=== PATIENT | male | born 1930 | race African-American/Black ===

== ENCOUNTER 2017-07-13 12:26 | Inpatient (IN) | payer MEDICARE, OTHER ==
[~2017-07-13] VITALS: Ht 180.3 cm; Wt 68.7 kg
[~2017-07-13 12:26] MED LIST: DIABETIC MEDS; HTN meds; UNOBMED
[2017-07-13 12:27] VITALS: BP 156/84
--- NOTE | 2017-07-13 12:40 | Emergency Room Report ---
History of Present Illness General Chief Complaint: Altered Mental Status Source: Patient, Family Member, EMS Present Illness HPI Patient is brought in for increased combativeness and altered mentation. The patient states that he is not angry at anyone and denies any pain anyplace. He has trouble with his memory. No alleged fever, vomiting, constipation. He denies dysuria, though unsure if understands questions. H/O DM, HTN, dementia, CAD with prior IN and caths Allergies: Coded Allergies: No Known Allergies (Verified , 02/21/09) Patient History Limited by: medical condition Past Medical History: see triage record, old chart reviewed Social History: Denies: smoking - former Social History Narrative SNF - born [place] Reviewed Nursing Documentation: PMH: Agreed; PSxH: Agreed Nursing Documentation-PMH Past Medical History: No History, Except For Hx Cardiac Problems: Yes Hx Hypertension: Yes Hx Diabetes: Yes Hx Neurological Problems: Yes - Dementia Review of Systems All Other Systems: limited Physical Exam Vital Signs Date Time Temp Pulse Resp B/P (MAP) Pulse Ox O2 Delivery O2 Flow Rate FiO2 07/13/17 12:27 97.1 69 16 156/72 94 Room Air 97.2 Sp02 EP Interpretation: reviewed, abnormal - interpreted as slightly low by me General Appearance: no apparent distress, alert Head: normocephalic Eyes: bilateral eye PERRL, bilateral eye other - severe conjunctivitis and laxity bilateral eyes ENT: moist mucus membranes Neck: supple Respiratory: lungs clear, normal breath sounds Cardiovascular #1: regular rate, rhythm Cardiovascular #2: 2+ radial (R) Gastrointestinal: normal inspection, normal bowel sounds, non tender, no mass, non-distended Musculoskeletal: back normal, no calf tenderness Neurologic: alert, bale coverer III-XII nml as tested, motor weakness - LE - moves UE without difficulty, oriented - X1 Psychiatric: depressed affect, other - poor memory Skin: warm/dry, other - stage 2 decubitus sacrum Medical Decision Making Diagnostic Impression: Primary Impression: Altered mental status Qualified Codes: R41.82 - Altered mental status, unspecified Additional Impressions: Dehydration UTI (urinary tract infection) Qualified Codes: N30.00 - Acute cystitis without hematuria Renal insufficiency ER Course Patient presents with altered mental status. Differential includes acute stroke , acute myocardial infarction, occult infection, electrolyte abnormality, hepatic encephalopathy amongst others. The fact he has asterixis makes the ladder more likely. The patient will be evaluated with EKG, CT of the head, chest x-ray, labs. The patient will be treated with IV hydration and observation. EKG without injury. CXR no infiltrates. CT chronic changes. Labs with renal insufficiency and normal WBC. Pyuria. Antibiotics begun. Some improvement with hydration. Discussed findings with family. Admit medical floor, Dr. Diaz. Laboratory Tests Test 07/13/17 12:55 07/13/17 13:50 White Blood Count 4.4 K/UL (4.8-10.8) L Red Blood Count 4.79 M/UL (4.70-6.10) Hemoglobin 13.3 G/DL (14.2-18.0) L Hematocrit 42.6 % (42.0-52.0) Mean Corpuscular Volume 89 FL (80-99) Mean Corpuscular Hemoglobin 27.7 PG (27.0-31.0) Mean Corpuscular Hemoglobin Concent 31.2 G/DL (32.0-36.0) L Red Cell Distribution Width 14.8 % (11.6-14.8) Platelet Count 149 K/UL (150-450) L Mean Platelet Volume 8.1 FL (6.5-10.1) Neutrophils (%) (Auto) 65.7 % (45.0-75.0) Lymphocytes (%) (Auto) 23.5 % (20.0-45.0) Monocytes (%) (Auto) 8.6 % (1.0-10.0) Eosinophils (%) (Auto) 1.2 % (0.0-3.0) Basophils (%) (Auto) 1.0 % (0.0-2.0) Sodium Level 147 MMOL/L (136-145) H Potassium Level 3.5 MMOL/L (3.5-5.1) Chloride Level 108 MMOL/L (98-107) H Carbon Dioxide Level 30 MMOL/L (21-32) Anion Gap 9 mmol/L (5-15) Blood Urea Nitrogen 36 mg/dL (7-18) H Creatinine 1.7 MG/DL (0.55-1.30) H Estimate Glomerular Filtration Rate mL/min (>60) Glucose Level 328 MG/DL (74-106) H Calcium Level 10.0 MG/DL (8.5-10.1) Total Bilirubin 0.3 MG/DL (0.2-1.0) Aspartate Amino Transferase (AST) 29 U/L (15-37) Alanine Aminotransferase (ALT) 22 U/L (12-78) Alkaline Phosphatase 101 U/L (46-116) Ammonia 18 umol/L (11-32) Total Creatine Kinase 126 U/L (26-308) Troponin I 0.027 ng/mL (0.000-0.056) Total Protein 6.9 G/DL (6.4-8.2) Albumin 3.0 G/DL (3.4-5.0) L Globulin 3.9 g/dL Albumin/Globulin Ratio 0.8 (1.0-2.7) L Thyroid Stimulating Hormone (TSH) 4.326 uiU/mL (0.358-3.740) Salicylates Level 1.7 ug/mL (2.8-20) L Acetaminophen Level < 2 MCG/ML (10-30) L Serum Alcohol < 3 mg/dL Urine Color Pale yellow Urine Appearance Clear Urine pH 6 (4.5-8.0) Urine Specific [place] 1.015 (1.005-1.035) Urine Protein 3+ (NEGATIVE) H Urine Glucose (UA) 3+ (NEGATIVE) H Urine Ketones Negative (NEGATIVE) Urine Occult Blood 1+ (NEGATIVE) H Urine Nitrite Negative (NEGATIVE) Urine Bilirubin Negative (NEGATIVE) Urine Urobilinogen Normal MG/DL (0.0-1.0) Urine Leukocyte Esterase Negative (NEGATIVE) Urine RBC 2-4 /HPF (0 - 0) H Urine WBC 5-10 /HPF (0 - 0) H Urine Squamous Epithelial Cells Occasional /LPF Urine Bacteria Occasional /HPF (NONE) Urine Hyaline Casts 0-2 /LPF (NONE) H Urine Fine Granular Casts 0-2 /LPF (NONE) H Urine Opiates Screen Negative (NEGATIVE) Urine Barbiturates Screen Negative (NEGATIVE) Phencyclidine (PCP) Screen Negative (NEGATIVE) Urine Amphetamines Screen Negative (NEGATIVE) Urine Benzodiazepines Screen Negative (NEGATIVE) Urine Cocaine Screen Negative (NEGATIVE) Urine Marijuana (THC) Screen Negative (NEGATIVE) EKG Diagnostic Results Rate: bradycardiac Rhythm: NSR ST Segments: no acute changes Rhythm Strip Diag. Results EP Interpretation: yes Rhythm: other - Bradycardia 59. PVCs, but bundle-branch block left anterior superior hemiblock. Chest X-Ray Diagnostic Results Chest X-Ray Diagnostic Results : Chest X-Ray Ordered: Yes # of Views/Limited/Complete: 1 View Indication: Other EP Interpretation: Yes Interpretation: no effusion, no pneumothorax, other - inc cor with inc thornton Impression: Other Electronically Signed by: Electronically signed by Osmani Herrmann MD CT/MRI/US Diagnostic Results CT/MRI/US Diagnostic Results : Imaging Test Ordered: head Impression atrophy Last Vital Signs Date Time Temp Pulse Resp B/P (MAP) Pulse Ox O2 Delivery O2 Flow Rate FiO2 07/13/17 20:00 96.4 52 20 147/69 96 96.4 07/13/17 14:21 Room Air Status: improved Disposition: ADMITTED INPATIENT Condition: Serious Osmani Herrmann M.D. July 13, 2017 12:40
[2017-07-13 13:35] LABS: EOSINOPHILS % (AUTO) 1.2 % (0.0-3.0); HEMATOCRIT 42.6 % (42.0-52.0); HEMOGLOBIN 13.3 G/DL (14.2-18.0); LYMPHOCYTES % (AUTO) 23.5 % (20.0-45.0); MEAN CORPUSCULAR VOLUME 89 FL (80-99); MONOCYTES % (AUTO) 8.6 % (1.0-10.0); NEUTROPHILS % (AUTO) 65.7 % (45.0-75.0); PLATELET COUNT 149 K/UL (150-450); RED BLOOD COUNT 4.79 M/UL (4.70-6.10); RED CELL DISTRIBUTION WIDTH 14.8 % (11.6-14.8); WHITE BLOOD COUNT 4.4 K/UL (4.8-10.8)
[2017-07-13] MEDS ORDERED: ASCORBIC ACID500 MG ORAL (13:46)
[2017-07-13] MEDS ORDERED: ATORVASTATIN CA20 MG ORAL (13:46)
[2017-07-13] MEDS ORDERED: ASPIR 8181 MG ORAL (13:46)
[2017-07-13] MEDS ORDERED: ARTIFICIAL TEAR15 ML BOTH EYES (13:46)
[2017-07-13] MEDS ORDERED: ALLOPURINOL100 M1 ORAL (13:46)
[2017-07-13] MEDS ORDERED: DIVALPROEX SOD250 M1 PO (13:47)
[2017-07-13] MEDS ORDERED: COLACE100 MG ORAL (13:47)
[2017-07-13] MEDS ORDERED: COUMADIN4 MG ORAL (13:47)
[2017-07-13] MEDS ORDERED: CALMOSEPTINE1 APPLIC TOPIC (13:47)
[2017-07-13] MEDS ORDERED: MULTIVITAMINS1 EAC8 ORAL (13:51)
[2017-07-13] MEDS ORDERED: FUROSEMIDE40 MG ORAL (13:51)
[2017-07-13] MEDS ORDERED: DULCOLAX10 MG RC (13:51)
[2017-07-13] MEDS ORDERED: MELATONIN3 M2 PO (13:51)
[2017-07-13] MEDS ORDERED: MIRALAX17 G2 ORAL (13:51)
[2017-07-13] MEDS ORDERED: GLIPIZIDE5 MG ORAL (13:51)
--- NOTE | 2017-07-13 13:51 | Diagnostic Imaging Report ---
Indication: Altered level of consciousness Technique: Contiguous 5 mm thick transaxial imaging of the head obtained in a Siemens Sensation [address] scanner. Soft tissue and bone windows generated. Automatic Exposure Control was utilized. Total Dose length Product (DLP): 1446.[address] Dose Index Volume (CTDIvol): 70.38 mGy Comparison: 02/21/2009 Findings: There is mild prominence of the ventricles, basal cisterns, and cerebral sulci consistent with atrophy. Mild, nonspecific, white matter hypoattenuation is noted throughout the brain consistent with chronic small vessel disease. There is no midline shift, edema, acute hemorrhage, mass effect, or abnormal extra-axial fluid collections. Bones and extra osseous soft tissues are unremarkable. Impression: No acute intracranial bleed, mass effect or edema. Mild atrophy of the brain. Nonspecific white matter hypoattenuation probably due to chronic small vessel disease. The CT scanner at [facility] is accredited by the [employer] and the scans are performed using dose optimization techniques as appropriate to a performed exam including Automatic Exposure control.
[2017-07-13] MEDS ORDERED: NAPHCON-A EYE D15 ML OP (13:53)
[2017-07-13] MEDS ORDERED: MILK OF MA400 MG/51 ORAL (13:53)
[2017-07-13] MEDS ORDERED: NOVOLOG100 UNIT/3 SUBQ (13:53)
[2017-07-13] MEDS ORDERED: SEROQUEL25 MG ORAL ×2 (13:53→13:55)
[2017-07-13] MEDS ORDERED: FLOMAX0.4 MG ORAL (13:55)
[2017-07-13] MEDS ORDERED: VITAMIN D-32000 UNI1 PO (13:55)
[2017-07-13] MEDS ORDERED: A & D OINT1 APPLI1 TP (13:55)
[2017-07-13 14:04] LABS: ANION GAP 9 mmol/L (5-15); BLOOD UREA NITROGEN 36 mg/dL (7-18); CARBON DIOXIDE 30 MMOL/L (21-32); CHLORIDE 108 MMOL/L (98-107); CREATININE 1.7 MG/DL (0.55-1.30); POTASSIUM 3.5 MMOL/L (3.5-5.1); SODIUM 147 MMOL/L (136-145)
[2017-07-13 14:06] LABS: APPEARANCE,URINE CLEAR; BILIRUBIN, URINE NEGATIVE (NEGATIVE); COLOR,URINE PALE YELLOW; GLUCOSE, URINE (UA) 3+ (NEGATIVE); KETONES,URINE NEGATIVE (NEGATIVE); LEUKOCYTE ESTERASE ,URINE NEGATIVE (NEGATIVE); NITRITE,URINE NEGATIVE (NEGATIVE); PH,URINE 6 (4.5-8.0); PROTEIN,URINE 3+ (NEGATIVE); UROBILINOGEN,URINE NORMAL MG/DL (0.0-1.0)
[2017-07-13 14:13] LABS: AMMONIA 18 umol/L (11-32)
--- NOTE | 2017-07-13 14:15 | Diagnostic Imaging Report ---
Indication: Dyspnea Comparison: 02/19/2013 A single view chest radiograph was obtained. Findings: Mild basilar atelectasis demonstrated. Heart is mildly enlarged. Pulmonary vascularity is normal. The bones are unremarkable. IMPRESSION: Mild basal atelectasis
[2017-07-13 14:17] LABS: ALANINE AMINOTRANSFERASE 22 U/L (12-78); ALBUMIN/GLOBULIN RATIO 0.8 (1.0-2.7); ALKALINE PHOSPHATASE 101 U/L (46-116); ASPARTATE AMINO TRANSFERASE 29 U/L (15-37); BILIRUBIN,TOTAL 0.3 MG/DL (0.2-1.0); CREATINE KINASE 126 U/L (26-308)
[2017-07-13 14:21] VITALS: BP 153/65
[2017-07-13] MEDS ORDERED: cefTRIAXone 1 GM in NS 55 ML IVPB ONE (14:45)
[2017-07-13 16:00] VITALS: BP 138/79
[2017-07-13] MEDS: Docusate 100mg cap ORAL SCH (18:27)
[2017-07-13 20:00] VITALS: BP 147/69
[2017-07-13] MEDS: Piperacillin/Tazobactam 3.375 GM in NS 110 ML IVPB SCH (21:12)
[2017-07-13] MEDS: Tamsulosin 0.4mg cap ORAL SCH (21:14)
[2017-07-13] MEDS: Heparin 5000 units/ml inj SUBQ SCH (21:17)
[2017-07-13] MEDS: NovoLOG Insulin Flexpen SUBQ SCH (21:18)
[2017-07-14] VITALS: BP 143/92
[2017-07-14 04:00] VITALS: BP 135/62
--- NOTE | 2017-07-14 04:15 | Consultation ---
DATE OF CONSULTATION: 07/13/2017 CARDIOLOGY CONSULTATION CONSULTING PHYSICIAN: Osmani Cevallos M.D. REQUESTING PHYSICIAN: Aleksey Diaz M.D. REASON FOR CONSULTATION: Dehydration in the setting of ischemic cardiomyopathy with left ventricular dysfunction. HISTORY OF PRESENT ILLNESS: This is an 86-year-old male with ischemic heart disease and history of systolic and diastolic dysfunction, who has been convalescing at a [facility] facility over the past few days. He has been increasingly withdrawn, confused, combative, and lethargic at times. His memory has been increasingly poor and he has refused some medications. In the emergency room, several abnormal laboratory studies were noted and I have been asked to assist with further cardiovascular care. PAST MEDICAL HISTORY: 1. Peripheral artery disease status post revascularization of lower extremities. 2. Chronic kidney disease. 3. Insulin-requiring diabetes mellitus. 4. Hypertension with hypertensive heart disease. 5. Coronary artery disease. 6. History of myocardial infarction. 7. Chronic systolic and diastolic congestive heart failure. 8. History of left ventricular thrombus. 9. Cerebrovascular disease with dementia. 10. Chronic obstructive pulmonary disease. 11. Cerebrovascular disease with dementia MEDICATIONS: Prior to admission, reviewed and reconciled. ALLERGIES: None known. FAMILY HISTORY: Noncontributory. SOCIAL HISTORY: Former smoker, 50+ pack years. Moderate alcohol. No substance abuse. REVIEW OF SYSTEMS: No fevers or chills. Occasional cough. No wheezing. He has not been on steroids of late. His most recent echocardiogram revealed ejection fraction in the range of 45% with wall motion abnormalities and apical thrombus. He has not had any exertional chest pain. There is a history of nonsustained atrial and ventricular arrhythmias. He has not complained of claudication of his legs. He also has carotid insufficiency. There is no history of seizures. He does have multi-infarct disease. No change in bowel habits noted. Diabetes controlled with sliding-scale insulin. He does have a history of prostatic hypertrophy, but is voiding adequately. PHYSICAL EXAM: GENERAL: Awake, alert, and in no distress. Cooperative, but withdrawn at times. VITAL SIGNS: Afebrile, blood pressure 156/72, pulse 69, and respirations 16. HEENT: Conjunctival injection. Sclerae anicteric. Oropharynx clear. NECK: Supple. Jugular venous pressure normal. LUNGS: With coarse breath sounds. No wheezing or rales. CARDIAC: Regular rhythm and rate. Normal S1 and S2 with a fourth heart sound. ABDOMEN: Soft and nontender. No bruits. EXTREMITIES: Palpable distal pulses. No edema. NEUROLOGIC: Moderate cognitive impairment. No focal deficits. LABORATORY DATA: White count 4.4 and hemoglobin 13.3. BUN 36, creatinine 1.7, sodium 147, potassium 3.5, and bicarbonate 30. Chest x-ray, no acute process. EKG, sinus with IVCD and possible septal infarction of indeterminate age. Urinalysis with 5 to 10 white cells. IMPRESSION: 1. Toxic and metabolic encephalopathy. 2. Cerebrovascular disease with dementia. 3. Dehydration and hypernatremia. 4. Acute on chronic kidney injury due to hypoperfusion and borderline hypokalemia. 5. Ischemic cardiomyopathy. 6. History of left ventricular thrombus. 7. Type 2 diabetes mellitus. 8. Conjunctivitis. PLAN: 1. Cautious hydration with hypotonic fluids. 2. Hold diuretics. 3. Titrate remainder of cardiovascular regimen. 4. Check echocardiogram. 5. Reassess for anticoagulation. 6. Empiric antibiotics for urinary infection to be considered. 7. We will follow. Osmani Cevallos M.D. DR: YAIMA JOB#: [id number] CC:
[2017-07-14] MEDS: Gentamicin 0.3% Opth Soln 5ml BOTH EYES SCH ×3 (05:56→17:05)
[2017-07-14] MEDS: NovoLOG Insulin Flexpen SUBQ SCH ×4 (05:56→21:06)
[2017-07-14] MEDS: GlipiZIDE 5mg tab ORAL SCH (05:57)
[2017-07-14] MEDS: Piperacillin/Tazobactam 3.375 GM in NS 110 ML IVPB SCH ×3 (08:00→21:09)
[2017-07-14 08:16] LABS: CREATINE KINASE 85 U/L (26-308)
[2017-07-14 08:20] VITALS: BP 131/70
[2017-07-14 08:22] LABS: BASOPHILS % (AUTO) 0.9 % (0.0-2.0); EOSINOPHILS % (AUTO) 0.5 % (0.0-3.0); HEMATOCRIT 40.5 % (42.0-52.0); HEMOGLOBIN 13.1 G/DL (14.2-18.0); LYMPHOCYTES % (AUTO) 25.7 % (20.0-45.0); MEAN CORPUSCULAR VOLUME 89 FL (80-99); MONOCYTES % (AUTO) 6.7 % (1.0-10.0); NEUTROPHILS % (AUTO) 66.1 % (45.0-75.0); PLATELET COUNT 142 K/UL (150-450); RED BLOOD COUNT 4.55 M/UL (4.70-6.10); RED CELL DISTRIBUTION WIDTH 14.9 % (11.6-14.8); WHITE BLOOD COUNT 3.6 K/UL (4.8-10.8)
[2017-07-14 08:30] LABS: ALANINE AMINOTRANSFERASE 22 U/L (12-78); ALBUMIN 2.9 G/DL (3.4-5.0); ALBUMIN/GLOBULIN RATIO 0.9 (1.0-2.7); ALKALINE PHOSPHATASE 90 U/L (46-116); ANION GAP 7 mmol/L (5-15); ASPARTATE AMINO TRANSFERASE 21 U/L (15-37); BILIRUBIN,TOTAL 0.4 MG/DL (0.2-1.0); BLOOD UREA NITROGEN 27 mg/dL (7-18); CALCIUM 9.6 MG/DL (8.5-10.1); CARBON DIOXIDE 30 MMOL/L (21-32); CHLORIDE 109 MMOL/L (98-107); CHOLESTEROL 165 MG/DL (< 200); CREATININE 1.5 MG/DL (0.55-1.30); HDL CHOLESTEROL 109 MG/DL (40-60); POTASSIUM 3.7 MMOL/L (3.5-5.1); SODIUM 146 MMOL/L (136-145); TRIGLYCERIDES 30 MG/DL (30-150)
[2017-07-14] MEDS: Heparin 5000 units/ml inj SUBQ SCH ×2 (09:00→20:55)
[2017-07-14] MEDS: Aspirin Baby 81mg ORAL SCH (09:00)
[2017-07-14] MEDS: Docusate 100mg cap ORAL SCH ×3 (09:00→17:06)
[2017-07-14] MEDS ORDERED: Furosemide 40mg tab ORAL SCH (09:00)
[2017-07-14] MEDS: Ascorbic Acid 500mg tab ORAL SCH (09:23)
[2017-07-14] MEDS: Allopurinol 100mg Tab ORAL SCH (09:23)
[2017-07-14] MEDS ORDERED: Haloperidol 5mg/ml Inj IM ONE (10:00)
[2017-07-14] MEDS ORDERED: Haloperidol Lactate 5 MG in D5W 55 ML IVPB PRN (11:00)
[2017-07-14] MEDS: Haloperidol 5mg/ml Inj IM PRN ×2 (11:50→20:59)
[2017-07-14 12:00] VITALS: BP 123/72
[2017-07-14 15:52] VITALS: BP 138/71
--- NOTE | 2017-07-14 16:47 | History and Physical Report ---
DATE OF ADMISSION: 07/13/2017 CHIEF COMPLAINT: Altered mental status, dehydration and UTI. HISTORY OF PRESENT ILLNESS: The patient is a pleasant 86-year-old male. He has a history of dementia, hypertension, chronic kidney disease, diabetes, he has a history of CHF, he has a prior history of LV thrombus. He was transferred from a half-way facility with complaints of altered mental status, agitation. On evaluation in the emergency room, the patient had elevated sodium. He had also elevated creatinine and evidence of urinary tract infection. He has been started on IV hydration and antibiotics. He is now admitted for further evaluation and care. He is confused. He is unable to provide any history. PAST MEDICAL HISTORY: As above. PAST SURGICAL HISTORY: None. CURRENT MEDICATIONS: Reconciled and reviewed. ALLERGIES: None. FAMILY HISTORY: None. SOCIAL HISTORY: There is no known history of tobacco, ethanol, or drugs. REVIEW OF SYSTEMS: GENERAL: No fevers or chills. HEENT: No headaches or visual changes. CARDIOPULMONARY: No chest pain or shortness of breath. GASTROINTESTINAL: No nausea or vomiting. GENITOURINARY: No urgency or frequency. MUSCULOSKELETAL: No joint pain or swelling. NEUROLOGIC: No evidence of seizures. PHYSICAL EXAMINATION: GENERAL: The patient is well developed, no apparent distress. VITAL SIGNS: Temperature 96 degrees, pulse 50, respirations 20, and blood pressure 135/62. HEART: Regular rate and rhythm. LUNGS: Clear. ABDOMEN: Soft, nontender and nondistended. EXTREMITIES: No clubbing, cyanosis, or edema. LABORATORY AND DIAGNOSTIC DATA: Sodium 147, BUN 36, creatinine 1.7 and glucose 326. Troponin is 0.027. TSH was 4.3. UA showed 5 to 10 wbc's. White count was 4 and hemoglobin 13. ASSESSMENT: This is a pleasant elderly male, admitted with complaints of altered mental status likely multifactorial secondary to urinary tract infection and dehydration. He has a history of hypertensive heart disease, chronic kidney disease, LV thrombus and peripheral artery disease. PLAN: IV hydration with hypotonic fluids. IV antibiotics. Follow up cultures. Cardiology and Psychiatric consultations. PT/OT evaluation also to be obtained. Aleksey Diaz M.D. DR: OLIVA JOB#: [id number] CC:
--- NOTE | 2017-07-14 17:28 | Consultation ---
History of Present Illness General Date patient seen: July 14, 2017 Chief Complaint: Altered Mental Status Present Illness HPI 86-year-old aa male with history of dementia, hypertension, chronic kidney disease, diabetes, and CHF, he came in due to ams. the pt is confused and agitated. uncooperative with staff. has a sitter and fights staff. the pt has waxing and waning of consciousness. he was unable to provide hx. the pt lacks capacity. Allergies: Coded Allergies: No Known Allergies (Verified , 02/21/09) Medication History Scheduled Allopurinol* (Allopurinol*), 100 MG ORAL DAILY, (Reported) Ascorbic Acid* (Ascorbic Acid*), 500 MG ORAL DAILY, (Reported) Aspirin* (Aspir 81*), 81 MG ORAL DAILY, (Reported) Atorvastatin Calcium* (Atorvastatin Calcium*), 10 MG ORAL BEDTIME, (Reported) Bisacodyl (Dulcolax), 10 MG RC NEEDED, (Reported) Cholecalciferol (Vitamin D3) (Vitamin D-3), 2,000 UNIT PO DAILY, (Reported) Dextran 70/Hypromellose (Artificial Tears Eye Drops*), 1 DROP BOTH EYES BEDTIME, (Reported) Divalproex Sodium (Divalproex Sodium Er), 125 MG PO BID, (Reported) Docusate Sodium* (Colace*), 100 MG ORAL TWICE A DAY, (Reported) Furosemide* (Lasix*), 40 MG ORAL DAILY, (Reported) Glipizide* (Glipizide*), 5 MG ORAL DAILY, (Reported) Menthol (Calmoseptine Ointment), 1 APPLIC TOPIC DAILY, (Reported) Multivitamin With Minerals (Multivitamins With Minerals*), 1 TAB ORAL DAILY, ( Reported) Quetiapine Fumarate* (Seroquel*), 25 MG ORAL DAILY, (Reported) Quetiapine Fumarate* (Seroquel*), 50 MG ORAL BEDTIME, (Reported) Tamsulosin HCl (Flomax), 0.4 MG ORAL BEDTIME, (Reported) Vitamin A & D (Vitamin A & D Ointment), 1 APPLIC TP NEEDED, (Reported) Warfarin Sod* (Coumadin*), 4 MG ORAL DAILY, (Reported) Scheduled PRN Magnesium Hydroxide* (Milk Of Magnesia*), 30 ML ORAL DAILY PRN for Constipation, (Reported) Melatonin (Melatonin), 6 MG PO BEDTIME PRN for INSONMIA, (Reported) Naphazoline Hcl/Phenir Mal (Naphcon-A Eye Drops), 15 ML OP NEEDED PRN for REDNESS, (Reported) Polyethylene Glycol 3350* (Miralax*), 17 GM ORAL DAILY PRN for Constipation, ( Reported) Miscellaneous Medications Insulin Aspart* (Novolog*), 0 SUBQ, (Reported) Unable to Obtain Medications (Unable To Obtain Meds), (Reported) [Diabetic meds], (Reported) [HTN meds], (Reported) Patient History Limited by: medical condition History Provided By: Patient, Medical Record, PMD Healthcare decision maker Resuscitation status Full Code Advanced Directive on File Past Medical/Surgical History Past Medical/Surgical History: (1) Chest pain (2) Dehydration (3) Renal insufficiency (4) UTI (urinary tract infection) (5) Altered mental status Review of Systems Psychiatric: Reports: anxiety, depressed feelings, emotional problems, hallucinations Physical Exam General Appearance: no apparent distress, alert, confused, agitated Last 24 Hour Vital Signs Date Time Temp Pulse Resp B/P (MAP) Pulse Ox O2 Delivery O2 Flow Rate FiO2 07/14/17 15:52 97.3 56 20 138/71 94 97.3 07/14/17 12:00 95.4 65 20 123/72 94 95.4 07/14/17 08:20 98.6 79 18 131/70 Room Air 98.6 07/14/17 04:00 96.6 50 20 135/62 100 96.6 07/14/17 00:00 96.4 51 20 143/92 98 96.4 07/13/17 20:00 96.4 52 20 147/69 96 96.4 Intake and Output 07/13/17 07/14/17 19:00 07:00 Intake Total 360 ml 675 ml Balance 360 ml 675 ml Intake Oral 360 ml IV Total 675 ml # Voids 1 2 Laboratory Tests Test 07/14/17 07:15 White Blood Count 3.6 K/UL (4.8-10.8) L Red Blood Count 4.55 M/UL (4.70-6.10) L Hemoglobin 13.1 G/DL (14.2-18.0) L Hematocrit 40.5 % (42.0-52.0) L Mean Corpuscular Volume 89 FL (80-99) Mean Corpuscular Hemoglobin 28.8 PG (27.0-31.0) Mean Corpuscular Hemoglobin Concent 32.3 G/DL (32.0-36.0) Red Cell Distribution Width 14.9 % (11.6-14.8) H Platelet Count 142 K/UL (150-450) L Mean Platelet Volume 8.5 FL (6.5-10.1) Neutrophils (%) (Auto) 66.1 % (45.0-75.0) Lymphocytes (%) (Auto) 25.7 % (20.0-45.0) Monocytes (%) (Auto) 6.7 % (1.0-10.0) Eosinophils (%) (Auto) 0.5 % (0.0-3.0) Basophils (%) (Auto) 0.9 % (0.0-2.0) Sodium Level 146 MMOL/L (136-145) H Potassium Level 3.7 MMOL/L (3.5-5.1) Chloride Level 109 MMOL/L (98-107) H Carbon Dioxide Level 30 MMOL/L (21-32) Anion Gap 7 mmol/L (5-15) Blood Urea Nitrogen 27 mg/dL (7-18) H Creatinine 1.5 MG/DL (0.55-1.30) H Estimat Glomerular Filtration Rate mL/min (>60) Glucose Level 121 MG/DL (74-106) #H Uric Acid 5.1 MG/DL (2.6-7.2) Calcium Level 9.6 MG/DL (8.5-10.1) Magnesium Level 1.7 MG/DL (1.8-2.4) L Total Bilirubin 0.4 MG/DL (0.2-1.0) Aspartate Amino Transf (AST/SGOT) 21 U/L (15-37) Alanine Aminotransferase (ALT/SGPT) 22 U/L (12-78) Alkaline Phosphatase 90 U/L (46-116) Total Creatine Kinase 85 U/L (26-308) Pro-B-Type Natriuretic Peptide 1345 pg/mL (0-125) H Total Protein 6.1 G/DL (6.4-8.2) L Albumin 2.9 G/DL (3.4-5.0) L Globulin 3.2 g/dL Albumin/Globulin Ratio 0.9 (1.0-2.7) L Triglycerides Level 30 MG/DL (30-150) Cholesterol Level 165 MG/DL (< 200) LDL Cholesterol 51 mg/dL (<100) HDL Cholesterol 109 MG/DL (40-60) H Cholesterol/HDL Ratio 1.5 (3.3-4.4) L Height (Feet): 5 Height (Inches): 11.00 Weight (Pounds): 178 Medications Current Medications Medications (Trade) Dose Ordered Sig/Bird Route PRN Reason Start Time Stop Time Status Last Admin Dose Admin Allopurinol (Zyloprim) 100 mg DAILY ORAL 07/14/17 09:00 08/13/17 08:59 07/14/17 09:23 Ascorbic Acid (Vitamin C) 500 mg DAILY ORAL 07/14/17 09:00 08/13/17 08:59 07/14/17 09:23 Aspirin (ASA) 81 mg DAILY ORAL 07/14/17 09:00 08/13/17 08:59 Atorvastatin Calcium (Lipitor) 10 mg BEDTIME ORAL 07/13/17 21:00 08/12/17 20:59 07/13/17 21:14 Dextrose (Dextrose 50%) 25 ml STAT PRN IV Hypoglycemia 07/13/17 18:15 08/12/17 18:14 Dextrose (Dextrose 50%) 50 ml STAT PRN IV Hypoglycemia 07/13/17 18:15 08/12/17 18:14 Divalproex Sodium (Depakote) 125 mg EVERY 12 HOURS ORAL 07/13/17 21:00 08/12/17 20:59 07/13/17 21:14 Docusate Sodium (Colace) 100 mg TWICE A DAY ORAL 07/13/17 18:00 08/12/17 17:59 07/13/17 18:27 Gentamicin Sulfate (Garamycin 0.3% Opt Soln) 1 drop EVERY 6 HOURS BOTH EYES 07/14/17 06:00 07/21/17 05:59 Glipizide (Glucotrol) 5 mg ACBREAKFAST ORAL 07/14/17 06:30 08/13/17 06:29 07/14/17 05:57 Haloperidol Lactate (Haldol) 5 mg Q6H PRN IM Agitation 07/14/17 11:30 08/13/17 11:29 07/14/17 11:50 Heparin Sodium (Porcine) (Heparin 5000 units/ml) 5,000 units EVERY 12 HOURS SUBQ 07/13/17 21:00 08/12/17 20:59 07/13/17 21:17 Insulin Aspart (NovoLOG) BEFORE MEALS AND HS SUBQ 07/13/17 21:00 08/12/17 20:59 07/13/17 21:18 Multivitamins (Multivitamins) 1 tab DAILY ORAL 07/14/17 09:00 08/13/17 08:59 07/14/17 09:23 Olanzapine (ZyPREXA) 5 mg BEDTIME ORAL 07/14/17 21:00 08/13/17 20:59 Piperacillin Sod/ Tazobactam Sod 3.375 gm/Sodium Chloride 110 ml @ 27.5 mls/hr Q12H IVPB 07/13/17 20:00 07/20/17 19:59 07/13/17 21:12 Sodium Chloride 1,000 ml @ 75 mls/hr [id number] IV 07/13/17 18:00 08/12/17 17:59 07/13/17 18:28 Tamsulosin HCl (Flomax) 0.4 mg BEDTIME ORAL 07/13/17 21:00 08/12/17 20:59 07/13/17 21:14 Assessment/Plan Assessment/Plan dementia with behavioral dist encephalopathy -zyprexa 5mg qhs -haldol prn -dc seroquel -the pt lacks capacity to make decisions So Navas M.D. July 14, 2017 17:28
[2017-07-14 20:00] VITALS: BP 156/81
[2017-07-14] MEDS: Tamsulosin 0.4mg cap ORAL SCH (20:55)
--- NOTE | 2017-07-14 22:46 | Consultation ---
DATE OF CONSULTATION: 07/13/2017 INFECTIOUS DISEASE CONSULTATION This consult is for coverage of Dr. Florence. CONSULTING PHYSICIAN: Jt Gallo M.D. PRIMARY ATTENDING PHYSICIAN: Aleksey Diaz M.D. REASON FOR CONSULT: Pyuria and UTI. HISTORY OF PRESENT ILLNESS: The patient is an 86-year-old, male, admitted yesterday from a senior care facility because of altered mental status. The patient was combative with no fever or chills. The patient has pyuria. PAST MEDICAL HISTORY: Significant for diabetes mellitus, hypertension, dementia, coronary artery disease, chronic kidney disease, history of acute myocardial infarction, and has dysphagia, oropharyngeal phase. MEDICATIONS: Zyprexa, Haldol, multivitamin, allopurinol, vitamin C, glipizide, aspirin, gentamicin ophthalmic, Flomax, atorvastatin, Depakote, insulin, heparin, Zosyn, and Colace. ALLERGIES: No known drug allergy. SOCIAL HISTORY: , [facility] resident. Has history of 15+ year smoking in the past. REVIEW OF SYSTEMS: Unobtainable. The patient currently is asleep. PHYSICAL EXAMINATION: VITAL SIGNS: Temperature 95.4 degrees, pulse 65, blood pressure 123/72. GENERAL APPEARANCE: No acute distress. HEART: S1 and S2 regular. LUNGS: Clear. ABDOMEN: Soft and nontender. EXTREMITIES: He has no edema. He has some muscle atrophy. LABORATORY AND DIAGNOSTIC DATA: WBC 3.6, hemoglobin 13.1, hematocrit 30.5, and platelets 142. Sodium 146, potassium 3.7, chloride 109, bicarbonate 30, BUN 27, creatinine 1.5, and glucose is 121. Glucose at the time of admission was 328. BNP 1345. Albumin is 2.9. UA showed wbc of 5 to 10, rbc of 2 to 4, glucose 3+ positive, and protein 3+ positive. Chest x-ray showed mild bibasilar atelectasis. Head CT - no acute finding, mild atrophy. IMPRESSION: Altered mental status, likely secondary to urinary tract infection. The patient also has conjunctivitis, has diabetes mellitus, hypertension, dementia, COPD, and history of cardiac problems with past medical history of myocardial infarction. RECOMMENDATION: We will continue with IV Zosyn and topical gentamicin eye drops. We will follow up the cultures. At the end of my exam, I thank Dr. Diaz for involving me in the care of this patient. Jt Gallo M.D. DR: MELITA JOB#: [id number] CC: ALLY
[2017-07-15] VITALS: BP 148/79
--- NOTE | 2017-07-15 00:01 | Progress Note ---
DATE: 07/14/2017 SUBJECTIVE: The patient remains increasingly agitated and still confused from his baseline. He has been started on neuroleptics. OBJECTIVE: VITAL SIGNS: Blood pressure 131/70, pulse 79, respirations 18, and afebrile. NECK: Supple. LUNGS: Clear. CARDIAC: Regular rhythm and rate. Normal S1, S2 with a fourth heart sound. ABDOMEN: Soft. EXTREMITIES: No edema. LABORATORY DATA: White count 3.6 and hemoglobin 13.1. Sodium 146, potassium 3.7, chloride 109, BUN 27, and creatinine 1.5. Albumin 2.9. LDL cholesterol 51. TSH 4.3. IMPRESSION: 1. Toxic and metabolic encephalopathies. 2. Dehydration. 3. Hypernatremia. 4. Acute on chronic kidney injury due to hypovolemia, improving. 5. Hypomagnesemia. 6. Moderate protein-calorie malnutrition. 7. Borderline hypothyroid state. 8. Ischemic cardiomyopathy with history of left ventricular thrombus. 9. Chronic systolic and diastolic congestive heart failure. 10. Peripheral artery disease with distant history of revascularization. PLAN: 1. Hold diuretics. 2. Maintain adequate hydration with hypotonic fluids. 3. Replace magnesium. 4. Psychiatric followup regarding neuroleptic therapy. 5. Recheck thyroid function in the next several weeks and reassess need for replacement therapy. 6. Protein supplementation. Osmani Cevallos M.D. DR: YAIMA JOB#: [id number] CC:
[2017-07-15] MEDS: Gentamicin 0.3% Opth Soln 5ml BOTH EYES SCH ×4 (00:07→17:11)
[2017-07-15 04:00] VITALS: BP 151/74
[2017-07-15] MEDS: Piperacillin/Tazobactam 3.375 GM in NS 110 ML IVPB SCH ×3 (04:01→22:23)
[2017-07-15] MEDS: NovoLOG Insulin Flexpen SUBQ SCH ×4 (05:30→22:13)
[2017-07-15] MEDS: GlipiZIDE 5mg tab ORAL SCH (05:30)
[2017-07-15 08:00] VITALS: BP 130/56
--- NOTE | 2017-07-15 08:11 | General Progress Note ---
Assessment/Plan Problem List: (1) Dehydration ICD Codes: E86.0 - Dehydration SNOMED: 94448477, 166625829 (2) Renal insufficiency ICD Codes: N28.9 - Disorder of kidney and ureter, unspecified SNOMED: 440957501, 858706754 (3) UTI (urinary tract infection) ICD Codes: N39.0 - Urinary tract infection, site not specified SNOMED: 25942625, 789853604 Qualifiers: Qualified Codes: N30.00 - Acute cystitis without hematuria (4) Altered mental status ICD Codes: R41.82 - Altered mental status, unspecified SNOMED: 188465694 Qualifiers: Qualified Codes: R41.82 - Altered mental status, unspecified (5) Chest pain Status: stable Assessment/Plan cont ivf follow up labs abx follow up cultures psych rx not ready for dc- Subjective ROS Limited/Unobtainable: Yes Constitutional: Reports: malaise, weakness HEENT: Reports: no symptoms Cardiovascular: Reports: no symptoms Respiratory: Reports: no symptoms Gastrointestinal/Abdominal: Reports: no symptoms Genitourinary: Reports: no symptoms Neurologic/Psychiatric: Reports: anxiety, emotional problems Endocrine: Reports: no symptoms Hematologic/Lymphatic: Reports: no symptoms Allergies: Coded Allergies: No Known Allergies (Verified , 02/21/09) All Systems: reviewed and negative except above Subjective remains agitated and confused. combative. constantly trying to get out of bed. Objective Last 24 Hour Vital Signs Date Time Temp Pulse Resp B/P (MAP) Pulse Ox O2 Delivery O2 Flow Rate FiO2 07/15/17 04:00 97.7 66 18 151/74 98 97.7 07/15/17 04:00 98 Room Air 07/15/17 00:00 97.7 63 18 148/79 97 97.7 07/15/17 00:00 97 Room Air 07/14/17 22:17 94 Room Air 07/14/17 20:00 97.9 57 19 156/81 97 97.9 07/14/17 15:52 97.3 56 20 138/71 94 97.3 07/14/17 12:00 95.4 65 20 123/72 94 95.4 07/14/17 08:20 98.6 79 18 131/70 Room Air 98.6 Intake and Output 07/14/17 07/15/17 19:00 07:00 Intake Total 180 ml 617.5 ml Balance 180 ml 617.5 ml Intake Oral 180 ml IV Total 617.5 ml # Voids 1 3 Height (Feet): 5 Height (Inches): 11.00 Weight (Pounds): 178 General Appearance: WD/WN, lethargic, confused, combative Neck: supple Cardiovascular: regular rhythm Respiratory/Chest: chest wall non-tender, lungs clear, normal breath sounds, no respiratory distress Abdomen: normal bowel sounds, non tender, soft, no organomegaly Edema: no edema noted Arm (L), no edema noted Arm (R), no edema noted Leg (L), no edema noted Leg (R), no edema noted Pedal (L), no edema noted Pedal (R), no edema noted Generalized Aleksey Diaz MD Jul 15, 2017 08:11
[2017-07-15 08:19] LABS: BASOPHILS % (AUTO) 1.1 % (0.0-2.0); EOSINOPHILS % (AUTO) 2.4 % (0.0-3.0); HEMATOCRIT 41.1 % (42.0-52.0); HEMOGLOBIN 13.6 G/DL (14.2-18.0); LYMPHOCYTES % (AUTO) 38.2 % (20.0-45.0); MEAN CORPUSCULAR VOLUME 88 FL (80-99); MONOCYTES % (AUTO) 8.9 % (1.0-10.0); NEUTROPHILS % (AUTO) 49.4 % (45.0-75.0); PLATELET COUNT 154 K/UL (150-450); RED BLOOD COUNT 4.69 M/UL (4.70-6.10); WHITE BLOOD COUNT 4.1 K/UL (4.8-10.8)
[2017-07-15 08:34] LABS: ALANINE AMINOTRANSFERASE 24 U/L (12-78); ALBUMIN 2.8 G/DL (3.4-5.0); ALBUMIN/GLOBULIN RATIO 0.7 (1.0-2.7); ALKALINE PHOSPHATASE 89 U/L (46-116); ANION GAP 8 mmol/L (5-15); ASPARTATE AMINO TRANSFERASE 26 U/L (15-37); BILIRUBIN,TOTAL 0.6 MG/DL (0.2-1.0); BLOOD UREA NITROGEN 17 mg/dL (7-18); CALCIUM 9.9 MG/DL (8.5-10.1); CARBON DIOXIDE 27 MMOL/L (21-32); CHLORIDE 107 MMOL/L (98-107); CREATININE 1.3 MG/DL (0.55-1.30); POTASSIUM 3.4 MMOL/L (3.5-5.1); SODIUM 142 MMOL/L (136-145)
[2017-07-15] MEDS: Docusate 100mg cap ORAL SCH ×2 (09:26→17:10)
[2017-07-15] MEDS: Allopurinol 100mg Tab ORAL SCH (09:26)
[2017-07-15] MEDS: Aspirin Baby 81mg ORAL SCH (09:26)
[2017-07-15] MEDS: Ascorbic Acid 500mg tab ORAL SCH (09:26)
[2017-07-15] MEDS: Heparin 5000 units/ml inj SUBQ SCH ×2 (09:27→21:04)
--- NOTE | 2017-07-15 09:27 | Diagnostic Imaging Report ---
Indication: Altered level of consciousness Technique: Contiguous 5 mm thick transaxial imaging of the head obtained in a Siemens Sensation [address] scanner. Soft tissue and bone windows generated. Automatic Exposure Control was utilized. Total Dose length Product (DLP): 1435.[address] Dose Index Volume (CTDIvol): 70.38 mGy Comparison: 07/13/2017 Findings: There is moderate prominence of the ventricles, basal cisterns, and cerebral sulci consistent with atrophy. Moderate, nonspecific, white matter hypoattenuation is noted throughout the brain consistent with chronic small vessel disease. There is no midline shift, edema, acute hemorrhage, mass effect, or abnormal extra-axial fluid collections. Bones and extra osseous soft tissues are unremarkable. Impression: No acute intracranial bleed, mass effect or edema. Moderate atrophy of the brain. Evidence of chronic small vessel disease involving white matter tracts. The CT scanner at [facility] is accredited by the [employer] [employer] and the scans are performed using dose optimization techniques as appropriate to a performed exam including Automatic Exposure control.
--- NOTE | 2017-07-15 11:25 | Infectious Diseases Prog Note ---
Assessment/Plan Assessment/Plan antibiotics ; zosyn, gentamicin drops A 1. UTI 2. conjunctivitis 3. diabetes mellitus 4. hypertension 5. COPD 6. dementia P 1. continue zosyn 2. continue gentamicin eye drops 3. will follow up cultures Subjective ROS Limited/Unobtainable: Yes Allergies: Coded Allergies: No Known Allergies (Verified , 02/21/09) Objective Vital Signs Last 24 Hour Vital Signs Date Time Temp Pulse Resp B/P (MAP) Pulse Ox O2 Delivery O2 Flow Rate FiO2 07/15/17 08:00 97.0 64 18 130/56 98 97.0 07/15/17 04:00 97.7 66 18 151/74 98 97.7 07/15/17 04:00 98 Room Air 07/15/17 00:00 97.7 63 18 148/79 97 97.7 07/15/17 00:00 97 Room Air 07/14/17 22:17 94 Room Air 07/14/17 20:00 97.9 57 19 156/81 97 97.9 07/14/17 15:52 97.3 56 20 138/71 94 97.3 07/14/17 12:00 95.4 65 20 123/72 94 95.4 Height (Feet): 5 Height (Inches): 11.00 Weight (Pounds): 178 Respiratory/Chest: lungs clear Cardiovascular: normal rate, regular rhythm, no gallop/murmur Abdomen: soft, non tender Extremities: no edema Laboratory Tests Test 07/15/17 07:17 White Blood Count 4.1 K/UL (4.8-10.8) L Red Blood Count 4.69 M/UL (4.70-6.10) L Hemoglobin 13.6 G/DL (14.2-18.0) L Hematocrit 41.1 % (42.0-52.0) L Mean Corpuscular Volume 88 FL (80-99) Mean Corpuscular Hemoglobin 29.0 PG (27.0-31.0) Mean Corpuscular Hemoglobin Concent 33.1 G/DL (32.0-36.0) Red Cell Distribution Width 15.0 % (11.6-14.8) H Platelet Count 154 K/UL (150-450) Mean Platelet Volume 8.3 FL (6.5-10.1) Neutrophils (%) (Auto) 49.4 % (45.0-75.0) Lymphocytes (%) (Auto) 38.2 % (20.0-45.0) Monocytes (%) (Auto) 8.9 % (1.0-10.0) Eosinophils (%) (Auto) 2.4 % (0.0-3.0) Basophils (%) (Auto) 1.1 % (0.0-2.0) Sodium Level 142 MMOL/L (136-145) Potassium Level 3.4 MMOL/L (3.5-5.1) L Chloride Level 107 MMOL/L (98-107) Carbon Dioxide Level 27 MMOL/L (21-32) Anion Gap 8 mmol/L (5-15) Blood Urea Nitrogen 17 mg/dL (7-18) Creatinine 1.3 MG/DL (0.55-1.30) Estimat Glomerular Filtration Rate mL/min (>60) Glucose Level 135 MG/DL (74-106) H Calcium Level 9.9 MG/DL (8.5-10.1) Total Bilirubin 0.6 MG/DL (0.2-1.0) Aspartate Amino Transf (AST/SGOT) 26 U/L (15-37) Alanine Aminotransferase (ALT/SGPT) 24 U/L (12-78) Alkaline Phosphatase 89 U/L (46-116) Total Protein 6.6 G/DL (6.4-8.2) Albumin 2.8 G/DL (3.4-5.0) L Globulin 3.8 g/dL Albumin/Globulin Ratio 0.7 (1.0-2.7) L Current Medications Medications (Trade) Dose Ordered Sig/Bird Route PRN Reason Start Time Stop Time Status Last Admin Dose Admin Allopurinol (Zyloprim) 100 mg DAILY ORAL 07/14/17 09:00 08/13/17 08:59 07/15/17 09:26 Ascorbic Acid (Vitamin C) 500 mg DAILY ORAL 07/14/17 09:00 08/13/17 08:59 07/15/17 09:26 Aspirin (ASA) 81 mg DAILY ORAL 07/14/17 09:00 08/13/17 08:59 07/15/17 09:26 Atorvastatin Calcium (Lipitor) 10 mg BEDTIME ORAL 07/13/17 21:00 08/12/17 20:59 07/14/17 20:55 Dextrose (Dextrose 50%) 25 ml STAT PRN IV Hypoglycemia 07/13/17 18:15 08/12/17 18:14 Dextrose (Dextrose 50%) 50 ml STAT PRN IV Hypoglycemia 07/13/17 18:15 08/12/17 18:14 Divalproex Sodium (Depakote) 125 mg EVERY 12 HOURS ORAL 07/13/17 21:00 08/12/17 20:59 07/15/17 09:25 Docusate Sodium (Colace) 100 mg TWICE A DAY ORAL 07/13/17 18:00 08/12/17 17:59 07/15/17 09:26 Gentamicin Sulfate (Garamycin 0.3% Opt Sol) 1 drop EVERY 6 HOURS BOTH EYES 07/14/17 06:00 07/21/17 05:59 07/15/17 05:30 Glipizide (Glucotrol) 5 mg ACBREAKFAST ORAL 07/14/17 06:30 08/13/17 06:29 07/15/17 05:30 Haloperidol Lactate (Haldol) 5 mg Q6H PRN IM Agitation 07/14/17 11:30 08/13/17 11:29 07/14/17 20:59 Heparin Sodium (Porcine) (Heparin 5000 units/ml) 5,000 units EVERY 12 HOURS SUBQ 07/13/17 21:00 08/12/17 20:59 07/15/17 09:27 Insulin Aspart (NovoLOG) BEFORE MEALS AND HS SUBQ 07/13/17 21:00 08/12/17 20:59 07/15/17 05:30 Multivitamins (Multivitamins) 1 tab DAILY ORAL 07/14/17 09:00 08/13/17 08:59 07/15/17 09:26 Olanzapine (ZyPREXA) 5 mg BEDTIME ORAL 07/14/17 21:00 08/13/17 20:59 07/14/17 20:55 Piperacillin Sod/ Tazobactam Sod 3.375 gm/Sodium Chloride 110 ml @ 27.5 mls/hr Q8HR IVPB 07/14/17 22:00 07/21/17 21:59 07/15/17 04:01 Sodium Chloride 1,000 ml @ 75 mls/hr [id number] IV 07/13/17 18:00 08/12/17 17:59 07/15/17 10:36 Tamsulosin HCl (Flomax) 0.4 mg BEDTIME ORAL 07/13/17 21:00 08/12/17 20:59 07/14/17 20:55 CHIKIS PARADA Jul 15, 2017 11:25
[2017-07-15 12:00] VITALS: BP 138/77
--- NOTE | 2017-07-15 12:06 | General Progress Note ---
Assessment/Plan Status: stable, progressing Assessment/Plan dementia with behavioral dist encephalopathy -zyprexa 5mg qhs -haldol prn -dc seroquel -the pt lacks capacity to make decisions Subjective Date patient seen: Jul 15, 2017 Neurologic/Psychiatric: Reports: anxiety, depressed, emotional problems Allergies: Coded Allergies: No Known Allergies (Verified , 02/21/09) Subjective the pt is calmer no behaviors answers the questions Objective Last 24 Hour Vital Signs Date Time Temp Pulse Resp B/P (MAP) Pulse Ox O2 Delivery O2 Flow Rate FiO2 07/15/17 08:00 97.0 64 18 130/56 98 97.0 07/15/17 04:00 97.7 66 18 151/74 98 97.7 07/15/17 04:00 98 Room Air 07/15/17 00:00 97.7 63 18 148/79 97 97.7 07/15/17 00:00 97 Room Air 07/14/17 22:17 94 Room Air 07/14/17 20:00 97.9 57 19 156/81 97 97.9 07/14/17 15:52 97.3 56 20 138/71 94 97.3 Intake and Output 07/14/17 07/15/17 19:00 07:00 Intake Total 180 ml 617.5 ml Balance 180 ml 617.5 ml Intake Oral 180 ml IV Total 617.5 ml # Voids 1 3 Laboratory Tests 07/15/17 07:17: White Blood Count 4.1L, Red Blood Count 4.69L, Hemoglobin 13.6L, Hematocrit 41.1L, Mean Corpuscular Volume 88, Mean Corpuscular Hemoglobin 29.0, Mean Corpuscular Hemoglobin Concent 33.1, Red Cell Distribution Width 15.0H, Platelet Count 154, Mean Platelet Volume 8.3, Neutrophils (%) (Auto) 49.4, Lymphocytes (%) (Auto) 38.2, Monocytes (%) (Auto) 8.9, Eosinophils (%) (Auto) 2.4, Basophils (%) (Auto) 1.1, Sodium Level 142, Potassium Level 3.4L, Chloride Level 107, Carbon Dioxide Level 27, Anion Gap 8, Blood Urea Nitrogen 17, Creatinine 1.3, Estimat Glomerular Filtration Rate , Glucose Level 135H, Calcium Level 9.9, Total Bilirubin 0.6, Aspartate Amino Transf (AST/SGOT) 26, Alanine Aminotransferase (ALT/SGPT) 24, Alkaline Phosphatase 89, Total Protein 6.6, Albumin 2.8L, Globulin 3.8, Albumin/Globulin Ratio 0.7L Height (Feet): 5 Height (Inches): 11.00 Weight (Pounds): 178 General Appearance: WD/WN, no apparent distress, alert So Navas M.D. Jul 15, 2017 12:06
[2017-07-15] MEDS: Haloperidol 5mg/ml Inj IM PRN ×2 (14:28→22:14)
[2017-07-15 16:00] VITALS: BP 162/95
--- NOTE | 2017-07-15 17:17 | Progress Note ---
DATE: 07/15/2017 CARDIOLOGY PROGRESS NOTE SUBJECTIVE: The patient remains agitated, combative, and confused. OBJECTIVE: VITAL SIGNS: Blood pressure 151/74, pulse 66, and respirations 18. LUNGS: Coarse breath sounds. No wheezing. HEART: Regular rhythm and rate. Normal S1, S2. ABDOMEN: Soft. EXTREMITIES: No edema. LABORATORY DATA: Potassium 3.4. BUN and creatinine improved to [address] scan of the brain reveals chronic small-vessel disease and atrophy, no acute process. IMPRESSION: 1. Toxic and metabolic encephalopathies. 2. Acute on chronic kidney injury, improving. 3. Hypovolemia and dehydration, recovering. 4. Moderate protein-calorie malnutrition. 5. Ischemic cardiomyopathy. 6. History of left ventricular thrombus. 7. No signs of acute cerebrovascular insult. 8. Multi-infarct dementia with agitation. PLAN: 1. Continued hydration. 2. Empiric antibiotics. 3. Await cultures. 4. Titrate antihypertensives and anti-anginals. 5. The patient is refusing echocardiogram at this time. 6. Anticoagulation is high risk presently due to his fall risk and combative behavior. Osmani Cevallos M.D. DR: YAIMA JOB#: [id number] CC:
[2017-07-15 20:09] VITALS: BP 143/78
[2017-07-15] MEDS: Tamsulosin 0.4mg cap ORAL SCH (21:03)
[2017-07-16] VITALS: BP 153/83
[2017-07-16] MEDS: Gentamicin 0.3% Opth Soln 5ml BOTH EYES SCH ×4 (00:33→18:23)
[2017-07-16 04:00] VITALS: BP 152/85
[2017-07-16] MEDS: Piperacillin/Tazobactam 3.375 GM in NS 110 ML IVPB SCH ×4 (05:13→22:16)
[2017-07-16] MEDS: GlipiZIDE 5mg tab ORAL SCH (05:32)
[2017-07-16] MEDS: NovoLOG Insulin Flexpen SUBQ SCH ×5 (06:19→21:00)
--- NOTE | 2017-07-16 07:58 | General Progress Note ---
Assessment/Plan Problem List: (1) Dehydration ICD Codes: E86.0 - Dehydration SNOMED: 48360600, 672422964 (2) Renal insufficiency ICD Codes: N28.9 - Disorder of kidney and ureter, unspecified SNOMED: 292511361, 051468709 (3) UTI (urinary tract infection) ICD Codes: N39.0 - Urinary tract infection, site not specified SNOMED: 67919937, 061752041 Qualifiers: Qualified Codes: N30.00 - Acute cystitis without hematuria (4) Altered mental status ICD Codes: R41.82 - Altered mental status, unspecified SNOMED: 880196252 Qualifiers: Qualified Codes: R41.82 - Altered mental status, unspecified (5) Chest pain Status: stable, progressing Assessment/Plan cont ivf follow up labs abx follow up cultures psych rx increase night time dose of zyprexa to 10qhs check ekg- qt int Subjective ROS Limited/Unobtainable: No Constitutional: Reports: malaise, weakness HEENT: Reports: no symptoms Cardiovascular: Reports: no symptoms Gastrointestinal/Abdominal: Reports: no symptoms Genitourinary: Reports: no symptoms Neurologic/Psychiatric: Reports: anxiety, emotional problems Endocrine: Reports: no symptoms Hematologic/Lymphatic: Reports: no symptoms Allergies: Coded Allergies: No Known Allergies (Verified , 02/21/09) All Systems: reviewed and negative except above Subjective remains agitated and confused. combative. constantly trying to get out of bed. given haldol at 1 am last night. Objective Last 24 Hour Vital Signs Date Time Temp Pulse Resp B/P (MAP) Pulse Ox O2 Delivery O2 Flow Rate FiO2 07/16/17 04:00 98.0 78 19 152/85 96 98.0 07/16/17 00:00 98.3 85 19 153/83 98 98.3 07/15/17 20:09 96.6 70 16 143/78 99 Room Air 96.6 07/15/17 16:00 96.2 68 18 162/95 100 96.2 07/15/17 12:00 96.1 47 18 138/77 100 96.1 07/15/17 08:00 97.0 64 18 130/56 98 97.0 Intake and Output 07/15/17 07/16/17 19:00 07:00 Intake Total 807.5 ml 872.5 ml Output Total 600 ml Balance 807.5 ml 272.5 ml Intake Oral 480 ml 360 ml IV Total 327.5 ml 512.5 ml Output Urine Total 600 ml # Voids 3 3 Height (Feet): 5 Height (Inches): 11.00 Weight (Pounds): 178 Aleksey Diaz MD Jul 16, 2017 07:58
[2017-07-16 08:00] VITALS: BP 153/83
[2017-07-16 08:49] LABS: ALANINE AMINOTRANSFERASE 27 U/L (12-78); ALBUMIN 2.6 G/DL (3.4-5.0); ALBUMIN/GLOBULIN RATIO 0.7 (1.0-2.7); ALKALINE PHOSPHATASE 89 U/L (46-116); ANION GAP 9 mmol/L (5-15); ASPARTATE AMINO TRANSFERASE 38 U/L (15-37); BILIRUBIN,TOTAL 0.6 MG/DL (0.2-1.0); BLOOD UREA NITROGEN 20 mg/dL (7-18); CALCIUM 9.9 MG/DL (8.5-10.1); CARBON DIOXIDE 28 MMOL/L (21-32); CHLORIDE 107 MMOL/L (98-107); CREATININE 1.4 MG/DL (0.55-1.30); POTASSIUM 3.3 MMOL/L (3.5-5.1); SODIUM 143 MMOL/L (136-145)
[2017-07-16] MEDS: Aspirin Baby 81mg ORAL SCH (09:20)
[2017-07-16] MEDS: Docusate 100mg cap ORAL SCH ×2 (09:20→18:27)
[2017-07-16] MEDS: Ascorbic Acid 500mg tab ORAL SCH (09:20)
[2017-07-16] MEDS: Allopurinol 100mg Tab ORAL SCH (09:21)
[2017-07-16] MEDS: Heparin 5000 units/ml inj SUBQ SCH ×2 (09:25→22:09)
[2017-07-16] MEDS: Haloperidol 5mg/ml Inj IM PRN ×2 (11:40→18:35)
[2017-07-16 12:00] VITALS: BP 134/70
[2017-07-16 19:34] VITALS: BP 144/79
[2017-07-16] MEDS: Tamsulosin 0.4mg cap ORAL SCH (22:02)
--- NOTE | 2017-07-16 22:44 | General Progress Note ---
Assessment/Plan Status: unchanged Assessment/Plan dementia with behavioral dist encephalopathy -zyprexa 5mg qhs -haldol prn -dc seroquel -the pt lacks capacity to make decisions Subjective Date patient seen: Jul 16, 2017 Neurologic/Psychiatric: Reports: anxiety, depressed Allergies: Coded Allergies: No Known Allergies (Verified , 02/21/09) Subjective the pt was agitated today received haldol IM Objective Last 24 Hour Vital Signs Date Time Temp Pulse Resp B/P (MAP) Pulse Ox O2 Delivery O2 Flow Rate FiO2 07/16/17 19:34 96.1 57 17 144/79 95 Room Air 96.1 07/16/17 12:00 98.0 61 20 134/70 98 98.0 07/16/17 08:00 97.4 59 14 153/83 95 97.4 07/16/17 08:00 Room Air 07/16/17 04:00 98.0 78 19 152/85 96 98.0 07/16/17 00:00 98.3 85 19 153/83 98 98.3 Intake and Output 07/15/17 07/16/17 19:00 07:00 Intake Total 807.5 ml 872.5 ml Output Total 600 ml Balance 807.5 ml 272.5 ml Intake Oral 480 ml 360 ml IV Total 327.5 ml 512.5 ml Output Urine Total 600 ml # Voids 3 3 Laboratory Tests 07/16/17 07:35: Sodium Level 143, Potassium Level 3.3L, Chloride Level 107, Carbon Dioxide Level 28, Anion Gap 9, Blood Urea Nitrogen 20H, Creatinine 1.4H, Estimat Glomerular Filtration Rate , Glucose Level 132H, Calcium Level 9.9, Total Bilirubin 0.6, Aspartate Amino Transf (AST/SGOT) 38H, Alanine Aminotransferase ( ALT/SGPT) 27, Alkaline Phosphatase 89, Total Protein 6.5, Albumin 2.6L, Globulin 3.9, Albumin/Globulin Ratio 0.7L Height (Feet): 5 Height (Inches): 11.00 Weight (Pounds): 178 General Appearance: no apparent distress, alert, confused, agitated So Navas M.D. Jul 16, 2017 22:43
--- NOTE | 2017-07-16 22:46 | Progress Note ---
DATE: 07/16/2017 CARDIOLOGY PROGRESS NOTE SUBJECTIVE: The patient has been requiring neuroleptics due to increasing agitation and confusion. No shortness of breath or chest pain. OBJECTIVE: VITAL SIGNS: Blood pressure 152/85, pulse 78, and respiratory rate 19. LUNGS: Bilateral breath sounds. CARDIAC: Regular rhythm and rate. Normal S1 and S2. ABDOMEN: Soft. EXTREMITIES: Trace edema. LABORATORY DATA: Sodium 143, potassium 3.3, bicarbonate 28, BUN 20, creatinine 1.4, and albumin 2.6. IMPRESSION: 1. Ischemic cardiomyopathy. 2. Toxic and metabolic encephalopathy. 3. Moderate protein-calorie malnutrition. 4. Hypokalemia. 5. Hypomagnesemia. 6. Acute on chronic kidney injury. 7. Hypertensive heart disease. 8. History of left ventricular thrombus. 9. Peripheral artery disease. 10. Dementia with agitation. PLAN: 1. Additional potassium replacement. 2. Adjust neuroleptics ____. 3. Empiric antibiotics. 4. Maintain adequate hydration. 5. Monitor EKG, QT intervals in view of neuroleptics therapy and underlying heart disease. 6. May need to resume intravenous fluids if inadequate oral intake. Osmani Cevallos M.D. DR: JAZMINE JOB#: [id number] CC:
[2017-07-17] VITALS: BP 153/58
[2017-07-17] MEDS: Gentamicin 0.3% Opth Soln 5ml BOTH EYES SCH ×4 (00:08→17:55)
[2017-07-17] MEDS: Haloperidol 5mg/ml Inj IM PRN ×4 (01:41→23:11)
[2017-07-17 04:00] VITALS: BP 147/66
[2017-07-17] MEDS: GlipiZIDE 5mg tab ORAL SCH (05:42)
[2017-07-17] MEDS: Piperacillin/Tazobactam 3.375 GM in NS 110 ML IVPB SCH ×3 (06:14→21:07)
[2017-07-17] MEDS: NovoLOG Insulin Flexpen SUBQ SCH ×4 (06:17→20:59)
[2017-07-17 08:13] VITALS: BP 142/83
--- NOTE | 2017-07-17 08:23 | General Progress Note ---
Assessment/Plan Problem List: (1) Dehydration ICD Codes: E86.0 - Dehydration SNOMED: 38823885, 495799304 (2) Renal insufficiency ICD Codes: N28.9 - Disorder of kidney and ureter, unspecified SNOMED: 101529492, 552975103 (3) UTI (urinary tract infection) ICD Codes: N39.0 - Urinary tract infection, site not specified SNOMED: 09902476, 346874681 Qualifiers: Qualified Codes: N30.00 - Acute cystitis without hematuria (4) Altered mental status ICD Codes: R41.82 - Altered mental status, unspecified SNOMED: 362953379 Qualifiers: Qualified Codes: R41.82 - Altered mental status, unspecified (5) Chest pain Status: stable, progressing Assessment/Plan stable follow up labs abx follow up cultures psych rx Subjective ROS Limited/Unobtainable: Yes Constitutional: Reports: malaise, weakness HEENT: Reports: no symptoms Cardiovascular: Reports: no symptoms Respiratory: Reports: no symptoms Gastrointestinal/Abdominal: Reports: no symptoms Genitourinary: Reports: no symptoms Neurologic/Psychiatric: Reports: anxiety, pre-existing deficit Endocrine: Reports: no symptoms Hematologic/Lymphatic: Reports: no symptoms Allergies: Coded Allergies: No Known Allergies (Verified , 02/21/09) All Systems: reviewed and negative except above Subjective was agitated and combative during the day yesterday. better last night. zyprexa dose increased for last night. Objective Last 24 Hour Vital Signs Date Time Temp Pulse Resp B/P (MAP) Pulse Ox O2 Delivery O2 Flow Rate FiO2 07/17/17 08:13 97.0 66 18 142/83 100 Room Air 97.0 07/17/17 04:00 97.6 64 18 147/66 97 Room Air 97.6 07/17/17 00:00 97.3 60 18 153/58 96 Room Air 97.3 07/16/17 19:34 96.1 57 17 144/79 95 Room Air 96.1 07/16/17 12:00 98.0 61 20 134/70 98 98.0 Intake and Output 07/16/17 07/17/17 19:00 07:00 Intake Total 137.5 ml 360 ml Balance 137.5 ml 360 ml Intake Oral 360 ml IV Total 137.5 ml # Voids 2 3 # Bowel Movements 1 Laboratory Tests 07/17/17 05:28: White Blood Count [Pending], Red Blood Count [Pending], Hemoglobin [Pending], Hematocrit [Pending], Mean Corpuscular Volume [Pending], Mean Corpuscular Hemoglobin [Pending], Mean Corpuscular Hemoglobin Concent [Pending], Red Cell Distribution Width [Pending], Platelet Count [Pending], Mean Platelet Volume [ Pending], Neutrophils (%) (Auto) [Pending], Lymphocytes (%) (Auto) [Pending], Monocytes (%) (Auto) [Pending], Eosinophils (%) (Auto) [Pending], Basophils (%) (Auto) [Pending], Sodium Level [Pending], Potassium Level [Pending], Chloride Level [Pending], Carbon Dioxide Level [Pending], Blood Urea Nitrogen [Pending], Creatinine [Pending], Estimat Glomerular Filtration Rate [Pending], Glucose Level [Pending], Calcium Level [Pending], Magnesium Level [Pending], Total Bilirubin [Pending], Aspartate Amino Transf (AST/SGOT) [Pending], Alanine Aminotransferase (ALT/SGPT) [Pending], Alkaline Phosphatase [Pending], Pro-B- Type Natriuretic Peptide [Pending], Total Protein [Pending], Albumin [Pending], Globulin [Pending] Height (Feet): 5 Height (Inches): 11.00 Weight (Pounds): 178 General Appearance: WD/WN, alert, confused Neck: supple Cardiovascular: normal rate, regular rhythm Respiratory/Chest: chest wall non-tender, lungs clear, normal breath sounds, no respiratory distress Abdomen: normal bowel sounds, non tender, soft, no organomegaly Edema: no edema noted Arm (L), no edema noted Arm (R), no edema noted Leg (L), no edema noted Leg (R), no edema noted Pedal (L), no edema noted Pedal (R), no edema noted Generalized Neurologic: alert, disoriented Aleksey Diaz MD Jul 17, 2017 08:23
[2017-07-17 08:31] LABS: BASOPHILS % (AUTO) 1.3 % (0.0-2.0); EOSINOPHILS % (AUTO) 1.9 % (0.0-3.0); HEMATOCRIT 40.9 % (42.0-52.0); HEMOGLOBIN 13.6 G/DL (14.2-18.0); LYMPHOCYTES % (AUTO) 31.3 % (20.0-45.0); MEAN CORPUSCULAR VOLUME 87 FL (80-99); MONOCYTES % (AUTO) 7.4 % (1.0-10.0); NEUTROPHILS % (AUTO) 58.1 % (45.0-75.0); PLATELET COUNT 137 K/UL (150-450); RED BLOOD COUNT 4.68 M/UL (4.70-6.10); RED CELL DISTRIBUTION WIDTH 14.6 % (11.6-14.8)
[2017-07-17 08:56] LABS: ALANINE AMINOTRANSFERASE 24 U/L (12-78); ALBUMIN 2.5 G/DL (3.4-5.0); ALBUMIN/GLOBULIN RATIO 0.6 (1.0-2.7); ALKALINE PHOSPHATASE 82 U/L (46-116); ANION GAP 11 mmol/L (5-15); ASPARTATE AMINO TRANSFERASE 41 U/L (15-37); BILIRUBIN,TOTAL 0.5 MG/DL (0.2-1.0); BLOOD UREA NITROGEN 21 mg/dL (7-18); CARBON DIOXIDE 26 MMOL/L (21-32); CHLORIDE 107 MMOL/L (98-107); CREATININE 1.4 MG/DL (0.55-1.30); POTASSIUM 3.5 MMOL/L (3.5-5.1); SODIUM 144 MMOL/L (136-145)
[2017-07-17] MEDS: Aspirin Baby 81mg ORAL SCH (08:58)
[2017-07-17] MEDS: Ascorbic Acid 500mg tab ORAL SCH (08:58)
[2017-07-17] MEDS: Allopurinol 100mg Tab ORAL SCH (08:59)
[2017-07-17] MEDS: Docusate 100mg cap ORAL SCH ×2 (08:59→17:55)
[2017-07-17] MEDS: Heparin 5000 units/ml inj SUBQ SCH ×2 (09:00→20:46)
[2017-07-17] MEDS ORDERED: Tubing IV Secondary IV ONE ×2 (10:26→11:15)
[2017-07-17] MEDS ORDERED: NS 275ml ONE ×2 (10:26→11:15)
--- NOTE | 2017-07-17 12:05 | Infectious Diseases Prog Note ---
Assessment/Plan Assessment/Plan A 1. UTI 2. conjunctivitis 3. diabetes mellitus 4. hypertension 5. COPD 6. dementia P 1. continue zosyn 2. continue gentamicin eye drops 3. will follow up cultures Subjective ROS Limited/Unobtainable: Yes Constitutional: Reports: no symptoms Respiratory: Reports: no symptoms Gastrointestinal/Abdominal: Reports: no symptoms Genitourinary: Reports: no symptoms Allergies: Coded Allergies: No Known Allergies (Verified , 02/21/09) Objective Vital Signs Last 24 Hour Vital Signs Date Time Temp Pulse Resp B/P (MAP) Pulse Ox O2 Delivery O2 Flow Rate FiO2 07/17/17 08:13 97.0 66 18 142/83 100 Room Air 97.0 07/17/17 04:00 97.6 64 18 147/66 97 Room Air 97.6 07/17/17 00:00 97.3 60 18 153/58 96 Room Air 97.3 07/16/17 19:34 96.1 57 17 144/79 95 Room Air 96.1 Height (Feet): 5 Height (Inches): 11.00 Weight (Pounds): 178 General Appearance: no acute distress HEENT: mucous membranes moist Respiratory/Chest: lungs clear Cardiovascular: normal rate Abdomen: soft, non tender Extremities: no edema Neurologic/Psychiatric: alert, responsive Microbiology Date/Time Source Procedure Growth Status 07/15/17 22:00 Urine,Clean Catch Urine Culture - Preliminary NO GROWTH Resulted Laboratory Tests Test 07/17/17 05:28 White Blood Count 4.0 K/UL (4.8-10.8) L Red Blood Count 4.68 M/UL (4.70-6.10) L Hemoglobin 13.6 G/DL (14.2-18.0) L Hematocrit 40.9 % (42.0-52.0) L Mean Corpuscular Volume 87 FL (80-99) Mean Corpuscular Hemoglobin 29.2 PG (27.0-31.0) Mean Corpuscular Hemoglobin Concent 33.4 G/DL (32.0-36.0) Red Cell Distribution Width 14.6 % (11.6-14.8) Platelet Count 137 K/UL (150-450) L Mean Platelet Volume 8.3 FL (6.5-10.1) Neutrophils (%) (Auto) 58.1 % (45.0-75.0) Lymphocytes (%) (Auto) 31.3 % (20.0-45.0) Monocytes (%) (Auto) 7.4 % (1.0-10.0) Eosinophils (%) (Auto) 1.9 % (0.0-3.0) Basophils (%) (Auto) 1.3 % (0.0-2.0) Sodium Level 144 MMOL/L (136-145) Potassium Level 3.5 MMOL/L (3.5-5.1) Chloride Level 107 MMOL/L (98-107) Carbon Dioxide Level 26 MMOL/L (21-32) Anion Gap 11 mmol/L (5-15) Blood Urea Nitrogen 21 mg/dL (7-18) H Creatinine 1.4 MG/DL (0.55-1.30) H Estimat Glomerular Filtration Rate mL/min (>60) Glucose Level 107 MG/DL (74-106) H Calcium Level 10.0 MG/DL (8.5-10.1) Magnesium Level 1.7 MG/DL (1.8-2.4) L Total Bilirubin 0.5 MG/DL (0.2-1.0) Aspartate Amino Transf (AST/SGOT) 41 U/L (15-37) H Alanine Aminotransferase (ALT/SGPT) 24 U/L (12-78) Alkaline Phosphatase 82 U/L (46-116) Pro-B-Type Natriuretic Peptide 2075 pg/mL (0-125) H Total Protein 6.6 G/DL (6.4-8.2) Albumin 2.5 G/DL (3.4-5.0) L Globulin 4.1 g/dL Albumin/Globulin Ratio 0.6 (1.0-2.7) L Current Medications Medications (Trade) Dose Ordered Sig/Bird Route PRN Reason Start Time Stop Time Status Last Admin Dose Admin Allopurinol (Zyloprim) 100 mg DAILY ORAL 07/14/17 09:00 08/13/17 08:59 07/17/17 08:59 Ascorbic Acid (Vitamin C) 500 mg DAILY ORAL 07/14/17 09:00 08/13/17 08:59 07/17/17 08:58 Aspirin (ASA) 81 mg DAILY ORAL 07/14/17 09:00 08/13/17 08:59 07/17/17 08:58 Atorvastatin Calcium (Lipitor) 10 mg BEDTIME ORAL 07/13/17 21:00 08/12/17 20:59 07/16/17 22:02 Dextrose (Dextrose 50%) 25 ml STAT PRN IV Hypoglycemia 07/13/17 18:15 08/12/17 18:14 Dextrose (Dextrose 50%) 50 ml STAT PRN IV Hypoglycemia 07/13/17 18:15 08/12/17 18:14 Divalproex Sodium (Depakote) 125 mg EVERY 12 HOURS ORAL 07/13/17 21:00 08/12/17 20:59 07/17/17 08:59 Docusate Sodium (Colace) 100 mg TWICE A DAY ORAL 07/13/17 18:00 08/12/17 17:59 07/17/17 08:59 [facility] 1 drop EVERY 6 HOURS BOTH EYES 07/14/17 06:00 07/21/17 05:59 07/17/17 11:26 Glipizide (Glucotrol) 5 mg ACBREAKFAST ORAL 07/14/17 06:30 08/13/17 06:29 07/17/17 05:42 Haloperidol Lactate (Haldol) 5 mg Q6H PRN IM Agitation 07/14/17 11:30 08/13/17 11:29 07/17/17 07:45 Heparin Sodium (Porcine) (Heparin 5000 units/ml) 5,000 units EVERY 12 HOURS SUBQ 07/13/17 21:00 08/12/17 20:59 07/17/17 09:00 Insulin Aspart (NovoLOG) BEFORE MEALS AND HS SUBQ 07/13/17 21:00 08/12/17 20:59 07/17/17 11:27 Multivitamins (Multivitamins) 1 tab DAILY ORAL 07/14/17 09:00 08/13/17 08:59 07/17/17 08:58 Olanzapine (ZyPREXA) 10 mg BEDTIME ORAL 07/16/17 21:00 08/15/17 20:59 07/16/17 22:02 Piperacillin Sod/ Tazobactam Sod 3.375 gm/Sodium Chloride 110 ml @ 27.5 mls/hr Q8HR IVPB 07/14/17 22:00 07/21/17 21:59 07/17/17 06:14 Tamsulosin HCl (Flomax) 0.4 mg BEDTIME ORAL 07/13/17 21:00 08/12/17 20:59 07/16/17 22:02 Jt Gallo MD Jul 17, 2017 12:05
[2017-07-17 12:12] VITALS: BP 135/85
[2017-07-17 16:00] VITALS: BP 154/77
[2017-07-17 20:00] VITALS: BP 149/89
[2017-07-17] MEDS: Tamsulosin 0.4mg cap ORAL SCH (20:41)
[2017-07-18] VITALS: BP 147/91
[2017-07-18] MEDS: Gentamicin 0.3% Opth Soln 5ml BOTH EYES SCH ×5 (00:13→23:56)
--- NOTE | 2017-07-18 03:45 | Progress Note ---
DATE: 07/17/2017 CARDIOLOGY PROGRESS NOTE SUBJECTIVE: The patient is less combative, but still requires additional doses of Zyprexa. No apparent respiratory distress. OBJECTIVE: VITAL SIGNS: Blood pressure 142/83, pulse 66, respiratory rate 18, and afebrile. LUNGS: Bilateral breath sounds. No wheezing. HEART: Regular rhythm and rate. Normal S1 and S2 with a fourth heart sound. ABDOMEN: Soft. EXTREMITIES: No edema. IMPRESSION: 1. Impaired due to cerebrovascular disease. 2. Dementia and agitation. 3. Underlying cardiomyopathy, presently stable. PLAN: We will attempt echocardiogram when the patient is more cooperative. For now, anticoagulation even in the setting of a thrombus would pose high risk due to his behavioral issues. We will follow and reassess regarding long-term cardiovascular management. Osmani Cevallos M.D. DR: EVELIN JOB#: [id number] CC:
[2017-07-18 04:00] VITALS: BP 159/77
[2017-07-18] MEDS: Piperacillin/Tazobactam 3.375 GM in NS 110 ML IVPB SCH (05:09)
[2017-07-18] MEDS: Haloperidol 5mg/ml Inj IM PRN (05:13)
[2017-07-18] MEDS: GlipiZIDE 5mg tab ORAL SCH (05:48)
[2017-07-18] MEDS: NovoLOG Insulin Flexpen SUBQ SCH ×4 (05:54→20:45)
[2017-07-18 08:00] VITALS: BP 104/55
--- NOTE | 2017-07-18 08:30 | General Progress Note ---
Assessment/Plan Problem List: (1) Dehydration ICD Codes: E86.0 - Dehydration SNOMED: 11416894, 186556455 (2) Renal insufficiency ICD Codes: N28.9 - Disorder of kidney and ureter, unspecified SNOMED: 927288350, 544978399 (3) UTI (urinary tract infection) ICD Codes: N39.0 - Urinary tract infection, site not specified SNOMED: 75877160, 879409279 Qualifiers: Qualified Codes: N30.00 - Acute cystitis without hematuria (4) Altered mental status ICD Codes: R41.82 - Altered mental status, unspecified SNOMED: 296448075 Qualifiers: Qualified Codes: R41.82 - Altered mental status, unspecified (5) Chest pain Status: stable, not improved Assessment/Plan stable added am zyprexa in addition to night dose monitor ekg/qt interval follow up labs abx follow up cultures psych rx Subjective ROS Limited/Unobtainable: No Constitutional: Reports: malaise, weakness HEENT: Reports: no symptoms Cardiovascular: Reports: no symptoms Respiratory: Reports: no symptoms Gastrointestinal/Abdominal: Reports: no symptoms Genitourinary: Reports: no symptoms Neurologic/Psychiatric: Reports: anxiety, pre-existing deficit Endocrine: Reports: no symptoms Hematologic/Lymphatic: Reports: no symptoms Allergies: Coded Allergies: No Known Allergies (Verified , 02/21/09) All Systems: reviewed and negative except above Subjective remains agitated and combative at times. throwing things at nurses per night RN. Objective Last 24 Hour Vital Signs Date Time Temp Pulse Resp B/P (MAP) Pulse Ox O2 Delivery O2 Flow Rate FiO2 07/18/17 04:00 96.4 62 20 159/77 94 Room Air 96.4 07/18/17 00:00 96.8 69 18 147/91 96 Room Air 96.8 07/17/17 20:00 96.9 69 20 149/89 100 Room Air 96.9 07/17/17 16:00 95.9 95 20 154/77 98 Room Air 95.9 07/17/17 12:12 96.1 64 19 135/85 100 Room Air 96.1 Intake and Output 07/17/17 07/18/17 19:00 07:00 Intake Total 1032.5 ml 677.5 ml Output Total 700 ml Balance 1032.5 ml -22.5 ml Intake Oral 840 ml 540 ml IV Total 192.5 ml 137.5 ml Output Urine Total 700 ml # Voids 2 5 # Bowel Movements 1 4 Height (Feet): 5 Height (Inches): 11.00 Weight (Pounds): 178 Objective General Appearance: WD/WN, alert, confused Neck: supple Cardiovascular: normal rate, regular rhythm Respiratory/Chest: chest wall non-tender, lungs clear, normal breath sounds, no respiratory distress Abdomen: normal bowel sounds, non tender, soft, no organomegaly Edema: no edema noted Arm (L), no edema noted Arm (R), no edema noted Leg (L), no edema noted Leg (R), no edema noted Pedal (L), no edema noted Pedal (R), no edema noted Generalized Neurologic: alert, disoriented Aleksey Diaz MD Jul 18, 2017 08:30
[2017-07-18] MEDS: Docusate 100mg cap ORAL SCH ×2 (08:44→17:10)
[2017-07-18] MEDS: Aspirin Baby 81mg ORAL SCH (08:44)
[2017-07-18] MEDS: Allopurinol 100mg Tab ORAL SCH (08:45)
[2017-07-18] MEDS: Ascorbic Acid 500mg tab ORAL SCH (08:45)
[2017-07-18] MEDS: Heparin 5000 units/ml inj SUBQ SCH ×2 (08:47→20:45)
[2017-07-18] MEDS: ZyPREXA Zydis 5mg tab ORAL SCH (08:47)
[2017-07-18] MEDS ORDERED: Magnesium Oxide 400mg tab ORAL SCH (09:00)
[2017-07-18] MEDS ORDERED: LORazepam Inj 2mg/ml 1ml IM SCH (09:00)
[2017-07-18] MEDS ORDERED: DiphenhydrAMINE 50mg/ml Inj IM SCH (09:00)
[2017-07-18 12:00] VITALS: BP 97/66
--- NOTE | 2017-07-18 12:44 | Infectious Diseases Prog Note ---
Assessment/Plan Assessment/Plan A 1. UTI treated 2. conjunctivitis 3. diabetes mellitus 4. hypertension 5. COPD 6. dementia P 1. discontinue Zosyn 2. continue gentamicin eye drops 3. will follow up cultures Subjective ROS Limited/Unobtainable: Yes Neurologic: Reports: confusion, other - combative, on restraint Allergies: Coded Allergies: No Known Allergies (Verified , 02/21/09) Objective Vital Signs Last 24 Hour Vital Signs Date Time Temp Pulse Resp B/P (MAP) Pulse Ox O2 Delivery O2 Flow Rate FiO2 07/18/17 08:00 97.7 63 18 104/55 98 97.7 07/18/17 04:00 96.4 62 20 159/77 94 Room Air 96.4 07/18/17 00:00 96.8 69 18 147/91 96 Room Air 96.8 07/17/17 20:00 96.9 69 20 149/89 100 Room Air 96.9 07/17/17 16:00 95.9 95 20 154/77 98 Room Air 95.9 Height (Feet): 5 Height (Inches): 11.00 Weight (Pounds): 178 General Appearance: no acute distress HEENT: mucous membranes moist Respiratory/Chest: lungs clear Cardiovascular: normal rate Abdomen: soft, non tender Extremities: no edema Neurologic/Psychiatric: other - sleeping Microbiology Date/Time Source Procedure Growth Status 07/15/17 22:00 Urine,Clean Catch Urine Culture - Preliminary NO GROWTH AFTER 24 HOURS Resulted Current Medications Medications (Trade) Dose Ordered Sig/Bird Route PRN Reason Start Time Stop Time Status Last Admin Dose Admin Allopurinol (Zyloprim) 100 mg DAILY ORAL 07/14/17 09:00 08/13/17 08:59 07/18/17 08:45 Ascorbic Acid (Vitamin C) 500 mg DAILY ORAL 07/14/17 09:00 08/13/17 08:59 07/18/17 08:45 Aspirin (ASA) 81 mg DAILY ORAL 07/14/17 09:00 08/13/17 08:59 07/18/17 08:44 Atorvastatin Calcium (Lipitor) 10 mg BEDTIME ORAL 07/13/17 21:00 08/12/17 20:59 07/17/17 20:41 Dextrose (Dextrose 50%) 25 ml STAT PRN IV Hypoglycemia 07/13/17 18:15 08/12/17 18:14 Dextrose (Dextrose 50%) 50 ml STAT PRN IV Hypoglycemia 07/13/17 18:15 08/12/17 18:14 Divalproex Sodium (Depakote) 125 mg EVERY 12 HOURS ORAL 07/13/17 21:00 08/12/17 20:59 07/18/17 08:44 Docusate Sodium (Colace) 100 mg TWICE A DAY ORAL 07/13/17 18:00 08/12/17 17:59 07/18/17 08:44 [facility] 1 drop EVERY 6 HOURS BOTH EYES 07/14/17 06:00 07/21/17 05:59 07/18/17 05:46 Glipizide (Glucotrol) 5 mg ACBREAKFAST ORAL 07/14/17 06:30 08/13/17 06:29 07/18/17 05:48 Haloperidol Lactate (Haldol) 5 mg Q6H PRN IM Agitation 07/14/17 11:30 08/13/17 11:29 07/18/17 05:13 Heparin Sodium (Porcine) (Heparin 5000 units/ml) 5,000 units EVERY 12 HOURS SUBQ 07/13/17 21:00 08/12/17 20:59 07/18/17 08:47 Insulin Aspart (NovoLOG) BEFORE MEALS AND HS SUBQ 07/13/17 21:00 08/12/17 20:59 07/17/17 20:59 Multivitamins (Multivitamins) 1 tab DAILY ORAL 07/14/17 09:00 08/13/17 08:59 07/18/17 08:44 Olanzapine (ZyPREXA Zydis) 5 mg DAILY ORAL 07/18/17 09:00 08/17/17 08:59 07/18/17 08:47 Olanzapine (ZyPREXA) 10 mg BEDTIME ORAL 07/16/17 21:00 08/15/17 20:59 07/17/17 20:42 Piperacillin Sod/ Tazobactam Sod 3.375 gm/Sodium Chloride 110 ml @ 27.5 mls/hr Q8HR IVPB 07/14/17 22:00 07/21/17 21:59 07/18/17 05:09 Tamsulosin HCl (Flomax) 0.4 mg BEDTIME ORAL 07/13/17 21:00 08/12/17 20:59 07/17/17 20:41 Jt Gallo MD Jul 18, 2017 12:44
[2017-07-18 16:00] VITALS: BP 103/65
[2017-07-18 20:14] VITALS: BP 113/60
[2017-07-18] MEDS: Tamsulosin 0.4mg cap ORAL SCH (20:45)
--- NOTE | 2017-07-18 22:44 | General Progress Note ---
Assessment/Plan Status: stable Assessment/Plan dementia with behavioral dist encephalopathy -zyprexa 5mg qhs, 10mg qhs -haldol prn -dc seroquel -remeron 7.5 qhs -the pt lacks capacity to make decisions Subjective Date patient seen: Jul 18, 2017 Neurologic/Psychiatric: Reports: anxiety, emotional problems Allergies: Coded Allergies: No Known Allergies (Verified , 02/21/09) Subjective the pt was agitated today received Benadryl IM Objective Last 24 Hour Vital Signs Date Time Temp Pulse Resp B/P (MAP) Pulse Ox O2 Delivery O2 Flow Rate FiO2 07/18/17 20:14 97.3 49 16 113/60 99 97.3 07/18/17 16:00 97.5 60 17 103/65 96 97.5 07/18/17 12:00 97.5 64 19 97/66 99 97.5 07/18/17 08:00 97.7 63 18 104/55 98 97.7 07/18/17 04:00 96.4 62 20 159/77 94 Room Air 96.4 07/18/17 00:00 96.8 69 18 147/91 96 Room Air 96.8 Intake and Output 07/17/17 07/18/17 19:00 07:00 Intake Total 1032.5 ml 677.5 ml Output Total 700 ml Balance 1032.5 ml -22.5 ml Intake Oral 840 ml 540 ml IV Total 192.5 ml 137.5 ml Output Urine Total 700 ml # Voids 2 5 # Bowel Movements 1 4 Height (Feet): 5 Height (Inches): 11.00 Weight (Pounds): 178 General Appearance: alert, agitated Neurologic: alert, disoriented, depressed affect So Navas M.D. Jul 18, 2017 22:44
--- NOTE | 2017-07-19 00:30 | Progress Note ---
DATE: 07/18/2017 CARDIOLOGY PROGRESS NOTE SUBJECTIVE: The patient is requiring additional doses of Zyprexa. Benadryl given today. Agitation is persisting. The case was reviewed with the psychiatrist. Medications were reviewed in detail. OBJECTIVE: VITAL SIGNS: Blood pressure 159/77, pulse 62, and respirations 20. LUNGS: No wheezing. Clear breath sounds. HEART: Regular rhythm and rate. Normal S1, S2. ABDOMEN: Soft. EXTREMITIES: No edema. IMPRESSION: 1. Worsening encephalopathy. 2. Urinary tract infection status post treatment. 3. Conjunctivitis. On topical therapy. 4. Hypertensive heart disease with controlled blood pressure. 5. Ischemic heart disease with stable angina. 6. History of left ventricular thrombus. Now, off anticoagulation. 7. Cerebrovascular disease with dementia and agitation, ongoing. PLAN: 1. Continue psychiatric therapy. 2. Defer echocardiogram. 3. Avoid tight blood pressure control. 4. Maintain current cardiovascular regimen. 5. Consider MRI. sOmani Cevallos M.D. DR: YAIMA JOB#: [id number] CC:
[2017-07-19 00:34] VITALS: BP 110/61
[2017-07-19 04:21] VITALS: BP 147/89
[2017-07-19] MEDS: Gentamicin 0.3% Opth Soln 5ml BOTH EYES SCH ×4 (05:37→23:54)
[2017-07-19] MEDS: NovoLOG Insulin Flexpen SUBQ SCH ×4 (05:37→20:28)
[2017-07-19] MEDS: GlipiZIDE 5mg tab ORAL SCH (05:37)
--- NOTE | 2017-07-19 08:01 | General Progress Note ---
Assessment/Plan Problem List: (1) Dehydration ICD Codes: E86.0 - Dehydration SNOMED: 13814772, 059511548 (2) Renal insufficiency ICD Codes: N28.9 - Disorder of kidney and ureter, unspecified SNOMED: 404073465, 979814041 (3) UTI (urinary tract infection) ICD Codes: N39.0 - Urinary tract infection, site not specified SNOMED: 56262469, 445568847 Qualifiers: Qualified Codes: N30.00 - Acute cystitis without hematuria (4) Altered mental status ICD Codes: R41.82 - Altered mental status, unspecified SNOMED: 632810766 Qualifiers: Qualified Codes: R41.82 - Altered mental status, unspecified (5) Chest pain Status: stable, progressing Assessment/Plan psych rx cardiac rx will reassess for resumption of coumadin. currently high risks for falls due to agitation observe behavior today dc planning tomorrow if stable Subjective ROS Limited/Unobtainable: Yes Constitutional: Reports: malaise, weakness HEENT: Reports: no symptoms Cardiovascular: Reports: no symptoms Respiratory: Reports: no symptoms Gastrointestinal/Abdominal: Reports: no symptoms Genitourinary: Reports: no symptoms Neurologic/Psychiatric: Reports: anxiety, pre-existing deficit Endocrine: Reports: no symptoms Hematologic/Lymphatic: Reports: no symptoms Allergies: Coded Allergies: No Known Allergies (Verified , 02/21/09) All Systems: reviewed and negative except above Subjective did better yesterday. was able to eat and cooperate with staff. had one episode of agitation requiring iv ativan. currently resting Objective Last 24 Hour Vital Signs Date Time Temp Pulse Resp B/P (MAP) Pulse Ox O2 Delivery O2 Flow Rate FiO2 07/19/17 04:21 97.9 52 19 147/89 99 97.9 07/19/17 04:21 99 Room Air 07/19/17 00:34 99 Room Air 07/19/17 00:34 97.5 66 17 110/61 99 97.5 07/18/17 20:14 99 Room Air 07/18/17 20:14 97.3 49 16 113/60 99 97.3 07/18/17 16:00 97.5 60 17 103/65 96 97.5 07/18/17 12:00 97.5 64 19 97/66 99 97.5 07/18/17 08:00 97.7 63 18 104/55 98 97.7 Intake and Output 07/18/17 07/19/17 19:00 07:00 Intake Total 240 ml Balance 240 ml Intake Oral 240 ml # Voids 3 3 # Bowel Movements 2 2 Height (Feet): 5 Height (Inches): 11.00 Weight (Pounds): 178 Objective General Appearance: WD/WN, alert, confused Neck: supple Cardiovascular: normal rate, regular rhythm Respiratory/Chest: chest wall non-tender, lungs clear, normal breath sounds, no respiratory distress Abdomen: normal bowel sounds, non tender, soft, no organomegaly Edema: no edema noted Arm (L), no edema noted Arm (R), no edema noted Leg (L), no edema noted Leg (R), no edema noted Pedal (L), no edema noted Pedal (R), no edema noted Generalized Neurologic: alert, disoriented Aleksey Diaz MD Jul 19, 2017 08:01
[2017-07-19 08:10] VITALS: BP 176/95
[2017-07-19] MEDS: Ascorbic Acid 500mg tab ORAL SCH (08:30)
[2017-07-19] MEDS: Aspirin Baby 81mg ORAL SCH (08:30)
[2017-07-19] MEDS: ZyPREXA Zydis 5mg tab ORAL SCH (08:31)
[2017-07-19] MEDS: Docusate 100mg cap ORAL SCH ×2 (08:31→17:16)
[2017-07-19] MEDS: Allopurinol 100mg Tab ORAL SCH (08:31)
[2017-07-19] MEDS: Heparin 5000 units/ml inj SUBQ SCH ×2 (08:32→20:28)
--- NOTE | 2017-07-19 10:39 | Infectious Diseases Prog Note ---
Assessment/Plan Assessment/Plan antibiotics ; gentamicin eye drops A 1. UTI s/p rx 2. conjunctivitis 3. diabetes mellitus 4. hypertension 5. COPD 6. dementia P 1. continue gentamicin eye drops 1 more day 2. will follow up cultures Subjective ROS Limited/Unobtainable: Yes Allergies: Coded Allergies: No Known Allergies (Verified , 02/21/09) Objective Vital Signs Last 24 Hour Vital Signs Date Time Temp Pulse Resp B/P (MAP) Pulse Ox O2 Delivery O2 Flow Rate FiO2 07/19/17 08:10 95.4 64 18 176/95 97 Room Air 95.4 07/19/17 04:21 97.9 52 19 147/89 99 97.9 07/19/17 04:21 99 Room Air 07/19/17 00:34 99 Room Air 07/19/17 00:34 97.5 66 17 110/61 99 97.5 07/18/17 20:14 99 Room Air 07/18/17 20:14 97.3 49 16 113/60 99 97.3 07/18/17 16:00 97.5 60 17 103/65 96 97.5 07/18/17 12:00 97.5 64 19 97/66 99 97.5 Height (Feet): 5 Height (Inches): 11.00 Weight (Pounds): 178 HEENT: other - conjunctival erythema bilaterally Respiratory/Chest: lungs clear Cardiovascular: normal rate, regular rhythm, no gallop/murmur Abdomen: soft, non tender Extremities: no edema Current Medications Medications (Trade) Dose Ordered Sig/Bird Route PRN Reason Start Time Stop Time Status Last Admin Dose Admin Allopurinol (Zyloprim) 100 mg DAILY ORAL 07/14/17 09:00 08/13/17 08:59 07/19/17 08:31 Ascorbic Acid (Vitamin C) 500 mg DAILY ORAL 07/14/17 09:00 08/13/17 08:59 07/19/17 08:30 Aspirin (ASA) 81 mg DAILY ORAL 07/14/17 09:00 08/13/17 08:59 07/19/17 08:30 Atorvastatin Calcium (Lipitor) 10 mg BEDTIME ORAL 07/13/17 21:00 08/12/17 20:59 07/17/17 20:41 Clonidine HCl (Catapres Tab) 0.1 mg Q4H PRN ORAL For High Blood Pressure 07/19/17 10:30 08/18/17 10:29 Dextrose (Dextrose 50%) 25 ml STAT PRN IV Hypoglycemia 07/13/17 18:15 08/12/17 18:14 Dextrose (Dextrose 50%) 50 ml STAT PRN IV Hypoglycemia 07/13/17 18:15 08/12/17 18:14 Divalproex Sodium (Depakote) 125 mg EVERY 12 HOURS ORAL 07/13/17 21:00 08/12/17 20:59 07/19/17 08:30 Docusate Sodium (Colace) 100 mg TWICE A DAY ORAL 07/13/17 18:00 08/12/17 17:59 07/18/17 08:44 [facility] 1 drop EVERY 6 HOURS BOTH EYES 07/14/17 06:00 07/21/17 05:59 07/19/17 05:37 Glipizide (Glucotrol) 5 mg ACBREAKFAST ORAL 07/14/17 06:30 08/13/17 06:29 07/18/17 05:48 Haloperidol Lactate (Haldol) 5 mg Q6H PRN IM Agitation 07/14/17 11:30 08/13/17 11:29 07/18/17 05:13 Heparin Sodium (Porcine) (Heparin 5000 units/ml) 5,000 units EVERY 12 HOURS SUBQ 07/13/17 21:00 08/12/17 20:59 07/19/17 08:32 Insulin Aspart (NovoLOG) BEFORE MEALS AND HS SUBQ 07/13/17 21:00 08/12/17 20:59 07/17/17 20:59 Mirtazapine (Remeron) 7.5 mg BEDTIME ORAL 07/18/17 21:00 08/17/17 20:59 Multivitamins (Multivitamins) 1 tab DAILY ORAL 07/14/17 09:00 08/13/17 08:59 07/19/17 08:30 Olanzapine (ZyPREXA Zydis) 5 mg DAILY ORAL 07/18/17 09:00 08/17/17 08:59 07/18/17 08:47 Olanzapine (ZyPREXA) 10 mg BEDTIME ORAL 07/16/17 21:00 08/15/17 20:59 07/17/17 20:42 Tamsulosin HCl (Flomax) 0.4 mg BEDTIME ORAL 07/13/17 21:00 08/12/17 20:59 07/17/17 20:41 CHIKIS PARADA Jul 19, 2017 10:39
[2017-07-19 11:43] VITALS: BP 139/71
--- NOTE | 2017-07-19 14:46 | General Progress Note ---
Assessment/Plan Assessment/Plan dementia with behavioral dist encephalopathy -zyprexa 5mg qhs, 10mg qhs -haldol prn -dc seroquel -remeron 7.5 qhs -the pt lacks capacity to make decisions Subjective Date patient seen: Jul 19, 2017 Neurologic/Psychiatric: Reports: anxiety, depressed, emotional problems Allergies: Coded Allergies: No Known Allergies (Verified , 02/21/09) Subjective the pt is still agitated and confused. Objective Last 24 Hour Vital Signs Date Time Temp Pulse Resp B/P (MAP) Pulse Ox O2 Delivery O2 Flow Rate FiO2 07/19/17 11:43 96.1 62 18 139/71 97 Room Air 96.1 07/19/17 08:10 95.4 64 18 176/95 97 Room Air 95.4 07/19/17 04:21 97.9 52 19 147/89 99 97.9 07/19/17 04:21 99 Room Air 07/19/17 00:34 99 Room Air 07/19/17 00:34 97.5 66 17 110/61 99 97.5 07/18/17 20:14 99 Room Air 07/18/17 20:14 97.3 49 16 113/60 99 97.3 07/18/17 16:00 97.5 60 17 103/65 96 97.5 Intake and Output 07/18/17 07/19/17 19:00 07:00 Intake Total 240 ml Balance 240 ml Intake Oral 240 ml # Voids 3 3 # Bowel Movements 2 2 Height (Feet): 5 Height (Inches): 11.00 Weight (Pounds): 178 General Appearance: no apparent distress, alert, confused Neurologic: alert, depressed affect So Navas M.D. Jul 19, 2017 14:46
[2017-07-19 15:50] VITALS: BP 152/71
[2017-07-19 20:00] VITALS: BP 128/80
[2017-07-19] MEDS: Tamsulosin 0.4mg cap ORAL SCH (20:28)
[2017-07-19] MEDS ORDERED: HydrALAZINE 25mg tab ORAL PRN (22:15)
[2017-07-20] VITALS (7 sets, daily range): BP systolic 100–154; BP diastolic 57–94
--- NOTE | 2017-07-20 01:00 | Progress Note ---
DATE: 07/19/2017 CARDIOLOGY PROGRESS NOTE SUBJECTIVE: The patient is more alert, interactive and cooperative, less agitation although still requires Ativan. OBJECTIVE: VITAL SIGNS: Afebrile. Blood pressure 147/89, pulse 63, respiratory rate 19. NECK: Supple. LUNGS: Clear. CARDIAC: Regular. Normal S1, S2. ABDOMEN: Soft. No edema. IMPRESSION: 1. Encephalopathy. 2. Cerebrovascular disease with dementia. 3. Resolved urinary tract infection. 4. Ischemic and hypertensive cardiomyopathy. 5. History of left ventricular thrombus. 6. Chronic diastolic and systolic congestive heart failure. 7. Sinus bradycardia. 8. Type 2 diabetes mellitus. PLAN: 1. Anti-platelet and anti-lipid therapy. 2. Adjust psych regimen. 3. Maintain adequate hydration. 4. Avoid beta-blockers and clonidine. 5. We will add hydralazine for blood pressure spikes. Osmani Cevallos M.D. DR: Brandi JOB#: [id number] CC:
[2017-07-20] MEDS: Haloperidol 5mg/ml Inj IM PRN (01:15)
[2017-07-20] MEDS: Gentamicin 0.3% Opth Soln 5ml BOTH EYES SCH (05:29)
[2017-07-20] MEDS: GlipiZIDE 5mg tab ORAL SCH (05:29)
[2017-07-20] MEDS: NovoLOG Insulin Flexpen SUBQ SCH ×4 (05:30→21:32)
--- NOTE | 2017-07-20 07:47 | General Progress Note ---
Assessment/Plan Problem List: (1) Dehydration ICD Codes: E86.0 - Dehydration SNOMED: 84143346, 806059356 (2) Renal insufficiency ICD Codes: N28.9 - Disorder of kidney and ureter, unspecified SNOMED: 455309180, 211496484 (3) UTI (urinary tract infection) ICD Codes: N39.0 - Urinary tract infection, site not specified SNOMED: 41470011, 592808602 Qualifiers: Qualified Codes: N30.00 - Acute cystitis without hematuria (4) Altered mental status ICD Codes: R41.82 - Altered mental status, unspecified SNOMED: 208615438 Qualifiers: Qualified Codes: R41.82 - Altered mental status, unspecified (5) Chest pain Status: stable, progressing Assessment/Plan psych rx cardiac rx will reassess for resumption of coumadin. currently high risks for falls due to agitation observe behavior today dc planning if behavior ok Subjective ROS Limited/Unobtainable: Yes Constitutional: Reports: malaise, weakness HEENT: Reports: no symptoms Cardiovascular: Reports: no symptoms Respiratory: Reports: no symptoms Gastrointestinal/Abdominal: Reports: no symptoms Genitourinary: Reports: no symptoms Neurologic/Psychiatric: Reports: anxiety, emotional problems Endocrine: Reports: no symptoms Hematologic/Lymphatic: Reports: no symptoms Allergies: Coded Allergies: No Known Allergies (Verified , 02/21/09) All Systems: reviewed and negative except above Subjective did better yesterday. was agitated last night. received haldol x 1 at 1 am. sleeping now Objective Last 24 Hour Vital Signs Date Time Temp Pulse Resp B/P (MAP) Pulse Ox O2 Delivery O2 Flow Rate FiO2 07/20/17 04:00 96.3 75 18 151/69 97 Room Air 96.3 07/20/17 00:00 97.1 65 18 127/68 99 Room Air 97.1 07/19/17 20:00 96.6 70 18 128/80 94 Room Air 96.6 07/19/17 15:50 96.6 72 18 152/71 100 Room Air 96.6 07/19/17 11:43 96.1 62 18 139/71 97 Room Air 96.1 07/19/17 08:10 95.4 64 18 176/95 97 Room Air 95.4 Intake and Output 07/19/17 07/20/17 19:00 07:00 Intake Total 720 ml 280 ml Balance 720 ml 280 ml Intake Oral 720 ml 280 ml # Voids 1 5 # Bowel Movements 1 1 Height (Feet): 5 Height (Inches): 11.00 Weight (Pounds): 151 Objective General Appearance: WD/WN, alert, confused Neck: supple Cardiovascular: normal rate, regular rhythm Respiratory/Chest: chest wall non-tender, lungs clear, normal breath sounds, no respiratory distress Abdomen: normal bowel sounds, non tender, soft, no organomegaly Edema: no edema noted Arm (L), no edema noted Arm (R), no edema noted Leg (L), no edema noted Leg (R), no edema noted Pedal (L), no edema noted Pedal (R), no edema noted Generalized Neurologic: alert, disoriented Aleksey Diaz MD Jul 20, 2017 07:47
[2017-07-20] MEDS: Heparin 5000 units/ml inj SUBQ SCH ×2 (09:00→21:00)
[2017-07-20] MEDS: Ascorbic Acid 500mg tab ORAL SCH (10:16)
[2017-07-20] MEDS: Aspirin Baby 81mg ORAL SCH (10:16)
[2017-07-20] MEDS: Docusate 100mg cap ORAL SCH ×2 (10:16→18:00)
[2017-07-20] MEDS: ZyPREXA Zydis 5mg tab ORAL SCH (10:17)
[2017-07-20] MEDS: Allopurinol 100mg Tab ORAL SCH (10:17)
--- NOTE | 2017-07-20 11:08 | Infectious Diseases Prog Note ---
Assessment/Plan Assessment/Plan antibiotics ; gentamicin eye drops A 1. UTI s/p rx 2. conjunctivitis s/p rx 3. diabetes mellitus 4. hypertension 5. COPD 6. dementia P 1. d/c gentamicin eye drops 2. observe off antibiotics Subjective Constitutional: Denies: fever, chills Respiratory: Denies: shortness of breath, dry cough Gastrointestinal/Abdominal: Denies: nausea, vomiting, diarrhea Musculoskeletal: Reports: pain Allergies: Coded Allergies: No Known Allergies (Verified , 02/21/09) Objective Vital Signs Last 24 Hour Vital Signs Date Time Temp Pulse Resp B/P (MAP) Pulse Ox O2 Delivery O2 Flow Rate FiO2 07/20/17 08:00 97.7 73 19 140/71 96 97.7 07/20/17 04:00 96.3 75 18 151/69 97 Room Air 96.3 07/20/17 00:00 97.1 65 18 127/68 99 Room Air 97.1 07/19/17 20:00 96.6 70 18 128/80 94 Room Air 96.6 07/19/17 15:50 96.6 72 18 152/71 100 Room Air 96.6 07/19/17 11:43 96.1 62 18 139/71 97 Room Air 96.1 Height (Feet): 5 Height (Inches): 11.00 Weight (Pounds): 151 HEENT: other - conjunctival erythema Respiratory/Chest: lungs clear Cardiovascular: normal rate, regular rhythm, no gallop/murmur Abdomen: soft, non tender Extremities: no edema Current Medications Medications (Trade) Dose Ordered Sig/Bird Route PRN Reason Start Time Stop Time Status Last Admin Dose Admin Allopurinol (Zyloprim) 100 mg DAILY ORAL 07/14/17 09:00 08/13/17 08:59 07/20/17 10:17 Ascorbic Acid (Vitamin C) 500 mg DAILY ORAL 07/14/17 09:00 08/13/17 08:59 07/20/17 10:16 Aspirin (ASA) 81 mg DAILY ORAL 07/14/17 09:00 08/13/17 08:59 07/20/17 10:16 Atorvastatin Calcium (Lipitor) 10 mg BEDTIME ORAL 07/13/17 21:00 08/12/17 20:59 07/19/17 20:28 Dextrose (Dextrose 50%) 25 ml STAT PRN IV Hypoglycemia 07/13/17 18:15 08/12/17 18:14 Dextrose (Dextrose 50%) 50 ml STAT PRN IV Hypoglycemia 07/13/17 18:15 08/12/17 18:14 Divalproex Sodium (Depakote) 125 mg EVERY 12 HOURS ORAL 07/13/17 21:00 08/12/17 20:59 07/20/17 10:16 Docusate Sodium (Colace) 100 mg TWICE A DAY ORAL 07/13/17 18:00 08/12/17 17:59 07/20/17 10:16 Gentamicin Sulfate (Garamycin 0.3% [facility]) 1 drop EVERY 6 HOURS BOTH EYES 07/14/17 06:00 07/21/17 05:59 07/20/17 05:29 Glipizide (Glucotrol) 5 mg ACBREAKFAST ORAL 07/14/17 06:30 08/13/17 06:29 07/18/17 05:48 Haloperidol Lactate (Haldol) 5 mg Q6H PRN IM Agitation 07/14/17 11:30 08/13/17 11:29 07/20/17 01:15 Heparin Sodium (Porcine) (Heparin 5000 units/ml) 5,000 units EVERY 12 HOURS SUBQ 07/13/17 21:00 08/12/17 20:59 07/19/17 08:32 Hydralazine HCl (Apresoline) 25 mg Q6HR PRN ORAL SBP above 160 07/19/17 22:15 08/18/17 22:14 Insulin Aspart (NovoLOG) BEFORE MEALS AND HS SUBQ 07/13/17 21:00 08/12/17 20:59 07/17/17 20:59 Mirtazapine (Remeron) 7.5 mg BEDTIME ORAL 07/18/17 21:00 08/17/17 20:59 07/19/17 20:28 Multivitamins (Multivitamins) 1 tab DAILY ORAL 07/14/17 09:00 08/13/17 08:59 07/20/17 10:16 Olanzapine (ZyPREXA Zydis) 5 mg DAILY ORAL 07/18/17 09:00 08/17/17 08:59 07/20/17 10:17 Olanzapine (ZyPREXA) 10 mg BEDTIME ORAL 07/16/17 21:00 08/15/17 20:59 07/19/17 20:27 Tamsulosin HCl (Flomax) 0.4 mg BEDTIME ORAL 07/13/17 21:00 08/12/17 20:59 07/19/17 20:28 CHIKIS PARADA Jul 20, 2017 11:08
--- NOTE | 2017-07-20 12:32 | General Progress Note ---
Assessment/Plan Status: stable Assessment/Plan dementia with behavioral dist encephalopathy -zyprexa 5mg qhs, 10mg qhs -haldol prn -dc seroquel -remeron 15 qhs -the pt lacks capacity to make decisions Subjective Date patient seen: Jul 20, 2017 Neurologic/Psychiatric: Reports: anxiety, depressed, emotional problems Allergies: Coded Allergies: No Known Allergies (Verified , 02/21/09) Subjective the pt was agitated pulled out his iv access. Objective Last 24 Hour Vital Signs Date Time Temp Pulse Resp B/P (MAP) Pulse Ox O2 Delivery O2 Flow Rate FiO2 07/20/17 12:00 98.0 87 20 121/70 97 98.0 07/20/17 08:00 97.7 73 19 140/71 96 97.7 07/20/17 04:00 96.3 75 18 151/69 97 Room Air 96.3 07/20/17 00:00 97.1 65 18 127/68 99 Room Air 97.1 07/19/17 20:00 96.6 70 18 128/80 94 Room Air 96.6 07/19/17 15:50 96.6 72 18 152/71 100 Room Air 96.6 Intake and Output 07/19/17 07/20/17 19:00 07:00 Intake Total 720 ml 280 ml Balance 720 ml 280 ml Intake Oral 720 ml 280 ml # Voids 1 5 # Bowel Movements 1 1 Height (Feet): 5 Height (Inches): 11.00 Weight (Pounds): 151 General Appearance: no apparent distress, alert, confused, agitated So Navas M.D. Jul 20, 2017 12:32
[2017-07-20] MEDS: Tamsulosin 0.4mg cap ORAL SCH (21:28)
--- NOTE | 2017-07-21 00:45 | Progress Note ---
DATE: 07/20/2017 CARDIOLOGY PROGRESS NOTE SUBJECTIVE: Sedated at times during the day, required Haldol last night. Slow improvement. OBJECTIVE: VITAL SIGNS: Blood pressure 151/69, pulse 75, respiratory rate 18 and afebrile. LUNGS: Diminished breath sounds. No wheezing. CARDIAC: Regular rhythm rate. Normal S1 and S2. ABDOMEN: Soft. EXTREMITIES: No edema. IMPRESSION: Slow progress with regards to encephalopathy and behavioral issues. PLAN: Continue to hold anticoagulation. Re-attempt echocardiogram to evaluate for left ventricular thrombus. Interim cardiovascular regimen reviewed and updated. Osmani Cevallos M.D. DR: EVELIN JOB#: [id number] CC:
[2017-07-21 04:22] VITALS: BP 145/70
[2017-07-21] MEDS: GlipiZIDE 5mg tab ORAL SCH (05:48)
[2017-07-21] MEDS: NovoLOG Insulin Flexpen SUBQ SCH ×2 (05:49→11:30)
[2017-07-21 08:00] VITALS: BP 157/87
[2017-07-21] MEDS ORDERED: ZYPREXA ZYDIS5 MG ORAL (08:10)
[2017-07-21] MEDS ORDERED: OLANZAPINE5 MG ORAL (08:10)
[2017-07-21 08:30] LABS: BASOPHILS % (AUTO) 0.8 % (0.0-2.0); EOSINOPHILS % (AUTO) 1.2 % (0.0-3.0); HEMATOCRIT 42.4 % (42.0-52.0); HEMOGLOBIN 14.3 G/DL (14.2-18.0); LYMPHOCYTES % (AUTO) 17.7 % (20.0-45.0); MEAN CORPUSCULAR VOLUME 88 FL (80-99); MONOCYTES % (AUTO) 6.3 % (1.0-10.0); NEUTROPHILS % (AUTO) 73.9 % (45.0-75.0); PLATELET COUNT 146 K/UL (150-450); RED BLOOD COUNT 4.82 M/UL (4.70-6.10); RED CELL DISTRIBUTION WIDTH 14.7 % (11.6-14.8); WHITE BLOOD COUNT 4.1 K/UL (4.8-10.8)
[2017-07-21 08:53] LABS: ALANINE AMINOTRANSFERASE 29 U/L (12-78); ALBUMIN 2.6 G/DL (3.4-5.0); ALBUMIN/GLOBULIN RATIO 0.6 (1.0-2.7); ALKALINE PHOSPHATASE 89 U/L (46-116); ANION GAP 8 mmol/L (5-15); ASPARTATE AMINO TRANSFERASE 41 U/L (15-37); BILIRUBIN,TOTAL 0.3 MG/DL (0.2-1.0); BLOOD UREA NITROGEN 24 mg/dL (7-18); CALCIUM 10.3 MG/DL (8.5-10.1); CARBON DIOXIDE 28 MMOL/L (21-32); CHLORIDE 107 MMOL/L (98-107); CREATININE 1.5 MG/DL (0.55-1.30); POTASSIUM 3.6 MMOL/L (3.5-5.1); SODIUM 143 MMOL/L (136-145)
[2017-07-21] MEDS: Heparin 5000 units/ml inj SUBQ SCH (09:00)
[2017-07-21] MEDS: Aspirin Baby 81mg ORAL SCH (10:04)
[2017-07-21] MEDS: Docusate 100mg cap ORAL SCH (10:04)
[2017-07-21] MEDS: Allopurinol 100mg Tab ORAL SCH (10:05)
[2017-07-21] MEDS: Ascorbic Acid 500mg tab ORAL SCH (10:05)
[2017-07-21] MEDS: ZyPREXA Zydis 5mg tab ORAL SCH (10:10)
--- NOTE | 2017-07-21 10:43 | Infectious Diseases Prog Note ---
Assessment/Plan Assessment/Plan A 1. UTI treated 2. conjunctivitis treated 3. diabetes mellitus 4. hypertension 5. COPD 6. dementia P 1. observe off antibiotic Subjective ROS Limited/Unobtainable: Yes Neurologic: Reports: confusion, other - on restraint Allergies: Coded Allergies: No Known Allergies (Verified , 02/21/09) Objective Vital Signs Last 24 Hour Vital Signs Date Time Temp Pulse Resp B/P (MAP) Pulse Ox O2 Delivery O2 Flow Rate FiO2 07/21/17 08:00 97.3 70 19 157/87 96 97.3 07/21/17 04:22 96.6 59 18 145/70 94 Room Air 96.6 07/21/17 04:00 100 Room Air 07/20/17 23:24 97.6 63 18 154/94 100 97.6 07/20/17 20:00 96.4 63 18 123/65 96 96.4 07/20/17 20:00 96 Room Air 07/20/17 16:00 97.5 60 18 100/57 99 97.5 07/20/17 16:00 Room Air 07/20/17 12:00 98.0 87 20 121/70 97 98.0 07/20/17 12:00 Room Air Height (Feet): 5 Height (Inches): 11.00 Weight (Pounds): 151 General Appearance: no acute distress HEENT: mucous membranes moist, other - ectropion Respiratory/Chest: lungs clear Cardiovascular: normal rate Abdomen: soft, non tender Extremities: no edema Neurologic/Psychiatric: alert, responsive Laboratory Tests Test 07/21/17 06:30 White Blood Count 4.1 K/UL (4.8-10.8) L Red Blood Count 4.82 M/UL (4.70-6.10) Hemoglobin 14.3 G/DL (14.2-18.0) Hematocrit 42.4 % (42.0-52.0) Mean Corpuscular Volume 88 FL (80-99) Mean Corpuscular Hemoglobin 29.7 PG (27.0-31.0) Mean Corpuscular Hemoglobin Concent 33.7 G/DL (32.0-36.0) Red Cell Distribution Width 14.7 % (11.6-14.8) Platelet Count 146 K/UL (150-450) L Mean Platelet Volume 8.1 FL (6.5-10.1) Neutrophils (%) (Auto) 73.9 % (45.0-75.0) Lymphocytes (%) (Auto) 17.7 % (20.0-45.0) L Monocytes (%) (Auto) 6.3 % (1.0-10.0) Eosinophils (%) (Auto) 1.2 % (0.0-3.0) Basophils (%) (Auto) 0.8 % (0.0-2.0) Sodium Level 143 MMOL/L (136-145) Potassium Level 3.6 MMOL/L (3.5-5.1) Chloride Level 107 MMOL/L (98-107) Carbon Dioxide Level 28 MMOL/L (21-32) Anion Gap 8 mmol/L (5-15) Blood Urea Nitrogen 24 mg/dL (7-18) H Creatinine 1.5 MG/DL (0.55-1.30) H Estimat Glomerular Filtration Rate mL/min (>60) Glucose Level 141 MG/DL (74-106) H Calcium Level 10.3 MG/DL (8.5-10.1) H Magnesium Level 1.7 MG/DL (1.8-2.4) L Total Bilirubin 0.3 MG/DL (0.2-1.0) Aspartate Amino Transf (AST/SGOT) 41 U/L (15-37) H Alanine Aminotransferase (ALT/SGPT) 29 U/L (12-78) Alkaline Phosphatase 89 U/L (46-116) Total Protein 6.7 G/DL (6.4-8.2) Albumin 2.6 G/DL (3.4-5.0) L Globulin 4.1 g/dL Albumin/Globulin Ratio 0.6 (1.0-2.7) L Current Medications Medications (Trade) Dose Ordered Sig/Bird Route PRN Reason Start Time Stop Time Status Last Admin Dose Admin Allopurinol (Zyloprim) 100 mg DAILY ORAL 07/14/17 09:00 08/13/17 08:59 07/21/17 10:05 Ascorbic Acid (Vitamin C) 500 mg DAILY ORAL 07/14/17 09:00 08/13/17 08:59 07/21/17 10:05 Aspirin (ASA) 81 mg DAILY ORAL 07/14/17 09:00 08/13/17 08:59 07/21/17 10:04 Atorvastatin Calcium (Lipitor) 10 mg BEDTIME ORAL 07/13/17 21:00 08/12/17 20:59 07/20/17 21:28 Dextrose (Dextrose 50%) 25 ml STAT PRN IV Hypoglycemia 07/13/17 18:15 08/12/17 18:14 Dextrose (Dextrose 50%) 50 ml STAT PRN IV Hypoglycemia 07/13/17 18:15 08/12/17 18:14 Divalproex Sodium (Depakote) 125 mg EVERY 12 HOURS ORAL 07/13/17 21:00 08/12/17 20:59 07/21/17 10:05 Docusate Sodium (Colace) 100 mg TWICE A DAY ORAL 07/13/17 18:00 08/12/17 17:59 07/21/17 10:04 Glipizide (Glucotrol) 5 mg ACBREAKFAST ORAL 07/14/17 06:30 08/13/17 06:29 07/21/17 05:48 Haloperidol Lactate (Haldol) 5 mg Q6H PRN IM Agitation 07/14/17 11:30 08/13/17 11:29 07/20/17 01:15 Heparin Sodium (Porcine) (Heparin 5000 units/ml) 5,000 units EVERY 12 HOURS SUBQ 07/13/17 21:00 08/12/17 20:59 07/19/17 08:32 Hydralazine HCl (Apresoline) 25 mg Q6HR PRN ORAL SBP above 160 07/19/17 22:15 08/18/17 22:14 Insulin Aspart (NovoLOG) BEFORE MEALS AND HS SUBQ 07/13/17 21:00 08/12/17 20:59 07/21/17 05:49 Mirtazapine (Remeron) 15 mg BEDTIME ORAL 07/20/17 21:00 08/19/17 20:59 07/20/17 21:31 Multivitamins (Multivitamins) 1 tab DAILY ORAL 07/14/17 09:00 08/13/17 08:59 07/21/17 10:08 Olanzapine (ZyPREXA Zydis) 5 mg DAILY ORAL 07/18/17 09:00 08/17/17 08:59 07/21/17 10:10 Olanzapine (ZyPREXA) 10 mg BEDTIME ORAL 07/16/17 21:00 08/15/17 20:59 07/20/17 21:31 Tamsulosin HCl (Flomax) 0.4 mg BEDTIME ORAL 07/13/17 21:00 08/12/17 20:59 07/20/17 21:28 Jt Gallo MD Jul 21, 2017 10:43
--- NOTE | 2017-07-21 11:26 | General Progress Note ---
Assessment/Plan Assessment/Plan dementia with behavioral dist encephalopathy -zyprexa 5mg qhs, 10mg qhs -haldol prn -dc seroquel -remeron 15 qhs -the pt lacks capacity to make decisions Subjective Date patient seen: Jul 21, 2017 Neurologic/Psychiatric: Reports: anxiety, depressed, emotional problems Allergies: Coded Allergies: No Known Allergies (Verified , 02/21/09) Subjective the pt was agitated however more manageable Objective Last 24 Hour Vital Signs Date Time Temp Pulse Resp B/P (MAP) Pulse Ox O2 Delivery O2 Flow Rate FiO2 07/21/17 08:00 97.3 70 19 157/87 96 97.3 07/21/17 08:00 Room Air 07/21/17 04:22 96.6 59 18 145/70 94 Room Air 96.6 07/21/17 04:00 100 Room Air 07/20/17 23:24 97.6 63 18 154/94 100 97.6 07/20/17 20:00 96.4 63 18 123/65 96 96.4 07/20/17 20:00 96 Room Air 07/20/17 16:00 97.5 60 18 100/57 99 97.5 07/20/17 16:00 Room Air 07/20/17 12:00 98.0 87 20 121/70 97 98.0 07/20/17 12:00 Room Air Intake and Output 07/20/17 07/21/17 19:00 07:00 # Voids 2 2 # Bowel Movements 2 2 Laboratory Tests 07/21/17 06:30: White Blood Count 4.1L, Red Blood Count 4.82, Hemoglobin 14.3, Hematocrit 42.4, Mean Corpuscular Volume 88, Mean Corpuscular Hemoglobin 29.7, Mean Corpuscular Hemoglobin Concent 33.7, Red Cell Distribution Width 14.7, Platelet Count 146L, Mean Platelet Volume 8.1, Neutrophils (%) (Auto) 73.9, Lymphocytes (%) (Auto) 17.7L, Monocytes (%) (Auto) 6.3, Eosinophils (%) (Auto) 1.2, Basophils (%) (Auto ) 0.8, Sodium Level 143, Potassium Level 3.6, Chloride Level 107, Carbon Dioxide Level 28, Anion Gap 8, Blood Urea Nitrogen 24H, Creatinine 1.5H, Estimat Glomerular Filtration Rate , Glucose Level 141H, Calcium Level 10.3H, Magnesium Level 1.7L, Total Bilirubin 0.3, Aspartate Amino Transf (AST/SGOT) 41H , Alanine Aminotransferase (ALT/SGPT) 29, Alkaline Phosphatase 89, Total Protein 6.7, Albumin 2.6L, Globulin 4.1, Albumin/Globulin Ratio 0.6L Height (Feet): 5 Height (Inches): 11.00 Weight (Pounds): 151 General Appearance: WD/WN, no apparent distress, alert, confused So Navas M.D. Jul 21, 2017 11:26
[2017-07-21 12:00] VITALS: BP 136/72
--- NOTE | 2017-07-21 22:15 | Discharge Summary ---
DATE OF ADMISSION: 07/13/2017 DATE OF DISCHARGE: 07/21/2017 ADMISSION DIAGNOSES: 1. Altered mental status. 2. Hypernatremia. 3. Acute renal failure. 4. Dehydration. 5. Dementia. 6. Toxic metabolic encephalopathy. 7. History of left ventricular thrombus. 8. Chronic kidney disease. 9. Diabetes. DISCHARGE DIAGNOSES: 1. Altered mental status. 2. Hypernatremia. 3. Acute renal failure. 4. Dehydration. 5. Dementia. 6. Toxic metabolic encephalopathy. 7. History of left ventricular thrombus. 8. Chronic kidney disease. 9. Diabetes. HOSPITAL COURSE: The patient was admitted with complaints of altered mental status and agitation. He was noted to be dehydrated, hypernatremic. He had a UTI. He received antibiotics and hydration. Hospital course was complicated by continued bouts of agitation and combative behavior. Psychiatric consultation was obtained. The patient's behavior was eventually improved and on discharge, he was stable. [facility]. Because of issues with falls, he is currently off his anticoagulation for his LV thrombus because of high risk for bleeding. He had had several falls at the [facility]. If the patient's behavior seems stable and his fall risk improves, he might be resumed. This was discussed with family. DISCHARGE MEDICATIONS: Please see discharge medication list for discharge medications. DIET: Cardiac diet. ACTIVITY: Ad-ivan. FOLLOWUP: The patient to follow up in one to two days at the [facility]. Aleksey Diaz M.D. DR: OLIVA JOB#: [id number] CC:
--- NOTE | 2017-07-21 23:00 | Progress Note ---
DATE: 07/21/2017 CARDIOLOGY PROGRESS NOTE SUBJECTIVE: The patient remains at high risk of bleeding. He is off anticoagulation. He has several fall episodes in the recent past. His behaviors improved, but is not optimal. He has no signs of chest pain, no shortness of breath or acute infection at this time. OBJECTIVE: VITAL SIGNS: Blood pressure 157/87, earlier 136/72, heart rate 61, and respiratory rate 20. LUNGS: Clear. CARDIAC: Regular. Normal S1 and S2 with a fourth heart sound. ABDOMEN: Soft. No edema. LABORATORY AND DIAGNOSTIC DATA: White count 4 and hemoglobin 14. Potassium 3.6, BUN 24 and creatinine 1.5. Magnesium 1.7. Albumin 2.6. IMPRESSION: 1. Recovering encephalopathy. 2. Cerebrovascular disease with dementia and agitation. 3. Ischemic heart disease. 4. History of left ventricular thrombus. 5. Peripheral artery disease. 6. Type 2 diabetes mellitus. 7. COPD. 8. Hypomagnesemia. PLAN: 1. Complete recovery at [facility] facility. 2. Oral magnesium supplement to follow. 3. Discharge medication regimen reviewed and reconciled. 4. Due for decision for resumption of anticoagulation until fall and bleeding risk decreases. Osmani Cevallos M.D. DR: EVELIN JOB#: [id number] CC:
--- NOTE | 2017-07-22 12:46 | Cardiology Report ---
APPROVED REPORT EKG Measurement Heart [id number] VT [id number] Sinus bradycardia with occasional premature ventricular complexes Right bundle branch block Left anterior fascicular block Bifascicular block Minimal voltage criteria for LVH, may be normal variant Anteroseptal infarct, age undetermined Abnormal ECG
== END 2017-07-21 15:00 | DRG 689 ==
LOC: EDBD 12:26 → EMR 13:36 → 4W 13:40 → EDBEDREQ 13:56 → 4W 07-16 11:53
DX: N30.00 Acute cystitis without hematuria (principal); G92 Toxic encephalopathy; E44.0 Moderate protein-calorie malnutrition; N17.9 Acute kidney failure, unspecified; E87.0 Hyperosmolality and hypernatremia; I13.0 Hypertensive heart and chronic kidney disease with heart failure and stage 1 through stage 4 chronic kidney disease, or unspecified chronic kidney disease; I50.42 Chronic combined systolic (congestive) and diastolic (congestive) heart failure; F01.51 Vascular dementia, unspecified severity, with behavioral disturbance; E86.0 Dehydration; I25.5 Ischemic cardiomyopathy; Z68.21 Body mass index [BMI] 21.0-21.9, adult; Z78.1 Physical restraint status; E11.22 Type 2 diabetes mellitus with diabetic chronic kidney disease; N18.9 Chronic kidney disease, unspecified; I25.2 Old myocardial infarction; I69.319 Unspecified symptoms and signs involving cognitive functions following cerebral infarction; R13.12 Dysphagia, oropharyngeal phase; H10.9 Unspecified conjunctivitis; J44.9 Chronic obstructive pulmonary disease, unspecified; I25.118 Atherosclerotic heart disease of native coronary artery with other forms of angina pectoris; E83.42 Hypomagnesemia; E87.6 Hypokalemia; I73.9 Peripheral vascular disease, unspecified; Z79.4 Long term (current) use of insulin; Z87.891 Personal history of nicotine dependence
CPT/HCPCS: 36415; 70450; 71045; 80053; 80061; 80307; 80329; 81003; 82140; 82550; 82962; 83735; 83880; 84443; 84484; 84550; 85025; 87086; 93005; 99284; J1815; J8499

== ENCOUNTER 2020-01-23 11:20 | Inpatient (IN) | payer MEDICARE, OTHER ==
[~2020-01-23] VITALS: Ht 177.8 cm; Wt 82.6 kg
[~2020-01-23 11:20] MED LIST changes: +A & D OINT1 APPLI1 TP; +ALLOPURINOL100 M1 ORAL; +ARTIFICIAL TEAR15 ML BOTH EYES; +ASCORBIC ACID500 MG ORAL; +ASPIR 8181 MG ORAL; +ATORVASTATIN CA20 MG ORAL; +CALMOSEPTINE1 APPLIC TOPIC; +COLACE100 MG ORAL; +COUMADIN4 MG ORAL; +DIVALPROEX SOD250 M1 PO; +DULCOLAX10 MG RC; +FLOMAX0.4 MG ORAL; +FUROSEMIDE40 MG ORAL; +GLIPIZIDE5 MG ORAL; +MELATONIN3 M2 PO; +MILK OF MA400 MG/51 ORAL; +MIRALAX17 G2 ORAL; +MULTIVITAMINS1 EAC8 ORAL; +NAPHCON-A EYE D15 ML OP; +NOVOLOG100 UNIT/3 SUBQ; +OLANZAPINE5 MG ORAL; +SEROQUEL25 MG ORAL; +VITAMIN D-32000 UNI1 PO; +ZYPREXA ZYDIS5 MG ORAL
[2020-01-23 11:30] VITALS: BP 132/84
--- NOTE | 2020-01-23 12:00 | NUR ---
ED Nurse Note: Brought in by ambulance. EMS states taht at his facility he experienced SPO2 de sat to 88% on RA. Pt is afebrile in triage. He has periods of apnea with rapid respirations. Vital signs are stable. EKG, labs, xray are done. Pt is on tele monitor.
--- NOTE | 2020-01-23 12:25 | Emergency Room Report ---
History of Present Illness General Chief Complaint: Dyspnea/Respdistress Source: Medical Record, EMS Present Illness HPI This patient [facility] from a [facility] facility. He was transferred to the emergency department for concern of hypoxemia. The patient also had dyspnea. The patient is oriented to self at baseline. The patient has a history of CHF, diabetes, COPD, encephalopathy, functional quadriplegia to name a few. Patient is also G-tube dependent. Patient is unable to give any type of articulate history. History is obtained from the medical record. 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 COVID-19 Screening: PUI COVID-19 COVID-19 Testing Source: at [facility] Patient History Past Medical History: see triage record, old chart reviewed, DM, HTN, RI, CAD, CHF, COPD, GERD, dementia Past Surgical History: other - G-tube Social History: Denies: smoking, alcohol use, drug use Reviewed Nursing Documentation: PMH: Agreed; PSxH: Agreed Nursing Documentation-PMH Past Medical History: No History, Except For Hx Cardiac Problems: Yes - anemia, hypothyroid Hx Hypertension: Yes Hx Diabetes: Yes Hx Cancer: No Hx Gastrointestinal Problems: No Hx Neurological Problems: Yes - encephalopathy Hx Cerebrovascular Accident: Yes Hx Dementia: Yes Hx Alzheimer's Disease: Yes Review of Systems All Other Systems: negative except mentioned in HPI Physical Exam Vital Signs Date Time Temp Pulse Resp B/P (MAP) Pulse Ox O2 Delivery O2 Flow Rate FiO2 01/23/20 11:20 98.6 80 20 106/74 (85) 94 Nasal Cannula 2.0 Sp02 EP Interpretation: reviewed, abnormal - 85% on RA General Appearance: no apparent distress, alert, GCS 15, non-toxic Head: normocephalic, atraumatic ENT: hearing grossly normal, normal pharynx, no angioedema, normal voice Neck: normal inspection, full range of motion Respiratory: lungs clear, normal breath sounds, accessory muscle use, speaking full sentences, wheezing, expiration Cardiovascular #1: regular rate, rhythm, no edema Gastrointestinal: non tender, soft, non-distended, no guarding, no rebound, other - G-tube in place Rectal: deferred Musculoskeletal: normal range of motion, non-tender Neurologic: alert, responsive, no focal defects - Functional quadraplegia, unable to obtain full neuro exam. Psychiatric: mood/affect normal Medical Decision Making Diagnostic Impression: Primary Impression: COPD exacerbation Additional Impressions: Elevated troponin Hypernatremia Renal failure Transaminitis Lung mass CHF (congestive heart failure) ER Course This patient has multiple ongoing exacerbations of chronic conditions. He has been COPD and CHF exacerbation. He also has an elevated troponin and renal failure. He has significant hypernatremia. He is initially treated for COPD exacerbation with nebulizer treatments and given aspirin for his elevated troponin. He will be admitted for further ongoing monitoring, treatment and evaluation. The patient has multiple serious conditions and given the patient's age he has a very poor prognosis. This patient was evaluated in the context of the global COVID-19 pandemic, which necessitated consideration that the patient might be at risk for infection with the GWAO-WJEOC-3 virus that causes COVID-19. Institutional protocols and algorithms that pertain to the evaluation of patients at risk for COVID-19 and the state of rapid change based on information released by multiple regulatory bodies including the CDC and federal and state organizations. These policies and algorithms were followed during the patient's care in the ED. This patient is critically ill. This patient required complex medical decision- making, aggressive intervention, extensive laboratory workup and monitoring. Critical care time: 40 minutes. Laboratory Tests Test 01/23/20 12:17 01/23/20 13:27 White Blood Count 7.7 K/UL (4.8-10.8) Red Blood Count 6.06 M/UL (4.70-6.10) Hemoglobin 17.4 G/DL (14.2-18.0) Hematocrit 57.4 % (42.0-52.0) H Mean Corpuscular Volume 95 FL (80-99) Mean Corpuscular Hemoglobin 28.7 PG (27.0-31.0) Mean Corpuscular Hemoglobin Concent 30.3 G/DL (32.0-36.0) L Red Cell Distribution Width 16.6 % (11.6-14.8) H Platelet Count 90 K/UL (150-450) L Mean Platelet Volume 9.8 FL (6.5-10.1) Neutrophils (%) (Auto) % (45.0-75.0) Lymphocytes (%) (Auto) % (20.0-45.0) Monocytes (%) (Auto) % (1.0-10.0) Eosinophils (%) (Auto) % (0.0-3.0) Basophils (%) (Auto) % (0.0-2.0) Differential Total Cells Counted 100 Neutrophils % (Manual) 77 % (45-75) H Lymphocytes % (Manual) 16 % (20-45) L Monocytes % (Manual) 6 % (1-10) Eosinophils % (Manual) 1 % (0-3) Basophils % (Manual) 0 % (0-2) Band Neutrophils 0 % (0-8) Platelet Estimate Decreased L Platelet Morphology Normal Anisocytosis 1+ Prothrombin Time 11.6 SEC (9.30-11.50) H Prothrombin Time INR 1.1 (0.9-1.1) Activated Partial Thromboplast Time 25 SEC (23-33) D-Dimer 0.83 mg/L FEU (0.00-0.49) H Sodium Level 169 MMOL/L (136-145) *H Potassium Level 4.4 MMOL/L (3.5-5.1) Chloride Level 129 MMOL/L (98-107) H Carbon Dioxide Level 33 MMOL/L (21-32) H Anion Gap 5 mmol/L (5-15) Blood Urea Nitrogen 105 mg/dL (7-18) H Creatinine 2.3 MG/DL (0.55-1.30) H Estimated Glomerular Filtration Rate 32.6 mL/min (>60) Glucose Level 212 MG/DL (74-106) H Lactic Acid Level 1.90 mmol/L (0.4-2.0) Calcium Level 9.9 MG/DL (8.5-10.1) Ferritin 90 NG/ML (8-388) Total Bilirubin 0.4 MG/DL (0.2-1.0) Aspartate Amino Transferase (AST) 218 U/L (15-37) H Alanine Aminotransferase (ALT) 454 U/L (12-78) H Alkaline Phosphatase 195 U/L (46-116) H Lactate Dehydrogenase 431 U/L (81-234) H Total Creatine Kinase 77 U/L (26-308) Creatine Kinase MB 3.1 NG/ML (0.0-3.6) Creatine Kinase MB Relative Index 4.0 Troponin I 0.677 ng/mL (0.000-0.056) C-Reactive Protein, Quantitative 2.0 mg/dL (0.00-0.90) H Pro-B-Type Natriuretic Peptide 4240 pg/mL (0-125) H Total Protein 7.2 G/DL (6.4-8.2) Albumin 2.6 G/DL (3.4-5.0) L Globulin 4.6 g/dL Albumin/Globulin Ratio 0.6 (1.0-2.7) L Lipase 330 U/L (73-393) Urine Color Pending Urine Appearance Pending Urine pH Pending Urine Specific [place] Pending Urine Protein Pending Urine Glucose (UA) Pending Urine Ketones Pending Urine Blood Pending Urine Nitrite Pending Urine Bilirubin Pending Urine Urobilinogen Pending Urine Leukocyte Esterase Pending Microbiology Date/Time Source Procedure Growth Status 01/23/20 11:49 Nasopharynx SARS-CoV-2 RdRp Gene Assay - Final Complete EKG Diagnostic Results Rate: normal Rhythm: NSR ST Segments: other - NSST findings. Rhythm Strip Diag. Results EP Interpretation: yes Rate: 90's Rhythm: NSR, no PVC's, no ectopy Chest X-Ray Diagnostic Results Chest X-Ray Diagnostic Results : Chest X-Ray Ordered: Yes # of Views/Limited/Complete: 1 View Indication: Shortness of Breath EP Interpretation: Yes Interpretation: other - mild diffuse interstitial opacities. R. lung mass. Impression: Other - Mild CHF, lung mass Electronically Signed by: Aria Szymanski DO Last Vital Signs Date Time Temp Pulse Resp B/P (MAP) Pulse Ox O2 Delivery O2 Flow Rate FiO2 01/23/20 11:20 98.6 80 20 106/74 (85) 94 Nasal Cannula 2.0 Disposition: ADMITTED INPATIENT Condition: Serious Referrals: Aleksey Diaz MD (PCP) Aria Szymanski DO Jan 23, 2020 12:25
[2020-01-23 12:40] LABS: HEMATOCRIT 57.4 % (42.0-52.0); HEMOGLOBIN 17.4 G/DL (14.2-18.0); MEAN CORPUSCULAR VOLUME 95 FL (80-99); PLATELET COUNT 90 K/UL (150-450); RED BLOOD COUNT 6.06 M/UL (4.70-6.10); RED CELL DISTRIBUTION WIDTH 16.6 % (11.6-14.8); WHITE BLOOD COUNT 7.7 K/UL (4.8-10.8)
[2020-01-23 13:01] LABS: INR 1.1 (0.9-1.1)
--- NOTE | 2020-01-23 13:07 | Diagnostic Imaging Report ---
Indication: Reason For Exam: SOB Technique: Single AP view of the chest. Comparison: Chest radiograph dated 07/13/2017 Findings: The cardiomediastinal silhouette is unchanged in appearance when accounting for differences in projection and technique. There is mild pulmonary vascular congestion. Streaky bibasilar airspace opacities are noted. There is a nodular opacity in the right midlung measuring approximately 2.6 cm. No pneumothorax or pleural effusion. No acute osseous abnormality. IMPRESSION: 1. Pulmonary vascular congestion with streaky bibasilar airspace opacities which could represent combination of edema and atelectasis but pneumonia should be excluded clinically. 2. Opacity in the right midlung, not seen on prior examination, suspicious for pulmonary nodule. Comparison with more recent prior chest radiograph or follow-up with CT chest on nonemergent basis is recommended. Findings discussed with Dr. Szymanski at 1300 on 01/23/2020
[2020-01-23 13:14] LABS: ALBUMIN 2.6 G/DL (3.4-5.0); ALBUMIN/GLOBULIN RATIO 0.6 (1.0-2.7); BILIRUBIN,TOTAL 0.4 MG/DL (0.2-1.0); CALCIUM 9.9 MG/DL (8.5-10.1); CKMB 3.1 NG/ML (0.0-3.6); CREATININE 2.3 MG/DL (0.55-1.30); POTASSIUM 4.4 MMOL/L (3.5-5.1)
--- NOTE | 2020-01-23 13:32 | NUR ---
ED Nurse Note: PT resting comfortably. Vitals stable on 2LNC. Urine and flu swab sent to lab. ER aware troponin .677. No new orders.
[2020-01-23 14:15] LABS: APPEARANCE,URINE CLEAR; BILIRUBIN, URINE NEGATIVE (NEGATIVE); GLUCOSE, URINE (UA) NEGATIVE (NEGATIVE); KETONES,URINE NEGATIVE (NEGATIVE); LEUKOCYTE ESTERASE ,URINE 1+ (NEGATIVE); NITRITE,URINE NEGATIVE (NEGATIVE); PH,URINE 5 (4.5-8.0); PROTEIN,URINE 3+ (NEGATIVE); UROBILINOGEN,URINE NORMAL MG/DL (0.0-1.0)
[2020-01-23] MEDS ORDERED: Ipratropium 0.02% Inh Soln 2.5ml UD HHN ONE (14:30)
[2020-01-23] MEDS ORDERED: Albuterol ud Inhalation HHN ONE (14:30)
[2020-01-23 14:32] LABS: COLOR,URINE YELLOW
[2020-01-23 15:50] VITALS: BP 110/67
--- NOTE | 2020-01-23 16:00 | NUR ---
ED Nurse Note: pt appears to have a wound to coccyx region, skin is otherwise intact. photos taken and uploaded to pt chart
--- NOTE | 2020-01-23 16:59 | NUR ---
ED Nurse Note: report given to PRITI Eng
[2020-01-23 17:15] VITALS: BP 108/64
--- NOTE | 2020-01-23 17:56 | NUR ---
NURSE NOTES: Received report from PRITI Carranza. Pt is A/O x 0 and non verbal. Pt responses to painful stimuli. Pt has a Gtube in place and patent. No SOB or acute distress noted. No pain noted. Pt is on 4L with saturation @ 97%. With full body assessment done. Pt was found to have a sacral DTI along with bilateral heel DTI. Bed in lowest position with side rails x 3 and bed alarm on. Will get admission orders from Dr. Diaz.
--- NOTE | 2020-01-23 18:20 | NUR ---
NURSE NOTES: With Dr. Cevallos sitting next to nurse Eng the sodium of 169 was not endorsed to the nurse. Dr. Cevallos called nurse and asked what was done for pt. Was endorsed nothing was given. Dr Cevallos let nurse Albertina know that he was imputing orders for IV 0.45% NS @ 125cc/hr. IV will be set up and started.t
[2020-01-23] MEDS: cefTRIAXone 1 GM in D5W 55 ML IVPB SCH (18:30)
[2020-01-23] MEDS: Albuterol/Ipratropium 3ml neb HHN SCH (19:21)
--- NOTE | 2020-01-23 19:57 | NUR ---
NURSE HAND-OFF REPORT: Important Events on Shift: New Admit with Dyspnea and elevated Na Patient Status: Stable Diet: Glucerna 1.2 @ 50cc/hr x 24 hours 200cc Q6H for flushing Pending Orders: Pending Results/Labs: Pending MD notification: Latest Vital Signs: Temperature 97.7 , Pulse 74 , B/P 108 /64 , Respiratory Rate 18 , O2 SAT 100 , Nasal Cannula, O2 Flow Rate 5.0 . Vital Sign Comment: EKG Rhythm: Sinus Rhythm Rhythm change?: MD Notified?: - MD Response: Latest Gibson Fall Score: 40 Fall Risk: Medium Risk Safety Measures: Call light Within Reach, Bed Alarm Zone 2, Side Rails Side Rails x3, Bed position . Fall Precautions: Yellow Socks Yellow Gown Patient Fall Education Report given to
--- NOTE | 2020-01-23 19:58 | NUR ---
NURSE NOTES: Got report from Albertina MARCOS. Pt is A+Ox0 and non verbal. Pt responses to painful stimuli. Pt is bedbound. Pt has a Gtube in place and patent running Glucerna 1.2@50. Pt has L FA 20g w/ 1/2NS@125 patent and intact. No SOB or acute distress noted. No s/s of distress or discomfort noted. Pt resting in bed comfortably. Pt is on 4L NC sating 96%. Upon assessment pt has sacral DTI and bilateral heel DTI. Bed in low and locked position, call light within reach, bedside table within reach. Continue to monitor.
[2020-01-23 20:00] VITALS: BP 110/70
--- NOTE | 2020-01-23 20:00 | NUR ---
NURSE NOTES: Spoke to Dorene in Radiology said they will do Abd US in AM since the pt will be NPO at midnight
[2020-01-23] MEDS: Azithromycin 250 MG in D5W 275 ML IV SCH (21:23)
[2020-01-23] MEDS: Atorvastatin 80mg tab GT SCH (21:24)
[2020-01-23] MEDS: Heparin 5000 units/ml inj SUBQ SCH (21:26)
--- NOTE | 2020-01-23 22:32 | Consultation ---
DATE OF CONSULTATION: 01/23/2020 CARDIOLOGY CONSULT REFERRING PHYSICIAN: Aleksey Diaz M.D. REASON FOR CONSULTATION: Shortness of breath, hypoxia in the setting of ischemic cardiomyopathy. HISTORY OF PRESENT ILLNESS: This 89-year-old male resides at a care home facility. He has a known history of ischemic heart disease with systolic and diastolic dysfunction and a history of left ventricular thrombus. He has a history of COPD as well. He was noted to be congested and hypoxic at the care home facility with some shortness of breath. He was brought into the emergency room and evaluated. Concern was noted over his decreased oxygen saturation and clinical findings prompting this consultation. PAST MEDICAL HISTORY: 1. Coronary artery disease. 2. History of myocardial infarction. 3. Chronic systolic and diastolic congestive heart failure. 4. Paroxysmal atrial and ventricular arrhythmias. 5. History of left ventricular thrombus. 6. Cerebrovascular disease with history of cerebrovascular accident and dementia. 7. Peripheral artery disease with prior lower extremity revascularization. 8. Type 2 diabetes mellitus. 9. Hypothyroidism. 10. Anemia of chronic kidney disease. 11. Chronic kidney disease. 12. Peripheral neuropathy. 13. COPD. 14. Hypertensive heart disease. 15. Hyperlipidemia. ALLERGIES: None known. MEDICATIONS: Reviewed and reconciled. FAMILY HISTORY: Noncontributory. SOCIAL HISTORY: A 38-krsc-nbhd-year smoking. Moderate alcohol in the past. No substance abuse. REVIEW OF SYSTEMS: No documented fevers. No history of retinopathy. No recent steroid use. Possible COVID exposure at the [facility]. He does have dementia. There is a history of prostatic hypertrophy. He has had prior infarctions he had been on anticoagulation in the past but that was discontinued due to bleeding complications related to diverticular disease. PHYSICAL EXAMINATION: VITAL SIGNS: Blood pressure 106/74, pulse 80, respirations 20, temperature 98.6, oxygen saturation 94% on 2 L. HEENT: Temporal wasting. Arcus senilis. Oropharynx clear. NECK: Supple. Jugular venous pressure normal. No bruits. LUNGS: Coarse breath sounds with rhonchi. CARDIAC: Regular rhythm and rate. Normal S1, S2 with a fourth heart sound. ABDOMEN: Soft. Nontender. EXTREMITIES: Decreased distal pulses. No ischemic changes. No edema. LABORATORY DATA: White count 7.7, hemoglobin 17.4. Chest x-ray with bilateral infiltrates. Sodium 169, potassium 4.4, chloride 129, bicarb 33, BUN 105, creatinine 2.3. Albumin 2.6. EKG, sinus rhythm, nonspecific ST-T wave changes with incomplete right bundle-branch block. COVID-19 swab is negative. Pro-natriuretic peptide 4240, troponin 0.677. IMPRESSION: 1. Healthcare-acquired pneumonia, possible COVID-19 infection with negative rapid swab x1. 2. Ischemic cardiomyopathy. 3. Acute myocardial ischemia. 4. Acute on chronic systolic and diastolic congestive heart failure. 5. Peripheral artery disease. 6. COPD with paroxysmal bronchospasm and hypoxia. 7. Cerebrovascular disease with dementia. PLAN: 1. Oxygenation. 2. Bronchodilators. 3. Antimicrobials. 4. Titration and optimization of antifailure regimen. 5. Diuresis based on clinical parameters. 6. Serial troponin levels. 7. Anti-platelet and anti-lipid drugs. 8. Nitrates as tolerated by blood pressure parameters. 9. DVT prophylaxis. 10. Check echocardiogram. 11. Continue with cardiac monitoring. Osmani Cevallos M.D. DR: KEENAN JOB#: [id number] CC:
[2020-01-24] VITALS: BP 109/71
[2020-01-24] MEDS: Albuterol/Ipratropium 3ml neb HHN SCH ×4 (00:58→19:42)
[2020-01-24 04:00] VITALS: BP 117/69
--- NOTE | 2020-01-24 04:35 | NUR ---
NURSE NOTES: Got notified by child monitor that pt had 12 beats of vtach. Pt in stable condition. VSS. No s/s of distress or discomfort noted. Pt resting in bed comfortably. Notifed Dr. Cevallos/Joe. Awaiting callback.
[2020-01-24 07:34] LABS: HEMATOCRIT 46.6 % (42.0-52.0); HEMOGLOBIN 14.6 G/DL (14.2-18.0); MEAN CORPUSCULAR VOLUME 93 FL (80-99); PLATELET COUNT 80 K/UL (150-450); RED CELL DISTRIBUTION WIDTH 17.1 % (11.6-14.8); WHITE BLOOD COUNT 8.5 K/UL (4.8-10.8)
--- NOTE | 2020-01-24 07:34 | NUR ---
NURSE HAND-OFF REPORT: Important Events on Shift:[] Patient Status: [STABLE] Diet: [NPO] Pending Orders: [] Pending Results/Labs:[] Pending MD notification:[] Latest Vital Signs: Temperature 98.4 , Pulse 79 , B/P 117 /69 , Respiratory Rate 20 , O2 SAT 95 , Nasal Cannula, O2 Flow Rate 4.0 . Vital Sign Comment: [] EKG Rhythm: Sinus Rhythm Rhythm change?: N MD Notified?: - MD Response: Fall Score: 40 Fall Risk: Medium Risk Safety Measures: Call light Within Reach, Bed Alarm Zone 2, Side Rails Side Rails x3, Bed position . Fall Precautions: Yellow Socks Yellow Gown Patient Fall Education Report given to [ADIA MARCOS]. Addendum: 01/24/20 at 0754 by Orlando Gardner RN ABDOMINAL US PENDING TODAY
--- NOTE | 2020-01-24 07:35 | NUR ---
NURSE NOTES: Received report from Orlando/RN. Pt is in bed lying semi-fowlers. On 4L nasal cannula, no distress or sob noted. Night nurse reported that pt had 12 beats of V-tach around 0400, Dr Cevallos and Joe are aware. Pt is NPO waiting for abdominal US. IV on left FA 20G running 1/2NS @125ml/hr. Bed in lowest position and locked. Call light within reach. Side rails up X3. Will continue plan of care.
[2020-01-24 08:00] VITALS: BP 124/70
[2020-01-24 08:14] LABS: CALCIUM 9.5 MG/DL (8.5-10.1); CREATININE 2.4 MG/DL (0.55-1.30)
[2020-01-24 09:03] LABS: ALANINE AMINOTRANSFERASE 351 U/L (12-78); ALBUMIN 2.4 G/DL (3.4-5.0); ALKALINE PHOSPHATASE 155 U/L (46-116); ASPARTATE AMINO TRANSFERASE 139 U/L (15-37); BILIRUBIN,DIRECT 0.1 MG/DL (0.0-0.3); BILIRUBIN,TOTAL 0.4 MG/DL (0.2-1.0)
[2020-01-24] MEDS: Aspirin Baby 81mg GT SCH (09:33)
[2020-01-24] MEDS: Heparin 5000 units/ml inj SUBQ SCH ×2 (09:34→21:47)
[2020-01-24 12:00] VITALS: BP 115/72
--- NOTE | 2020-01-24 13:30 | Consultation ---
DATE OF CONSULTATION: 01/24/2020 NEPHROLOGY CONSULTATION CONSULTING PHYSICIAN: Roland Campo MD REFERRING PHYSICIAN: Aleksey Diaz MD REASON FOR CONSULTATION: Acute kidney injury. HISTORY OF PRESENT ILLNESS: The patient is an 89-year-old man [facility] with advanced dementia, gastrostomy feeding, history of ischemic heart disease with systolic and diastolic dysfunction, history of COPD. He was found to be congested and brought to the emergency room. He was found to have hypernatremia and acute kidney injury. His prior BUN and creatinine were normal. The patient has a history of hypothyroidism, functional quadriplegia, severe dementia, COPD. Medications were reviewed from the [facility] include DSS, famotidine, ferrous sulfate, glucagon p.r.n., Lasix, Levemir insulin, levothyroxine, Lipitor, multivitamins, NovoLog sliding scale, MiraLAX, vitamin C, aspirin, Calmoseptine ointment. REVIEW OF SYSTEMS: The patient is unable. PHYSICAL EXAMINATION: GENERAL: The patient is seen lying in bed, nonverbal. VITAL SIGNS: Temperature 97.4, pulse 77, respiratory rate 20, blood pressure 124/70, O2 saturation 100% on 4 liters. HEAD, EYES, EARS, NOSE, AND THROAT: He keeps his mouth closed. Sclerae are nonicteric. There is muscle wasting. NECK: No adenopathy. LUNGS: Clear. HEART: Regular rhythm. I hear no murmur. ABDOMEN: Soft. No organomegaly. There is a gastrostomy tube in place. EXTREMITIES: Moderate to severe muscle wasting. No edema, cyanosis, or clubbing. NEUROLOGIC: He open his eyes and looks above. There is a paucity of movement. There is no obvious facial asymmetry. PERTINENT LABORATORY DATA: On admission 01/23/2020, sodium 169, potassium 4.4, chloride 129, CO2 33, BUN 105, creatinine 2.3. Elevated liver enzymes with normal CK of 77. BNP of 4940. Albumin 2.6. Repeat sodium 162, potassium is 4, BUN 108, creatinine 2.4. Urinalysis has 3+ protein, 1+ leukocyte esterase, 2 to 4 white cells per high-powered field. IMPRESSION: 1. Acute kidney injury secondary to dehydration. 2. Hypernatremia secondary to dehydration. 3. Proteinuria and likely diabetic nephropathy. 4. COPD. 5. History of chronic systolic and diastolic congestive heart failure. 6. Abnormal chest x-ray, opacity in the right midlung. 7. Severe dementia. 8. Oubpcmbv-la-jvssgf protein-calorie malnutrition. 9. History of gastrostomy feedings. PLAN: Gradual rehydration with hypotonic fluids, caution not to worsen fluid overload. Monitor clinical course while he was started on empiric antibiotics. Nutritional support with gastrostomy feedings. Roland Campo M.D. DR: Aquiles JOB#: [id number] CC:
--- NOTE | 2020-01-24 14:07 | NUR ---
NURSE NOTES:WOUND CARE NOTES:Pt Skin assessment completed as follows:scattered patches of hyperpigmentation with darker skin tone noted to Sacrum . No fluctuance ,erythema or induration evident. ON L Heel a dark disc noted ,but withut erythema,induration or fluctuance.R heel is boggy with darker skin tone without erythema. NO other skin concerns noted. Tx.Plan:Apply Moisture Barrier Paste to Sacrum. Cover with Optifoam drsg. Change every 3 days and prn. Apply Cavilon Skin Barrier to Both heels. Cover each Heel with Optifoam drsg. Change every 7 days and prn. Reposition at least every 2hours or as tolerated. Off-load heels pillow.
--- NOTE | 2020-01-24 14:15 | Consultation ---
History of Present Illness General Date patient seen: Jan 24, 2020 Reason for Hospitalization: Dyspnea/Respdistress Present Illness HPI 89 year male with multiple medical comorbidities who [facility] from a [facility] [place] [facility] concern of hypoxemia and dyspnea. The patient is oriented to self at baseline. The patient has a history of CHF, diabetes, COPD, encephalopathy, functional quadriplegia to name a few. Patient is also G-tube dependent. Patient is unable to give any type of articulate history. History is obtained from the medical record. on admission noted to have abnormal labs and elevated lft's. abd discomfort on exam. surgery called to evaluate and assist with care. Allergies: Coded Allergies: No Known Allergies (Verified , 02/21/09) COVID-19 Screening Contact w/high risk pt: No Experienced COVID-19 symptoms?: No Coronavirus symptoms experienc: Shortness of Breath Medication History Discontinued Medications Allopurinol* (Allopurinol*), 100 MG ORAL DAILY, (Reported) Discontinued Reason: Medication dose changed Ascorbic Acid* (Ascorbic Acid*), 500 MG ORAL DAILY, (Reported) Discontinued Reason: Medication dose changed Aspirin* (Aspir 81*), 81 MG ORAL DAILY, (Reported) Discontinued Reason: Medication dose changed Atorvastatin Calcium* (Atorvastatin Calcium*), 10 MG ORAL BEDTIME, (Reported) Discontinued Reason: Medication dose changed Bisacodyl (Dulcolax), 10 MG RC NEEDED, (Reported) Discontinued Reason: Medication dose changed Cholecalciferol (Vitamin D3) (Vitamin D-3), 2,000 UNIT PO DAILY, (Reported) Discontinued Reason: Medication dose changed Dextran 70/Hypromellose (Artificial Tears Eye Drops*), 1 DROP BOTH EYES BEDTIME, (Reported) Discontinued Reason: Medication dose changed Divalproex Sodium (Divalproex Sodium Er), 125 MG PO BID, (Reported) Discontinued Reason: Medication dose changed Docusate Sodium* (Colace*), 100 MG ORAL TWICE A DAY, (Reported) Discontinued Reason: Medication dose changed Glipizide* (Glipizide*), 5 MG ORAL DAILY, (Reported) Discontinued Reason: Medication dose changed Insulin Aspart* (Novolog*), 0 SUBQ, (Reported) Discontinued Reason: Medication dose changed Magnesium Hydroxide* (Milk Of Magnesia*), 30 ML ORAL DAILY PRN for Constipation, (Reported) Discontinued Reason: Medication dose changed Melatonin (Melatonin), 6 MG PO BEDTIME PRN for INSONMIA, (Reported) Discontinued Reason: Medication dose changed Multivitamin With Minerals (Multivitamins With Minerals*), 1 TAB ORAL DAILY, (Reported) Discontinued Reason: Medication dose changed Naphazoline Hcl/Phenir Mal (Naphcon-A Eye Drops), 15 ML OP NEEDED PRN for REDNESS, (Reported) Discontinued Reason: Medication dose changed Olanzapine (Olanzapine), 10 MG ORAL BEDTIME Discontinued Reason: Medication dose changed Olanzapine Zydis* (Zyprexa Zydis*), 5 MG ORAL DAILY Discontinued Reason: Medication dose changed Polyethylene Glycol 3350* (Miralax*), 17 GM ORAL DAILY PRN for Constipation, (Reported) Discontinued Reason: Medication dose changed Tamsulosin HCl (Flomax), 0.4 MG ORAL BEDTIME, (Reported) Discontinued Reason: Medication dose changed Vitamin A & D (Vitamin A & D Ointment), 1 APPLIC TP NEEDED, (Reported) Discontinued Reason: Medication dose changed Patient History Limited by: age, medical condition History Provided By: Medical Record, PMD Healthcare decision maker N Resuscitation status Advanced Directive on File Past Medical/Surgical History Past Medical/Surgical History: (1) Chest pain (2) CHF (congestive heart failure) (3) Hypernatremia (4) Renal failure (5) Lung mass (6) Transaminitis (7) Elevated troponin (8) COPD exacerbation Review of Systems Review of Symptoms General ROS: no weight loss or fever Psychological ROS: no depression or mood changes, no memory loss Ophthalmic ROS: no visual changes or eye irritation ENT ROS: no nasal congestion, hearing loss, dizziness Allergy and Immunology ROS: no allergic symptoms or urticaria Hematological and Lymphatic ROS: no swollen glands, unusual bleeding or bruising Endocrine ROS: no polyuria, polydipsia, weight changes, temperature intolerance Respiratory ROS: no cough, shortness of breath, or wheezing Cardiovascular ROS: no chest pain or dyspnea on exertion Gastrointestinal ROS: denies abdominal pain, bright red blood in stool. Musculoskeletal ROS: no myalgias or arthralgias Neurological ROS: no TIA or stroke symptoms Dermatological ROS: no new or changing skin lesions, rashes or pruritis limited given baseline Physical Exam Physical Exam General appearance: alert, no distress, appears stated age Head: Normocephalic, without obvious abnormality, atraumatic Eyes: conjunctivae/corneas clear. PERRL, EOM's intact. Fundi benign Throat: Lips, mucosa, and tongue normal. Teeth and gums normal Neck: supple, symmetrical, trachea midline, no adenopathy, thyroid: not enlarged, symmetric, no tenderness/mass/nodules, no carotid bruit and no JVD Lungs: clear to auscultation bilaterally Heart: regular rate and rhythm, S1, S2 normal, no murmur, click, rub or gallop Abdomen: soft, non-tender. Bowel sounds normal. No masses, no organomegaly Extremities: extremities normal, atraumatic, no cyanosis or edema Pulses: 2+ and symmetric Skin: Skin color, texture, turgor normal. No rashes or lesions Neurologic: Grossly normal Last 24 Hour Vital Signs Date Time Temp Pulse Resp B/P (MAP) Pulse Ox O2 Delivery O2 Flow Rate FiO2 01/24/20 12:00 96.6 70 20 115/72 (86) 100 01/24/20 09:00 Nasal Cannula 4.0 01/24/20 08:00 75 01/24/20 08:00 97.4 77 20 124/70 (88) 100 01/24/20 04:00 98.4 79 20 117/69 (85) 95 01/24/20 04:00 78 01/24/20 00:58 82 18 100 Nasal Cannula 5.0 40 78 18 97 01/24/20 00:00 98.1 92 20 109/71 (84) 97 01/24/20 00:00 82 01/23/20 21:00 Nasal Cannula 4.0 01/23/20 20:00 98.6 97 20 110/70 (83) 98 01/23/20 20:00 94 01/23/20 19:22 74 18 100 Nasal Cannula 5.0 40 01/23/20 19:22 78 18 100 Nasal Cannula 5.0 40 74 18 100 01/23/20 18:31 Nasal Cannula 4.0 01/23/20 17:15 97.7 84 20 108/64 (79) 98 01/23/20 15:50 98.6 105 28 110/67 100 Nasal Cannula 4.0 32 01/23/20 15:10 98.6 28 132/84 100 Nasal Cannula 3.0 32 01/23/20 14:52 105 28 100 Nasal Cannula 3.0 32 106 37 93 Intake and Output 01/23/20 01/24/20 19:00 07:00 Intake Total 0 ml Balance 0 ml Intake Oral 0 ml # Voids 4 # Bowel Movements 1 1 Laboratory Tests Test 01/24/20 06:32 White Blood Count 8.5 K/UL (4.8-10.8) Red Blood Count 5.00 M/UL (4.70-6.10) Hemoglobin 14.6 G/DL (14.2-18.0) Hematocrit 46.6 % (42.0-52.0) Mean Corpuscular Volume 93 FL (80-99) Mean Corpuscular Hemoglobin 29.2 PG (27.0-31.0) Mean Corpuscular Hemoglobin Concent 31.4 G/DL (32.0-36.0) L Red Cell Distribution Width 17.1 % (11.6-14.8) H Platelet Count 80 K/UL (150-450) L Mean Platelet Volume 13.0 FL (6.5-10.1) H Neutrophils (%) (Auto) % (45.0-75.0) Lymphocytes (%) (Auto) % (20.0-45.0) Monocytes (%) (Auto) % (1.0-10.0) Eosinophils (%) (Auto) % (0.0-3.0) Basophils (%) (Auto) % (0.0-2.0) Differential Total Cells Counted 100 Neutrophils % (Manual) 75 % (45-75) Lymphocytes % (Manual) 17 % (20-45) L Monocytes % (Manual) 6 % (1-10) Eosinophils % (Manual) 2 % (0-3) Basophils % (Manual) 0 % (0-2) Band Neutrophils 0 % (0-8) Platelet Estimate Decreased L Platelet Morphology Normal Red Blood Cell Morphology Normal Sodium Level 162 MMOL/L (136-145) *H Potassium Level 4.0 MMOL/L (3.5-5.1) Chloride Level 125 MMOL/L (98-107) H Carbon Dioxide Level 32 MMOL/L (21-32) Anion Gap 7 mmol/L (5-15) Blood Urea Nitrogen 108 mg/dL (7-18) H Creatinine 2.4 MG/DL (0.55-1.30) H Estimat Glomerular Filtration Rate 31.0 mL/min (>60) Glucose Level 271 MG/DL (74-106) H Calcium Level 9.5 MG/DL (8.5-10.1) Magnesium Level 2.9 MG/DL (1.8-2.4) H Total Bilirubin 0.4 MG/DL (0.2-1.0) Direct Bilirubin 0.1 MG/DL (0.0-0.3) Aspartate Amino Transf (AST/SGOT) 139 U/L (15-37) H Alanine Aminotransferase (ALT/SGPT) 351 U/L (12-78) H Alkaline Phosphatase 155 U/L (46-116) H Troponin I 0.558 ng/mL (0.000-0.056) Total Protein 5.8 G/DL (6.4-8.2) L Albumin 2.4 G/DL (3.4-5.0) L Thyroid Stimulating Hormone (TSH) 1.369 uiU/mL (0.358-3.740) Microbiology Date/Time Source Procedure Growth Status 01/23/20 14:40 Nasal Nares - Final Complete 01/23/20 14:40 Nasal Nares - Final Complete 01/23/20 14:30 Rectum Received Height (Feet): 5 Height (Inches): 10.00 Weight (Pounds): 182 Medications Current Medications Medications (Trade) Dose Ordered Sig/Bird Route PRN Reason Start Time Stop Time Status Last Admin Dose Admin Acetaminophen (Tylenol) 650 mg Q4H PRN ORAL Mild Pain (Scale 1-3) 01/23/20 18:30 02/22/20 18:29 Acetaminophen (Tylenol) 650 mg Q4H PRN ORAL Temp >100.5 01/23/20 18:45 02/22/20 18:44 Albuterol/ Ipratropium (Albuterol/ Ipratropium) 3 ml Q6HRT HHN 01/23/20 19:00 01/28/20 18:59 01/24/20 12:20 Aspirin (ASA) 81 mg DAILY GT 01/24/20 09:00 03/09/20 08:59 01/24/20 09:33 Atorvastatin Calcium (Lipitor) 40 mg BEDTIME GT 01/23/20 21:00 04/22/20 20:59 01/23/20 21:24 Azithromycin 250 mg/Dextrose 275 ml @ 275 mls/hr Q24HRS IV 01/23/20 20:00 01/28/20 19:59 01/23/20 21:23 Ceftriaxone Sodium 1 gm/ Dextrose 55 ml @ 110 mls/hr Q24H IVPB 01/23/20 18:30 01/30/20 18:29 01/23/20 18:30 Famotidine (Pepcid) 20 mg DAILY GT 01/24/20 09:00 04/23/20 08:59 01/24/20 09:33 Heparin Sodium (Porcine) (Heparin 5000 units/ml) 5,000 units EVERY 12 HOURS SUBQ 01/23/20 21:00 03/08/20 20:59 01/24/20 09:34 Levothyroxine Sodium (Synthroid) 50 mcg DAILY@0630 GT 01/24/20 06:30 02/23/20 06:29 01/24/20 06:33 Promethazine HCl/ Dextromethorphan (Phenergan DM) 6.25 mg Q6H PRN ORAL For Cough 01/23/20 18:30 02/22/20 18:29 Sodium Chloride 1,000 ml @ 100 mls/hr Q10H IV 01/23/20 19:00 02/22/20 18:59 01/24/20 11:42 Assessment/Plan Problem List: (1) CHF (congestive heart failure) ICD Codes: I50.9 - Heart failure, unspecified SNOMED: 06749531, 688485516 (2) Hypernatremia ICD Codes: E87.0 - Hyperosmolality and hypernatremia SNOMED: 774252482, 252669188 (3) Renal failure ICD Codes: N19 - Unspecified kidney failure SNOMED: 77383920, 864504051 (4) Lung mass Assessment & Plan: noted new lung mass opacity on cxr compared to prior and seen once stable can plan for chest ct The cardiomediastinal silhouette is unchanged in appearance when accounting for differences in projection and technique. There is mild pulmonary vascular congestion. Streaky bibasilar airspace opacities are noted. There is a nodular opacity in the right midlung measuring approximately 2.6 cm. No pneumothorax or pleural effusion. No acute osseous abnormality. IMPRESSION: 1. Pulmonary vascular congestion with streaky bibasilar airspace opacities which could represent combination of edema and atelectasis but pneumonia should be excluded clinically. 2. Opacity in the right midlung, not seen on prior examination, suspicious for pulmonary nodule. Comparison with more recent prior chest radiograph or follow- up with CT chest on nonemergent basis is recommended. ICD Codes: R91.8 - Other nonspecific abnormal finding of lung field SNOMED: 507455813, 739923290 (5) Transaminitis Assessment & Plan: elevated lft's on admission etiology unknown US abd ordered trend labs fluids meds reviewed will follow with recs thank you ICD Codes: R74.01 - Elevation of levels of liver transaminase levels SNOMED: 942508292, 394489665 (6) Elevated troponin ICD Codes: R77.8 - Other specified abnormalities of plasma proteins SNOMED: 853045890, 457421012, 509194457 (7) Chest pain (8) COPD exacerbation ICD Codes: J44.1 - Chronic obstructive pulmonary disease with (acute) exacerbation SNOMED: 387370616, 241185920, 511188675 Osman Cheung Jan 24, 2020 14:15
--- NOTE | 2020-01-24 15:03 | NUR ---
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 98.6 HR 80 RR 20 B/P 106/74 NA 169 BUN 105 CR 2.3 IS: ALBUTEROL HHN ATROVENT HHN ADMITTED TO TELE @ 6426 TELE STATUS DCP RETURN TO [facility]
--- NOTE | 2020-01-24 15:38 | Diagnostic Imaging Report ---
ABDOMINAL ULTRASOUND - COMPLETE INDICATION: . Elevated LFTs TECHNIQUE: Multiplanar ultrasound examination of the abdomen with greyscale and doppler imaging. COMPARISON: None FINDINGS: Liver: The liver is normal in size and demonstrates coarsened echotexture. No focal abnormalities are noted. Gallbladder: No cholelithiasis. Gallbladder wall is not thickened. No pericholecystic fluid. Sonographic Reed sign cannot be assessed due to patient unresponsiveness. Common bile duct: Normal in size. Pancreas: Incompletely imaged due to overlying bowel gas. Kidneys: The kidneys demonstrate increased cortical echogenicity. No hydronephrosis or nephrolithiasis. There is a right renal cyst. Spleen: The spleen is normal in size and echogenicity. Incidental note is made of indwelling gastrostomy tube. IMPRESSION: 1. Coarsened hepatic echotexture, which is nonspecific but can be associated with liver dysfunction. 2. Increased echogenicity in the kidneys, which can be seen with medical renal disease.
[2020-01-24 16:00] VITALS: BP 132/77
[2020-01-24] MEDS: cefTRIAXone 1 GM in D5W 55 ML IVPB SCH (17:26)
--- NOTE | 2020-01-24 18:00 | History and Physical Report ---
DATE OF ADMISSION: 01/23/2020 CHIEF COMPLAINT: Altered mental status, shortness of breath. HISTORY OF PRESENT ILLNESS: Patient is an unfortunate 89-year-old male. He has a history of diabetes, hypertension, GI bleed, stroke, history of LV thrombus, chronic kidney disease. He was transferred from a senior care facility with complaints of shortness of breath. On evaluation in the emergency room, the patient's laboratories were significant for severe hyponatremia of 169 and BUN of 105. He was noted to have elevated liver function tests. His rapid COVID test was negative. Chest x-ray showed bibasilar infiltrates. The patient has been started on IV hydration, broad-spectrum IV antibiotics. He is now admitted for further evaluation and care. PAST MEDICAL HISTORY: As above. PAST SURGICAL HISTORY: Includes a G-tube. CURRENT MEDICATIONS: Reconciled and reviewed. ALLERGIES: None. FAMILY HISTORY: None. SOCIAL HISTORY: There is no known history of tobacco, ethanol, or drugs. REVIEW OF SYSTEMS: Unobtainable as patient is confused. PHYSICAL EXAMINATION: VITAL SIGNS: Temperature 98 degrees, blood pressure 140/76, pulse 80, respirations 20. GENERAL: Patient is well developed, in no apparent distress. Poorly responsive. HEENT: Head is normocephalic and atraumatic. Oropharynx clear. Mucous membranes are dry. NECK: Supple. HEART: Regular rate and rhythm. LUNGS: Clear. ABDOMEN: Soft, nontender, nondistended. EXTREMITIES: No clubbing, cyanosis, or edema. LABORATORY DATA: Sodium is 169, BUN was 105. Chest x-ray showed bibasilar infiltrates. Rapid COVID was negative. ASSESSMENT: This is an 89-year-old male with multiple medical problems including history of stroke, dementia, hypertension, diabetes, chronic kidney disease, COPD, congestive heart failure, paroxysmal AFib admitted with complaints of severe anemia, severe dehydration, hypernatremia, possible pneumonia, acute on chronic renal failure. PLAN: Aggressive fluid resuscitation. Broad-spectrum IV antibiotics. Cardiology, Pulmonary, Infectious Disease consultations will be obtained. We will repeat a COVID PCR swab. Monitor renal function and volume status closely. Continue tube feeds. Monitor blood sugars. Aleksey Diaz M.D. DR: PANCHITO JOB#: [id number] CC:
--- NOTE | 2020-01-24 19:11 | NUR ---
NURSE HAND-OFF REPORT: Important Events on Shift:Sodium and troponin levels still high Patient Status: Stable Diet: G-tube Glucerna 1.2@ 50ml/hr Pending Orders: Pending Results/Labs: Pending MD notification: Latest Vital Signs: Temperature 96.7 , Pulse 84 , B/P 132 /77 , Respiratory Rate 20 , O2 SAT 96 , Nasal Cannula, O2 Flow Rate 4.0 . Vital Sign Comment: stable EKG Rhythm: Sinus Rhythm Rhythm change?: N MD Notified?: - MD Response: Latest Gibson Fall Score: 40 Fall Risk: Medium Risk Safety Measures: Call light Within Reach, Bed Alarm Zone 2, Side Rails Side Rails x3, Bed position . Fall Precautions: Yellow Socks Yellow Gown Patient Fall Education Report given to Bridgett/RN.
--- NOTE | 2020-01-24 19:15 | NUR ---
NURSE NOTES: Patient received from Razia MAROCS. Patient alert and oriented x0. On fall and aspiration precaution. No s/s of pain and not in distress. Saturating well on 4L of oxygen via nasal canula. IV site patent and intact on the Left FA 20G running 1/2 NS @ 100mls/hr. Gtube patent and intact running Glucerna 1.2 @50mls/hr. MD previously aware of high troponin and sodium as endorsed by morning shift. Bed in lowest position and locked. Will continue plan of care.
[2020-01-24 20:00] VITALS: BP 109/65
[2020-01-24] MEDS: Azithromycin 250 MG in D5W 275 ML IV SCH (21:46)
[2020-01-24] MEDS: Atorvastatin 80mg tab GT SCH (21:46)
[2020-01-25] VITALS: BP 126/81
[2020-01-25] MEDS: Albuterol/Ipratropium 3ml neb HHN SCH ×6 (00:45→19:11)
--- NOTE | 2020-01-25 01:33 | Cardiology Progress Note ---
Subjective DATE OF SERVICE: Jan 24, 2020 Remains withdrawn and lethargic Covid 19 swab negative x1 Remains on hypotonic IVF Troponin levels remain elevated Objective Last 24 Hour Vital Signs Date Time Temp Pulse Resp B/P (MAP) Pulse Ox O2 Delivery O2 Flow Rate FiO2 01/25/20 00:00 98.4 76 20 126/81 (96) 94 01/24/20 21:00 Nasal Cannula 4.0 01/24/20 20:00 83 01/24/20 20:00 96.6 83 20 109/65 (80) 96 01/24/20 19:42 86 20 100 Nasal Cannula 4.0 36 82 20 98 01/24/20 16:00 96.7 77 20 132/77 (95) 96 01/24/20 16:00 84 01/24/20 12:30 75 20 100 Nasal Cannula 2.0 28 72 20 98 01/24/20 12:00 89 01/24/20 12:00 96.6 70 20 115/72 (86) 100 01/24/20 09:00 Nasal Cannula 4.0 01/24/20 08:00 75 01/24/20 08:00 97.4 77 20 124/70 (88) 100 01/24/20 04:00 98.4 79 20 117/69 (85) 95 01/24/20 04:00 78 ROS: unchanged from 01/23/20 RHYTHM: NSR, PVCs, PACs LUNGS: coarse breath sounds CARDIAC: normal rate, regular rhythm, normal S1 and S2, gallop/S4 ABDOMEN: non tender, soft, no organomegaly, G-Tube intact EXTREMITIES: No edema Laboratory Tests Test 01/24/20 06:32 White Blood Count 8.5 K/UL (4.8-10.8) Red Blood Count 5.00 M/UL (4.70-6.10) Hemoglobin 14.6 G/DL (14.2-18.0) Hematocrit 46.6 % (42.0-52.0) Mean Corpuscular Volume 93 FL (80-99) Mean Corpuscular Hemoglobin 29.2 PG (27.0-31.0) Mean Corpuscular Hemoglobin Concent 31.4 G/DL (32.0-36.0) L Red Cell Distribution Width 17.1 % (11.6-14.8) H Platelet Count 80 K/UL (150-450) L Mean Platelet Volume 13.0 FL (6.5-10.1) H Neutrophils (%) (Auto) % (45.0-75.0) Lymphocytes (%) (Auto) % (20.0-45.0) Monocytes (%) (Auto) % (1.0-10.0) Eosinophils (%) (Auto) % (0.0-3.0) Basophils (%) (Auto) % (0.0-2.0) Differential Total Cells Counted 100 Neutrophils % (Manual) 75 % (45-75) Lymphocytes % (Manual) 17 % (20-45) L Monocytes % (Manual) 6 % (1-10) Eosinophils % (Manual) 2 % (0-3) Basophils % (Manual) 0 % (0-2) Band Neutrophils 0 % (0-8) Platelet Estimate Decreased L Platelet Morphology Normal Red Blood Cell Morphology Normal Sodium Level 162 MMOL/L (136-145) *H Potassium Level 4.0 MMOL/L (3.5-5.1) Chloride Level 125 MMOL/L (98-107) H Carbon Dioxide Level 32 MMOL/L (21-32) Anion Gap 7 mmol/L (5-15) Blood Urea Nitrogen 108 mg/dL (7-18) H Creatinine 2.4 MG/DL (0.55-1.30) H Estimat Glomerular Filtration Rate 31.0 mL/min (>60) Glucose Level 271 MG/DL (74-106) H Calcium Level 9.5 MG/DL (8.5-10.1) Magnesium Level 2.9 MG/DL (1.8-2.4) H Total Bilirubin 0.4 MG/DL (0.2-1.0) Direct Bilirubin 0.1 MG/DL (0.0-0.3) Aspartate Amino Transf (AST/SGOT) 139 U/L (15-37) H Alanine Aminotransferase (ALT/SGPT) 351 U/L (12-78) H Alkaline Phosphatase 155 U/L (46-116) H Troponin I 0.558 ng/mL (0.000-0.056) Total Protein 5.8 G/DL (6.4-8.2) L Albumin 2.4 G/DL (3.4-5.0) L Thyroid Stimulating Hormone (TSH) 1.369 uiU/mL (0.358-3.740) Microbiology Date/Time Source Procedure Growth Status 01/23/20 14:40 Nasal Nares - Final Complete 01/23/20 14:40 Nasal Nares - Final Complete 01/23/20 14:30 Rectum Received 01/23/20 12:12 Blood Blood Culture - Preliminary NO GROWTH AFTER 24 HOURS Resulted 01/23/20 12:00 Blood Blood Culture - Preliminary NO GROWTH AFTER 24 HOURS Resulted 01/23/20 11:49 Nasopharynx SARS-CoV-2 RdRp Gene Assay - Final Complete Assessment/Plan Assessment/Plan Healthcare acquired PNA Lactic acidosis Acute myocardial ischemia/possible NSTE myocardial infarction COPD Ac/chr systolic/diast CHF Ischemic cardiomyopathy Severe dehydration Hypernatremia Hyperchloremia PAD with prior revascularization Dysphagia with GTube CVA with dementia CRITICAL AND GUARDED Abx Resp therapy Hypotonic IVF hydration Titrate antiHTN and anti-anginal regimen Cont'd anti-plt therapy Oxygen and bronchodilator rx DVT prophylaxis Osmani Cevallos MD Jan 25, 2020 01:33
[2020-01-25 04:00] VITALS: BP 122/76
--- NOTE | 2020-01-25 07:44 | NUR ---
NURSE HAND-OFF REPORT: Important Events on Shift:[Patient had triplets and multiple PVCs, MD made aware, no callbacks.] Patient Status: [Stable] Diet: [Glucerna 1.2 @ 50cc/hr] Pending Orders: [] Pending Results/Labs:[] Pending MD notification:[] Latest Vital Signs: Temperature 97.8 , Pulse 77 , B/P 122 /76 , Respiratory Rate 20 , O2 SAT 98 , Nasal Cannula, O2 Flow Rate 4.0 . Vital Sign Comment: [] EKG Rhythm: Sinus Rhythm Rhythm change?: N MD Notified?: - MD Response: Latest Gibson Fall Score: 40 Fall Risk: Medium Risk Safety Measures: Call light Within Reach, Bed Alarm Zone 2, Side Rails Side Rails x3, Bed position . Fall Precautions: Yellow Socks Yellow Gown Patient Fall Education Report given to [Lynsey MARCOS].
[2020-01-25 07:58] LABS: HEMATOCRIT 42.2 % (42.0-52.0); HEMOGLOBIN 13.5 G/DL (14.2-18.0); MEAN CORPUSCULAR VOLUME 92 FL (80-99); PLATELET COUNT 63 K/UL (150-450); WHITE BLOOD COUNT 6.9 K/UL (4.8-10.8)
[2020-01-25 08:00] VITALS: BP 124/61
[2020-01-25 08:17] LABS: ALBUMIN 2.2 G/DL (3.4-5.0); ALBUMIN/GLOBULIN RATIO 0.6 (1.0-2.7); BILIRUBIN,TOTAL 0.6 MG/DL (0.2-1.0); CALCIUM 9.3 MG/DL (8.5-10.1); CREATININE 2.2 MG/DL (0.55-1.30); POTASSIUM 3.6 MMOL/L (3.5-5.1)
[2020-01-25] MEDS: Aspirin Baby 81mg GT SCH (08:38)
[2020-01-25] MEDS: Heparin 5000 units/ml inj SUBQ SCH ×2 (08:40→20:30)
--- NOTE | 2020-01-25 08:41 | NUR ---
RD ASSESSMENT & RECOMMENDATIONS SEE CARE ACTIVITY FOR COMPLETE ASSESSMENT DAILY ESTIMATED NEEDS: Needs based on DM, Renal, bedbound, 77kg abw 23-28 kcals/kg 9106-5993 total kcals 1.25-1.5 g protein/kg 96-116 g total protein 25-30 mL/kg 0705-1659 total fluid mLs NUTRITION DIAGNOSIS: Swallowing difficulty r/t dysphagia as evidenced by pt is GT dependent. (CURRENT TF: Glucerna 1.2 @50) ENTERAL NUTRITION RECOMMENDATIONS: GLUCERNA 1.2 goal of 70ml/hr x22 hrs + Prosource 1 pack qdaily to provide 1540ml, 1848 kcal, 92g + 11g pro, 1240ml free H2O - Rec to increase TF rate to better meet est kcal and pro needs. - Increase as able by 15ml/hr q4-6 hrs to goal - HOLD TF 1 hr before and after synthroid meds. - Flush per HOB over 30 degrees. With elevated lytes and worsening renal labs rec NEPRO w/ goal of 45ml/hr x22 hrs to provide: 990ml, 1782 kcal, 80g pro, 720ml free H2o. -Add Prosource 1 pack BID for added 22g pro to better meet est pro needs. ADDITIONAL RECOMMENDATIONS: 1) Monitor lytes, renal labs-> need for renal formula 2) Recalibrate bed scale wts 3) Hypoglycemic agents for improved BG control Rec niss w/ accuchecks 4) Hold TF 1 hr before and after synthroid meds. 5) rec HgA1C
--- NOTE | 2020-01-25 11:10 | Nephrology Progress Note ---
Assessment/Plan Problem List: (1) Proteinuria (2) CHF (congestive heart failure) (3) Dehydration (4) Hypernatremia (5) OMI (acute kidney injury) (6) COPD exacerbation Plan continue hydration cautiously, check urine protein/creatinine Objective Objective Last 24 Hour Vital Signs Date Time Temp Pulse Resp B/P (MAP) Pulse Ox O2 Delivery O2 Flow Rate FiO2 01/25/20 07:48 84 20 99 Nasal Cannula 2.0 28 81 18 96 01/25/20 04:00 75 01/25/20 04:00 97.8 77 20 122/76 (91) 98 01/25/20 02:29 Nasal Cannula 2.0 28 01/25/20 00:00 86 01/25/20 00:00 98.4 76 20 126/81 (96) 94 01/24/20 21:00 Nasal Cannula 4.0 01/24/20 20:00 83 01/24/20 20:00 96.6 83 20 109/65 (80) 96 01/24/20 19:42 86 20 100 Nasal Cannula 4.0 36 82 20 98 01/24/20 16:00 96.7 77 20 132/77 (95) 96 01/24/20 16:00 84 01/24/20 12:30 75 20 100 Nasal Cannula 2.0 28 72 20 98 01/24/20 12:00 89 01/24/20 12:00 96.6 70 20 115/72 (86) 100 Intake and Output 01/24/20 01/25/20 19:00 07:00 Intake Total 250 ml Output Total 200 ml 300 ml Balance -200 ml -50 ml Free Water 200 ml Tube Feeding 50 ml Output Urine Total 200 ml 300 ml # Voids 1 # Bowel Movements 2 1 Laboratory Tests 01/25/20 07:01: White Blood Count 6.9, Red Blood Count 4.60L, Hemoglobin 13.5L, Hematocrit 42.2, Mean Corpuscular Volume 92, Mean Corpuscular Hemoglobin 29.4, Mean Corpuscular Hemoglobin Concent 32.1, Red Cell Distribution Width 17.0H, Platelet Count 63L, Mean Platelet Volume 13.8H, Neutrophils (%) (Auto) , Lymphocytes (%) (Auto) , Monocytes (%) (Auto) , Eosinophils (%) (Auto) , Basophils (%) (Auto) , Differential Total Cells Counted 100, Neutrophils % (Manual) 84H, Lymphocytes % (Manual) 14L, Monocytes % (Manual) 1, Eosinophils % (Manual) 1, Basophils % (Manual) 0, Band Neutrophils 0, Platelet Estimate DecreasedL, Platelet Morphology Normal, Anisocytosis 1+, Erythrocyte Sedimentation Rate 33H, Prothrombin Time 11.3, Prothromb Time International Ratio 1.0, Activated Partial Thromboplast Time 30, Sodium Level 156H, Potassium Level 3.6, Chloride Level 120H, Carbon Dioxide Level 31, Anion Gap 5, Blood Urea Nitrogen 103H, Creatinine 2.2H, Estimat Glomerular Filtration Rate 34.3, Glucose Level 321H, Lactic Acid Level 2.70H, Calcium Level 9.3, Total Bilirubin 0.6, Aspartate Amino Transf (AST/SGOT) 99H, Alanine Aminotransferase (ALT/SGPT) 231H, Alkaline Phosphatase 168H, C-Reactive Protein, Quantitative 8.0H, Total Protein 5.9L, Albumin 2.2L, Globulin 3.7, Albumin/Globulin Ratio 0.6L, Prealbumin [Pending], Amylase Level 73, Lipase 308 01/25/20 09:58: Lactic Acid Level 2.40H Height (Feet): 5 Height (Inches): 10.00 Weight (Pounds): 182 General Appearance: lethargic, confused EENT: normal ENT inspection Neck: normal alignment Cardiovascular: regular rhythm Respiratory/Chest: lungs clear Abdomen: non tender, soft Extremities: no edema Neurologic: motor weakness, disoriented Roland Campo MD Jan 25, 2020 11:10
--- NOTE | 2020-01-25 11:30 | NUR ---
CASE MANAGEMENT:REVIEW 01/25/20 SI: PNA. AMI. COPD 97.8 77 20 122/76 98% ON 2L/NC PLT-63 NA+156 BUN+103 CR+2.2 IS: IV AZITHROMYCIN Q24 IVF@100/HR ASA GT QD SYNTHROID GT QD : TELEMETRY STATUS DCP: FROM [facility]
[2020-01-25 12:00] VITALS: BP 101/59
--- NOTE | 2020-01-25 13:15 | Consultation ---
DATE OF CONSULTATION: 01/25/2020 INFECTIOUS DISEASES CONSULTATION CONSULTING PHYSICIAN: Alicia Florence MD. REFERRING PHYSICIAN: Aleksey Diaz MD. REASON FOR CONSULTATION: Pneumonia. HISTORY OF PRESENTING ILLNESS: This is an 89-year-old gentleman with history of diabetes, hypertension, GI bleeding, stroke, chronic kidney disease, who was [facility] with shortness of breath. He was found to have pneumonia. His COVID-19 test was negative and an Infectious Diseases consultation has been obtained for antibiotics. PAST MEDICAL HISTORY: 1. History of diabetes. 2. Hypertension. 3. GI bleeding. 4. Stroke. 5. LV thrombus. 6. Chronic kidney disease. 7. Status post G-tube placement. SOCIAL HISTORY: No history of smoking, alcohol, or drug use. FAMILY HISTORY: Unknown. REVIEW OF SYSTEMS: Unable to obtain currently. MEDICATIONS: As an inpatient, he is on famotidine, aspirin, levothyroxine, atorvastatin, subcutaneous heparin, azithromycin, albuterol ipratropium, Tylenol, Phenergan, ceftriaxone. ALLERGIES: No known drug allergies. PHYSICAL EXAMINATION: VITAL SIGNS: Temperature of 97.8, T-max of 98.6, pulse of 84, respiratory rate of 18, blood pressure 122/76, O2 saturation of 96% on 2 liters of oxygen. HEENT: Pupils equally reactive to light and accommodation. Mouth appears clean without thrush. NECK: Supple. No adenopathy. No JVD. CARDIOVASCULAR: Regular rate and rhythm. No murmurs. LUNGS: Clear to auscultation bilaterally. No crackles. No wheezes. ABDOMEN: Soft, nontender. G-tube site appears clean. EXTREMITIES: No cyanosis, no clubbing, no edema. LABORATORY AND DIAGNOSTIC DATA: White count 6.9, hemoglobin 13.5, hematocrit 42.2, MCV 92, platelet count of 63. Sodium 156, potassium 3.6, chloride 120, bicarb 103, creatinine 2.2, glucose 321, calcium 9.3. Total bilirubin 0.6. AST 99, ALT 231, alkaline phosphatase 168. C-reactive protein of 8. Total protein 5.9, albumin 2.2, lipase of 308. UA is showing 2 to 4 white cells. COVID-19 test is negative. Influenza A and B is negative. Blood cultures are negative. On 01/23/2020, COVID-19 rapid test is negative. Chest x-ray is showing pulmonary vascular congestion with streaky bibasilar opacities, which could represent edema and atelectasis, opacity in the right mid lung suspicious for pulmonary nodule. Abdominal ultrasound showing nonspecific coarsened hepatic echotexture associated with liver dysfunction, increased echogenicity in the kidneys can be seen with medical renal disease. ASSESSMENT: This is an 89-year-old gentleman with history of diabetes, hypertension, stroke, chronic kidney disease, comes in with shortness of breath and is found to have, 1. Community-acquired pneumonia. His COVID-19 test is negative x2. 2. Diabetes. 3. Hypertension. 4. Renal failure. PLAN: 1. Continue ceftriaxone and azithromycin. 2. We will order sputum for Gram stain and culture. 3. We will follow up cultures and adjust antibiotics accordingly. I would like to thank, Dr. Diaz, for this consultation. Alicia Florence M.D. DR: KAY JOB#: [id number] CC: Aleksey Diaz MD.
[2020-01-25] MEDS ORDERED: FEROSUL325 M1 GT (15:48)
[2020-01-25] MEDS ORDERED: DOCUSATE SODIU100 MG ORAL (15:59)
[2020-01-25] MEDS ORDERED: VITAMIN C500 M1 GT (15:59)
[2020-01-25] MEDS ORDERED: LIPITOR40 MG GT (15:59)
[2020-01-25] MEDS ORDERED: SYNTHROID50 MCG GT (15:59)
[2020-01-25] MEDS ORDERED: MULTI VITAMIN1 EACH ORAL (15:59)
[2020-01-25] MEDS ORDERED: ASPIRIN81 MG GT (15:59)
[2020-01-25] MEDS ORDERED: CALMOSEPTINE1 APPLIC TOPIC (15:59)
[2020-01-25] MEDS ORDERED: FUROSEMIDE20 M1 GT (15:59)
[2020-01-25] MEDS ORDERED: FAMOTIDINE20 MG GT (15:59)
[2020-01-25 16:00] VITALS: BP 100/61
[2020-01-25] MEDS ORDERED: MIRALAX17 GM GT (16:03)
[2020-01-25] MEDS ORDERED: NOVOLOG100 UNITS1 SUBQ (16:03)
[2020-01-25] MEDS ORDERED: LEVEMIR FL100 UNIT/2 SQ (16:03)
[2020-01-25] MEDS ORDERED: GLUCAGON EMERGEN1 MG SQ (16:03)
--- NOTE | 2020-01-25 16:25 | Surgery Progress Note ---
Surgery Progress Note Subjective Additional Comments lfts improving lactic trending down no n/v labs noted imaging reviewed Objective Last 24 Hour Vital Signs Date Time Temp Pulse Resp B/P (MAP) Pulse Ox O2 Delivery O2 Flow Rate FiO2 01/25/20 12:00 96.3 87 20 101/59 (73) 95 01/25/20 12:00 78 01/25/20 09:00 Nasal Cannula 4.0 01/25/20 08:00 97.2 66 20 124/61 (82) 96 01/25/20 08:00 74 01/25/20 07:48 84 20 99 Nasal Cannula 2.0 28 81 18 96 01/25/20 04:00 75 01/25/20 04:00 97.8 77 20 122/76 (91) 98 01/25/20 02:29 Nasal Cannula 2.0 28 01/25/20 00:00 86 01/25/20 00:00 98.4 76 20 126/81 (96) 94 01/24/20 21:00 Nasal Cannula 4.0 01/24/20 20:00 83 01/24/20 20:00 96.6 83 20 109/65 (80) 96 01/24/20 19:42 86 20 100 Nasal Cannula 4.0 36 82 20 98 I&O Intake and Output 01/24/20 01/25/20 19:00 07:00 Intake Total 250 ml Output Total 200 ml 300 ml Balance -200 ml -50 ml Free Water 200 ml Tube Feeding 50 ml Output Urine Total 200 ml 300 ml # Voids 1 # Bowel Movements 2 1 Dressing: other Wound: other Cardiovascular: RSR Respiratory: decreased breath sounds Abdomen: non-tender, present bowel sounds, non-distended, decreased bowel sounds Extremities: no edema, no tenderness, no cyanosis Laboratory Tests Test 01/25/20 07:01 01/25/20 09:58 01/25/20 13:37 White Blood Count 6.9 K/UL (4.8-10.8) Red Blood Count 4.60 M/UL (4.70-6.10) L Hemoglobin 13.5 G/DL (14.2-18.0) L Hematocrit 42.2 % (42.0-52.0) Mean Corpuscular Volume 92 FL (80-99) Mean Corpuscular Hemoglobin 29.4 PG (27.0-31.0) Mean Corpuscular Hemoglobin Concent 32.1 G/DL (32.0-36.0) Red Cell Distribution Width 17.0 % (11.6-14.8) H Platelet Count 63 K/UL (150-450) L Mean Platelet Volume 13.8 FL (6.5-10.1) H Neutrophils (%) (Auto) % (45.0-75.0) Lymphocytes (%) (Auto) % (20.0-45.0) Monocytes (%) (Auto) % (1.0-10.0) Eosinophils (%) (Auto) % (0.0-3.0) Basophils (%) (Auto) % (0.0-2.0) Differential Total Cells Counted 100 Neutrophils % (Manual) 84 % (45-75) H Lymphocytes % (Manual) 14 % (20-45) L Monocytes % (Manual) 1 % (1-10) Eosinophils % (Manual) 1 % (0-3) Basophils % (Manual) 0 % (0-2) Band Neutrophils 0 % (0-8) Platelet Estimate Decreased L Platelet Morphology Normal Anisocytosis 1+ Erythrocyte Sedimentation Rate 33 MM/HR (0-20) H Prothrombin Time 11.3 SEC (9.30-11.50) Prothromb Time International Ratio 1.0 (0.9-1.1) Activated Partial Thromboplast Time 30 SEC (23-33) Sodium Level 156 MMOL/L (136-145) H Potassium Level 3.6 MMOL/L (3.5-5.1) Chloride Level 120 MMOL/L (98-107) H Carbon Dioxide Level 31 MMOL/L (21-32) Anion Gap 5 mmol/L (5-15) Blood Urea Nitrogen 103 mg/dL (7-18) H Creatinine 2.2 MG/DL (0.55-1.30) H Estimat Glomerular Filtration Rate 34.3 mL/min (>60) Glucose Level 321 MG/DL (74-106) H Lactic Acid Level 2.70 mmol/L (0.4-2.0) H 2.40 mmol/L (0.66-2.22) H Calcium Level 9.3 MG/DL (8.5-10.1) Total Bilirubin 0.6 MG/DL (0.2-1.0) Aspartate Amino Transf (AST/SGOT) 99 U/L (15-37) H Alanine Aminotransferase (ALT/SGPT) 231 U/L (12-78) H Alkaline Phosphatase 168 U/L (46-116) H C-Reactive Protein, Quantitative 8.0 mg/dL (0.00-0.90) H Total Protein 5.9 G/DL (6.4-8.2) L Albumin 2.2 G/DL (3.4-5.0) L Globulin 3.7 g/dL Albumin/Globulin Ratio 0.6 (1.0-2.7) L Prealbumin Pending Amylase Level 73 U/L (25-115) Lipase 308 U/L (73-393) Urine Random Total Protein 97 MG/DL (< 11.9) H Urine Creatinine 66.5 MG/DL (30.0-125.0) Plan Problems: (1) CHF (congestive heart failure) (2) Hypernatremia (3) Renal failure (4) Lung mass Assessment & Plan: noted new lung mass opacity on cxr compared to prior and seen once stable can plan for chest ct The cardiomediastinal silhouette is unchanged in appearance when accounting for differences in projection and technique. There is mild pulmonary vascular congestion. Streaky bibasilar airspace opacities are noted. There is a nodular opacity in the right midlung measuring approximately 2.6 cm. No pneumothorax or pleural effusion. No acute osseous abnormality. IMPRESSION: 1. Pulmonary vascular congestion with streaky bibasilar airspace opacities which could represent combination of edema and atelectasis but pneumonia should be excluded clinically. 2. Opacity in the right midlung, not seen on prior examination, suspicious for pulmonary nodule. Comparison with more recent prior chest radiograph or follow- up with CT chest on nonemergent basis is recommended. (5) Transaminitis Assessment & Plan: elevated lft's on admission etiology unknown US abd ordered trend labs fluids meds reviewed will follow with recs thank you DAILY ESTIMATED NEEDS: Needs based on DM, Renal, bedbound, 77kg abw 23-28 kcals/kg 9107-4641 total kcals 1.25-1.5 g protein/kg 96-116 g total protein 25-30 mL/kg 4791-2335 total fluid mLs NUTRITION DIAGNOSIS: Swallowing difficulty r/t dysphagia as evidenced by pt is GT dependent. (CURRENT TF: Glucerna 1.2 @50) ENTERAL NUTRITION RECOMMENDATIONS: GLUCERNA 1.2 goal of 70ml/hr x22 hrs + Prosource 1 pack qdaily to provide 1540ml, 1848 kcal, 92g + 11g pro, 1240ml free H2O - Rec to increase TF rate to better meet est kcal and pro needs. - Increase as able by 15ml/hr q4-6 hrs to goal - HOLD TF 1 hr before and after synthroid meds. - Flush per MD. HOB over 30 degrees. With elevated lytes and worsening renal labs rec NEPRO w/ goal of 45ml/hr x22 hrs to provide: 990ml, 1782 kcal, 80g pro, 720ml free H2o. -Add Prosource 1 pack BID for added 22g pro to better meet est pro needs. ADDITIONAL RECOMMENDATIONS: 1) Monitor lytes, renal labs-> need for renal formula 2) Recalibrate bed scale wts 3) Hypoglycemic agents for improved BG control Rec niss w/ accuchecks 4) Hold TF 1 hr before and after synthroid meds. 5) rec HgA1C Liver: The liver is normal in size and demonstrates coarsened echotexture. No focal abnormalities are noted. Gallbladder: No cholelithiasis. Gallbladder wall is not thickened. No pericholecystic fluid. Sonographic Reed sign cannot be assessed due to patient unresponsiveness. Common bile duct: Normal in size. Pancreas: Incompletely imaged due to overlying bowel gas. Kidneys: The kidneys demonstrate increased cortical echogenicity. No hydronephrosis or nephrolithiasis. There is a right renal cyst. Spleen: The spleen is normal in size and echogenicity. Incidental note is made of indwelling gastrostomy tube. IMPRESSION: 1. Coarsened hepatic echotexture, which is nonspecific but can be associated with liver dysfunction. 2. Increased echogenicity in the kidneys, which can be seen with medical renal disease. (6) Elevated troponin (7) Chest pain (8) COPD exacerbation Osman Cheung Jan 25, 2020 16:25
--- NOTE | 2020-01-25 16:54 | General Progress Note ---
Subjective ROS Limited/Unobtainable: No Constitutional: Reports: malaise, weakness HEENT: Reports: no symptoms Cardiovascular: Reports: no symptoms Respiratory: Reports: cough, shortness of breath Gastrointestinal/Abdominal: Reports: no symptoms Genitourinary: Reports: no symptoms Neurologic/Psychiatric: Reports: pre-existing deficit Endocrine: Reports: no symptoms Hematologic/Lymphatic: Reports: no symptoms Allergies: Coded Allergies: No Known Allergies (Verified , 02/21/09) All Systems: reviewed and negative except above Subjective no change. more alert. no fever or chills. able to verbalize and follows commands. on ivf. on iv abx. Objective Last 24 Hour Vital Signs Date Time Temp Pulse Resp B/P (MAP) Pulse Ox O2 Delivery O2 Flow Rate FiO2 01/25/20 16:00 97.7 90 18 100/61 (74) 97 01/25/20 12:00 96.3 87 20 101/59 (73) 95 01/25/20 12:00 78 01/25/20 09:00 Nasal Cannula 4.0 01/25/20 08:00 97.2 66 20 124/61 (82) 96 01/25/20 08:00 74 01/25/20 07:48 84 20 99 Nasal Cannula 2.0 28 81 18 96 01/25/20 04:00 75 01/25/20 04:00 97.8 77 20 122/76 (91) 98 01/25/20 02:29 Nasal Cannula 2.0 28 01/25/20 00:00 86 01/25/20 00:00 98.4 76 20 126/81 (96) 94 01/24/20 21:00 Nasal Cannula 4.0 01/24/20 20:00 83 01/24/20 20:00 96.6 83 20 109/65 (80) 96 01/24/20 19:42 86 20 100 Nasal Cannula 4.0 36 82 20 98 Intake and Output 01/24/20 01/25/20 19:00 07:00 Intake Total 250 ml Output Total 200 ml 300 ml Balance -200 ml -50 ml Free Water 200 ml Tube Feeding 50 ml Output Urine Total 200 ml 300 ml # Voids 1 # Bowel Movements 2 1 Laboratory Tests 01/25/20 07:01: White Blood Count 6.9, Red Blood Count 4.60L, Hemoglobin 13.5L, Hematocrit 42.2, Mean Corpuscular Volume 92, Mean Corpuscular Hemoglobin 29.4, Mean Corpuscular Hemoglobin Concent 32.1, Red Cell Distribution Width 17.0H, Platelet Count 63L, Mean Platelet Volume 13.8H, Neutrophils (%) (Auto) , Lymphocytes (%) (Auto) , Monocytes (%) (Auto) , Eosinophils (%) (Auto) , Basophils (%) (Auto) , Differential Total Cells Counted 100, Neutrophils % (Manual) 84H, Lymphocytes % (Manual) 14L, Monocytes % (Manual) 1, Eosinophils % (Manual) 1, Basophils % (Manual) 0, Band Neutrophils 0, Platelet Estimate DecreasedL, Platelet Morph ology Normal, Anisocytosis 1+, Erythrocyte Sedimentation Rate 33H, Prothrombin Time 11.3, Prothromb Time International Ratio 1.0, Activated Partial Thromboplast Time 30, Sodium Level 156H, Potassium Level 3.6, Chloride Level 120H, Carbon Dioxide Level 31, Anion Gap 5, Blood Urea Nitrogen 103H, Creatinine 2.2H, Estimat Glomerular Filtration Rate 34.3, Glucose Level 321H, Lactic Acid Level 2.70H, Calcium Level 9.3, Total Bilirubin 0.6, Aspartate Amino Transf (AST/SGOT) 99H, Alanine Aminotransferase (ALT/SGPT) 231H, Alkaline Phosphatase 168H, C-Reactive Protein, Quantitative 8.0H, Total Protein 5.9L, Albumin 2.2L, Globulin 3.7, Albumin/Globulin Ratio 0.6L, Prealbumin [Pending], Amylase Level 73, Lipase 308 01/25/20 09:58: Lactic Acid Level 2.40H 01/25/20 13:37: Urine Random Total Protein 97H, Urine Creatinine 66.5 Height (Feet): 5 Height (Inches): 10.00 Weight (Pounds): 182 General Appearance: WD/WN, lethargic EENT: normal ENT inspection Neck: non-tender, normal alignment Cardiovascular: normal peripheral pulses, normal rate, regular rhythm Respiratory/Chest: chest wall non-tender, rhonchi - bilaterally Abdomen: normal bowel sounds, non tender, soft, no organomegaly Edema: no edema noted Pedal (L), no edema noted Pedal (R) Neurologic: responsive Assessment/Plan Problem List: (1) OMI (acute kidney injury) ICD Codes: N17.9 - Acute kidney failure, unspecified SNOMED: 0032144, 77561370 (2) Hypernatremia ICD Codes: E87.0 - Hyperosmolality and hypernatremia SNOMED: 316267536 (3) COPD exacerbation ICD Codes: J44.1 - Chronic obstructive pulmonary disease with (acute) exacerbation SNOMED: 931599682, 197648304, 216451668 (4) Elevated troponin ICD Codes: R77.8 - Other specified abnormalities of plasma proteins SNOMED: 425692737, 300382669, 107562153 (5) Lung mass ICD Codes: R91.8 - Other nonspecific abnormal finding of lung field SNOMED: 250573441, 734721445 Status: stable, progressing Assessment/Plan: cont current rx ivf monitor renal fxn and labs iv abx monitor cxr ct chest when stable repeat covid negative dvt/stress ulcer prophylaxis monitor bs skin care turn q2 Aleksey Diaz MD Jan 25, 2020 16:54
--- NOTE | 2020-01-25 17:01 | Cardiology Progress Note ---
Subjective DATE OF SERVICE: Jan 25, 2020 Remains withdrawn and lethargic Covid 19 swab negative x1 Remains on hypotonic IVF Sodium and lactic acid levels remain elevated Monitor: Sinus with frequent non-sustained atrial ectopy Objective Last 24 Hour Vital Signs Date Time Temp Pulse Resp B/P (MAP) Pulse Ox O2 Delivery O2 Flow Rate FiO2 01/25/20 16:00 97.7 90 18 100/61 (74) 97 01/25/20 12:00 96.3 87 20 101/59 (73) 95 01/25/20 12:00 78 01/25/20 09:00 Nasal Cannula 4.0 01/25/20 08:00 97.2 66 20 124/61 (82) 96 01/25/20 08:00 74 01/25/20 07:48 84 20 99 Nasal Cannula 2.0 28 81 18 96 01/25/20 04:00 75 01/25/20 04:00 97.8 77 20 122/76 (91) 98 01/25/20 02:29 Nasal Cannula 2.0 28 01/25/20 00:00 86 01/25/20 00:00 98.4 76 20 126/81 (96) 94 01/24/20 21:00 Nasal Cannula 4.0 01/24/20 20:00 83 01/24/20 20:00 96.6 83 20 109/65 (80) 96 01/24/20 19:42 86 20 100 Nasal Cannula 4.0 36 82 20 98 ROS: unchanged from 01/23/20 RHYTHM: NSR, PVCs, PACs LUNGS: coarse breath sounds CARDIAC: normal rate, regular rhythm, normal S1 and S2, gallop/S4 ABDOMEN: non tender, soft, no organomegaly, G-Tube intact EXTREMITIES: No edema Laboratory Tests Test 01/25/20 07:01 01/25/20 09:58 01/25/20 13:37 White Blood Count 6.9 K/UL (4.8-10.8) Red Blood Count 4.60 M/UL (4.70-6.10) L Hemoglobin 13.5 G/DL (14.2-18.0) L Hematocrit 42.2 % (42.0-52.0) Mean Corpuscular Volume 92 FL (80-99) Mean Corpuscular Hemoglobin 29.4 PG (27.0-31.0) Mean Corpuscular Hemoglobin Concent 32.1 G/DL (32.0-36.0) Red Cell Distribution Width 17.0 % (11.6-14.8) H Platelet Count 63 K/UL (150-450) L Mean Platelet Volume 13.8 FL (6.5-10.1) H Neutrophils (%) (Auto) % (45.0-75.0) Lymphocytes (%) (Auto) % (20.0-45.0) Monocytes (%) (Auto) % (1.0-10.0) Eosinophils (%) (Auto) % (0.0-3.0) Basophils (%) (Auto) % (0.0-2.0) Differential Total Cells Counted 100 Neutrophils % (Manual) 84 % (45-75) H Lymphocytes % (Manual) 14 % (20-45) L Monocytes % (Manual) 1 % (1-10) Eosinophils % (Manual) 1 % (0-3) Basophils % (Manual) 0 % (0-2) Band Neutrophils 0 % (0-8) Platelet Estimate Decreased L Platelet Morphology Normal Anisocytosis 1+ Erythrocyte Sedimentation Rate 33 MM/HR (0-20) H Prothrombin Time 11.3 SEC (9.30-11.50) Prothromb Time International Ratio 1.0 (0.9-1.1) Activated Partial Thromboplast Time 30 SEC (23-33) Sodium Level 156 MMOL/L (136-145) H Potassium Level 3.6 MMOL/L (3.5-5.1) Chloride Level 120 MMOL/L (98-107) H Carbon Dioxide Level 31 MMOL/L (21-32) Anion Gap 5 mmol/L (5-15) Blood Urea Nitrogen 103 mg/dL (7-18) H Creatinine 2.2 MG/DL (0.55-1.30) H Estimat Glomerular Filtration Rate 34.3 mL/min (>60) Glucose Level 321 MG/DL (74-106) H Lactic Acid Level 2.70 mmol/L (0.4-2.0) H 2.40 mmol/L (0.66-2.22) H Calcium Level 9.3 MG/DL (8.5-10.1) Total Bilirubin 0.6 MG/DL (0.2-1.0) Aspartate Amino Transf (AST/SGOT) 99 U/L (15-37) H Alanine Aminotransferase (ALT/SGPT) 231 U/L (12-78) H Alkaline Phosphatase 168 U/L (46-116) H C-Reactive Protein, Quantitative 8.0 mg/dL (0.00-0.90) H Total Protein 5.9 G/DL (6.4-8.2) L Albumin 2.2 G/DL (3.4-5.0) L Globulin 3.7 g/dL Albumin/Globulin Ratio 0.6 (1.0-2.7) L Prealbumin Pending Amylase Level 73 U/L (25-115) Lipase 308 U/L (73-393) Urine Random Total Protein 97 MG/DL (< 11.9) H Urine Creatinine 66.5 MG/DL (30.0-125.0) Microbiology Date/Time Source Procedure Growth Status 01/24/20 17:49 Nasopharynx Coronavirus COVID-19 PCR ([facility]) - Final Complete 01/23/20 14:40 Nasal Nares - Final Complete 01/23/20 14:40 Nasal Nares - Final Complete 01/23/20 14:30 Rectum Received 01/23/20 12:12 Blood Blood Culture - Preliminary NO GROWTH AFTER 24 HOURS Resulted 01/23/20 12:00 Blood Blood Culture - Preliminary NO GROWTH AFTER 24 HOURS Resulted 01/23/20 11:49 Nasopharynx SARS-CoV-2 RdRp Gene Assay - Final Complete Assessment/Plan Assessment/Plan Healthcare acquired PNA Lactic acidosis Acute myocardial ischemia/possible NSTE myocardial infarction COPD Ac/chr systolic/diast CHF Ischemic cardiomyopathy Severe dehydration Hypernatremia Hyperchloremia PAD with prior revascularization Dysphagia with GTube CVA with dementia Paroxysmal atrial arrhythmias CRITICAL & GUARDED Abx Resp therapy Hypotonic IVF hydration Titrate antiHTN and anti-anginal regimen Cont'd anti-plt therapy Oxygen and bronchodilator rx DVT prophylaxis Monitor and replace lytes Continue continuous cardiac monitoring Osmani Cevallos MD Jan 25, 2020 17:01
[2020-01-25] MEDS: cefTRIAXone 1 GM in D5W 55 ML IVPB SCH (17:37)
--- NOTE | 2020-01-25 19:33 | NUR ---
NURSE HAND-OFF REPORT: Important Events on Shift: No adverse events noted Patient Status: Stable Diet: Glucerna 1.2 @ 50ml/hr Pending Orders: N Pending Results/Labs:N Pending MD notification:N Latest Vital Signs: Temperature 97.7 , Pulse 81 , B/P 100 /61 , Respiratory Rate 18 , O2 SAT 97 , Nasal Cannula, O2 Flow Rate 4.0 . Vital Sign Comment: EKG Rhythm: Sinus Rhythm Rhythm change?: N MD Notified?: - MD Response: Latest Gibson Fall Score: 55 Fall Risk: High Risk Safety Measures: Call light Within Reach, Bed Alarm Zone 2, Side Rails Side Rails x3, Bed position . Fall Precautions: Yellow Socks Yellow Gown Patient Fall Education Report given to Bridgett MARCOS.
--- NOTE | 2020-01-25 19:35 | NUR ---
NURSE NOTES: Patient received from Lynsey MARCOS. Patient alert and oriented x 1. No c/o pain and no s/s of distress. Saturating well on 4L of oxygen via nasal canula, on and off patient takes it off but still saturating well. IV site patent and intact on Left FA 20G running 1/2 NS @ 100mls/hr. Gtube patent and intact running Glucerna 1.2 @50cc/hr. No residual. Bed in lowest position and locked. Call light and bedside table within reach. Will continue plan of care.
[2020-01-25 20:00] VITALS: BP 118/68
[2020-01-25] MEDS: Azithromycin 250 MG in D5W 275 ML IV SCH (20:28)
[2020-01-25] MEDS: Atorvastatin 80mg tab GT SCH (20:29)
[2020-01-26] VITALS: BP 130/67
[2020-01-26] MEDS: Albuterol/Ipratropium 3ml neb HHN SCH ×4 (00:53→19:08)
--- NOTE | 2020-01-26 01:34 | NUR ---
NURSE NOTES: Patient had 9beats of Vtach, patient asymptomatic and vital signs WNL notified Dr. Plummer. Awaiting callback.
--- NOTE | 2020-01-26 02:45 | NUR ---
NURSE NOTES: Pt received from PRITI Urias alert and oriented x0, with no acute s/s of distress noted. On 4L NC, saturating at 97%. Bed in lowest position, call light and belongings within reach.
[2020-01-26 04:00] VITALS: BP 117/78
[2020-01-26 07:22] LABS: CALCIUM 9.4 MG/DL (8.5-10.1); CREATININE 2.2 MG/DL (0.55-1.30); POTASSIUM 3.9 MMOL/L (3.5-5.1)
--- NOTE | 2020-01-26 07:30 | NUR ---
NURSE HAND-OFF REPORT: Important Events on Shift: VS WNL. Pt tolerated 4L NC during the night. 1 BM noted Patient Status: Stable Diet: GTube feed Pending Orders: n/a Pending Results/Labs:n /a Pending MD notification: n/a Latest Vital Signs: Temperature 97.5 , Pulse 75 , B/P 117 /78 , Respiratory Rate 24 , O2 SAT 97 , Nasal Cannula, O2 Flow Rate 4.0 . Vital Sign Comment: WNL EKG Rhythm: Sinus Rhythm Rhythm change?: N MD Notified?: -Dr. Joe COSBY Response: Latest Gibson Fall Score: 55 Fall Risk: High Risk Safety Measures: Call light Within Reach, Bed Alarm Zone 2, Side Rails Side Rails x3, Bed position . Fall Precautions: Yellow Socks Yellow Gown Patient Fall Education Report given to PRITI Nolasco.
--- NOTE | 2020-01-26 07:37 | NUR ---
NURSE NOTES: Pt. received from PRITI De La Rosa. Pt. AAOx1, receiving breathing treatment at this time, no indications of SOB, no indications of respiratory distress, no complaints of pain. IV noted left hand 20g intact and patent, with 1/2 NS at 100cc. Gtube with glucerna at 50cc. Head of bed elevated, bed low and locked, side rails x3 up, bed alarm active, and call light in reach.
[2020-01-26 08:00] VITALS: BP 124/69
--- NOTE | 2020-01-26 08:22 | General Progress Note ---
Subjective ROS Limited/Unobtainable: No Constitutional: Reports: malaise, weakness HEENT: Reports: no symptoms Cardiovascular: Reports: no symptoms Respiratory: Reports: cough, shortness of breath Gastrointestinal/Abdominal: Reports: no symptoms Genitourinary: Reports: no symptoms Neurologic/Psychiatric: Reports: no symptoms Endocrine: Reports: no symptoms Hematologic/Lymphatic: Reports: anemia Allergies: Coded Allergies: No Known Allergies (Verified , 02/21/09) All Systems: reviewed and negative except above Subjective slightly more alert. responds to some simple questions. no fever or chills. no sob. tolerating tube feeds. labs improving. Objective Last 24 Hour Vital Signs Date Time Temp Pulse Resp B/P (MAP) Pulse Ox O2 Delivery O2 Flow Rate FiO2 01/26/20 04:00 75 01/26/20 04:00 97.5 61 24 117/78 (91) 97 01/26/20 00:53 77 18 98 Room Air 21 73 18 95 01/26/20 00:00 96.6 73 24 130/67 (88) 98 01/26/20 00:00 73 01/25/20 21:00 Nasal Cannula 4.0 01/25/20 20:00 97.9 93 20 118/68 (85) 98 01/25/20 20:00 85 01/25/20 19:11 84 20 97 Room Air 21 80 18 95 01/25/20 16:00 81 01/25/20 16:00 97.7 90 18 100/61 (74) 97 01/25/20 12:00 96.3 87 20 101/59 (73) 95 01/25/20 12:00 78 01/25/20 09:00 Nasal Cannula 4.0 Intake and Output 01/25/20 01/26/20 19:00 07:00 Intake Total 750 ml Output Total 250 ml 300 ml Balance -250 ml 450 ml Free Water 200 ml IV Total 300 ml Tube Feeding 250 ml Output Urine Total 250 ml 300 ml # Bowel Movements 2 1 Laboratory Tests 01/25/20 09:58: Lactic Acid Level 2.40H 01/25/20 13:37: Urine Random Total Protein 97H, Urine Creatinine 66.5 01/26/20 06:14: Sodium Level 153H, Potassium Level 3.9, Chloride Level 117H, Carbon Dioxide Level 31, Anion Gap 5, Blood Urea Nitrogen 93H, Creatinine 2.2H, Estimat Glomerular Filtration Rate 34.3, Glucose Level 403H, Calcium Level 9.4 Height (Feet): 5 Height (Inches): 10.00 Weight (Pounds): 182 General Appearance: WD/WN, alert Neck: non-tender, normal alignment Cardiovascular: normal peripheral pulses, normal rate, regular rhythm Respiratory/Chest: chest wall non-tender, lungs clear, normal breath sounds Abdomen: normal bowel sounds, non tender, soft, no organomegaly Edema: no edema noted Arm (L), no edema noted Arm (R) Neurologic: responsive, disoriented Assessment/Plan Problem List: (1) OMI (acute kidney injury) ICD Codes: N17.9 - Acute kidney failure, unspecified SNOMED: 9319430, 79511276 (2) Hypernatremia ICD Codes: E87.0 - Hyperosmolality and hypernatremia SNOMED: 024878894 (3) COPD exacerbation ICD Codes: J44.1 - Chronic obstructive pulmonary disease with (acute) exacerbation SNOMED: 103631795, 971446801, 959515978 (4) Elevated troponin ICD Codes: R77.8 - Other specified abnormalities of plasma proteins SNOMED: 608213511, 825977597, 363531535 (5) Lung mass ICD Codes: R91.8 - Other nonspecific abnormal finding of lung field SNOMED: 602410974, 239953563 Status: stable, progressing Assessment/Plan: cont current rx ivf per renal monito volume status monitor renal fxn and labs iv abx monitor cxr ct chest when stable repeat covid negative dvt/stress ulcer prophylaxis monitor bs skin care turn q2 Aleksey Diaz MD Jan 26, 2020 08:22
[2020-01-26] MEDS: Aspirin Baby 81mg GT SCH (08:41)
[2020-01-26] MEDS: Heparin 5000 units/ml inj SUBQ SCH ×2 (08:42→20:37)
--- NOTE | 2020-01-26 11:15 | Nephrology Progress Note ---
Assessment/Plan Problem List: (1) Proteinuria (2) CHF (congestive heart failure) (3) Dehydration (4) Hypernatremia (5) OMI (acute kidney injury) (6) COPD exacerbation Plan continue hydration cautiously, check urine protein/creatinine, water via gt, SS insulin Subjective ROS Limited/Unobtainable: Yes Objective Objective Last 24 Hour Vital Signs Date Time Temp Pulse Resp B/P (MAP) Pulse Ox O2 Delivery O2 Flow Rate FiO2 01/26/20 09:00 Nasal Cannula 4.0 01/26/20 08:00 83 01/26/20 08:00 97.3 83 20 124/69 (87) 97 01/26/20 07:26 80 18 99 Nasal Cannula 2.0 28 72 18 97 01/26/20 04:00 75 01/26/20 04:00 97.5 61 24 117/78 (91) 97 01/26/20 00:53 77 18 98 Room Air 21 73 18 95 01/26/20 00:00 96.6 73 24 130/67 (88) 98 01/26/20 00:00 73 01/25/20 21:00 Nasal Cannula 4.0 01/25/20 20:00 97.9 93 20 118/68 (85) 98 01/25/20 20:00 85 01/25/20 19:11 84 20 97 Room Air 21 80 18 95 01/25/20 16:00 81 01/25/20 16:00 97.7 90 18 100/61 (74) 97 01/25/20 12:00 96.3 87 20 101/59 (73) 95 01/25/20 12:00 78 Intake and Output 01/25/20 01/26/20 19:00 07:00 Intake Total 750 ml Output Total 250 ml 300 ml Balance -250 ml 450 ml Free Water 200 ml IV Total 300 ml Tube Feeding 250 ml Output Urine Total 250 ml 300 ml # Bowel Movements 2 1 Laboratory Tests 01/25/20 13:37: Urine Random Total Protein 97H, Urine Creatinine 66.5 01/26/20 06:14: Sodium Level 153H, Potassium Level 3.9, Chloride Level 117H, Carbon Dioxide Level 31, Anion Gap 5, Blood Urea Nitrogen 93H, Creatinine 2.2H, Estimat Glomerular Filtration Rate 34.3, Glucose Level 403H, Calcium Level 9.4 Height (Feet): 5 Height (Inches): 10.00 Weight (Pounds): 182 General Appearance: lethargic, confused EENT: normal ENT inspection Neck: normal alignment Cardiovascular: normal rate, regular rhythm Respiratory/Chest: lungs clear Abdomen: non tender, soft Extremities: no edema Neurologic: motor weakness Roland Campo MD Jan 26, 2020 11:15
[2020-01-26] MEDS: NovoLOG Insulin Flexpen SUBQ SCH ×3 (11:54→20:37)
[2020-01-26 12:00] VITALS: BP 125/53
--- NOTE | 2020-01-26 12:40 | Infectious Diseases Prog Note ---
Assessment/Plan Assessment/Plan A: 1. Community-acquired pneumonia.COVID19 test is negative x2. 2. Diabetes. 3. Hypertension. 4. Renal failure, acute 5. Hypernatremia PLAN: 1. Continue ceftriaxone and azithromycin. 2. We will follow up cultures and adjust antibiotics accordingl Subjective ROS Limited/Unobtainable: Yes Constitutional: Denies: fever Respiratory: Reports: dry cough Allergies: Coded Allergies: No Known Allergies (Verified , 02/21/09) Objective Last 24 Hour Vital Signs Date Time Temp Pulse Resp B/P (MAP) Pulse Ox O2 Delivery O2 Flow Rate FiO2 01/26/20 09:00 Nasal Cannula 4.0 01/26/20 08:00 83 01/26/20 08:00 97.3 83 20 124/69 (87) 97 01/26/20 07:26 80 18 99 Nasal Cannula 2.0 28 72 18 97 01/26/20 04:00 75 01/26/20 04:00 97.5 61 24 117/78 (91) 97 01/26/20 00:53 77 18 98 Room Air 21 73 18 95 01/26/20 00:00 96.6 73 24 130/67 (88) 98 01/26/20 00:00 73 01/25/20 21:00 Nasal Cannula 4.0 01/25/20 20:00 97.9 93 20 118/68 (85) 98 01/25/20 20:00 85 01/25/20 19:11 84 20 97 Room Air 21 80 18 95 01/25/20 16:00 81 01/25/20 16:00 97.7 90 18 100/61 (74) 97 Height (Feet): 5 Height (Inches): 10.00 Weight (Pounds): 182 HEENT: mucous membranes moist Respiratory/Chest: lungs clear, other - oxygen by nasal cannula Cardiovascular: normal rate Abdomen: soft, non tender, other - GT feeding Extremities: no edema Neurologic/Psychiatric: other - sleeping Microbiology Date/Time Source Procedure Growth Status 01/25/20 15:39 Sputum Gram Stain - Final Resulted 01/25/20 15:39 Sputum Sputum Culture - Preliminary NO GROWTH Resulted 01/24/20 17:49 Nasopharynx Coronavirus COVID-19 PCR ([facility]) - Final Complete 01/23/20 14:40 Nasal Nares - Final Complete 01/23/20 14:40 Nasal Nares - Final Complete 01/23/20 14:30 Rectum - Final NO CARBAPENEM-RESISTANT ENTEROBACTERI... Complete 01/23/20 14:30 Rectum VRE Culture - Final NO VANCOMYCIN RESISTANT ENTEROCOCCUS ... Complete 01/23/20 14:30 Nasal Nares MRSA Culture - Final NO METHICILLIN RESISTANT STAPH AUREUS... Complete Laboratory Tests Test 01/25/20 13:37 01/26/20 06:14 01/26/20 11:52 Urine Random Total Protein 97 MG/DL (< 11.9) H Urine Creatinine 66.5 MG/DL (30.0-125.0) Sodium Level 153 MMOL/L (136-145) H Potassium Level 3.9 MMOL/L (3.5-5.1) Chloride Level 117 MMOL/L (98-107) H Carbon Dioxide Level 31 MMOL/L (21-32) Anion Gap 5 mmol/L (5-15) Blood Urea Nitrogen 93 mg/dL (7-18) H Creatinine 2.2 MG/DL (0.55-1.30) H Estimat Glomerular Filtration Rate 34.3 mL/min (>60) Glucose Level 403 MG/DL (74-106) H Calcium Level 9.4 MG/DL (8.5-10.1) POC Whole Blood Glucose 370 MG/DL (74-106) H Current Medications Medications (Trade) Dose Ordered Sig/Bird Route PRN Reason Start Time Stop Time Status Last Admin Dose Admin Acetaminophen (Tylenol) 650 mg Q4H PRN ORAL Mild Pain (Scale 1-3) 01/23/20 18:30 02/22/20 18:29 Acetaminophen (Tylenol) 650 mg Q4H PRN ORAL Temp >100.5 01/23/20 18:45 02/22/20 18:44 Albuterol/ Ipratropium (Albuterol/ Ipratropium) 3 ml Q6HRT HHN 01/23/20 19:00 01/28/20 18:59 01/26/20 07:16 Aspirin (ASA) 81 mg DAILY GT 01/24/20 09:00 03/09/20 08:59 01/26/20 08:41 Atorvastatin Calcium (Lipitor) 40 mg BEDTIME GT 01/23/20 21:00 04/22/20 20:59 01/25/20 20:29 Azithromycin 250 mg/Dextrose 275 ml @ 275 mls/hr Q24HRS IV 01/23/20 20:00 01/28/20 19:59 01/25/20 20:28 Ceftriaxone Sodium 1 gm/ Dextrose 55 ml @ 110 mls/hr Q24H IVPB 01/23/20 18:30 01/30/20 18:29 01/25/20 17:37 Dextrose (Dextrose 50%) 25 ml Q30M PRN IV Hypoglycemia 01/26/20 11:15 04/25/20 11:14 Dextrose (Dextrose 50%) 50 ml Q30M PRN IV Hypoglycemia 01/26/20 11:15 04/25/20 11:14 Famotidine (Pepcid) 20 mg DAILY GT 01/24/20 09:00 04/23/20 08:59 01/26/20 08:41 Heparin Sodium (Porcine) (Heparin 5000 units/ml) 5,000 units EVERY 12 HOURS SUBQ 01/23/20 21:00 03/08/20 20:59 01/26/20 08:42 Insulin Aspart (NovoLOG) BEFORE MEALS AND HS SUBQ 01/26/20 11:30 04/25/20 11:29 01/26/20 11:54 Levothyroxine Sodium (Synthroid) 50 mcg DAILY@0630 GT 01/24/20 06:30 02/23/20 06:29 01/26/20 05:51 Promethazine HCl/ Dextromethorphan (Phenergan DM) 6.25 mg Q6H PRN ORAL For Cough 01/23/20 18:30 02/22/20 18:29 Sodium Chloride 1,000 ml @ 100 mls/hr Q10H IV 01/23/20 19:00 02/22/20 18:59 01/26/20 11:55 Jt Gallo MD Jan 26, 2020 12:40
--- NOTE | 2020-01-26 15:32 | NUR ---
NURSE NOTES: Pt. with 4 beats of vtach, asymptomatic, Dr. Diaz notified.
[2020-01-26 16:00] VITALS: BP 102/58
[2020-01-26] MEDS: cefTRIAXone 1 GM in D5W 55 ML IVPB SCH (17:30)
--- NOTE | 2020-01-26 17:53 | Surgery Progress Note ---
Surgery Progress Note Subjective Additional Comments comfortable stable labs noted no n/v/f/c Objective Last 24 Hour Vital Signs Date Time Temp Pulse Resp B/P (MAP) Pulse Ox O2 Delivery O2 Flow Rate FiO2 01/26/20 16:00 78 01/26/20 16:00 97.7 78 20 102/58 (73) 96 01/26/20 13:33 72 18 99 Nasal Cannula 2.0 28 70 18 96 01/26/20 12:00 77 01/26/20 12:00 96.6 77 20 125/53 (77) 98 01/26/20 09:00 Nasal Cannula 4.0 01/26/20 08:00 83 01/26/20 08:00 97.3 83 20 124/69 (87) 97 01/26/20 07:26 80 18 99 Nasal Cannula 2.0 28 72 18 97 01/26/20 04:00 75 01/26/20 04:00 97.5 61 24 117/78 (91) 97 01/26/20 00:53 77 18 98 Room Air 21 73 18 95 01/26/20 00:00 96.6 73 24 130/67 (88) 98 01/26/20 00:00 73 01/25/20 21:00 Nasal Cannula 4.0 01/25/20 20:00 97.9 93 20 118/68 (85) 98 01/25/20 20:00 85 01/25/20 19:11 84 20 97 Room Air 21 80 18 95 I&O Intake and Output 01/25/20 01/26/20 19:00 07:00 Intake Total 750 ml Output Total 250 ml 300 ml Balance -250 ml 450 ml Free Water 200 ml IV Total 300 ml Tube Feeding 250 ml Output Urine Total 250 ml 300 ml # Bowel Movements 2 1 Cardiovascular: RSR Respiratory: decreased breath sounds Abdomen: non-tender, present bowel sounds, non-distended Extremities: no edema, no tenderness, no cyanosis Laboratory Tests Test 01/26/20 06:14 01/26/20 11:52 01/26/20 15:57 Sodium Level 153 MMOL/L (136-145) H Potassium Level 3.9 MMOL/L (3.5-5.1) Chloride Level 117 MMOL/L (98-107) H Carbon Dioxide Level 31 MMOL/L (21-32) Anion Gap 5 mmol/L (5-15) Blood Urea Nitrogen 93 mg/dL (7-18) H Creatinine 2.2 MG/DL (0.55-1.30) H Estimat Glomerular Filtration Rate 34.3 mL/min (>60) Glucose Level 403 MG/DL (74-106) H Calcium Level 9.4 MG/DL (8.5-10.1) POC Whole Blood Glucose 370 MG/DL (74-106) H 348 MG/DL (74-106) H Plan Problems: (1) CHF (congestive heart failure) (2) Hypernatremia (3) Renal failure (4) Lung mass Assessment & Plan: noted new lung mass opacity on cxr compared to prior and seen once stable can plan for chest ct The cardiomediastinal silhouette is unchanged in appearance when accounting for differences in projection and technique. There is mild pulmonary vascular congestion. Streaky bibasilar airspace opacities are noted. There is a nodular opacity in the right midlung measuring approximately 2.6 cm. No pneumothorax or pleural effusion. No acute osseous abnormality. IMPRESSION: 1. Pulmonary vascular congestion with streaky bibasilar airspace opacities which could represent combination of edema and atelectasis but pneumonia should be excluded clinically. 2. Opacity in the right midlung, not seen on prior examination, suspicious for pulmonary nodule. Comparison with more recent prior chest radiograph or follow- up with CT chest on nonemergent basis is recommended. (5) Transaminitis Assessment & Plan: elevated lft's on admission etiology unknown US abd ordered trend labs fluids meds reviewed will follow with recs thank you DAILY ESTIMATED NEEDS: Needs based on DM, Renal, bedbound, 77kg abw 23-28 kcals/kg 5290-2452 total kcals 1.25-1.5 g protein/kg 96-116 g total protein 25-30 mL/kg 1872-4900 total fluid mLs NUTRITION DIAGNOSIS: Swallowing difficulty r/t dysphagia as evidenced by pt is GT dependent. (CURRENT TF: Glucerna 1.2 @50) ENTERAL NUTRITION RECOMMENDATIONS: GLUCERNA 1.2 goal of 70ml/hr x22 hrs + Prosource 1 pack qdaily to provide 1540ml, 1848 kcal, 92g + 11g pro, 1240ml free H2O - Rec to increase TF rate to better meet est kcal and pro needs. - Increase as able by 15ml/hr q4-6 hrs to goal - HOLD TF 1 hr before and after synthroid meds. - Flush per . HOB over 30 degrees. With elevated lytes and worsening renal labs rec NEPRO w/ goal of 45ml/hr x22 hrs to provide: 990ml, 1782 kcal, 80g pro, 720ml free H2o. -Add Prosource 1 pack BID for added 22g pro to better meet est pro needs. ADDITIONAL RECOMMENDATIONS: 1) Monitor lytes, renal labs-> need for renal formula 2) Recalibrate bed scale wts 3) Hypoglycemic agents for improved BG control Rec niss w/ accuchecks 4) Hold TF 1 hr before and after synthroid meds. 5) rec HgA1C Liver: The liver is normal in size and demonstrates coarsened echotexture. No focal abnormalities are noted. Gallbladder: No cholelithiasis. Gallbladder wall is not thickened. No pericholecystic fluid. Sonographic Reed sign cannot be assessed due to patient unresponsiveness. Common bile duct: Normal in size. Pancreas: Incompletely imaged due to overlying bowel gas. Kidneys: The kidneys demonstrate increased cortical echogenicity. No hydrone phrosis or nephrolithiasis. There is a right renal cyst. Spleen: The spleen is normal in size and echogenicity. Incidental note is made of indwelling gastrostomy tube. IMPRESSION: 1. Coarsened hepatic echotexture, which is nonspecific but can be associated with liver dysfunction. 2. Increased echogenicity in the kidneys, which can be seen with medical renal disease. (6) Elevated troponin (7) Chest pain (8) COPD exacerbation Osman Cheung Jan 26, 2020 17:53
--- NOTE | 2020-01-26 18:22 | NUR ---
NURSE NOTES: Wound care completed on bilateral heels and sacral. Pt. with scant bowel movement.
--- NOTE | 2020-01-26 19:35 | NUR ---
NURSE NOTES: Report received from PRITI Nolasco. Patient is awake, alert and oriented x 1. 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 Patient gas g-tube, running tube feeding of Glucerna 1.2 @ 50 cc/hour, flushing of 200 cc every 6 hours. IV site is on left forearm g-20 running fluid of 1/2 NS @ 100 cc/hour that is patent and intact. Safety measures are in place, bed in lowest and locked position, side rails up x 2, call light button and bedside table within reach, instructed to call for any assistance needed. Will continue plan of care.
--- NOTE | 2020-01-26 19:37 | NUR ---
NURSE HAND-OFF REPORT: Important Events on Shift:[]wound care performed Patient Status: []sleeping Diet: []glucern 1.2 at 50cc Pending Orders: []na Pending Results/Labs:[]na Pending MD notification:[]na Latest Vital Signs: Temperature 97.7 , Pulse 78 , B/P 102 /58 , Respiratory Rate 20 , O2 SAT 94 , Nasal Cannula, O2 Flow Rate 2.0 . Vital Sign Comment: []na EKG Rhythm: Sinus Rhythm Rhythm change?: Y Notified?: N -Dr. Joe COSBY Response: Latest Gibson Fall Score: 55 Fall Risk: High Risk Safety Measures: Call light Within Reach, Bed Alarm Zone 1, Side Rails Side Rails x3, Bed position Low and Locked. Fall Precautions: Yellow Socks Yellow Gown Patient Fall Education Report given to []PRITI Rosado
[2020-01-26 20:00] VITALS: BP 121/65
[2020-01-26] MEDS: Azithromycin 250 MG in D5W 275 ML IV SCH (20:35)
[2020-01-26] MEDS: Atorvastatin 80mg tab GT SCH (20:35)
--- NOTE | 2020-01-26 23:00 | NUR ---
NURSE NOTES: Patient had an episode of 6 beats of v-tach. Upon assessment, patient is asleep, repositioned to high fowlers. BP as follows, 127/60 and HR of 69. Called Dr. Cevallos, awaiting for call back.
[2020-01-27] VITALS: BP 111/70
[2020-01-27] MEDS: Albuterol/Ipratropium 3ml neb HHN SCH ×4 (00:53→19:34)
--- NOTE | 2020-01-27 02:23 | Cardiology Progress Note ---
Subjective DATE OF SERVICE: Jan 26, 2020 Remains withdrawn and lethargic Remains on hypotonic IVF Sodium and lactic acid levels remain elevated Glucose levels significantly elevated. Monitor: Sinus with frequent non-sustained atrial ectopy; episode of 6 beats of ventricular tachycardia today Objective Last 24 Hour Vital Signs Date Time Temp Pulse Resp B/P (MAP) Pulse Ox O2 Delivery O2 Flow Rate FiO2 01/27/20 01:03 78 18 98 Nasal Cannula 2.0 28 01/27/20 00:53 79 18 96 Nasal Cannula 2.0 28 01/27/20 00:00 73 01/27/20 00:00 95.9 69 22 111/70 (84) 94 01/26/20 21:00 Nasal Cannula 4.0 01/26/20 20:00 97.4 64 20 121/65 (83) 97 01/26/20 20:00 87 01/26/20 19:18 68 18 98 Nasal Cannula 2.0 28 01/26/20 19:08 94 Nasal Cannula 2.0 28 01/26/20 19:08 65 18 94 Nasal Cannula 2.0 28 01/26/20 16:00 78 01/26/20 16:00 97.7 78 20 102/58 (73) 96 01/26/20 13:33 72 18 99 Nasal Cannula 2.0 28 70 18 96 01/26/20 12:00 77 01/26/20 12:00 96.6 77 20 125/53 (77) 98 01/26/20 09:00 Nasal Cannula 4.0 01/26/20 08:00 83 01/26/20 08:00 97.3 83 20 124/69 (87) 97 01/26/20 07:26 80 18 99 Nasal Cannula 2.0 28 72 18 97 01/26/20 04:00 75 01/26/20 04:00 97.5 61 24 117/78 (91) 97 ROS: unchanged from 01/23/20 RHYTHM: NSR, PVCs, PACs, VT LUNGS: coarse breath sounds CARDIAC: normal rate, regular rhythm, normal S1 and S2, gallop/S4 ABDOMEN: non tender, soft, no organomegaly, G-Tube intact EXTREMITIES: No edema Laboratory Tests Test 01/26/20 06:14 01/26/20 11:52 01/26/20 15:57 01/26/20 20:14 Sodium Level 153 MMOL/L (136-145) H Potassium Level 3.9 MMOL/L (3.5-5.1) Chloride Level 117 MMOL/L (98-107) H Carbon Dioxide Level 31 MMOL/L (21-32) Anion Gap 5 mmol/L (5-15) Blood Urea Nitrogen 93 mg/dL (7-18) H Creatinine 2.2 MG/DL (0.55-1.30) H Estimat Glomerular Filtration Rate 34.3 mL/min (>60) Glucose Level 403 MG/DL (74-106) H Calcium Level 9.4 MG/DL (8.5-10.1) POC Whole Blood Glucose 370 MG/DL (74-106) H 348 MG/DL (74-106) H 312 MG/DL (74-106) H Microbiology Date/Time Source Procedure Growth Status 01/25/20 15:39 Sputum Gram Stain - Final Resulted 01/25/20 15:39 Sputum Sputum Culture - Preliminary NO GROWTH Resulted 01/24/20 17:49 Nasopharynx Coronavirus COVID-19 PCR ([facility]) - Final Complete Assessment/Plan Assessment/Plan Healthcare acquired PNA Lactic acidosis Acute myocardial ischemia/possible NSTE myocardial infarction COPD Ac/chr systolic/diast CHF Ischemic cardiomyopathy Severe dehydration Hypernatremia Hyperchloremia PAD with prior revascularization Dysphagia with GTube CVA with dementia Paroxysmal atrial arrhythmias IRDM uncontrolled Non-sustained ventricular tachycardia Critical & Guarded Abx Resp therapy Hypotonic IVF hydration Titrate antiHTN and anti-anginal regimen Cont'd anti-plt therapy Oxygen and bronchodilator rx DVT prophylaxis Monitor and replace lytes Continue continuous cardiac monitoring Add beta steve rx Levemir added Osmani Cevallos MD Jan 27, 2020 02:23
[2020-01-27] MEDS ORDERED: Levemir Flexpen SUBQ SCH (02:30)
[2020-01-27 04:00] VITALS: BP 127/80
[2020-01-27] MEDS: NovoLOG Insulin Flexpen SUBQ SCH ×6 (06:32→21:00)
--- NOTE | 2020-01-27 07:08 | NUR ---
NURSE HAND-OFF REPORT: Important Events on Shift: Patient had an episode of 6 beats of V-tach around 2200, Dr. Cevallos was aware. Patient Status: Patient is awake on bed in stable condition. Plan of care endorsed. Diet: Glucerna 1.2 @ 50 cc/hour, flushing of 200 cc every 6 hours. Pending Orders: none Pending Results/Labs:AM labs result Pending MD notification:none Latest Vital Signs: Temperature 95.7 , Pulse 81 , B/P 127 /80 , Respiratory Rate 22 , O2 SAT 94 , Nasal Cannula, O2 Flow Rate 4.0 . Vital Sign Comment: stable EKG Rhythm: Sinus Rhythm Rhythm change?: N MD Notified?: N -Dr. Joe COSBY Response: Latest Gibson Fall Score: 55 Fall Risk: High Risk Safety Measures: Call light Within Reach, Bed Alarm Zone 1, Side Rails Side Rails x2, Bed position Low and Locked. Fall Precautions: Yellow Socks Yellow Gown Patient Fall Education Report given to PRITI Garcia.
--- NOTE | 2020-01-27 07:20 | NUR ---
NURSE NOTES: Patient was seen in bed asleep in low fowlers position. Patient is on nasal cannula receiving 4L of O2 per minute. The patient is also receiving glucerna at 50cc/hr. The patient had no signs of acute distress. The patients bed was in the lowest position, locked, bed alarm set to zone 1, side rails x3 and call light within reach.
[2020-01-27 08:00] VITALS: BP 142/91
[2020-01-27] MEDS: Aspirin Baby 81mg GT SCH (08:17)
[2020-01-27] MEDS: Heparin 5000 units/ml inj SUBQ SCH ×2 (08:44→21:02)
--- NOTE | 2020-01-27 09:53 | General Progress Note ---
Subjective ROS Limited/Unobtainable: No Constitutional: Reports: malaise, weakness HEENT: Reports: no symptoms Cardiovascular: Reports: no symptoms Respiratory: Reports: cough, shortness of breath Gastrointestinal/Abdominal: Reports: difficulty swallowing Genitourinary: Reports: no symptoms Neurologic/Psychiatric: Reports: no symptoms Endocrine: Reports: no symptoms Hematologic/Lymphatic: Reports: anemia Allergies: Coded Allergies: No Known Allergies (Verified , 02/21/09) All Systems: reviewed and negative except above Subjective getting resp rx. on ivf. labs pending. no fevers or chills. more alert and verbal. answers simple questions. Objective Last 24 Hour Vital Signs Date Time Temp Pulse Resp B/P (MAP) Pulse Ox O2 Delivery O2 Flow Rate FiO2 01/27/20 09:00 Nasal Cannula 4.0 01/27/20 08:18 87 127/80 01/27/20 08:00 86 01/27/20 08:00 96.6 101 20 142/91 (108) 95 01/27/20 07:59 87 18 100 Nasal Cannula 2.0 28 75 18 99 01/27/20 07:53 99 Nasal Cannula 2.0 28 01/27/20 04:00 95.7 81 22 127/80 (96) 94 01/27/20 04:00 85 01/27/20 01:03 78 18 98 Nasal Cannula 2.0 28 01/27/20 00:53 79 18 96 Nasal Cannula 2.0 28 01/27/20 00:00 73 01/27/20 00:00 95.9 69 22 111/70 (84) 94 01/26/20 21:00 Nasal Cannula 4.0 01/26/20 20:00 97.4 64 20 121/65 (83) 97 01/26/20 20:00 87 01/26/20 19:18 68 18 98 Nasal Cannula 2.0 28 01/26/20 19:08 94 Nasal Cannula 2.0 28 01/26/20 19:08 65 18 94 Nasal Cannula 2.0 28 01/26/20 16:00 78 01/26/20 16:00 97.7 78 20 102/58 (73) 96 01/26/20 13:33 72 18 99 Nasal Cannula 2.0 28 70 18 96 01/26/20 12:00 77 01/26/20 12:00 96.6 77 20 125/53 (77) 98 Intake and Output 01/26/20 01/27/20 19:00 07:00 Intake Total 550 ml 1850 ml Balance 550 ml 1850 ml Free Water 300 ml IV Total 500 ml 1000 ml Tube Feeding 50 ml 550 ml # Voids 3 2 # Bowel Movements 1 Laboratory Tests 01/26/20 11:52: POC Whole Blood Glucose 370H 01/26/20 15:57: POC Whole Blood Glucose 348H 01/26/20 20:14: POC Whole Blood Glucose 312H 01/27/20 06:27: POC Whole Blood Glucose 192H Height (Feet): 5 Height (Inches): 10.00 Weight (Pounds): 182 Objective General Appearance: WD/WN, alert Neck: non-tender, normal alignment Cardiovascular: normal peripheral pulses, normal rate, regular rhythm Respiratory/Chest: chest wall non-tender, lungs clear, normal breath sounds Abdomen: normal bowel sounds, non tender, soft, no organomegaly Edema: no edema noted Arm (L), no edema noted Arm (R) Neurologic: responsive, disoriented Assessment/Plan Problem List: (1) OMI (acute kidney injury) ICD Codes: N17.9 - Acute kidney failure, unspecified SNOMED: 2447882, 59714729 (2) Hypernatremia ICD Codes: E87.0 - Hyperosmolality and hypernatremia SNOMED: 181230041 (3) COPD exacerbation ICD Codes: J44.1 - Chronic obstructive pulmonary disease with (acute) exacerbation SNOMED: 904681145, 009945276, 327141360 (4) Elevated troponin ICD Codes: R77.8 - Other specified abnormalities of plasma proteins SNOMED: 958362353, 489931884, 950591648 (5) Lung mass ICD Codes: R91.8 - Other nonspecific abnormal finding of lung field SNOMED: 487460000, 171639465 Status: stable, progressing Assessment/Plan: cont current rx ivf per renal monitor volume status monitor renal fxn and labs- pending for today iv abx monitor cxr ct chest when stable repeat covid negative dvt/stress ulcer prophylaxis monitor bs skin care turn q2 Aleksey Diaz MD Jan 27, 2020 09:52
--- NOTE | 2020-01-27 10:29 | Surgery Progress Note ---
Surgery Progress Note Subjective Additional Comments afebrile, HD stable comfortable appearing no n/v labs okay Objective Last 24 Hour Vital Signs Date Time Temp Pulse Resp B/P (MAP) Pulse Ox O2 Delivery O2 Flow Rate FiO2 01/27/20 09:00 Nasal Cannula 4.0 01/27/20 08:18 87 127/80 01/27/20 08:00 86 01/27/20 08:00 96.6 101 20 142/91 (108) 95 01/27/20 07:59 87 18 100 Nasal Cannula 2.0 28 75 18 99 01/27/20 07:53 99 Nasal Cannula 2.0 28 01/27/20 04:00 95.7 81 22 127/80 (96) 94 01/27/20 04:00 85 01/27/20 01:03 78 18 98 Nasal Cannula 2.0 28 01/27/20 00:53 79 18 96 Nasal Cannula 2.0 28 01/27/20 00:00 73 01/27/20 00:00 95.9 69 22 111/70 (84) 94 01/26/20 21:00 Nasal Cannula 4.0 01/26/20 20:00 97.4 64 20 121/65 (83) 97 01/26/20 20:00 87 01/26/20 19:18 68 18 98 Nasal Cannula 2.0 28 01/26/20 19:08 94 Nasal Cannula 2.0 28 01/26/20 19:08 65 18 94 Nasal Cannula 2.0 28 01/26/20 16:00 78 01/26/20 16:00 97.7 78 20 102/58 (73) 96 01/26/20 13:33 72 18 99 Nasal Cannula 2.0 28 70 18 96 01/26/20 12:00 77 01/26/20 12:00 96.6 77 20 125/53 (77) 98 I&O Intake and Output 01/26/20 01/27/20 19:00 07:00 Intake Total 550 ml 1850 ml Balance 550 ml 1850 ml Free Water 300 ml IV Total 500 ml 1000 ml Tube Feeding 50 ml 550 ml # Voids 3 2 # Bowel Movements 1 Cardiovascular: RSR Respiratory: decreased breath sounds Abdomen: soft, non-tender, present bowel sounds Extremities: no edema, no tenderness, no cyanosis Laboratory Tests Test 01/26/20 11:52 01/26/20 15:57 01/26/20 20:14 01/27/20 06:27 POC Whole Blood Glucose 370 MG/DL (74-106) H 348 MG/DL (74-106) H 312 MG/DL (74-106) H 192 MG/DL (74-106) H Plan Problems: (1) CHF (congestive heart failure) (2) Hypernatremia (3) Renal failure (4) Lung mass Assessment & Plan: noted new lung mass opacity on cxr compared to prior and seen once stable can plan for chest ct The cardiomediastinal silhouette is unchanged in appearance when accounting for differences in projection and technique. There is mild pulmonary vascular congestion. Streaky bibasilar airspace opacities are noted. There is a nodular opacity in th e right midlung measuring approximately 2.6 cm. No pneumothorax or pleural effusion. No acute osseous abnormality. IMPRESSION: 1. Pulmonary vascular congestion with streaky bibasilar airspace opacities which could represent combination of edema and atelectasis but pneumonia should be excluded clinically. 2. Opacity in the right midlung, not seen on prior examination, suspicious for pulmonary nodule. Comparison with more recent prior chest radiograph or follow- up with CT chest on nonemergent basis is recommended. (5) Transaminitis Assessment & Plan: elevated lft's on admission etiology unknown US abd ordered trend labs fluids meds reviewed will follow with recs thank you DAILY ESTIMATED NEEDS: Needs based on DM, Renal, bedbound, 77kg abw 23-28 kcals/kg 0061-0063 total kcals 1.25-1.5 g protein/kg 96-116 g total protein 25-30 mL/kg 0045-5306 total fluid mLs NUTRITION DIAGNOSIS: Swallowing difficulty r/t dysphagia as evidenced by pt is GT dependent. (CURRENT TF: Glucerna 1.2 @50) ENTERAL NUTRITION RECOMMENDATIONS: GLUCERNA 1.2 goal of 70ml/hr x22 hrs + Prosource 1 pack qdaily to provide 1540ml, 1848 kcal, 92g + 11g pro, 1240ml free H2O - Rec to increase TF rate to better meet est kcal and pro needs. - Increase as able by 15ml/hr q4-6 hrs to goal - HOLD TF 1 hr before and after synthroid meds. - Flush per MD. HOB over 30 degrees. With elevated lytes and worsening renal labs rec NEPRO w/ goal of 45ml/hr x22 hrs to provide: 990ml, 1782 kcal, 80g pro, 720ml free H2o. -Add Prosource 1 pack BID for added 22g pro to better meet est pro needs. ADDITIONAL RECOMMENDATIONS: 1) Monitor lytes, renal labs-> need for renal formula 2) Recalibrate bed scale wts 3) Hypoglycemic agents for improved BG control Rec niss w/ accuchecks 4) Hold TF 1 hr before and after synthroid meds. 5) rec HgA1C Liver: The liver is normal in size and demonstrates coarsened echotexture. No focal abnormalities are noted. Gallbladder: No cholelithiasis. Gallbladder wall is not thickened. No pericholecystic fluid. Sonographic Ered sign cannot be assessed due to patient unresponsiven ess. Common bile duct: Normal in size. Pancreas: Incompletely imaged due to overlying bowel gas. Kidneys: The kidneys demonstrate increased cortical echogenicity. No hydronephrosis or nephrolithiasis. There is a right renal cyst. Spleen: The spleen is normal in size and echogenicity. Incidental note is made of indwelling gastrostomy tube. IMPRESSION: 1. Coarsened hepatic echotexture, which is nonspecific but can be associated with liver dysfunction. 2. Increased echogenicity in the kidneys, which can be seen with medical renal disease. (6) Elevated troponin (7) Chest pain (8) COPD exacerbation Osman Cheung Jan 27, 2020 10:29
--- NOTE | 2020-01-27 11:10 | Nephrology Progress Note ---
Assessment/Plan Problem List: (1) Proteinuria (2) CHF (congestive heart failure) (3) Dehydration (4) Hypernatremia (5) OMI (acute kidney injury) (6) COPD exacerbation Plan continue hydration cautiously, check urine protein/creatinine, water via gt, SS insulin increased Subjective ROS Limited/Unobtainable: Yes Objective Objective Last 24 Hour Vital Signs Date Time Temp Pulse Resp B/P (MAP) Pulse Ox O2 Delivery O2 Flow Rate FiO2 01/27/20 09:00 Nasal Cannula 4.0 01/27/20 08:18 87 127/80 01/27/20 08:00 86 01/27/20 08:00 96.6 101 20 142/91 (108) 95 01/27/20 07:59 87 18 100 Nasal Cannula 2.0 28 75 18 99 01/27/20 07:53 99 Nasal Cannula 2.0 28 01/27/20 04:00 95.7 81 22 127/80 (96) 94 01/27/20 04:00 85 01/27/20 01:03 78 18 98 Nasal Cannula 2.0 28 01/27/20 00:53 79 18 96 Nasal Cannula 2.0 28 01/27/20 00:00 73 01/27/20 00:00 95.9 69 22 111/70 (84) 94 01/26/20 21:00 Nasal Cannula 4.0 01/26/20 20:00 97.4 64 20 121/65 (83) 97 01/26/20 20:00 87 01/26/20 19:18 68 18 98 Nasal Cannula 2.0 28 01/26/20 19:08 94 Nasal Cannula 2.0 28 01/26/20 19:08 65 18 94 Nasal Cannula 2.0 28 01/26/20 16:00 78 01/26/20 16:00 97.7 78 20 102/58 (73) 96 01/26/20 13:33 72 18 99 Nasal Cannula 2.0 28 70 18 96 01/26/20 12:00 77 01/26/20 12:00 96.6 77 20 125/53 (77) 98 Intake and Output 01/26/20 01/27/20 19:00 07:00 Intake Total 550 ml 1850 ml Balance 550 ml 1850 ml Free Water 300 ml IV Total 500 ml 1000 ml Tube Feeding 50 ml 550 ml # Voids 3 2 # Bowel Movements 1 Laboratory Tests 01/26/20 11:52: POC Whole Blood Glucose 370H 01/26/20 15:57: POC Whole Blood Glucose 348H 01/26/20 20:14: POC Whole Blood Glucose 312H 01/27/20 06:27: POC Whole Blood Glucose 192H Height (Feet): 5 Height (Inches): 10.00 Weight (Pounds): 182 General Appearance: no apparent distress, alert, confused EENT: normal ENT inspection Neck: normal alignment Cardiovascular: normal rate Respiratory/Chest: lungs clear Abdomen: soft Extremities: no edema Neurologic: motor weakness Roland Campo MD Jan 27, 2020 11:10
--- NOTE | 2020-01-27 11:28 | NUR ---
NURSE NOTES: Patient had 9 beats of VTach at 10:51. The episode was reported to Dr. Cevallos via telephone call. No answer, message was left.
[2020-01-27 12:00] VITALS: BP 128/73
[2020-01-27 12:07] LABS: HEMATOCRIT 36.6 % (42.0-52.0); MEAN CORPUSCULAR VOLUME 91 FL (80-99); PLATELET COUNT 49 K/UL (150-450); RED BLOOD COUNT 4.03 M/UL (4.70-6.10); RED CELL DISTRIBUTION WIDTH 17.2 % (11.6-14.8); WHITE BLOOD COUNT 6.3 K/UL (4.8-10.8)
[2020-01-27 12:23] LABS: ALBUMIN/GLOBULIN RATIO 0.5 (1.0-2.7); BILIRUBIN,TOTAL 0.5 MG/DL (0.2-1.0); CALCIUM 9.5 MG/DL (8.5-10.1); CREATININE 1.8 MG/DL (0.55-1.30)
--- NOTE | 2020-01-27 12:48 | NUR ---
NURSE NOTES: Dr. Diaz contacted for patients platelet count of 49, previous count of 65. MD ordered to continue anti-platelet therapy.
[2020-01-27 16:00] VITALS: BP 108/61
[2020-01-27] MEDS: cefTRIAXone 1 GM in D5W 55 ML IVPB SCH (17:49)
--- NOTE | 2020-01-27 19:09 | NUR ---
NURSE HAND-OFF REPORT: Important Events on Shift:[Platelet count 49, Abx therapy] Patient Status: [Stable, full code] Diet: [GTUBE CONTINUOUS with glucerna 1.2 at 50cc] Pending Orders: [N/A] Pending Results/Labs:[N/A] Pending MD notification:[N/A] Latest Vital Signs: Temperature 96.9 , Pulse 77 , B/P 108 /61 , Respiratory Rate 20 , O2 SAT 95 , Nasal Cannula, O2 Flow Rate 4.0 . Vital Sign Comment: [] EKG Rhythm: Sinus Rhythm Rhythm change?: N MD Notified?: N -Dr. Joe COSBY Response: Latest Gibson Fall Score: 55 Fall Risk: High Risk Safety Measures: Call light Within Reach, Bed Alarm Zone 1, Side Rails Side Rails x3, Bed position Low and Locked. Fall Precautions: Yellow Socks Yellow Gown Patient Fall Education Report given to [PRITI Marin].
--- NOTE | 2020-01-27 19:48 | NUR ---
NURSE NOTES: Received report from PRITI Garcia. Patient is AOx1, media monitor in place shows SR. Pt is on o2 NC 4L/min. Pt has Gtube running glucerna 1.2 @ 50cc/hr flushing 200cc q 6hr. Pt is bedbound, on aspiration precaution, and fall risk. Pt is incontinent w/ condom cath in place. IV site is running 1/2 NS @100 located on L forearm 20G. Bed is in lowest position, siderails up x 2, and call light is within reach.
[2020-01-27 20:00] VITALS: BP 143/75
[2020-01-27] MEDS: Azithromycin 250 MG in D5W 275 ML IV SCH (20:58)
[2020-01-27] MEDS: Atorvastatin 80mg tab GT SCH (20:58)
[2020-01-27] MEDS: Levemir Flexpen SUBQ SCH (21:31)
[2020-01-28] VITALS: BP 128/71
[2020-01-28] MEDS: Albuterol/Ipratropium 3ml neb HHN SCH ×3 (01:24→13:06)
--- NOTE | 2020-01-28 01:41 | Cardiology Progress Note ---
Subjective DATE OF SERVICE: Jan 27, 2020 Remains withdrawn and lethargic Remains on hypotonic IVF Sodium and lactic acid levels remain elevated Glucose levels significantly elevated. Monitor: Sinus with frequent non-sustained atrial ectopy; another episode of 9 beats of ventricular tachycardia today Objective Last 24 Hour Vital Signs Date Time Temp Pulse Resp B/P (MAP) Pulse Ox O2 Delivery O2 Flow Rate FiO2 01/28/20 01:24 74 18 99 Nasal Cannula 2.0 28 76 18 94 01/28/20 00:00 75 01/28/20 00:00 98.6 77 20 128/71 (90) 91 01/27/20 21:00 Nasal Cannula 4.0 01/27/20 20:59 76 143/75 01/27/20 20:00 75 01/27/20 20:00 98.7 76 20 143/75 (97) 91 01/27/20 19:34 96 Nasal Cannula 2.0 28 01/27/20 19:34 79 18 100 Nasal Cannula 2.0 28 72 18 96 01/27/20 16:00 68 01/27/20 16:00 96.9 77 20 108/61 (77) 95 01/27/20 12:00 71 01/27/20 12:00 96.5 72 18 128/73 (91) 97 01/27/20 09:00 Nasal Cannula 4.0 01/27/20 08:18 87 127/80 01/27/20 08:00 86 01/27/20 08:00 96.6 101 20 142/91 (108) 95 01/27/20 07:59 87 18 100 Nasal Cannula 2.0 28 75 18 99 01/27/20 07:53 99 Nasal Cannula 2.0 28 01/27/20 04:00 95.7 81 22 127/80 (96) 94 01/27/20 04:00 85 ROS: unchanged from 01/23/20 RHYTHM: NSR, PVCs, PACs, VT LUNGS: coarse breath sounds CARDIAC: normal rate, regular rhythm, normal S1 and S2, gallop/S4 ABDOMEN: non tender, soft, no organomegaly, G-Tube intact EXTREMITIES: No edema Laboratory Tests Test 01/27/20 06:27 01/27/20 11:35 01/27/20 11:47 01/27/20 17:11 POC Whole Blood Glucose 192 MG/DL (74-106) H 221 MG/DL (74-106) H 142 MG/DL (74-106) H White Blood Count 6.3 K/UL (4.8-10.8) Red Blood Count 4.03 M/UL (4.70-6.10) L Hemoglobin 12.0 G/DL (14.2-18.0) L Hematocrit 36.6 % (42.0-52.0) L Mean Corpuscular Volume 91 FL (80-99) Mean Corpuscular Hemoglobin 29.7 PG (27.0-31.0) Mean Corpuscular Hemoglobin Concent 32.7 G/DL (32.0-36.0) Red Cell Distribution Width 17.2 % (11.6-14.8) H Platelet Count 49 K/UL (150-450) L Mean Platelet Volume 14.8 FL (6.5-10.1) H Neutrophils (%) (Auto) % (45.0-75.0) Lymphocytes (%) (Auto) % (20.0-45.0) Monocytes (%) (Auto) % (1.0-10.0) Eosinophils (%) (Auto) % (0.0-3.0) Basophils (%) (Auto) % (0.0-2.0) Differential Total Cells Counted 100 Neutrophils % (Manual) 83 % (45-75) H Lymphocytes % (Manual) 8 % (20-45) L Monocytes % (Manual) 6 % (1-10) Eosinophils % (Manual) 3 % (0-3) Basophils % (Manual) 0 % (0-2) Band Neutrophils 0 % (0-8) Platelet Estimate Decreased L Platelet Morphology Normal Anisocytosis 1+ Sodium Level 151 MMOL/L (136-145) H Potassium Level 4.0 MMOL/L (3.5-5.1) Chloride Level 114 MMOL/L (98-107) H Carbon Dioxide Level 30 MMOL/L (21-32) Anion Gap 7 mmol/L (5-15) Blood Urea Nitrogen 74 mg/dL (7-18) H Creatinine 1.8 MG/DL (0.55-1.30) H Estimat Glomerular Filtration Rate 43.3 mL/min (>60) Glucose Level 240 MG/DL (74-106) #H Lactic Acid Level 5.40 mmol/L (0.4-2.0) H Calcium Level 9.5 MG/DL (8.5-10.1) Magnesium Level 2.5 MG/DL (1.8-2.4) H Total Bilirubin 0.5 MG/DL (0.2-1.0) Aspartate Amino Transf (AST/SGOT) 70 U/L (15-37) H Alanine Aminotransferase (ALT/SGPT) 146 U/L (12-78) H Alkaline Phosphatase 171 U/L (46-116) H Total Protein 5.8 G/DL (6.4-8.2) L Albumin 2.0 G/DL (3.4-5.0) L Globulin 3.8 g/dL Albumin/Globulin Ratio 0.5 (1.0-2.7) L Microbiology Date/Time Source Procedure Growth Status 01/25/20 15:39 Sputum Gram Stain - Final Complete 01/25/20 15:39 Sputum Sputum Culture - Final NORMAL UPPER RESPIRATORY VIVI AT 48 ... Complete Assessment/Plan Assessment/Plan Healthcare acquired PNA Lactic acidosis Acute myocardial ischemia/possible NSTE myocardial infarction COPD Ac/chr systolic/diast CHF Ischemic cardiomyopathy Severe dehydration Hypernatremia Hyperchloremia PAD with prior revascularization Dysphagia with GTube CVA with dementia Paroxysmal atrial arrhythmias IRDM uncontrolled Non-sustained ventricular tachycardia Critical & Guarded Abx Resp therapy Hypotonic IVF hydration Titrate antiHTN and anti-anginal regimen Cont'd anti-plt therapy Oxygen and bronchodilator rx DVT prophylaxis Monitor and replace lytes Continue continuous cardiac monitoring Titrate beta steve rx Levemir titration Osmani Cevallos MD Jan 28, 2020 01:41
[2020-01-28 04:00] VITALS: BP 120/65
[2020-01-28] MEDS: NovoLOG Insulin Flexpen SUBQ SCH ×7 (06:15→20:07)
--- NOTE | 2020-01-28 07:20 | NUR ---
NURSE NOTES: Received patient report from PRITI Arenas. Pt is AOx1. Pt has Gtube with glucerna 1.2@ 50ml/hr.cardiac cath technician in place shows SR. Pt is on o2 NC 4L/min. Pt is incontinent w/ condom cath in place. IV site is running 1/2 NS @100 located on L forearm 20G. Bed is in lowest position, siderails up x 2, and call light is within reach.
--- NOTE | 2020-01-28 07:36 | NUR ---
NURSE HAND-OFF REPORT: Important Events on Shift: Patient has been resting well the whole shift. No desaturation noted. Patient Status: Patient is asleep in stable condition. Plan of care endorsed. Diet: Glucerna 1.2 @ 50 cc/hour t Pending Orders: none Pending Results/Labs:AM labss result Pending MD notification:none Latest Vital Signs: Temperature 98.3 , Pulse 64 , B/P 120 /65 , Respiratory Rate 20 , O2 SAT 91 , Nasal Cannula, O2 Flow Rate 4.0 . Vital Sign Comment: stable EKG Rhythm: Sinus Rhythm Rhythm change?: N MD Notified?: N -Dr. Joe COSBY Response: Latest Gibson Fall Score: 55 Fall Risk: High Risk Safety Measures: Call light Within Reach, Bed Alarm Zone 1, Side Rails Side Rails x2, Bed position Low and Locked. Fall Precautions: Yellow Socks Yellow Gown Patient Fall Education Report given to PRITI Claros.
[2020-01-28 08:00] VITALS: BP 138/85
[2020-01-28 08:36] LABS: HEMATOCRIT 36.5 % (42.0-52.0); HEMOGLOBIN 11.9 G/DL (14.2-18.0); MEAN CORPUSCULAR VOLUME 92 FL (80-99); PLATELET COUNT 57 K/UL (150-450); RED BLOOD COUNT 3.98 M/UL (4.70-6.10); RED CELL DISTRIBUTION WIDTH 16.2 % (11.6-14.8); WHITE BLOOD COUNT 5.2 K/UL (4.8-10.8)
[2020-01-28 08:51] LABS: ALBUMIN/GLOBULIN RATIO 0.5 (1.0-2.7); BILIRUBIN,TOTAL 0.5 MG/DL (0.2-1.0); CALCIUM 9.3 MG/DL (8.5-10.1); CREATININE 1.5 MG/DL (0.55-1.30); POTASSIUM 4.8 MMOL/L (3.5-5.1)
[2020-01-28] MEDS: Heparin 5000 units/ml inj SUBQ SCH ×2 (09:00→20:00)
[2020-01-28] MEDS: Aspirin Baby 81mg GT SCH (09:25)
--- NOTE | 2020-01-28 11:50 | Infectious Diseases Prog Note ---
Assessment/Plan Assessment/Plan antibiotics : ceftraixone, azithromycin A 1. Community-acquired pneumonia. COVID-19 test is negative x2. 2. Diabetes. 3. Hypertension. 4. Renal failure. P 1. Continue ceftriaxone and azithromycin 1 more day 2. We will follow up cultures 1. Subjective Constitutional: Denies: fever, chills Respiratory: Denies: shortness of breath, dry cough Gastrointestinal/Abdominal: Denies: nausea, vomiting, diarrhea Musculoskeletal: Denies: pain Allergies: Coded Allergies: No Known Allergies (Verified , 02/21/09) Objective Last 24 Hour Vital Signs Date Time Temp Pulse Resp B/P (MAP) Pulse Ox O2 Delivery O2 Flow Rate FiO2 01/28/20 09:26 85 122/67 01/28/20 09:00 Nasal Cannula 4.0 01/28/20 08:00 97.0 97 20 138/85 (102) 95 01/28/20 08:00 81 01/28/20 04:00 98.3 64 20 120/65 (83) 91 01/28/20 04:00 83 01/28/20 01:24 74 18 99 Nasal Cannula 2.0 28 76 18 94 01/28/20 00:00 75 01/28/20 00:00 98.6 77 20 128/71 (90) 91 01/27/20 21:00 Nasal Cannula 4.0 01/27/20 20:59 76 143/75 01/27/20 20:00 75 01/27/20 20:00 98.7 76 20 143/75 (97) 91 01/27/20 19:34 96 Nasal Cannula 2.0 28 01/27/20 19:34 79 18 100 Nasal Cannula 2.0 28 72 18 96 01/27/20 16:00 68 01/27/20 16:00 96.9 77 20 108/61 (77) 95 01/27/20 12:00 71 01/27/20 12:00 96.5 72 18 128/73 (91) 97 Height (Feet): 5 Height (Inches): 10.00 Weight (Pounds): 182 Respiratory/Chest: lungs clear Cardiovascular: normal rate, regular rhythm Abdomen: soft, non tender Extremities: no edema Microbiology Date/Time Source Procedure Growth Status 01/25/20 15:39 Sputum Gram Stain - Final Complete 01/25/20 15:39 Sputum Sputum Culture - Final NORMAL UPPER RESPIRATORY VIVI AT 48 ... Complete Laboratory Tests Test 01/27/20 17:11 01/28/20 08:01 POC Whole Blood Glucose 142 MG/DL (74-106) H White Blood Count 5.2 K/UL (4.8-10.8) Red Blood Count 3.98 M/UL (4.70-6.10) L Hemoglobin 11.9 G/DL (14.2-18.0) L Hematocrit 36.5 % (42.0-52.0) L Mean Corpuscular Volume 92 FL (80-99) Mean Corpuscular Hemoglobin 29.8 PG (27.0-31.0) Mean Corpuscular Hemoglobin Concent 32.5 G/DL (32.0-36.0) Red Cell Distribution Width 16.2 % (11.6-14.8) H Platelet Count 57 K/UL (150-450) L Mean Platelet Volume 12.1 FL (6.5-10.1) H Neutrophils (%) (Auto) % (45.0-75.0) Lymphocytes (%) (Auto) % (20.0-45.0) Monocytes (%) (Auto) % (1.0-10.0) Eosinophils (%) (Auto) % (0.0-3.0) Basophils (%) (Auto) % (0.0-2.0) Differential Total Cells Counted 100 Neutrophils % (Manual) 75 % (45-75) Lymphocytes % (Manual) 20 % (20-45) Monocytes % (Manual) 5 % (1-10) Eosinophils % (Manual) 0 % (0-3) Basophils % (Manual) 0 % (0-2) Band Neutrophils 0 % (0-8) Platelet Estimate Decreased L Platelet Morphology Normal Sodium Level 144 MMOL/L (136-145) Potassium Level 4.8 MMOL/L (3.5-5.1) Chloride Level 112 MMOL/L (98-107) H Carbon Dioxide Level 31 MMOL/L (21-32) Anion Gap 1 mmol/L (5-15) L Blood Urea Nitrogen 61 mg/dL (7-18) H Creatinine 1.5 MG/DL (0.55-1.30) H Estimat Glomerular Filtration Rate 53.4 mL/min (>60) Glucose Level 211 MG/DL (74-106) H Lactic Acid Level 2.40 mmol/L (0.4-2.0) H Calcium Level 9.3 MG/DL (8.5-10.1) Total Bilirubin 0.5 MG/DL (0.2-1.0) Aspartate Amino Transf (AST/SGOT) 89 U/L (15-37) H Alanine Aminotransferase (ALT/SGPT) 150 U/L (12-78) H Alkaline Phosphatase 178 U/L (46-116) H Troponin I 0.286 ng/mL (0.000-0.056) Total Protein 5.9 G/DL (6.4-8.2) L Albumin 2.0 G/DL (3.4-5.0) L Globulin 3.9 g/dL Albumin/Globulin Ratio 0.5 (1.0-2.7) L Current Medications Medications (Trade) Dose Ordered Sig/Bird Route PRN Reason Start Time Stop Time Status Last Admin Dose Admin Acetaminophen (Tylenol) 650 mg Q4H PRN ORAL Mild Pain (Scale 1-3) 01/23/20 18:30 02/22/20 18:29 Acetaminophen (Tylenol) 650 mg Q4H PRN ORAL Temp >100.5 01/23/20 18:45 02/22/20 18:44 Albuterol/ Ipratropium (Albuterol/ Ipratropium) 3 ml Q6HRT HHN 01/23/20 19:00 01/28/20 18:59 01/28/20 07:20 Aspirin (ASA) 81 mg DAILY GT 01/24/20 09:00 03/09/20 08:59 01/28/20 09:25 Atorvastatin Calcium (Lipitor) 40 mg BEDTIME GT 01/23/20 21:00 04/22/20 20:59 01/27/20 20:58 Azithromycin 250 mg/Dextrose 275 ml @ 275 mls/hr Q24HRS IV 01/27/20 20:00 02/01/20 19:59 01/27/20 20:58 Ceftriaxone Sodium 1 gm/ Dextrose 55 ml @ 110 mls/hr Q24H IVPB 01/23/20 18:30 01/30/20 18:29 01/27/20 17:49 Dextrose (Dextrose 50%) 25 ml Q30M PRN IV Hypoglycemia 01/26/20 11:15 3/12/21 11:14 Dextrose (Dextrose 50%) 50 ml Q30M PRN IV Hypoglycemia 01/26/20 11:15 04/25/20 11:14 Famotidine (Pepcid) 20 mg DAILY GT 01/24/20 09:00 04/23/20 08:59 01/28/20 09:26 Heparin Sodium (Porcine) (Heparin 5000 units/ml) 5,000 units EVERY 12 HOURS SUBQ 01/23/20 21:00 03/08/20 20:59 01/27/20 21:02 Insulin Aspart (NovoLOG) BEFORE MEALS AND HS SUBQ 01/26/20 11:30 04/25/20 11:29 01/28/20 11:21 Insulin Aspart (NovoLOG) 4 units NOVOTIAC SUBQ 01/27/20 11:50 04/26/20 11:49 01/28/20 11:22 Insulin Detemir (Levemir) 12 units BEDTIME SUBQ 01/27/20 21:00 04/26/20 02:29 01/27/20 21:31 Levothyroxine Sodium (Synthroid) 50 mcg DAILY@0630 GT 01/24/20 06:30 02/23/20 06:29 01/28/20 06:12 Metoprolol Tartrate (Lopressor) 25 mg Q12HR GT 01/27/20 09:00 04/26/20 08:59 01/28/20 09:26 Promethazine HCl/ Dextromethorphan (Phenergan DM) 6.25 mg Q6H PRN ORAL For Cough 01/23/20 18:30 02/22/20 18:29 Sodium Chloride 1,000 ml @ 100 mls/hr Q10H IV 01/23/20 19:00 02/22/20 18:59 01/28/20 05:51 Alicia Florence MD Jan 28, 2020 11:50
[2020-01-28 12:00] VITALS: BP 129/70
--- NOTE | 2020-01-28 14:33 | Nephrology Progress Note ---
Assessment/Plan Problem List: (1) Proteinuria (2) CHF (congestive heart failure) (3) Dehydration (4) Hypernatremia (5) OMI (acute kidney injury) (6) COPD exacerbation Plan continue hydration cautiously, reduce rate check urine protein/creatinine, water via gt, SS insulin increased Subjective ROS Limited/Unobtainable: Yes Objective Objective Last 24 Hour Vital Signs Date Time Temp Pulse Resp B/P (MAP) Pulse Ox O2 Delivery O2 Flow Rate FiO2 01/28/20 12:00 74 01/28/20 12:00 96.1 89 20 129/70 (89) 88 01/28/20 09:26 85 122/67 01/28/20 09:00 Nasal Cannula 4.0 01/28/20 08:00 97.0 97 20 138/85 (102) 95 01/28/20 08:00 81 01/28/20 04:00 98.3 64 20 120/65 (83) 91 01/28/20 04:00 83 01/28/20 01:24 74 18 99 Nasal Cannula 2.0 28 76 18 94 01/28/20 00:00 75 01/28/20 00:00 98.6 77 20 128/71 (90) 91 01/27/20 21:00 Nasal Cannula 4.0 01/27/20 20:59 76 143/75 01/27/20 20:00 75 01/27/20 20:00 98.7 76 20 143/75 (97) 91 01/27/20 19:34 96 Nasal Cannula 2.0 28 01/27/20 19:34 79 18 100 Nasal Cannula 2.0 28 72 18 96 01/27/20 16:00 68 01/27/20 16:00 96.9 77 20 108/61 (77) 95 Intake and Output 01/27/20 01/28/20 19:00 07:00 Intake Total 1150 ml 1450 ml Output Total 600 ml Balance 1150 ml 850 ml IV Total 1100 ml 900 ml Tube Feeding 50 ml 550 ml Output Urine Total 600 ml # Voids 1 1 # Bowel Movements 1 Laboratory Tests 01/27/20 17:11: POC Whole Blood Glucose 142H 01/28/20 08:01: White Blood Count 5.2, Red Blood Count 3.98L, Hemoglobin 11.9L, Hematocrit 36.5L , Mean Corpuscular Volume 92, Mean Corpuscular Hemoglobin 29.8, Mean Corpuscular Hemoglobin Concent 32.5, Red Cell Distribution Width 16.2H, Platelet Count 57L, Mean Platelet Volume 12.1H, Neutrophils (%) (Auto) , Lymphocytes (%) (Auto) , Monocytes (%) (Auto) , Eosinophils (%) (Auto) , Basophils (%) (Auto) , Differential Total Cells Counted 100, Neutrophils % (Manual) 75, Lymphocytes % (Manual) 20, Monocytes % (Manual) 5, Eosinophils % (Manual) 0, Basophils % (Manual) 0, Band Neutrophils 0, Platelet Estimate DecreasedL, Platelet Morphology Normal, Sodium Level 144, Potassium Level 4.8, Chloride Level 112H, Carbon Dioxide Level 31, Anion Gap 1L, Blood Urea Nitrogen 61H, Creatinine 1.5H, Estimat Glomerular Filtration Rate 53.4, Glucose Level 211H, Lactic Acid Level 2.40H, Calcium Level 9.3, Total Bilirubin 0.5, Aspartate Amino Transf (AST/SGOT) 89H, Alanine Aminotransferase (ALT/SGPT) 150H, Alkaline Phosphatase 178H, Troponin I 0.286H, Total Protein 5.9L, Albumin 2.0L, Globulin 3.9, Albumin/Globulin Ratio 0.5L Height (Feet): 5 Height (Inches): 10.00 Weight (Pounds): 182 General Appearance: alert, confused EENT: normal ENT inspection Neck: supple Cardiovascular: regular rhythm Respiratory/Chest: expiratory wheezing Abdomen: non tender Neurologic: motor weakness, disoriented Roland Campo MD Jan 28, 2020 14:33
[2020-01-28 16:00] VITALS: BP 107/53
--- NOTE | 2020-01-28 16:02 | Surgery Progress Note ---
Surgery Progress Note Subjective Additional Comments lfts elevated but improving no n/v/f/c Objective Last 24 Hour Vital Signs Date Time Temp Pulse Resp B/P (MAP) Pulse Ox O2 Delivery O2 Flow Rate FiO2 01/28/20 13:16 77 18 97 Nasal Cannula 2.0 28 68 18 91 01/28/20 12:00 74 01/28/20 12:00 96.1 89 20 129/70 (89) 88 01/28/20 09:26 85 122/67 01/28/20 09:00 Nasal Cannula 4.0 01/28/20 08:00 97.0 97 20 138/85 (102) 95 01/28/20 08:00 81 01/28/20 07:30 96 Nasal Cannula 2.0 28 01/28/20 07:30 72 18 100 Nasal Cannula 2.0 28 70 18 96 01/28/20 04:00 98.3 64 20 120/65 (83) 91 01/28/20 04:00 83 01/28/20 01:24 74 18 99 Nasal Cannula 2.0 28 76 18 94 01/28/20 00:00 75 01/28/20 00:00 98.6 77 20 128/71 (90) 91 01/27/20 21:00 Nasal Cannula 4.0 01/27/20 20:59 76 143/75 01/27/20 20:00 75 01/27/20 20:00 98.7 76 20 143/75 (97) 91 01/27/20 19:34 96 Nasal Cannula 2.0 28 01/27/20 19:34 79 18 100 Nasal Cannula 2.0 28 72 18 96 I&O Intake and Output 01/27/20 01/28/20 19:00 07:00 Intake Total 1150 ml 1450 ml Output Total 600 ml Balance 1150 ml 850 ml IV Total 1100 ml 900 ml Tube Feeding 50 ml 550 ml Output Urine Total 600 ml # Voids 1 1 # Bowel Movements 1 Cardiovascular: RSR Respiratory: decreased breath sounds Abdomen: non-tender, present bowel sounds Extremities: no edema, no tenderness, no cyanosis Laboratory Tests Test 01/27/20 17:11 01/28/20 08:01 POC Whole Blood Glucose 142 MG/DL (74-106) H White Blood Count 5.2 K/UL (4.8-10.8) Red Blood Count 3.98 M/UL (4.70-6.10) L Hemoglobin 11.9 G/DL (14.2-18.0) L Hematocrit 36.5 % (42.0-52.0) L Mean Corpuscular Volume 92 FL (80-99) Mean Corpuscular Hemoglobin 29.8 PG (27.0-31.0) Mean Corpuscular Hemoglobin Concent 32.5 G/DL (32.0-36.0) Red Cell Distribution Width 16.2 % (11.6-14.8) H Platelet Count 57 K/UL (150-450) L Mean Platelet Volume 12.1 FL (6.5-10.1) H Neutrophils (%) (Auto) % (45.0-75.0) Lymphocytes (%) (Auto) % (20.0-45.0) Monocytes (%) (Auto) % (1.0-10.0) Eosinophils (%) (Auto) % (0.0-3.0) Basophils (%) (Auto) % (0.0-2.0) Differential Total Cells Counted 100 Neutrophils % (Manual) 75 % (45-75) Lymphocytes % (Manual) 20 % (20-45) Monocytes % (Manual) 5 % (1-10) Eosinophils % (Manual) 0 % (0-3) Basophils % (Manual) 0 % (0-2) Band Neutrophils 0 % (0-8) Platelet Estimate Decreased L Platelet Morphology Normal Sodium Level 144 MMOL/L (136-145) Potassium Level 4.8 MMOL/L (3.5-5.1) Chloride Level 112 MMOL/L (98-107) H Carbon Dioxide Level 31 MMOL/L (21-32) Anion Gap 1 mmol/L (5-15) L Blood Urea Nitrogen 61 mg/dL (7-18) H Creatinine 1.5 MG/DL (0.55-1.30) H Estimat Glomerular Filtration Rate 53.4 mL/min (>60) Glucose Level 211 MG/DL (74-106) H Lactic Acid Level 2.40 mmol/L (0.4-2.0) H Calcium Level 9.3 MG/DL (8.5-10.1) Total Bilirubin 0.5 MG/DL (0.2-1.0) Aspartate Amino Transf (AST/SGOT) 89 U/L (15-37) H Alanine Aminotransferase (ALT/SGPT) 150 U/L (12-78) H Alkaline Phosphatase 178 U/L (46-116) H Troponin I 0.286 ng/mL (0.000-0.056) Total Protein 5.9 G/DL (6.4-8.2) L Albumin 2.0 G/DL (3.4-5.0) L Globulin 3.9 g/dL Albumin/Globulin Ratio 0.5 (1.0-2.7) L Plan Problems: (1) CHF (congestive heart failure) (2) Hypernatremia (3) Renal failure (4) Lung mass Assessment & Plan: noted new lung mass opacity on cxr compared to prior and seen once stable can plan for chest ct The cardiomediastinal silhouette is unchanged in appearance when accounting for differences in projection and technique. There is mild pulmonary vascular congestion. Streaky bibasilar airspace opacities are noted. There is a nodular opacity in the right midlung measuring approximately 2.6 cm. No pneumothorax or pleural effusion. No acute osseous abnormality. IMPRESSION: 1. Pulmonary vascular congestion with streaky bibasilar airspace opacities which could represent combination of edema and atelectasis but pneumonia should be excluded clinically. 2. Opacity in the right midlung, not seen on prior examination, suspicious for pulmonary nodule. Comparison with more recent prior chest radiograph or follow- up with CT chest on nonemergent basis is recommended. (5) Transaminitis Assessment & Plan: elevated lft's on admission etiology unknown US abd ordered trend labs fluids meds reviewed will follow with recs thank you DAILY ESTIMATED NEEDS: Needs based on DM, Renal, bedbound, 77kg abw 23-28 kcals/kg 3397-3201 total kcals 1.25-1.5 g protein/kg 96-116 g total protein 25-30 mL/kg 1165-1255 total fluid mLs NUTRITION DIAGNOSIS: Swallowing difficulty r/t dysphagia as evidenced by pt is GT dependent. (CURRENT TF: Glucerna 1.2 @50) ENTERAL NUTRITION RECOMMENDATIONS: GLUCERNA 1.2 goal of 70ml/hr x22 hrs + Prosource 1 pack qdaily to provide 1540ml, 1848 kcal, 92g + 11g pro, 1240ml free H2O - Rec to increase TF rate to better meet est kcal and pro needs. - Increase as able by 15ml/hr q4-6 hrs to goal - HOLD TF 1 hr before and after synthroid meds. - Flush per . HOB over 30 degrees. With elevated lytes and worsening renal labs rec NEPRO w/ goal of 45ml/hr x22 hrs to provide: 990ml, 1782 kcal, 80g pro, 720ml free H2o. -Add Prosource 1 pack BID for added 22g pro to better meet est pro needs. ADDITIONAL RECOMMENDATIONS: 1) Monitor lytes, renal labs-> need for renal formula 2) Recalibrate bed scale wts 3) Hypoglycemic agents for improved BG control Rec niss w/ accuchecks 4) Hold TF 1 hr before and after synthroid meds. 5) rec HgA1C Liver: The liver is normal in size and demonstrates coarsened echotexture. No focal abnormalities are noted. Gallbladder: No cholelithiasis. Gallbladder wall is not thickened. No pericholecystic fluid. Sonographic Reed sign cannot be assessed due to patient u nresponsiveness. Common bile duct: Normal in size. Pancreas: Incompletely imaged due to overlying bowel gas. Kidneys: The kidneys demonstrate increased cortical echogenicity. No hydronephrosis or nephrolithiasis. There is a right renal cyst. Spleen: The spleen is normal in size and echogenicity. Incidental note is made of indwelling gastrostomy tube. IMPRESSION: 1. Coarsened hepatic echotexture, which is nonspecific but can be associated with liver dysfunction. 2. Increased echogenicity in the kidneys, which can be seen with medical renal disease. (6) Elevated troponin (7) Chest pain (8) COPD exacerbation JonatanOsman Jan 28, 2020 16:02
--- NOTE | 2020-01-28 17:36 | General Progress Note ---
Subjective ROS Limited/Unobtainable: No Constitutional: Reports: malaise, weakness HEENT: Reports: no symptoms Cardiovascular: Reports: no symptoms Respiratory: Reports: cough Gastrointestinal/Abdominal: Reports: difficulty swallowing Genitourinary: Reports: no symptoms Neurologic/Psychiatric: Reports: pre-existing deficit Endocrine: Reports: no symptoms Hematologic/Lymphatic: Reports: anemia Allergies: Coded Allergies: No Known Allergies (Verified , 02/21/09) All Systems: reviewed and negative except above Subjective improving. more alert and less confused. on ivf. labs improving. tolerating feeds. responds to simple questions and commands. remains on iv abx Objective Last 24 Hour Vital Signs Date Time Temp Pulse Resp B/P (MAP) Pulse Ox O2 Delivery O2 Flow Rate FiO2 01/28/20 16:00 78 01/28/20 16:00 97.5 81 20 107/53 (71) 91 01/28/20 13:16 77 18 97 Nasal Cannula 2.0 28 68 18 91 01/28/20 12:00 74 01/28/20 12:00 96.1 89 20 129/70 (89) 88 01/28/20 09:26 85 122/67 01/28/20 09:00 Nasal Cannula 4.0 01/28/20 08:00 97.0 97 20 138/85 (102) 95 01/28/20 08:00 81 01/28/20 07:30 96 Nasal Cannula 2.0 28 01/28/20 07:30 72 18 100 Nasal Cannula 2.0 28 70 18 96 01/28/20 04:00 98.3 64 20 120/65 (83) 91 01/28/20 04:00 83 01/28/20 01:24 74 18 99 Nasal Cannula 2.0 28 76 18 94 01/28/20 00:00 75 01/28/20 00:00 98.6 77 20 128/71 (90) 91 01/27/20 21:00 Nasal Cannula 4.0 01/27/20 20:59 76 143/75 01/27/20 20:00 75 01/27/20 20:00 98.7 76 20 143/75 (97) 91 01/27/20 19:34 96 Nasal Cannula 2.0 28 01/27/20 19:34 79 18 100 Nasal Cannula 2.0 28 72 18 96 Intake and Output 01/27/20 01/28/20 19:00 07:00 Intake Total 1150 ml 1450 ml Output Total 600 ml Balance 1150 ml 850 ml IV Total 1100 ml 900 ml Tube Feeding 50 ml 550 ml Output Urine Total 600 ml # Voids 1 1 # Bowel Movements 1 Laboratory Tests 01/28/20 08:01: White Blood Count 5.2, Red Blood Count 3.98L, Hemoglobin 11.9L, Hematocrit 36.5L , Mean Corpuscular Volume 92, Mean Corpuscular Hemoglobin 29.8, Mean Corpuscular Hemoglobin Concent 32.5, Red Cell Distribution Width 16.2H, Platelet Count 57L, Mean Platelet Volume 12.1H, Neutrophils (%) (Auto) , Lymphocytes (%) (Auto) , Monocytes (%) (Auto) , Eosinophils (%) (Auto) , Basophils (%) (Auto) , Differential Total Cells Counted 100, Neutrophils % (Manual) 75, Lymphocytes % (Manual) 20, Monocytes % (Manual) 5, Eosinophils % (Manual) 0, Basophils % (Manual) 0, Band Neutrophils 0, Platelet Estimate DecreasedL, Platelet Morphology Normal, Sodium Level 144, Potassium Level 4.8, Chloride Level 112H, Carbon Dioxide Level 31, Anion Gap 1L, Blood Urea Nitrogen 61H, Creatinine 1.5H, Estimat Glomerular Filtration Rate 53.4, Glucose Level 211H, Lactic Acid Level 2.40H, Calcium Level 9.3, Total Bilirubin 0.5, Aspartate Amino Transf (AST/SGOT) 89H, Alanine Aminotransferase (ALT/SGPT) 150H, Alkaline Phosphatase 178H, Troponin I 0.286H, Total Protein 5.9L, Albumin 2.0L, Globulin 3.9, Albumin/Globulin Ratio 0.5L Height (Feet): 5 Height (Inches): 10.00 Weight (Pounds): 182 Objective General Appearance: WD/WN, alert Neck: non-tender, normal alignment Cardiovascular: normal peripheral pulses, normal rate, regular rhythm Respiratory/Chest: chest wall non-tender, lungs clear, normal breath sounds Abdomen: normal bowel sounds, non tender, soft, no organomegaly Edema: no edema noted Arm (L), no edema noted Arm (R) Neurologic: responsive, disoriented Assessment/Plan Problem List: (1) OMI (acute kidney injury) ICD Codes: N17.9 - Acute kidney failure, unspecified SNOMED: 8419335, 10853258 (2) Hypernatremia ICD Codes: E87.0 - Hyperosmolality and hypernatremia SNOMED: 801603456 (3) COPD exacerbation ICD Codes: J44.1 - Chronic obstructive pulmonary disease with (acute) exacerbation SNOMED: 158390981, 501352028, 507247254 (4) Elevated troponin ICD Codes: R77.8 - Other specified abnormalities of plasma proteins SNOMED: 183504479, 069244504, 847226828 (5) Lung mass ICD Codes: R91.8 - Other nonspecific abnormal finding of lung field SNOMED: 160239294, 977626501 Status: stable, progressing Assessment/Plan: cont current rx ivf per renal monitor volume status monitor renal fxn and labs- pending for today iv abx monitor cxr ct chest when stable repeat covid negative dvt/stress ulcer prophylaxis monitor bs skin care turn q2 Aleksey Diaz MD Jan 28, 2020 17:36
[2020-01-28] MEDS: cefTRIAXone 1 GM in D5W 55 ML IVPB SCH (17:44)
--- NOTE | 2020-01-28 19:28 | NUR ---
NURSE HAND-OFF REPORT: Important Events on Shift:NA Patient Status: NA Diet: Gtube Pending Orders: NA Pending Results/Labs:NA Pending notification:NA Latest Vital Signs: Temperature 97.5 , Pulse 78 , B/P 107 /53 , Respiratory Rate 20 , O2 SAT 91 , Nasal Cannula, O2 Flow Rate 4.0 . Vital Sign Comment: Stable EKG Rhythm: Sinus Rhythm Rhythm change?: N MD Notified?: N Magdi Diaz MD Response: Latest Gibson Fall Score: 55 Fall Risk: High Risk Safety Measures: Call light Within Reach, Bed Alarm Zone 1, Side Rails Side Rails x3, Bed position Low and Locked. Fall Precautions: Yellow Socks Yellow Gown Patient Fall Education Report given to [facility] Eng.
[2020-01-28 20:00] VITALS: BP 131/80
[2020-01-28] MEDS: Azithromycin 250 MG in D5W 275 ML IV SCH (20:00)
[2020-01-28] MEDS: Levemir Flexpen SUBQ SCH (20:06)
[2020-01-28] MEDS: Atorvastatin 80mg tab GT SCH (20:10)
--- NOTE | 2020-01-28 23:11 | NUR ---
NURSE NOTES: Received report from PRITI Crump. Pt is A/O x 0 and non verbal. Pt responses to painful stimuli. Pt has a Gtube Glucerna 1.2 @50cc/hr and flushing 200cc q6H which in place and patent. No SOB or acute distress noted. No pain noted. Pt is on 4L with saturation @ 97%. Bed in lowest position with side rails x 3 and bed alarm on.
[2020-01-29] VITALS: BP 129/78
--- NOTE | 2020-01-29 00:52 | Cardiology Progress Note ---
Subjective DATE OF SERVICE: Jan 28, 2020 Much more alert; no SOB. Remains on hypotonic IVF Sodium and lactic acid levels remain elevated Glucose levels significantly elevated. Monitor: Sinus with frequent non-sustained atrial ectopy; another episode of 9 beats of ventricular tachycardia today Objective Last 24 Hour Vital Signs Date Time Temp Pulse Resp B/P (MAP) Pulse Ox O2 Delivery O2 Flow Rate FiO2 01/29/20 00:00 77 01/29/20 00:00 97.7 78 20 129/78 (95) 93 01/28/20 21:00 Nasal Cannula 4.0 01/28/20 20:00 78 107/53 01/28/20 20:00 97.3 79 20 131/80 (97) 91 01/28/20 20:00 79 01/28/20 19:50 95 Nasal Cannula 2.0 28 01/28/20 19:50 85 18 100 Nasal Cannula 2.0 28 01/28/20 16:00 78 01/28/20 16:00 97.5 81 20 107/53 (71) 91 01/28/20 13:16 77 18 97 Nasal Cannula 2.0 28 68 18 91 01/28/20 12:00 74 01/28/20 12:00 96.1 89 20 129/70 (89) 88 01/28/20 09:26 85 122/67 01/28/20 09:00 Nasal Cannula 4.0 01/28/20 08:00 97.0 97 20 138/85 (102) 95 01/28/20 08:00 81 01/28/20 07:30 96 Nasal Cannula 2.0 28 01/28/20 07:30 72 18 100 Nasal Cannula 2.0 28 70 18 96 01/28/20 04:00 98.3 64 20 120/65 (83) 91 01/28/20 04:00 83 01/28/20 01:24 74 18 99 Nasal Cannula 2.0 28 76 18 94 ROS: unchanged from 01/23/20 RHYTHM: NSR, PVCs, PACs, VT LUNGS: coarse breath sounds CARDIAC: normal rate, regular rhythm, normal S1 and S2, gallop/S4 ABDOMEN: non tender, soft, no organomegaly, G-Tube intact EXTREMITIES: No edema Laboratory Tests Test 01/28/20 08:01 01/28/20 20:03 White Blood Count 5.2 K/UL (4.8-10.8) Red Blood Count 3.98 M/UL (4.70-6.10) L Hemoglobin 11.9 G/DL (14.2-18.0) L Hematocrit 36.5 % (42.0-52.0) L Mean Corpuscular Volume 92 FL (80-99) Mean Corpuscular Hemoglobin 29.8 PG (27.0-31.0) Mean Corpuscular Hemoglobin Concent 32.5 G/DL (32.0-36.0) Red Cell Distribution Width 16.2 % (11.6-14.8) H Platelet Count 57 K/UL (150-450) L Mean Platelet Volume 12.1 FL (6.5-10.1) H Neutrophils (%) (Auto) % (45.0-75.0) Lymphocytes (%) (Auto) % (20.0-45.0) Monocytes (%) (Auto) % (1.0-10.0) Eosinophils (%) (Auto) % (0.0-3.0) Basophils (%) (Auto) % (0.0-2.0) Differential Total Cells Counted 100 Neutrophils % (Manual) 75 % (45-75) Lymphocytes % (Manual) 20 % (20-45) Monocytes % (Manual) 5 % (1-10) Eosinophils % (Manual) 0 % (0-3) Basophils % (Manual) 0 % (0-2) Band Neutrophils 0 % (0-8) Platelet Estimate Decreased L Platelet Morphology Normal Sodium Level 144 MMOL/L (136-145) Potassium Level 4.8 MMOL/L (3.5-5.1) Chloride Level 112 MMOL/L (98-107) H Carbon Dioxide Level 31 MMOL/L (21-32) Anion Gap 1 mmol/L (5-15) L Blood Urea Nitrogen 61 mg/dL (7-18) H Creatinine 1.5 MG/DL (0.55-1.30) H Estimat Glomerular Filtration Rate 53.4 mL/min (>60) Glucose Level 211 MG/DL (74-106) H Lactic Acid Level 2.40 mmol/L (0.4-2.0) H Calcium Level 9.3 MG/DL (8.5-10.1) Total Bilirubin 0.5 MG/DL (0.2-1.0) Aspartate Amino Transf (AST/SGOT) 89 U/L (15-37) H Alanine Aminotransferase (ALT/SGPT) 150 U/L (12-78) H Alkaline Phosphatase 178 U/L (46-116) H Troponin I 0.286 ng/mL (0.000-0.056) Total Protein 5.9 G/DL (6.4-8.2) L Albumin 2.0 G/DL (3.4-5.0) L Globulin 3.9 g/dL Albumin/Globulin Ratio 0.5 (1.0-2.7) L POC Whole Blood Glucose 229 MG/DL (74-106) H Assessment/Plan Assessment/Plan Healthcare acquired PNA Lactic acidosis Acute myocardial ischemia/possible NSTE myocardial infarction COPD Ac/chr systolic/diast CHF Ischemic cardiomyopathy Severe dehydration Hypernatremia Hyperchloremia PAD with prior revascularization Dysphagia with GTube CVA with dementia Paroxysmal atrial arrhythmias IRDM uncontrolled Non-sustained ventricular tachycardia Critical & Guarded Abx Resp therapy Hypotonic IVF hydration Titrate antiHTN and anti-anginal regimen Cont'd anti-plt therapy Oxygen and bronchodilator rx DVT prophylaxis Monitor and replace lytes Titrate beta steve rx Levemir titration DC alarm security or surveillance monitor Osmani Cevallos MD Jan 29, 2020 00:52
[2020-01-29 04:00] VITALS: BP 135/76
[2020-01-29] MEDS: NovoLOG Insulin Flexpen SUBQ SCH ×7 (05:50→21:00)
[2020-01-29 07:22] LABS: HEMOGLOBIN 11.5 G/DL (14.2-18.0); MEAN CORPUSCULAR VOLUME 90 FL (80-99); PLATELET COUNT 57 K/UL (150-450); RED BLOOD COUNT 3.88 M/UL (4.70-6.10); RED CELL DISTRIBUTION WIDTH 15.8 % (11.6-14.8); WHITE BLOOD COUNT 4.6 K/UL (4.8-10.8)
--- NOTE | 2020-01-29 07:30 | NUR ---
NURSE NOTES: Received pt from [facility]IT[facility] Eng, pt is sleeping, pt has NC 4lit, pt in on continues heart monitoring, pt has intact iv access RH 24G is running well. no complain of pain at this moment, pt has G tube in place is working well. pt has condom cath in place is working well. all needs attended, bed is locked and is in the lowest position, call light within easy reach, will continue to monitor.
[2020-01-29 08:00] VITALS: BP 138/87
--- NOTE | 2020-01-29 08:04 | General Progress Note ---
Subjective ROS Limited/Unobtainable: No Constitutional: Reports: malaise, weakness HEENT: Reports: no symptoms Cardiovascular: Reports: no symptoms Respiratory: Reports: wheezing Gastrointestinal/Abdominal: Reports: difficulty swallowing Genitourinary: Reports: no symptoms Neurologic/Psychiatric: Reports: pre-existing deficit Endocrine: Reports: no symptoms Hematologic/Lymphatic: Reports: anemia Allergies: Coded Allergies: No Known Allergies (Verified , 02/21/09) All Systems: reviewed and negative except above Subjective no change. wheezing this am. am labs pending. on ivf. on iv abx. alert but confused. decreased plts. Objective Last 24 Hour Vital Signs Date Time Temp Pulse Resp B/P (MAP) Pulse Ox O2 Delivery O2 Flow Rate FiO2 01/29/20 04:00 97.9 82 20 135/76 (95) 92 01/29/20 04:00 85 01/29/20 00:00 77 01/29/20 00:00 97.7 78 20 129/78 (95) 93 01/28/20 21:00 Nasal Cannula 4.0 01/28/20 20:00 78 107/53 01/28/20 20:00 97.3 79 20 131/80 (97) 91 01/28/20 20:00 79 01/28/20 19:50 95 Nasal Cannula 2.0 28 01/28/20 19:50 85 18 100 Nasal Cannula 2.0 28 01/28/20 16:00 78 01/28/20 16:00 97.5 81 20 107/53 (71) 91 01/28/20 13:16 77 18 97 Nasal Cannula 2.0 28 68 18 91 01/28/20 12:00 74 01/28/20 12:00 96.1 89 20 129/70 (89) 88 01/28/20 09:26 85 122/67 01/28/20 09:00 Nasal Cannula 4.0 Intake and Output 01/28/20 01/29/20 19:00 07:00 Intake Total 950 ml Output Total 500 ml 350 ml Balance -500 ml 600 ml Free Water 400 ml Tube Feeding 550 ml Output Urine Total 500 ml 350 ml # Bowel Movements 1 Laboratory Tests 01/28/20 20:03: POC Whole Blood Glucose 229H 01/29/20 05:09: POC Whole Blood Glucose 160H 01/29/20 06:37: White Blood Count 4.6L, Red Blood Count 3.88L, Hemoglobin 11.5L, Hematocrit 35.0L, Mean Corpuscular Volume 90, Mean Corpuscular Hemoglobin 29.7, Mean Corpuscular Hemoglobin Concent 32.9, Red Cell Distribution Width 15.8H, Platelet Count 57L, Mean Platelet Volume 13.9H, Neutrophils (%) (Auto) , Lymphocytes (%) (Auto) , Monocytes (%) (Auto) , Eosinophils (%) (Auto) , Basophils (%) (Auto) , Neutrophils % (Manual) [Pending], Lymphocytes % (Manual) [Pending], Platelet Estimate [Pending], Platelet Morphology [Pending], Sodium Level [Pending], Potassium Level [Pending], Chloride Level [Pending], Carbon Dioxide Level [Pending], Blood Urea Nitrogen [Pending], Creatinine [Pending], Estimat Glomerular Filtration Rate [Pending], Glucose Level [Pending], Lactic Acid Level [Pending], Calcium Level [Pending], Magnesium Level [Pending] Height (Feet): 5 Height (Inches): 10.00 Weight (Pounds): 182 Objective General Appearance: WD/WN, alert Neck: non-tender, normal alignment Cardiovascular: normal peripheral pulses, normal rate, regular rhythm Respiratory/Chest: chest wall non-tender, lungs clear, normal breath sounds Abdomen: normal bowel sounds, non tender, soft, no organomegaly Edema: no edema noted Arm (L), no edema noted Arm (R) Neurologic: responsive, disoriented Assessment/Plan Problem List: (1) OMI (acute kidney injury) ICD Codes: N17.9 - Acute kidney failure, unspecified SNOMED: 7442458, 59052159 (2) Hypernatremia ICD Codes: E87.0 - Hyperosmolality and hypernatremia SNOMED: 423891724 (3) COPD exacerbation ICD Codes: J44.1 - Chronic obstructive pulmonary disease with (acute) exacerbation SNOMED: 135326978, 148337370, 467054223 (4) Elevated troponin ICD Codes: R77.8 - Other specified abnormalities of plasma proteins SNOMED: 006148668, 886637238, 569592469 (5) Lung mass ICD Codes: R91.8 - Other nonspecific abnormal finding of lung field SNOMED: 476947457, 087036934 Status: stable, progressing Assessment/Plan: cont current rx ivf per renal monitor volume status monitor renal fxn and labs- pending for today iv abx monitor cxr ct chest when stable repeat covid negative dvt/stress ulcer prophylaxis monitor bs skin care turn q2 dc heparin venous duplex scd Aleksey Diaz MD Jan 29, 2020 08:04
[2020-01-29 08:19] LABS: CALCIUM 9.2 MG/DL (8.5-10.1); CREATININE 1.4 MG/DL (0.55-1.30); POTASSIUM 4.8 MMOL/L (3.5-5.1)
[2020-01-29] MEDS: Aspirin Baby 81mg GT SCH (09:52)
--- NOTE | 2020-01-29 10:32 | NUR ---
RD ASSESSMENT & RECOMMENDATIONS SEE CARE ACTIVITY FOR COMPLETE ASSESSMENT DAILY ESTIMATED NEEDS: Needs based on DM, Renal, bedbound, 77kg abw 23-28 kcals/kg 6730-0052 total kcals 1-1.5 g protein/kg 77-116 g total protein 25-30 mL/kg 4751-9994 total fluid mLs NUTRITION DIAGNOSIS: Swallowing difficulty r/t dysphagia as evidenced by pt is GT dependent. CURRENT TF: (glucerna 1.2 @50) ENTERAL NUTRITION RECOMMENDATIONS: GLUCERNA 1.2 goal of 70ml/hr x22 hrs to provide 1540ml, 1848 kcal, 92g prot, 1240ml free H2O - Rec to increase TF rate to better meet est kcal and pro needs. - HOLD TF 1 hr before and after synthroid med. - Flush per HOB over 30 degrees. ADDITIONAL RECOMMENDATIONS: 1) Monitor lytes, renal labs-> renal fxn improving 2) Recalibrate bed scale wts 3) Hypoglycemic agents for improved BG control -> now on TIAC novolog + SSI and Levemir Monitor BGs closely for hypoglycemia 4) Hold TF 1 hr before and after synthroid meds. 5) rec HgA1C
--- NOTE | 2020-01-29 10:41 | Infectious Diseases Prog Note ---
Assessment/Plan Assessment/Plan A: 1. Community-acquired pneumonia.COVID19 test is negative x2. 2. Diabetes. 3. Hypertension. 4. Renal failure, acute 5. Hypernatremia PLAN: 1. Discontinue ceftriaxone and azithromycin. 2. Observe off antibiotic Subjective ROS Limited/Unobtainable: Yes Allergies: Coded Allergies: No Known Allergies (Verified , 02/21/09) Objective Last 24 Hour Vital Signs Date Time Temp Pulse Resp B/P (MAP) Pulse Ox O2 Delivery O2 Flow Rate FiO2 01/29/20 09:52 86 138/87 01/29/20 08:17 93 Nasal Cannula 4.0 32 01/29/20 08:00 97.7 86 20 138/87 (104) 92 01/29/20 04:00 97.9 82 20 135/76 (95) 92 01/29/20 04:00 85 01/29/20 00:00 77 01/29/20 00:00 97.7 78 20 129/78 (95) 93 01/28/20 21:00 Nasal Cannula 4.0 01/28/20 20:00 78 107/53 01/28/20 20:00 97.3 79 20 131/80 (97) 91 01/28/20 20:00 79 01/28/20 19:50 95 Nasal Cannula 2.0 28 01/28/20 19:50 85 18 100 Nasal Cannula 2.0 28 01/28/20 16:00 78 01/28/20 16:00 97.5 81 20 107/53 (71) 91 01/28/20 13:16 77 18 97 Nasal Cannula 2.0 28 68 18 91 01/28/20 12:00 74 01/28/20 12:00 96.1 89 20 129/70 (89) 88 Height (Feet): 5 Height (Inches): 10.00 Weight (Pounds): 182 General Appearance: no acute distress HEENT: mucous membranes moist Respiratory/Chest: lungs clear Cardiovascular: normal rate Abdomen: soft, non tender, splenomegaly Extremities: no edema, other - finger clubbing Neurologic/Psychiatric: unresponsiveness Laboratory Tests Test 01/28/20 20:03 01/29/20 05:09 01/29/20 06:37 POC Whole Blood Glucose 229 MG/DL (74-106) H 160 MG/DL (74-106) H White Blood Count 4.6 K/UL (4.8-10.8) L Red Blood Count 3.88 M/UL (4.70-6.10) L Hemoglobin 11.5 G/DL (14.2-18.0) L Hematocrit 35.0 % (42.0-52.0) L Mean Corpuscular Volume 90 FL (80-99) Mean Corpuscular Hemoglobin 29.7 PG (27.0-31.0) Mean Corpuscular Hemoglobin Concent 32.9 G/DL (32.0-36.0) Red Cell Distribution Width 15.8 % (11.6-14.8) H Platelet Count 57 K/UL (150-450) L Mean Platelet Volume 13.9 FL (6.5-10.1) H Neutrophils (%) (Auto) % (45.0-75.0) Lymphocytes (%) (Auto) % (20.0-45.0) Monocytes (%) (Auto) % (1.0-10.0) Eosinophils (%) (Auto) % (0.0-3.0) Basophils (%) (Auto) % (0.0-2.0) Differential Total Cells Counted 100 Neutrophils % (Manual) 78 % (45-75) H Lymphocytes % (Manual) 8 % (20-45) L Monocytes % (Manual) 9 % (1-10) Eosinophils % (Manual) 5 % (0-3) H Basophils % (Manual) 0 % (0-2) Band Neutrophils 0 % (0-8) Platelet Estimate Decreased L Platelet Morphology Normal Anisocytosis 1+ Sodium Level 141 MMOL/L (136-145) Potassium Level 4.8 MMOL/L (3.5-5.1) Chloride Level 109 MMOL/L (98-107) H Carbon Dioxide Level 28 MMOL/L (21-32) Anion Gap 4 mmol/L (5-15) L Blood Urea Nitrogen 55 mg/dL (7-18) H Creatinine 1.4 MG/DL (0.55-1.30) H Estimat Glomerular Filtration Rate 57.8 mL/min (>60) Glucose Level 174 MG/DL (74-106) H Lactic Acid Level 1.10 mmol/L (0.4-2.0) Calcium Level 9.2 MG/DL (8.5-10.1) Magnesium Level 2.0 MG/DL (1.8-2.4) Current Medications Medications (Trade) Dose Ordered Sig/Bird Route PRN Reason Start Time Stop Time Status Last Admin Dose Admin Acetaminophen (Tylenol) 650 mg Q4H PRN ORAL Mild Pain (Scale 1-3) 01/23/20 18:30 02/22/20 18:29 Acetaminophen (Tylenol) 650 mg Q4H PRN ORAL Temp >100.5 01/23/20 18:45 02/22/20 18:44 Aspirin (ASA) 81 mg DAILY GT 01/24/20 09:00 03/09/20 08:59 01/29/20 09:52 Atorvastatin Calcium (Lipitor) 40 mg BEDTIME GT 01/23/20 21:00 04/22/20 20:59 01/28/20 20:10 Azithromycin 250 mg/Dextrose 275 ml @ 275 mls/hr Q24HRS IV 01/27/20 20:00 02/01/20 19:59 01/28/20 20:00 Ceftriaxone Sodium 1 gm/ Dextrose 55 ml @ 110 mls/hr Q24H IVPB 01/23/20 18:30 01/30/20 18:29 01/28/20 17:44 Dextrose (Dextrose 50%) 25 ml Q30M PRN IV Hypoglycemia 01/26/20 11:15 04/25/20 11:14 Dextrose (Dextrose 50%) 50 ml Q30M PRN IV Hypoglycemia 01/26/20 11:15 04/25/20 11:14 Famotidine (Pepcid) 20 mg DAILY GT 01/24/20 09:00 04/23/20 08:59 01/29/20 09:52 Insulin Aspart (NovoLOG) BEFORE MEALS AND HS SUBQ 01/26/20 11:30 04/25/20 11:29 01/29/20 05:50 Insulin Aspart (NovoLOG) 4 units NOVOTIAC SUBQ 01/27/20 11:50 04/26/20 11:49 01/29/20 05:53 Insulin Detemir (Levemir) 12 units BEDTIME SUBQ 01/27/20 21:00 04/26/20 02:29 01/28/20 20:06 Levothyroxine Sodium (Synthroid) 50 mcg DAILY@0630 GT 01/24/20 06:30 02/23/20 06:29 01/29/20 05:48 Metoprolol Tartrate (Lopressor) 25 mg Q12HR GT 01/27/20 09:00 04/26/20 08:59 01/29/20 09:52 Promethazine HCl/ Dextromethorphan (Phenergan DM) 6.25 mg Q6H PRN ORAL For Cough 01/23/20 18:30 02/22/20 18:29 Sodium Chloride 1,000 ml @ 50 mls/hr Q20H IV 01/23/20 19:00 02/22/20 18:59 01/28/20 15:28 Jt Gallo MD Jan 29, 2020 10:41
[2020-01-29 12:00] VITALS: BP 117/72
--- NOTE | 2020-01-29 13:25 | Surgery Progress Note ---
Surgery Progress Note Subjective Additional Comments no acute events labs noted exam stable ill appearing Objective Last 24 Hour Vital Signs Date Time Temp Pulse Resp B/P (MAP) Pulse Ox O2 Delivery O2 Flow Rate FiO2 01/29/20 12:00 97.5 78 20 117/72 (87) 96 01/29/20 09:52 86 138/87 01/29/20 09:00 Nasal Cannula 4.0 01/29/20 08:17 93 Nasal Cannula 4.0 32 01/29/20 08:00 97.7 86 20 138/87 (104) 92 01/29/20 04:00 97.9 82 20 135/76 (95) 92 01/29/20 04:00 85 01/29/20 00:00 77 01/29/20 00:00 97.7 78 20 129/78 (95) 93 01/28/20 21:00 Nasal Cannula 4.0 01/28/20 20:00 78 107/53 01/28/20 20:00 97.3 79 20 131/80 (97) 91 01/28/20 20:00 79 01/28/20 19:50 95 Nasal Cannula 2.0 28 01/28/20 19:50 85 18 100 Nasal Cannula 2.0 28 01/28/20 16:00 78 01/28/20 16:00 97.5 81 20 107/53 (71) 91 I&O Intake and Output 01/28/20 01/29/20 19:00 07:00 Intake Total 950 ml Output Total 500 ml 350 ml Balance -500 ml 600 ml Free Water 400 ml Tube Feeding 550 ml Output Urine Total 500 ml 350 ml # Bowel Movements 1 Dressing: saturated Cardiovascular: RSR Respiratory: decreased breath sounds Abdomen: non-tender, present bowel sounds Extremities: no tenderness, no cyanosis Laboratory Tests Test 01/28/20 20:03 01/29/20 05:09 01/29/20 06:37 POC Whole Blood Glucose 229 MG/DL (74-106) H 160 MG/DL (74-106) H White Blood Count 4.6 K/UL (4.8-10.8) L Red Blood Count 3.88 M/UL (4.70-6.10) L Hemoglobin 11.5 G/DL (14.2-18.0) L Hematocrit 35.0 % (42.0-52.0) L Mean Corpuscular Volume 90 FL (80-99) Mean Corpuscular Hemoglobin 29.7 PG (27.0-31.0) Mean Corpuscular Hemoglobin Concent 32.9 G/DL (32.0-36.0) Red Cell Distribution Width 15.8 % (11.6-14.8) H Platelet Count 57 K/UL (150-450) L Mean Platelet Volume 13.9 FL (6.5-10.1) H Neutrophils (%) (Auto) % (45.0-75.0) Lymphocytes (%) (Auto) % (20.0-45.0) Monocytes (%) (Auto) % (1.0-10.0) Eosinophils (%) (Auto) % (0.0-3.0) Basophils (%) (Auto) % (0.0-2.0) Differential Total Cells Counted 100 Neutrophils % (Manual) 78 % (45-75) H Lymphocytes % (Manual) 8 % (20-45) L Monocytes % (Manual) 9 % (1-10) Eosinophils % (Manual) 5 % (0-3) H Basophils % (Manual) 0 % (0-2) Band Neutrophils 0 % (0-8) Platelet Estimate Decreased L Platelet Morphology Normal Anisocytosis 1+ Sodium Level 141 MMOL/L (136-145) Potassium Level 4.8 MMOL/L (3.5-5.1) Chloride Level 109 MMOL/L (98-107) H Carbon Dioxide Level 28 MMOL/L (21-32) Anion Gap 4 mmol/L (5-15) L Blood Urea Nitrogen 55 mg/dL (7-18) H Creatinine 1.4 MG/DL (0.55-1.30) H Estimat Glomerular Filtration Rate 57.8 mL/min (>60) Glucose Level 174 MG/DL (74-106) H Lactic Acid Level 1.10 mmol/L (0.4-2.0) Calcium Level 9.2 MG/DL (8.5-10.1) Magnesium Level 2.0 MG/DL (1.8-2.4) Plan Problems: (1) CHF (congestive heart failure) (2) Hypernatremia (3) Renal failure (4) Lung mass Assessment & Plan: noted new lung mass opacity on cxr compared to prior and seen once stable can plan for chest ct The cardiomediastinal silhouette is unchanged in appearance when accounting for differences in projection and technique. There is mild pulmonary vascular congestion. Streaky bibasilar airspace opacities are noted. There is a nodular opacity in the right midlung measuring approximately 2.6 cm. No pneumothorax or pleural effusion. No acute osseous abnormality. IMPRESSION: 1. Pulmonary vascular congestion with streaky bibasilar airspace opacities which could represent combination of edema and atelectasis but pneumonia should be excluded clinically. 2. Opacity in the right midlung, not seen on prior examination, suspicious for pulmonary nodule. Comparison with more recent prior chest radiograph or follow- up with CT chest on nonemergent basis is recommended. (5) Transaminitis Assessment & Plan: elevated lft's on admission etiology unknown US abd ordered trend labs fluids meds reviewed will follow with recs thank you DAILY ESTIMATED NEEDS: Needs based on DM, Renal, bedbound, 77kg abw 23-28 kcals/kg 3517-7164 total kcals 1.25-1.5 g protein/kg 96-116 g total protein 25-30 mL/kg 6580-4479 total fluid mLs NUTRITION DIAGNOSIS: Swallowing difficulty r/t dysphagia as evidenced by pt is GT dependent. (CURRENT TF: Glucerna 1.2 @50) ENTERAL NUTRITION RECOMMENDATIONS: GLUCERNA 1.2 goal of 70ml/hr x22 hrs + Prosource 1 pack qdaily to provide 1540ml, 1848 kcal, 92g + 11g pro, 1240ml free H2O - Rec to increase TF rate to better meet est kcal and pro needs. - Increase as able by 15ml/hr q4-6 hrs to goal - HOLD TF 1 hr before and after synthroid meds. - Flush per HOB over 30 degrees. With elevated lytes and worsening renal labs rec NEPRO w/ goal of 45ml/hr x22 hrs to provide: 990ml, 1782 kcal, 80g pro, 720ml free H2o. -Add Prosource 1 pack BID for added 22g pro to better meet est pro needs. ADDITIONAL RECOMMENDATIONS: 1) Monitor lytes, renal labs-> need for renal formula 2) Recalibrate bed scale wts 3) Hypoglycemic agents for improved BG control Rec niss w/ accuchecks 4) Hold TF 1 hr before and after synthroid meds. 5) rec HgA1C Liver: The liver is normal in size and demonstrates coarsened echotexture. No focal abnormalities are noted. Gallbladder: No cholelithiasis. Gallbladder wall is not thickened. No pericholecystic fluid. Sonographic Reed sign cannot be assessed due to patient unrespon siveness. Common bile duct: Normal in size. Pancreas: Incompletely imaged due to overlying bowel gas. Kidneys: The kidneys demonstrate increased cortical echogenicity. No hydronephrosis or nephrolithiasis. There is a right renal cyst. Spleen: The spleen is normal in size and echogenicity. Incidental note is made of indwelling gastrostomy tube. IMPRESSION: 1. Coarsened hepatic echotexture, which is nonspecific but can be associated with liver dysfunction. 2. Increased echogenicity in the kidneys, which can be seen with medical renal disease. (6) Elevated troponin (7) Chest pain (8) COPD exacerbation Osman Cheung Jan 29, 2020 13:25
--- NOTE | 2020-01-29 14:05 | NUR ---
NURSE NOTES: pt is stable, V/S stable, no stress noted, pt transferred to 407 bed 1, report given to RN Crissy, Endorsed plan of care.
--- NOTE | 2020-01-29 14:05 | NUR ---
NURSE NOTES: Pt received from Ousmane MARCOS. Pt placed on oxygen at 4 liters and RT called for breathing treatment as audible wheezes. Bed placed low and locked, call light placed within reach. No other distress noted. Addendum: 01/29/20 at 1444 by Crissy Veloz RN Please note vitals as follows:96.9 axillary, 131/66, 86 HR, 22 resp, 88 on 4 liters therefore changed to 8 liters venturi mask. Images taken of ulcers. IV and Gtube feeding started. Swelling to penis and scrotum noted. Can not apply condom cath at this time.
--- NOTE | 2020-01-29 14:05 | Diagnostic Imaging Report ---
Indication: Shortness of breath Technique: Grayscale and duplex images of the bilateral lower extremity veins Comparison: none Findings: Bilaterally, grayscale and duplex images demonstrate no evidence of intraluminal thrombus. Normal phasic Doppler waveforms, demonstrating normal augmentation response and no evidence of valvular insufficiency. Greater saphenous vein(s) and tibial veins are patent. Normal compressibility. Impression: Negative for evidence of lower extremity deep venous thrombosis bilaterally
[2020-01-29] MEDS ORDERED: Albuterol/Ipratropium 3ml neb HHN SCH (14:30)
--- NOTE | 2020-01-29 15:16 | NUR ---
NURSE NOTES: 60ml of residual noted in Gtube with firm abdomen. Feeding rate reduced to 40ml will endorse to Noc RN
[2020-01-29 16:00] VITALS: BP 135/82
--- NOTE | 2020-01-29 18:21 | NUR ---
NURSE HAND-OFF: Important Events on Shift:[Pt came up from tele earlier today. Firm abdomen with 60ml residual noted. decreased gtube feeding. Swelling to penis and scrotum also noted. Wheezing noted per Dr. tatiana brooks given and solumederol ordered.] Patient Status: [In bed resting] Diet: [glucerna 1.2 goal of 50 now at 40cc] Pending Orders: [] Pending Results/Labs:[] Pending MD notification:[] Latest Vital Signs: Temperature 98.1 , Pulse 89 , B/P 135 /82 , Respiratory Rate 20 , O2 SAT 95 , Nasal Cannula, O2 Flow Rate 4.0 . Vital Sign Comment: [] Latest Gibson Fall Score: 55 Fall Risk: High Risk Safety Measures: Call light Within Reach, Bed Alarm Zone 1, Side Rails Side Rails x2, Bed position Low and Locked. Fall Precautions: Yellow Socks Yellow Gown Patient Fall Education Report given to [Pending RN Assignment]. Addendum: 01/29/20 at 1932 by Crissy Veloz RN Report given to Maite MARCOS.
--- NOTE | 2020-01-29 19:41 | Nephrology Progress Note ---
Assessment/Plan Problem List: (1) Proteinuria (2) CHF (congestive heart failure) (3) Dehydration (4) Hypernatremia (5) OMI (acute kidney injury) (6) COPD exacerbation Plan continue hydration cautiously, reduce rate check urine protein/creatinine, water via gt, SS insulin increased, lab improving Subjective ROS Limited/Unobtainable: Yes Objective Objective Last 24 Hour Vital Signs Date Time Temp Pulse Resp B/P (MAP) Pulse Ox O2 Delivery O2 Flow Rate FiO2 01/29/20 16:00 98.1 89 20 135/82 (99) 95 01/29/20 14:35 95 18 97 Nasal Cannula 4.0 36 92 18 92 01/29/20 12:00 97.5 78 20 117/72 (87) 96 01/29/20 09:52 86 138/87 01/29/20 09:00 Nasal Cannula 4.0 01/29/20 08:17 93 Nasal Cannula 4.0 32 01/29/20 08:00 97.7 86 20 138/87 (104) 92 01/29/20 04:00 97.9 82 20 135/76 (95) 92 01/29/20 04:00 85 01/29/20 00:00 77 01/29/20 00:00 97.7 78 20 129/78 (95) 93 01/28/20 21:00 Nasal Cannula 4.0 01/28/20 20:00 78 107/53 01/28/20 20:00 97.3 79 20 131/80 (97) 91 01/28/20 20:00 79 01/28/20 19:50 95 Nasal Cannula 2.0 28 01/28/20 19:50 85 18 100 Nasal Cannula 2.0 28 Intake and Output 01/28/20 01/29/20 19:00 07:00 Intake Total 1050 ml Output Total 500 ml 350 ml Balance -500 ml 700 ml Free Water 400 ml IV Total 50 ml Tube Feeding 600 ml Output Urine Total 500 ml 350 ml # Bowel Movements 1 Laboratory Tests 01/28/20 20:03: POC Whole Blood Glucose 229H 01/29/20 05:09: POC Whole Blood Glucose 160H 01/29/20 06:37: White Blood Count 4.6L, Red Blood Count 3.88L, Hemoglobin 11.5L, Hematocrit 35.0L, Mean Corpuscular Volume 90, Mean Corpuscular Hemoglobin 29.7, Mean Corpuscular Hemoglobin Concent 32.9, Red Cell Distribution Width 15.8H, Platelet Count 57L, Mean Platelet Volume 13.9H, Neutrophils (%) (Auto) , Lymphocytes (%) (Auto) , Monocytes (%) (Auto) , Eosinophils (%) (Auto) , Basophils (%) (Auto) , Differential Total Cells Counted 100, Neutrophils % (Manual) 78H, Lymphocytes % (Manual) 8L, Monocytes % (Manual) 9, Eosinophils % (Manual) 5H, Basophils % (Manual) 0, Band Neutrophils 0, Platelet Estimate DecreasedL, Platelet Morphology Normal, Anisocytosis 1+, Sodium Level 141, Potassium Level 4.8, Chloride Level 109H, Carbon Dioxide Level 28, Anion Gap 4L, Blood Urea Nitrogen 55H, Creatinine 1.4H, Estimat Glomerular Filtration Rate 57.8, Glucose Level 174H, Lactic Acid Level 1.10, Calcium Level 9.2, Magnesium Level 2.0 Height (Feet): 5 Height (Inches): 10.00 Weight (Pounds): 182 General Appearance: alert, confused EENT: normal ENT inspection Neck: normal alignment Cardiovascular: regular rhythm Respiratory/Chest: lungs clear Abdomen: soft, no organomegaly Extremities: no edema Neurologic: motor weakness Roland Campo MD Jan 29, 2020 19:41
[2020-01-29 21:00] VITALS: BP 133/75
[2020-01-29] MEDS: Atorvastatin 80mg tab GT SCH (21:00)
[2020-01-29] MEDS: Solu-MEDROL 125mg Inj IVP SCH (21:57)
[2020-01-29] MEDS: Levemir Flexpen SUBQ SCH (21:57)
[2020-01-29] MEDS ORDERED: 1/2 NS 1000ml IV ONE ×2 (22:26→22:45)
[2020-01-30] VITALS: BP 121/72
--- NOTE | 2020-01-30 00:20 | Cardiology Progress Note ---
Subjective Very congested today. Remains on hypotonic IVF Sodium and lactic acid levels finally corrected Glucose levels significantly elevated. Monitor: Sinus with frequent non-sustained atrial ectopy; another episode of 9 beats of ventricular tachycardia yesterday Objective Last 24 Hour Vital Signs Date Time Temp Pulse Resp B/P (MAP) Pulse Ox O2 Delivery O2 Flow Rate FiO2 01/29/20 21:00 86 133/79 01/29/20 19:48 94 Nasal Cannula 4.0 36 01/29/20 16:00 98.1 89 20 135/82 (99) 95 01/29/20 14:35 95 18 97 Nasal Cannula 4.0 36 92 18 92 01/29/20 12:00 97.5 78 20 117/72 (87) 96 01/29/20 09:52 86 138/87 01/29/20 09:00 Nasal Cannula 4.0 01/29/20 08:17 93 Nasal Cannula 4.0 32 01/29/20 08:00 97.7 86 20 138/87 (104) 92 01/29/20 04:00 97.9 82 20 135/76 (95) 92 01/29/20 04:00 85 ROS: unchanged from 01/23/20 RHYTHM: NSR, PVCs, PACs, VT LUNGS: coarse breath sounds, bilat. rhonchi and rales CARDIAC: normal rate, regular rhythm, normal S1 and S2, gallop/S4 ABDOMEN: non tender, soft, no organomegaly, G-Tube intact EXTREMITIES: No edema Laboratory Tests Test 01/29/20 05:09 01/29/20 06:37 POC Whole Blood Glucose 160 MG/DL (74-106) H White Blood Count 4.6 K/UL (4.8-10.8) L Red Blood Count 3.88 M/UL (4.70-6.10) L Hemoglobin 11.5 G/DL (14.2-18.0) L Hematocrit 35.0 % (42.0-52.0) L Mean Corpuscular Volume 90 FL (80-99) Mean Corpuscular Hemoglobin 29.7 PG (27.0-31.0) Mean Corpuscular Hemoglobin Concent 32.9 G/DL (32.0-36.0) Red Cell Distribution Width 15.8 % (11.6-14.8) H Platelet Count 57 K/UL (150-450) L Mean Platelet Volume 13.9 FL (6.5-10.1) H Neutrophils (%) (Auto) % (45.0-75.0) Lymphocytes (%) (Auto) % (20.0-45.0) Monocytes (%) (Auto) % (1.0-10.0) Eosinophils (%) (Auto) % (0.0-3.0) Basophils (%) (Auto) % (0.0-2.0) Differential Total Cells Counted 100 Neutrophils % (Manual) 78 % (45-75) H Lymphocytes % (Manual) 8 % (20-45) L Monocytes % (Manual) 9 % (1-10) Eosinophils % (Manual) 5 % (0-3) H Basophils % (Manual) 0 % (0-2) Band Neutrophils 0 % (0-8) Platelet Estimate Decreased L Platelet Morphology Normal Anisocytosis 1+ Sodium Level 141 MMOL/L (136-145) Potassium Level 4.8 MMOL/L (3.5-5.1) Chloride Level 109 MMOL/L (98-107) H Carbon Dioxide Level 28 MMOL/L (21-32) Anion Gap 4 mmol/L (5-15) L Blood Urea Nitrogen 55 mg/dL (7-18) H Creatinine 1.4 MG/DL (0.55-1.30) H Estimat Glomerular Filtration Rate 57.8 mL/min (>60) Glucose Level 174 MG/DL (74-106) H Lactic Acid Level 1.10 mmol/L (0.4-2.0) Calcium Level 9.2 MG/DL (8.5-10.1) Magnesium Level 2.0 MG/DL (1.8-2.4) Assessment/Plan Assessment/Plan Healthcare acquired PNA Lactic acidosis resolved Acute myocardial ischemia/possible NSTE myocardial infarction COPD Ac/chr systolic/diast CHF worse today Ischemic cardiomyopathy Severe dehydration Hypernatremia Hyperchloremia PAD with prior revascularization Dysphagia with GTube CVA with dementia Paroxysmal atrial arrhythmias IRDM uncontrolled Non-sustained ventricular tachycardia Critical & Guarded Abx Resp therapy Stop IVF hydration and diurese Titrate antiHTN and anti-anginal regimen Cont'd anti-plt therapy Oxygen and bronchodilator rx DVT prophylaxis Monitor and replace lytes Titrate beta steve rx Levemir titration Recheck CXR Osmani Cevallos MD Jan 30, 2020 00:20
[2020-01-30 03:43] VITALS: BP 134/70
[2020-01-30] MEDS: Solu-MEDROL 125mg Inj IVP SCH ×3 (05:56→22:37)
[2020-01-30] MEDS: NovoLOG Insulin Flexpen SUBQ SCH ×7 (05:57→22:25)
--- NOTE | 2020-01-30 07:28 | NUR ---
NURSE HAND-OFF: Important Events on Shift:WNL Patient Status: Diet: Pending Orders: Pending Results/Labs: Pending MD notification: Latest Vital Signs: Temperature 97.7 , Pulse 82 , B/P 134 /70 , Respiratory Rate 20 , O2 SAT 95 , Venturi Mask, O2 Flow Rate 10.0 . Vital Sign Comment: WNL Latest Gibson Fall Score: 55 Fall Risk: High Risk Safety Measures: Call light Within Reach, Bed Alarm Zone 1, Side Rails Side Rails x2, Bed position Low and Locked. Fall Precautions: Yellow Socks Yellow Gown Patient Fall Education Report given to PRITI Inman.
--- NOTE | 2020-01-30 07:57 | NUR ---
NURSE NOTES: Received report from PRITI Platt. Patient observed to be asleep, currently on a venturi mask 10L 02 and 55%fi02. No s/sx of SOB/Distress, no c/o any pain or discomfort. Patient with GTube feeding, tolerating feeding well. IV site located on RH gauge 24 asymptomatic, patent, inplace and intact. Bed placed on lowest and locked, call light placed within reach and will continue to monitor.
[2020-01-30 08:00] VITALS: BP 129/74
[2020-01-30 08:01] LABS: CALCIUM 9.7 MG/DL (8.5-10.1); CREATININE 1.7 MG/DL (0.55-1.30); POTASSIUM 5.1 MMOL/L (3.5-5.1)
[2020-01-30] MEDS: Aspirin Baby 81mg GT SCH (08:47)
--- NOTE | 2020-01-30 08:57 | NUR ---
RADIOLOGY DEPT., CHEST X-RAY DONE.-P.DYE
--- NOTE | 2020-01-30 11:33 | Infectious Diseases Prog Note ---
Assessment/Plan Assessment/Plan antibiotics : none A 1. Community-acquired pneumonia s/p rx COVID-19 test is negative x2. 2. Diabetes. 3. Hypertension. 4. Renal failure. P 1. Continue off antibiotics 2. We will follow up cultures 1. Subjective ROS Limited/Unobtainable: Yes Allergies: Coded Allergies: No Known Allergies (Verified , 02/21/09) Objective Last 24 Hour Vital Signs Date Time Temp Pulse Resp B/P (MAP) Pulse Ox O2 Delivery O2 Flow Rate FiO2 01/30/20 09:00 Venturi Mask 10.0 01/30/20 08:47 84 129/74 01/30/20 08:00 97.7 87 20 129/74 (92) 98 01/30/20 03:43 97.7 82 20 134/70 (91) 95 01/30/20 00:00 98.2 84 22 121/72 (88) 94 01/29/20 21:00 98.2 86 20 133/75 (94) 94 01/29/20 21:00 Venturi Mask 10.0 01/29/20 21:00 86 133/79 01/29/20 19:48 94 Nasal Cannula 4.0 36 01/29/20 16:00 98.1 89 20 135/82 (99) 95 01/29/20 14:35 95 18 97 Nasal Cannula 4.0 36 92 18 92 01/29/20 12:00 97.5 78 20 117/72 (87) 96 Height (Feet): 5 Height (Inches): 10.00 Weight (Pounds): 182 Respiratory/Chest: lungs clear Cardiovascular: normal rate, regular rhythm, no gallop/murmur Abdomen: soft, non tender, other - GT Extremities: no edema Laboratory Tests Test 01/30/20 06:30 Sodium Level 141 MMOL/L (136-145) Potassium Level 5.1 MMOL/L (3.5-5.1) Chloride Level 106 MMOL/L (98-107) Carbon Dioxide Level 29 MMOL/L (21-32) Anion Gap 6 mmol/L (5-15) Blood Urea Nitrogen 58 mg/dL (7-18) H Creatinine 1.7 MG/DL (0.55-1.30) H Estimat Glomerular Filtration Rate 46.2 mL/min (>60) Glucose Level 261 MG/DL (74-106) H Calcium Level 9.7 MG/DL (8.5-10.1) Current Medications Medications (Trade) Dose Ordered Sig/Bird Route PRN Reason Start Time Stop Time Status Last Admin Dose Admin Acetaminophen (Tylenol) 650 mg Q4H PRN ORAL Mild Pain (Scale 1-3) 01/23/20 18:30 02/22/20 18:29 Acetaminophen (Tylenol) 650 mg Q4H PRN ORAL Temp >100.5 01/23/20 18:45 02/22/20 18:44 Aspirin (ASA) 81 mg DAILY GT 01/24/20 09:00 03/09/20 08:59 01/30/20 08:47 Atorvastatin Calcium (Lipitor) 40 mg BEDTIME GT 01/23/20 21:00 04/22/20 20:59 01/29/20 21:00 Dextrose (Dextrose 50%) 25 ml Q30M PRN IV Hypoglycemia 01/26/20 11:15 04/25/20 11:14 Dextrose (Dextrose 50%) 50 ml Q30M PRN IV Hypoglycemia 01/26/20 11:15 04/25/20 11:14 Famotidine (Pepcid) 20 mg DAILY GT 01/24/20 09:00 04/23/20 08:59 01/30/20 08:47 Insulin Aspart (NovoLOG) BEFORE MEALS AND HS SUBQ 01/26/20 11:30 04/25/20 11:29 01/30/20 05:57 Insulin Aspart (NovoLOG) 4 units NOVOTIAC SUBQ 01/27/20 11:50 04/26/20 11:49 01/30/20 05:57 Insulin Detemir (Levemir) 12 units BEDTIME SUBQ 01/27/20 21:00 04/26/20 02:29 01/29/20 21:57 Levothyroxine Sodium (Synthroid) 50 mcg DAILY@0630 GT 01/24/20 06:30 02/23/20 06:29 01/30/20 05:56 Methylprednisolone Sodium Succinate (Solu-MEDROL) 60 mg EVERY 8 HOURS IVP 01/29/20 22:00 04/28/20 21:59 01/30/20 05:56 Metoprolol Tartrate (Lopressor) 25 mg Q12HR GT 01/27/20 09:00 04/26/20 08:59 01/30/20 08:47 Promethazine HCl/ Dextromethorphan (Phenergan DM) 6.25 mg Q6H PRN ORAL For Cough 01/23/20 18:30 02/22/20 18:29 Alicia Florence MD Jan 30, 2020 11:33
[2020-01-30 12:00] VITALS: BP 139/84
--- NOTE | 2020-01-30 15:11 | Diagnostic Imaging Report ---
Indication: Shortness of breath Technique: One view of the chest Comparison: 01/23/2020 Findings: Peripheral nodular opacity in the right midlung is unchanged. Bilateral interstitial infiltrates appear slightly increased. There is suggestion of new bilateral pleural effusions. The heart is enlarged. Impression: Increasing interstitial congestion and bilateral pleural fluid Right lung nodular opacity, stable. Consider CT for better characterization if the lesion does not resolve
--- NOTE | 2020-01-30 15:24 | Surgery Progress Note ---
Surgery Progress Note Subjective Symptoms: improved, tolerating diet, voiding well, passing flatus, BM Objective Last 24 Hour Vital Signs Date Time Temp Pulse Resp B/P (MAP) Pulse Ox O2 Delivery O2 Flow Rate FiO2 01/30/20 12:00 97.5 77 18 139/84 (102) 98 01/30/20 09:00 Venturi Mask 10.0 01/30/20 08:47 84 129/74 01/30/20 08:00 97.7 87 20 129/74 (92) 98 01/30/20 03:43 97.7 82 20 134/70 (91) 95 01/30/20 00:00 98.2 84 22 121/72 (88) 94 01/29/20 21:00 98.2 86 20 133/75 (94) 94 01/29/20 21:00 Venturi Mask 10.0 01/29/20 21:00 86 133/79 01/29/20 19:48 94 Nasal Cannula 4.0 36 01/29/20 16:00 98.1 89 20 135/82 (99) 95 I&O Intake and Output 01/29/20 01/30/20 19:00 07:00 Intake Total 1150 ml 1100 ml Balance 1150 ml 1100 ml Free Water 200 ml 600 ml IV Total 350 ml Tube Feeding 600 ml 500 ml # Voids 2 # Bowel Movements 1 Dressing: saturated Cardiovascular: RSR Respiratory: decreased breath sounds Abdomen: non-tender, present bowel sounds Extremities: no edema, no tenderness, no cyanosis Laboratory Tests Test 01/30/20 06:30 Sodium Level 141 MMOL/L (136-145) Potassium Level 5.1 MMOL/L (3.5-5.1) Chloride Level 106 MMOL/L (98-107) Carbon Dioxide Level 29 MMOL/L (21-32) Anion Gap 6 mmol/L (5-15) Blood Urea Nitrogen 58 mg/dL (7-18) H Creatinine 1.7 MG/DL (0.55-1.30) H Estimat Glomerular Filtration Rate 46.2 mL/min (>60) Glucose Level 261 MG/DL (74-106) H Calcium Level 9.7 MG/DL (8.5-10.1) Plan Problems: (1) CHF (congestive heart failure) (2) Hypernatremia (3) Renal failure (4) Lung mass Assessment & Plan: noted new lung mass opacity on cxr compared to prior and seen once stable can plan for chest ct The cardiomediastinal silhouette is unchanged in appearance when accounting for differences in projection and technique. There is mild pulmonary vascular congestion. Streaky bibasilar airspace opacities are noted. There is a nodular opacity in the right midlung measuring approximately 2.6 cm. No pneumothorax or pleural effusion. No acute osseous abnormality. IMPRESSION: 1. Pulmonary vascular congestion with streaky bibasilar airspace opacities which could represent combination of edema and atelectasis but pneumonia should be excluded clinically. 2. Opacity in the right midlung, not seen on prior examination, suspicious for pulmonary nodule. Comparison with more recent prior chest radiograph or follow- up with CT chest on nonemergent basis is recommended. (5) Transaminitis Assessment & Plan: elevated lft's on admission etiology unknown US abd ordered trend labs fluids meds reviewed will follow with recs thank you DAILY ESTIMATED NEEDS: Needs based on DM, Renal, bedbound, 77kg abw 23-28 kcals/kg 2291-6981 total kcals 1.25-1.5 g protein/kg 96-116 g total protein 25-30 mL/kg 2750-3586 total fluid mLs NUTRITION DIAGNOSIS: Swallowing difficulty r/t dysphagia as evidenced by pt is GT dependent. (CURRENT TF: Glucerna 1.2 @50) ENTERAL NUTRITION RECOMMENDATIONS: GLUCERNA 1.2 goal of 70ml/hr x22 hrs + Prosource 1 pack qdaily to provide 1540ml, 1848 kcal, 92g + 11g pro, 1240ml free H2O - Rec to increase TF rate to better meet est kcal and pro needs. - Increase as able by 15ml/hr q4-6 hrs to goal - HOLD TF 1 hr before and after synthroid meds. - Flush per HOB over 30 degrees. With elevated lytes and worsening renal labs rec NEPRO w/ goal of 45ml/hr x22 hrs to provide: 990ml, 1782 kcal, 80g pro, 720ml free H2o. -Add Prosource 1 pack BID for added 22g pro to better meet est pro needs. ADDITIONAL RECOMMENDATIONS: 1) Monitor lytes, renal labs-> need for renal formula 2) Recalibrate bed scale wts 3) Hypoglycemic agents for improved BG control Rec niss w/ accuchecks 4) Hold TF 1 hr before and after synthroid meds. 5) rec HgA1C Liver: The liver is normal in size and demonstrates coarsened echotexture. No focal abnormalities are noted. Gallbladder: No cholelithiasis. Gallbladder wall is not thickened. No pericholecystic fluid. Sonographic Reed sign cannot be assessed due to patient unresponsiveness. Common bile duct: Normal in size. Pancreas: Incompletely imaged due to overlying bowel gas. Kidneys: The kidneys demonstrate increased cortical echogenicity. No hydronephrosis or nephrolithiasis. There is a right renal cyst. Spleen: The spleen is normal in size and echogenicity. Incidental note is made of indwelling gastrostomy tube. IMPRESSION: 1. Coarsened hepatic echotexture, which is nonspecific but can be associated with liver dysfunction. 2. Increased echogenicity in the kidneys, which can be seen with medical renal disease. (6) Elevated troponin (7) Chest pain (8) COPD exacerbation Osman Cheung Jan 30, 2020 15:24
--- NOTE | 2020-01-30 15:31 | NUR ---
CASE MANAGEMENT:REVIEW SI;PNA. AMI. COPD. AC/CHR CHF. 98.2 87 22 139/84 94% 10L VENTURI BUN 58 CR 1.7 BG 261 IS;SOLU MEDROL IV Q8 ASA GT QD PEPCID GT QD MED SURG STATUS DCP;FROM [facility]
[2020-01-30 16:00] VITALS: BP 135/69
--- NOTE | 2020-01-30 17:23 | General Progress Note ---
Subjective ROS Limited/Unobtainable: No Constitutional: Reports: malaise, weakness HEENT: Reports: no symptoms Cardiovascular: Reports: no symptoms Respiratory: Reports: cough, shortness of breath Gastrointestinal/Abdominal: Reports: no symptoms Genitourinary: Reports: no symptoms Neurologic/Psychiatric: Reports: no symptoms Endocrine: Reports: no symptoms Hematologic/Lymphatic: Reports: no symptoms Allergies: Coded Allergies: No Known Allergies (Verified , 02/21/09) All Systems: reviewed and negative except above Subjective Worsening shortness of breath overnight. Chest x-ray with increasing opacities. Currently on Ventimask. Less responsive. Fevers noted Objective Last 24 Hour Vital Signs Date Time Temp Pulse Resp B/P (MAP) Pulse Ox O2 Delivery O2 Flow Rate FiO2 01/30/20 16:00 97.0 73 20 135/69 (91) 98 01/30/20 12:00 97.5 77 18 139/84 (102) 98 01/30/20 09:00 Venturi Mask 10.0 01/30/20 08:47 84 129/74 01/30/20 08:00 97.7 87 20 129/74 (92) 98 01/30/20 03:43 97.7 82 20 134/70 (91) 95 01/30/20 00:00 98.2 84 22 121/72 (88) 94 01/29/20 21:00 98.2 86 20 133/75 (94) 94 01/29/20 21:00 Venturi Mask 10.0 01/29/20 21:00 86 133/79 01/29/20 19:48 94 Nasal Cannula 4.0 36 Intake and Output 01/29/20 01/30/20 19:00 07:00 Intake Total 1150 ml 1100 ml Balance 1150 ml 1100 ml Free Water 200 ml 600 ml IV Total 350 ml Tube Feeding 600 ml 500 ml # Voids 2 # Bowel Movements 1 Laboratory Tests 01/30/20 06:30: Sodium Level 141, Potassium Level 5.1, Chloride Level 106, Carbon Dioxide Level 29, Anion Gap 6, Blood Urea Nitrogen 58H, Creatinine 1.7H, Estimat Glomerular Filtration Rate 46.2, Glucose Level 261H, Calcium Level 9.7 Height (Feet): 5 Height (Inches): 10.00 Weight (Pounds): 182 Objective General Appearance: WD/WN, alert. on venti mask Neck: non-tender, normal alignment Cardiovascular: normal peripheral pulses, normal rate, regular rhythm Respiratory/Chest: chest wall non-tender, lungs clear, normal breath sounds Abdomen: normal bowel sounds, non tender, soft, no organomegaly Edema: no edema noted Arm (L), no edema noted Arm (R) Neurologic: responsive, disoriented Assessment/Plan Problem List: (1) OMI (acute kidney injury) ICD Codes: N17.9 - Acute kidney failure, unspecified SNOMED: 6416951, 81411388 (2) Hypernatremia ICD Codes: E87.0 - Hyperosmolality and hypernatremia SNOMED: 270307000 (3) COPD exacerbation ICD Codes: J44.1 - Chronic obstructive pulmonary disease with (acute) exacerbation SNOMED: 673541278, 205914315, 543292204 (4) Elevated troponin ICD Codes: R77.8 - Other specified abnormalities of plasma proteins SNOMED: 295160445, 995829056, 339186042 (5) Lung mass ICD Codes: R91.8 - Other nonspecific abnormal finding of lung field SNOMED: 897225615, 200743505 Status: stable, progressing Assessment/Plan: cont current rx off ivf prn diuresis monitor volume status monitor renal fxn and labs iv abx monitor cxr ct chest when stable dvt/stress ulcer prophylaxis monitor bs skin care turn q2 dc heparin venous duplex scd Aleksey Diaz MD Jan 30, 2020 17:23
--- NOTE | 2020-01-30 19:20 | NUR ---
NURSE HAND-OFF: Important Events on Shift:N/A Patient Status: STABLE Diet: GLUCERNA 1.2 Pending Orders: N/A Pending Results/Labs:N/A Pending MD notification:N/A Latest Vital Signs: Temperature 97.0 , Pulse 73 , B/P 135 /69 , Respiratory Rate 20 , O2 SAT 98 , Venturi Mask, O2 Flow Rate 10.0 . Vital Sign Comment: STABLE Latest Gibson Fall Score: 55 Fall Risk: High Risk Safety Measures: Call light Within Reach, Bed Alarm Zone 1, Side Rails Side Rails x2, Bed position Low and Locked. Fall Precautions: Yellow Socks Yellow Gown Patient Fall Education Report given to PRITI BOB.
--- NOTE | 2020-01-30 19:30 | NUR ---
NURSE NOTES: Patient in bed, on venturi mask @ 10LPM O2. IV access on the right arm, with gtube feeding of Glucerna 1.2@50ml/hr. Call light in reach. Bed in lowest, lock engaged and alarm on. Will continue plan of care.
--- NOTE | 2020-01-30 19:42 | Nephrology Progress Note ---
Assessment/Plan Problem List: (1) Proteinuria (2) CHF (congestive heart failure) (3) Dehydration (4) Hypernatremia (5) OMI (acute kidney injury) (6) COPD exacerbation Plan continue hydration via gt, check urine protein/creatinine, water via gt, SS insulin increased, lab improving Subjective ROS Limited/Unobtainable: Yes Objective Objective Last 24 Hour Vital Signs Date Time Temp Pulse Resp B/P (MAP) Pulse Ox O2 Delivery O2 Flow Rate FiO2 01/30/20 16:00 97.0 73 20 135/69 (91) 98 01/30/20 12:00 97.5 77 18 139/84 (102) 98 01/30/20 09:00 Venturi Mask 10.0 01/30/20 08:47 84 129/74 01/30/20 08:00 97.7 87 20 129/74 (92) 98 01/30/20 03:43 97.7 82 20 134/70 (91) 95 01/30/20 00:00 98.2 84 22 121/72 (88) 94 01/29/20 21:00 98.2 86 20 133/75 (94) 94 01/29/20 21:00 Venturi Mask 10.0 01/29/20 21:00 86 133/79 01/29/20 19:48 94 Nasal Cannula 4.0 36 Intake and Output 01/29/20 01/30/20 19:00 07:00 Intake Total 1150 ml 1100 ml Balance 1150 ml 1100 ml Free Water 200 ml 600 ml IV Total 350 ml Tube Feeding 600 ml 500 ml # Voids 2 # Bowel Movements 1 Laboratory Tests 01/30/20 06:30: Sodium Level 141, Potassium Level 5.1, Chloride Level 106, Carbon Dioxide Level 29, Anion Gap 6, Blood Urea Nitrogen 58H, Creatinine 1.7H, Estimat Glomerular Filtration Rate 46.2, Glucose Level 261H, Calcium Level 9.7 Height (Feet): 5 Height (Inches): 10.00 Weight (Pounds): 182 General Appearance: no apparent distress, lethargic, confused EENT: normal ENT inspection Neck: normal alignment Cardiovascular: regular rhythm Respiratory/Chest: lungs clear Abdomen: soft Extremities: no edema Neurologic: motor weakness Roland Campo MD Jan 30, 2020 19:42
[2020-01-30 20:00] VITALS: BP 138/70
--- NOTE | 2020-01-30 22:03 | Cardiology Progress Note ---
Subjective DATE OF SERVICE: Jan 30, 2020 More congested today. CXR reveals worsening infiltrates/edema Sodium and lactic acid levels finally corrected Glucose levels elevated. Objective Last 24 Hour Vital Signs Date Time Temp Pulse Resp B/P (MAP) Pulse Ox O2 Delivery O2 Flow Rate FiO2 01/30/20 16:00 97.0 73 20 135/69 (91) 98 01/30/20 12:00 97.5 77 18 139/84 (102) 98 01/30/20 09:00 Venturi Mask 10.0 01/30/20 08:47 84 129/74 01/30/20 08:00 97.7 87 20 129/74 (92) 98 01/30/20 03:43 97.7 82 20 134/70 (91) 95 01/30/20 00:00 98.2 84 22 121/72 (88) 94 ROS: unchanged from 01/23/20 RHYTHM: NSR, PVCs, PACs, VT LUNGS: coarse breath sounds, bilat. rhonchi and rales CARDIAC: normal rate, regular rhythm, normal S1 and S2, gallop/S4 ABDOMEN: non tender, soft, no organomegaly, G-Tube intact EXTREMITIES: No edema Laboratory Tests Test 01/30/20 06:30 Sodium Level 141 MMOL/L (136-145) Potassium Level 5.1 MMOL/L (3.5-5.1) Chloride Level 106 MMOL/L (98-107) Carbon Dioxide Level 29 MMOL/L (21-32) Anion Gap 6 mmol/L (5-15) Blood Urea Nitrogen 58 mg/dL (7-18) H Creatinine 1.7 MG/DL (0.55-1.30) H Estimat Glomerular Filtration Rate 46.2 mL/min (>60) Glucose Level 261 MG/DL (74-106) H Calcium Level 9.7 MG/DL (8.5-10.1) Assessment/Plan Assessment/Plan Healthcare acquired PNA Lactic acidosis Acute myocardial ischemia/possible NSTE myocardial infarction COPD Ac/chr systolic/diast CHF Ischemic cardiomyopathy Severe dehydration Hypernatremia Hyperchloremia PAD with prior revascularization Dysphagia with GTube CVA with dementia Paroxysmal atrial arrhythmias IRDM uncontrolled Non-sustained ventricular tachycardia Critical & Guarded Abx Resp therapy Diuresis; trend BNP Titrate antiHTN and anti-anginal regimen Cont'd anti-plt therapy Oxygen and bronchodilator rx DVT prophylaxis Monitor and replace lytes Titrate beta steve rx Levemir titration Osmani Cevallos MD Jan 30, 2020 22:03
[2020-01-30] MEDS: Levemir Flexpen SUBQ SCH (22:26)
[2020-01-30] MEDS: Atorvastatin 80mg tab GT SCH (22:36)
[2020-01-31] VITALS: BP 149/71
[2020-01-31 04:00] VITALS: BP 139/66
[2020-01-31] MEDS: NovoLOG Insulin Flexpen SUBQ SCH ×7 (05:57→22:10)
[2020-01-31] MEDS: Solu-MEDROL 125mg Inj IVP SCH ×2 (06:02→18:42)
[2020-01-31 08:00] VITALS: BP 161/85
--- NOTE | 2020-01-31 08:53 | NUR ---
NURSE HAND-OFF: Important Events on Shift: feeding and accuchecks Patient Status: Diet:Glucerna 1.2 @50ml/hr Pending Orders: Pending Results/Labs: Pending MD notification: Latest Vital Signs: Temperature 98.0 , Pulse 64 , B/P 139 /66 , Respiratory Rate 20 , O2 SAT 98 , Venturi Mask, O2 Flow Rate 10.0 . Vital Sign Comment: Latest Gibson Fall Score: 55 Fall Risk: High Risk Safety Measures: Call light Within Reach, Bed Alarm Zone 1, Side Rails Side Rails x2, Bed position Low and Locked. Fall Precautions: Yellow Socks Yellow Gown Patient Fall Education Report given to PRITI Davis.
--- NOTE | 2020-01-31 09:00 | NUR ---
NURSE NOTES: Patient able to tell me his name,reoriented to x3.)2 on by venturi mask,respiration unlabored.G-tube feedings as ordered.no residual noted at this time.Condom catheter in place with clear yellow urine noted. Heplock on the right hand intact.HOB is elevated. Bed alarm is on,call light within reach.
[2020-01-31 09:14] LABS: HEMATOCRIT 31.2 % (42.0-52.0); HEMOGLOBIN 10.5 G/DL (14.2-18.0); MEAN CORPUSCULAR VOLUME 88 FL (80-99); PLATELET COUNT 72 K/UL (150-450); RED BLOOD COUNT 3.57 M/UL (4.70-6.10); RED CELL DISTRIBUTION WIDTH 16.3 % (11.6-14.8)
[2020-01-31 09:21] LABS: BASOPHILS % (AUTO) 0.3 % (0.0-2.0); LYMPHOCYTES % (AUTO) 4.4 % (20.0-45.0); MONOCYTES % (AUTO) 1.9 % (1.0-10.0); NEUTROPHILS % (AUTO) 93.4 % (45.0-75.0)
[2020-01-31 09:43] LABS: ALBUMIN 1.9 G/DL (3.4-5.0); ALBUMIN/GLOBULIN RATIO 0.6 (1.0-2.7); BILIRUBIN,TOTAL 0.2 MG/DL (0.2-1.0); CALCIUM 9.3 MG/DL (8.5-10.1); CREATININE 1.6 MG/DL (0.55-1.30); POTASSIUM 4.2 MMOL/L (3.5-5.1)
[2020-01-31] MEDS ORDERED: Solu-MEDROL 125mg Inj IVP SCH (09:48)
--- NOTE | 2020-01-31 09:52 | NUR ---
RD ASSESSMENT & RECOMMENDATIONS SEE CARE ACTIVITY FOR COMPLETE ASSESSMENT DAILY ESTIMATED NEEDS: Needs based on DM, Renal, bedbound, 77kg abw 23-28 kcals/kg 7611-3819 total kcals 1-1.5 g protein/kg 77-116 g total protein 25-30 mL/kg 5044-9969 total fluid mLs NUTRITION DIAGNOSIS: Swallowing difficulty r/t dysphagia as evidenced by pt is GT dependent. CURRENT TF: (glucerna 1.2 @50) ENTERAL NUTRITION RECOMMENDATIONS: GLUCERNA 1.2 goal of 70ml/hr x22 hrs to provide 1540ml, 1848 kcal, 92g prot, 1240ml free H2O - Rec to increase TF rate to better meet est kcal and pro needs. - HOLD TF 1 hr before and after synthroid meds. - Flush per HOB over 30 degrees. ADDITIONAL RECOMMENDATIONS: 1) Monitor lytes, renal labs-> renal fxn improving 2) Recalibrate bed scale wts 3) Hypoglycemic agents for improved BG control -> now on TIAC novolog + SSI and Levemir Monitor BGs closely for hypoglycemia 4) Hold TF 1 hr before and after synthroid meds. 5) rec HgA1C
[2020-01-31] MEDS: Aspirin Baby 81mg GT SCH (09:54)
--- NOTE | 2020-01-31 11:40 | Infectious Diseases Prog Note ---
Assessment/Plan Assessment/Plan A: 1. Community-acquired pneumonia treated COVID19 test is negative x2. 2. Diabetes. 3. Hypertension. 4. Renal failure, acute 5. Hypernatremia 6. Anemia PLAN: 1. Observe off antibiotic Subjective ROS Limited/Unobtainable: Yes Constitutional: Denies: fever Allergies: Coded Allergies: No Known Allergies (Verified , 02/21/09) Objective Last 24 Hour Vital Signs Date Time Temp Pulse Resp B/P (MAP) Pulse Ox O2 Delivery O2 Flow Rate FiO2 01/31/20 09:55 71 163/91 01/31/20 09:00 Venturi Mask 10.0 01/31/20 08:00 98.1 73 19 161/85 (110) 97 01/31/20 04:00 98.0 64 20 139/66 (90) 98 01/31/20 00:00 97.5 70 24 149/71 (97) 94 01/30/20 22:36 63 138/70 01/30/20 21:00 Venturi Mask 10.0 01/30/20 20:12 93 Nasal Cannula 4.0 36 01/30/20 20:00 97.5 63 20 138/70 (92) 98 01/30/20 16:00 97.0 73 20 135/69 (91) 98 01/30/20 12:00 97.5 77 18 139/84 (102) 98 Height (Feet): 5 Height (Inches): 10.00 Weight (Pounds): 182 General Appearance: no acute distress HEENT: mucous membranes moist Respiratory/Chest: lungs clear Cardiovascular: normal rate Abdomen: soft, non tender, other - GT feeding Extremities: no edema, other - SCD of legs Neurologic/Psychiatric: aphasia, other - opens eyes Laboratory Tests Test 01/30/20 22:21 01/31/20 05:53 01/31/20 08:30 POC Whole Blood Glucose Pending Pending White Blood Count 7.0 K/UL (4.8-10.8) Red Blood Count 3.57 M/UL (4.70-6.10) L Hemoglobin 10.5 G/DL (14.2-18.0) L Hematocrit 31.2 % (42.0-52.0) L Mean Corpuscular Volume 88 FL (80-99) Mean Corpuscular Hemoglobin 29.5 PG (27.0-31.0) Mean Corpuscular Hemoglobin Concent 33.6 G/DL (32.0-36.0) Red Cell Distribution Width 16.3 % (11.6-14.8) H Platelet Count 72 K/UL (150-450) L Mean Platelet Volume 12.1 FL (6.5-10.1) H Neutrophils (%) (Auto) 93.4 % (45.0-75.0) H Lymphocytes (%) (Auto) 4.4 % (20.0-45.0) L Monocytes (%) (Auto) 1.9 % (1.0-10.0) Eosinophils (%) (Auto) 0.0 % (0.0-3.0) Basophils (%) (Auto) 0.3 % (0.0-2.0) Sodium Level 141 MMOL/L (136-145) Potassium Level 4.2 MMOL/L (3.5-5.1) Chloride Level 106 MMOL/L (98-107) Carbon Dioxide Level 32 MMOL/L (21-32) Anion Gap 3 mmol/L (5-15) L Blood Urea Nitrogen 66 mg/dL (7-18) H Creatinine 1.6 MG/DL (0.55-1.30) H Estimat Glomerular Filtration Rate 49.6 mL/min (>60) Glucose Level 303 MG/DL (74-106) H Calcium Level 9.3 MG/DL (8.5-10.1) Magnesium Level 2.0 MG/DL (1.8-2.4) Total Bilirubin 0.2 MG/DL (0.2-1.0) Aspartate Amino Transf (AST/SGOT) 63 U/L (15-37) H Alanine Aminotransferase (ALT/SGPT) 111 U/L (12-78) H Alkaline Phosphatase 189 U/L (46-116) H Troponin I 0.168 ng/mL (0.000-0.056) Pro-B-Type Natriuretic Peptide Pending Total Protein 5.3 G/DL (6.4-8.2) L Albumin 1.9 G/DL (3.4-5.0) L Globulin 3.4 g/dL Albumin/Globulin Ratio 0.6 (1.0-2.7) L Current Medications Medications (Trade) Dose Ordered Sig/Bird Route PRN Reason Start Time Stop Time Status Last Admin Dose Admin Acetaminophen (Tylenol) 650 mg Q4H PRN ORAL Mild Pain (Scale 1-3) 01/23/20 18:30 02/22/20 18:29 Acetaminophen (Tylenol) 650 mg Q4H PRN ORAL Temp >100.5 01/23/20 18:45 02/22/20 18:44 Aspirin (ASA) 81 mg DAILY GT 01/24/20 09:00 03/09/20 08:59 01/31/20 09:54 Atorvastatin Calcium (Lipitor) 40 mg BEDTIME GT 01/23/20 21:00 04/22/20 20:59 01/30/20 22:36 Dextrose (Dextrose 50%) 25 ml Q30M PRN IV Hypoglycemia 01/26/20 11:15 04/25/20 11:14 Dextrose (Dextrose 50%) 50 ml Q30M PRN IV Hypoglycemia 01/26/20 11:15 04/25/20 11:14 Famotidine (Pepcid) 20 mg DAILY GT 01/24/20 09:00 04/23/20 08:59 01/31/20 09:54 Furosemide (Lasix) 40 mg ONCE IV 01/31/20 09:45 01/31/20 12:00 01/31/20 10:01 Insulin Aspart (NovoLOG) BEFORE MEALS AND HS SUBQ 01/26/20 11:30 04/25/20 11:29 01/31/20 05:57 Insulin Aspart (NovoLOG) 4 units NOVOTIAC SUBQ 01/27/20 11:50 04/26/20 11:49 01/31/20 05:58 Insulin Detemir (Levemir) 12 units BEDTIME SUBQ 01/27/20 21:00 04/26/20 02:29 01/30/20 22:26 Levothyroxine Sodium (Synthroid) 50 mcg DAILY@0630 GT 01/24/20 06:30 02/23/20 06:29 01/31/20 06:02 Methylprednisolone Sodium Succinate (Solu-MEDROL) 60 mg Q12H IVP 01/31/20 18:00 04/30/20 17:59 Metoprolol Tartrate (Lopressor) 25 mg Q12HR GT 01/27/20 09:00 04/26/20 08:59 01/31/20 09:55 Promethazine HCl/ Dextromethorphan (Phenergan DM) 6.25 mg Q6H PRN ORAL For Cough 01/23/20 18:30 02/22/20 18:29 Jt Gallo MD Jan 31, 2020 11:40
[2020-01-31 12:00] VITALS: BP 146/78
--- NOTE | 2020-01-31 15:47 | Surgery Progress Note ---
Surgery Progress Note Subjective Additional Comments comfortable appaering no n/v Objective Last 24 Hour Vital Signs Date Time Temp Pulse Resp B/P (MAP) Pulse Ox O2 Delivery O2 Flow Rate FiO2 01/31/20 12:18 93 Venturi Mask 10.0 40 01/31/20 12:00 98.0 4 18 146/78 (100) 96 01/31/20 09:55 71 163/91 01/31/20 09:00 Venturi Mask 10.0 01/31/20 08:00 98.1 73 19 161/85 (110) 97 01/31/20 04:00 98.0 64 20 139/66 (90) 98 01/31/20 00:00 97.5 70 24 149/71 (97) 94 01/30/20 22:36 63 138/70 01/30/20 21:00 Venturi Mask 10.0 01/30/20 20:12 93 Nasal Cannula 4.0 36 01/30/20 20:00 97.5 63 20 138/70 (92) 98 01/30/20 16:00 97.0 73 20 135/69 (91) 98 I&O Intake and Output 01/30/20 01/31/20 19:00 07:00 Intake Total 400 ml 1150 ml Output Total 200 ml 750 ml Balance 200 ml 400 ml Free Water 200 ml 600 ml Tube Feeding 200 ml 550 ml Output Urine Total 200 ml 750 ml Dressing: saturated Cardiovascular: RSR Respiratory: decreased breath sounds Abdomen: non-tender, present bowel sounds Extremities: no tenderness, no cyanosis Laboratory Tests Test 01/30/20 16:13 01/30/20 22:21 01/31/20 05:53 01/31/20 08:30 POC Whole Blood Glucose 266 MG/DL (74-106) H Pending Pending White Blood Count 7.0 K/UL (4.8-10.8) Red Blood Count 3.57 M/UL (4.70-6.10) L Hemoglobin 10.5 G/DL (14.2-18.0) L Hematocrit 31.2 % (42.0-52.0) L Mean Corpuscular Volume 88 FL (80-99) Mean Corpuscular Hemoglobin 29.5 PG (27.0-31.0) Mean Corpuscular Hemoglobin Concent 33.6 G/DL (32.0-36.0) Red Cell Distribution Width 16.3 % (11.6-14.8) H Platelet Count 72 K/UL (150-450) L Mean Platelet Volume 12.1 FL (6.5-10.1) H Neutrophils (%) (Auto) 93.4 % (45.0-75.0) H Lymphocytes (%) (Auto) 4.4 % (20.0-45.0) L Monocytes (%) (Auto) 1.9 % (1.0-10.0) Eosinophils (%) (Auto) 0.0 % (0.0-3.0) Basophils (%) (Auto) 0.3 % (0.0-2.0) Sodium Level 141 MMOL/L (136-145) Potassium Level 4.2 MMOL/L (3.5-5.1) Chloride Level 106 MMOL/L (98-107) Carbon Dioxide Level 32 MMOL/L (21-32) Anion Gap 3 mmol/L (5-15) L Blood Urea Nitrogen 66 mg/dL (7-18) H Creatinine 1.6 MG/DL (0.55-1.30) H Estimat Glomerular Filtration Rate 49.6 mL/min (>60) Glucose Level 303 MG/DL (74-106) H Calcium Level 9.3 MG/DL (8.5-10.1) Magnesium Level 2.0 MG/DL (1.8-2.4) Total Bilirubin 0.2 MG/DL (0.2-1.0) Aspartate Amino Transf (AST/SGOT) 63 U/L (15-37) H Alanine Aminotransferase (ALT/SGPT) 111 U/L (12-78) H Alkaline Phosphatase 189 U/L (46-116) H Troponin I 0.168 ng/mL (0.000-0.056) Pro-B-Type Natriuretic Peptide Pending Total Protein 5.3 G/DL (6.4-8.2) L Albumin 1.9 G/DL (3.4-5.0) L Globulin 3.4 g/dL Albumin/Globulin Ratio 0.6 (1.0-2.7) L Test 01/31/20 10:37 01/31/20 11:53 Arterial Blood pH 7.400 (7.350-7.450) Arterial Blood Partial Pressure CO2 50.5 mmHg (35.0-45.0) H Arterial Blood Partial Pressure O2 94.5 mmHg (75.0-100.0) Arterial Blood HCO3 30.6 mmol/L (22.0-26.0) H Arterial Blood Oxygen Saturation 97.0 % (95-100) Arterial Blood Base Excess 4.8 (-2-2) H Danny Test Positive POC Whole Blood Glucose 214 MG/DL (74-106) H Plan Problems: (1) CHF (congestive heart failure) (2) Hypernatremia (3) Renal failure (4) Lung mass Assessment & Plan: noted new lung mass opacity on cxr compared to prior and seen once stable can plan for chest ct The cardiomediastinal silhouette is unchanged in appearance when accounting for differences in projection and technique. There is mild pulmonary vascular congestion. Streaky bibasilar airspace opacities are noted. There is a nodular opacity in the right midlung measuring approximately 2.6 cm. No pneumothorax or pleural effusion. No acute osseous abnormality. IMPRESSION: 1. Pulmonary vascular congestion with streaky bibasilar airspace opacities which could represent combination of edema and atelectasis but pneumonia should be excluded clinically. 2. Opacity in the right midlung, not seen on prior examination, suspicious for pulmonary nodule. Comparison with more recent prior chest radiograph or follow- up with CT chest on nonemergent basis is recommended. (5) Transaminitis Assessment & Plan: elevated lft's on admission etiology unknown US abd ordered trend labs fluids meds reviewed will follow with recs thank you DAILY ESTIMATED NEEDS: Needs based on DM, Renal, bedbound, 77kg abw 23-28 kcals/kg 7155-9366 total kcals 1.25-1.5 g protein/kg 96-116 g total protein 25-30 mL/kg 1468-9465 total fluid mLs NUTRITION DIAGNOSIS: Swallowing difficulty r/t dysphagia as evidenced by pt is GT dependent. (CURRENT TF: Glucerna 1.2 @50) ENTERAL NUTRITION RECOMMENDATIONS: GLUCERNA 1.2 goal of 70ml/hr x22 hrs + Prosource 1 pack qdaily to provide 1540ml, 1848 kcal, 92g + 11g pro, 1240ml free H2O - Rec to increase TF rate to better meet est kcal and pro needs. - Increase as able by 15ml/hr q4-6 hrs to goal - HOLD TF 1 hr before and after synthroid meds. - Flush per MD. HOB over 30 degrees. With elevated lytes and worsening renal labs rec NEPRO w/ goal of 45ml/hr x22 hrs to provide: 990ml, 1782 kcal, 80g pro, 720ml free H2o. -Add Prosource 1 pack BID for added 22g pro to better meet est pro needs. ADDITIONAL RECOMMENDATIONS: 1) Monitor lytes, renal labs-> need for renal formula 2) Recalibrate bed scale wts 3) Hypoglycemic agents for improved BG control Rec niss w/ accuchecks 4) Hold TF 1 hr before and after synthroid meds. 5) rec HgA1C Liver: The liver is normal in size and demonstrates coarsened echotexture. No focal abnormalities are noted. Gallbladder: No cholelithiasis. Gallbladder wall is not thickened. No pericholecystic fluid. Sonographic Reed sign cannot be assessed due to patient unresponsiveness. Common bile duct: Normal in size. Pancreas: Incompletely imaged due to overlying bowel gas. Kidneys: The kidneys demonstrate increased cortical echogenicity. No hydronephrosis or nephrolithiasis. There is a right renal cyst. Spleen: The spleen is normal in size and echogenicity. Incidental note is made of indwelling gastrostomy tube. IMPRESSION: 1. Coarsened hepatic echotexture, which is nonspecific but can be associated with liver dysfunction. 2. Increased echogenicity in the kidneys, which can be seen with medical renal disease. (6) Elevated troponin (7) Chest pain (8) COPD exacerbation Osman Cheung Jan 31, 2020 15:47
[2020-01-31 16:00] VITALS: BP 121/61
--- NOTE | 2020-01-31 16:33 | Nephrology Progress Note ---
Assessment/Plan Problem List: (1) Proteinuria (2) CHF (congestive heart failure) (3) Dehydration (4) Hypernatremia (5) OMI (acute kidney injury) (6) COPD exacerbation Plan continue water via gt, check urine protein/creatinine, water via gt, SS insulin increased, lab stable, diuresing for chf Subjective ROS Limited/Unobtainable: Yes Objective Objective Last 24 Hour Vital Signs Date Time Temp Pulse Resp B/P (MAP) Pulse Ox O2 Delivery O2 Flow Rate FiO2 01/31/20 12:18 93 Venturi Mask 10.0 40 01/31/20 12:00 98.0 4 18 146/78 (100) 96 01/31/20 09:55 71 163/91 01/31/20 09:00 Venturi Mask 10.0 01/31/20 08:00 98.1 73 19 161/85 (110) 97 01/31/20 04:00 98.0 64 20 139/66 (90) 98 01/31/20 00:00 97.5 70 24 149/71 (97) 94 01/30/20 22:36 63 138/70 01/30/20 21:00 Venturi Mask 10.0 01/30/20 20:12 93 Nasal Cannula 4.0 36 01/30/20 20:00 97.5 63 20 138/70 (92) 98 Intake and Output 01/30/20 01/31/20 19:00 07:00 Intake Total 400 ml 1150 ml Output Total 200 ml 750 ml Balance 200 ml 400 ml Free Water 200 ml 600 ml Tube Feeding 200 ml 550 ml Output Urine Total 200 ml 750 ml Laboratory Tests 01/30/20 22:21: POC Whole Blood Glucose [Pending] 01/31/20 05:53: POC Whole Blood Glucose [Pending] 01/31/20 08:30: White Blood Count 7.0, Red Blood Count 3.57L, Hemoglobin 10.5L, Hematocrit 31.2L , Mean Corpuscular Volume 88, Mean Corpuscular Hemoglobin 29.5, Mean Corpuscular Hemoglobin Concent 33.6, Red Cell Distribution Width 16.3H, Platelet Count 72L, Mean Platelet Volume 12.1H, Neutrophils (%) (Auto) 93.4H, Lymphocytes (%) (Auto) 4.4L, Monocytes (%) (Auto) 1.9, Eosinophils (%) (Auto) 0.0, Basophils (%) (Auto) 0.3, Sodium Level 141, Potassium Level 4.2, Chloride Level 106, Carbon Dioxide Level 32, Anion Gap 3L, Blood Urea Nitrogen 66H, Creatinine 1.6H, Estimat Glomerular Filtration Rate 49.6, Glucose Level 303H, Calcium Level 9.3, Magnesium Level 2.0, Total Bilirubin 0.2, Aspartate Amino Transf (AST/SGOT) 63H, Alanine Aminotransferase (ALT/SGPT) 111H, Alkaline Phosphatase 189H, Troponin I 0.168H, Pro-B-Type Natriuretic Peptide [Pending], Total Protein 5.3L, Albumin 1.9L, Globulin 3.4, Albumin/Globulin Ratio 0.6L 01/31/20 10:37: Arterial Blood pH 7.400, Arterial Blood Partial Pressure CO2 50.5H, Arterial Blood Partial Pressure O2 94.5, Arterial Blood HCO3 30.6H, Arterial Blood Oxygen Saturation 97.0, Arterial Blood Base Excess 4.8H, Danny Test Positive 01/31/20 11:53: POC Whole Blood Glucose 214H 01/31/20 16:26: POC Whole Blood Glucose 170H Height (Feet): 5 Height (Inches): 10.00 Weight (Pounds): 182 General Appearance: no apparent distress, lethargic, confused EENT: normal ENT inspection Neck: normal alignment Cardiovascular: normal rate Respiratory/Chest: lungs clear Abdomen: non tender Extremities: no edema Neurologic: motor weakness Roland Campo MD Jan 31, 2020 16:33
--- NOTE | 2020-01-31 19:00 | NUR ---
NURSE NOTES: Patient tolerating G-tube feedings,no residual.HOB is elevated.Condom catheter with clear light yellow urine. Bed alarm on.
--- NOTE | 2020-01-31 19:30 | NUR ---
NURSE NOTES: Patient in bed, on venturi mask @ 10LPM O2 with FiO2@ 50%. IV access on the right hand. Call light in reach. Bed in lowest, lock engaged and alarm on. Will continue to monitor.
[2020-01-31 20:00] VITALS: BP 145/73
--- NOTE | 2020-01-31 20:00 | NUR ---
NURSE HAND-OFF: Case MARCOS Important Events on Shift:[]ABG result to DR Lindo,will endorse to follw up. Patient Status: [] Diet: [Glucerna 1.2 at 50 cc/hr.] Pending Orders: [] Pending Results/Labs:[] Pending MD notification:[] Latest Vital Signs: Temperature 98.0 , Pulse 62 , B/P 121 /61 , Respiratory Rate 18 , O2 SAT 93 , Venturi Mask, O2 Flow Rate 10.0 . Vital Sign Comment: [] Latest Gibson Fall Score: 55 Fall Risk: High Risk Safety Measures: Call light Within Reach, Bed Alarm Zone 1, Side Rails Side Rails x2, Bed position Low and Locked. Fall Precautions: Y Yellow Socks Yellow Gown Patient Fall Education Report given to [].
[2020-01-31] MEDS: Levemir Flexpen SUBQ SCH (22:09)
[2020-01-31] MEDS: Atorvastatin 80mg tab GT SCH (22:14)
--- NOTE | 2020-01-31 23:31 | Cardiology Progress Note ---
Subjective DATE OF SERVICE: Feb 10, 2020 Remains congested today. CXR yesterday revealed worsening infiltrates/edema Glucose levels elevated. Objective Last 24 Hour Vital Signs Date Time Temp Pulse Resp B/P (MAP) Pulse Ox O2 Delivery O2 Flow Rate FiO2 01/31/20 22:14 78 145/73 01/31/20 21:30 95 Venturi Mask 10.0 40 01/31/20 16:00 98.0 62 18 121/61 (81) 93 01/31/20 12:18 93 Venturi Mask 10.0 40 01/31/20 12:00 98.0 74 18 146/78 (100) 96 01/31/20 09:55 71 163/91 01/31/20 09:00 Venturi Mask 10.0 01/31/20 08:00 98.1 73 19 161/85 (110) 97 01/31/20 04:00 98.0 64 20 139/66 (90) 98 01/31/20 00:00 97.5 70 24 149/71 (97) 94 ROS: unchanged from 01/23/20 RHYTHM: NSR, PVCs, PACs, VT LUNGS: coarse breath sounds, bilat. rhonchi and rales CARDIAC: normal rate, regular rhythm, normal S1 and S2, gallop/S4 ABDOMEN: non tender, soft, no organomegaly, G-Tube intact EXTREMITIES: No edema Laboratory Tests Test 01/31/20 05:53 01/31/20 08:30 01/31/20 10:37 01/31/20 11:53 POC Whole Blood Glucose Pending 214 MG/DL (74-106) H White Blood Count 7.0 K/UL (4.8-10.8) Red Blood Count 3.57 M/UL (4.70-6.10) L Hemoglobin 10.5 G/DL (14.2-18.0) L Hematocrit 31.2 % (42.0-52.0) L Mean Corpuscular Volume 88 FL (80-99) Mean Corpuscular Hemoglobin 29.5 PG (27.0-31.0) Mean Corpuscular Hemoglobin Concent 33.6 G/DL (32.0-36.0) Red Cell Distribution Width 16.3 % (11.6-14.8) H Platelet Count 72 K/UL (150-450) L Mean Platelet Volume 12.1 FL (6.5-10.1) H Neutrophils (%) (Auto) 93.4 % (45.0-75.0) H Lymphocytes (%) (Auto) 4.4 % (20.0-45.0) L Monocytes (%) (Auto) 1.9 % (1.0-10.0) Eosinophils (%) (Auto) 0.0 % (0.0-3.0) Basophils (%) (Auto) 0.3 % (0.0-2.0) Sodium Level 141 MMOL/L (136-145) Potassium Level 4.2 MMOL/L (3.5-5.1) Chloride Level 106 MMOL/L (98-107) Carbon Dioxide Level 32 MMOL/L (21-32) Anion Gap 3 mmol/L (5-15) L Blood Urea Nitrogen 66 mg/dL (7-18) H Creatinine 1.6 MG/DL (0.55-1.30) H Estimat Glomerular Filtration Rate 49.6 mL/min (>60) Glucose Level 303 MG/DL (74-106) H Calcium Level 9.3 MG/DL (8.5-10.1) Magnesium Level 2.0 MG/DL (1.8-2.4) Total Bilirubin 0.2 MG/DL (0.2-1.0) Aspartate Amino Transf (AST/SGOT) 63 U/L (15-37) H Alanine Aminotransferase (ALT/SGPT) 111 U/L (12-78) H Alkaline Phosphatase 189 U/L (46-116) H Troponin I 0.168 ng/mL (0.000-0.056) Pro-B-Type Natriuretic Peptide Pending Total Protein 5.3 G/DL (6.4-8.2) L Albumin 1.9 G/DL (3.4-5.0) L Globulin 3.4 g/dL Albumin/Globulin Ratio 0.6 (1.0-2.7) L Arterial Blood pH 7.400 (7.350-7.450) Arterial Blood Partial Pressure CO2 50.5 mmHg (35.0-45.0) H Arterial Blood Partial Pressure O2 94.5 mmHg (75.0-100.0) Arterial Blood HCO3 30.6 mmol/L (22.0-26.0) H Arterial Blood Oxygen Saturation 97.0 % (95-100) Arterial Blood Base Excess 4.8 (-2-2) H Danny Test Positive Test 01/31/20 16:26 POC Whole Blood Glucose 170 MG/DL (74-106) H Assessment/Plan Assessment/Plan Healthcare acquired PNA Lactic acidosis Acute myocardial ischemia/possible NSTE myocardial infarction COPD Ac/chr systolic/diast CHF Ischemic cardiomyopathy Severe dehydration Hypernatremia Hyperchloremia PAD with prior revascularization Dysphagia with GTube CVA with dementia Paroxysmal atrial arrhythmias IRDM uncontrolled Non-sustained ventricular tachycardia Hypertension/HHD with elevated BP Critical & Guarded Abx Resp therapy Diuresis; trend BNP Titrate antiHTN and anti-anginal regimen Cont'd anti-plt therapy Oxygen and bronchodilator rx DVT prophylaxis Monitor and replace lytes Titrate beta steve rx Levemir titration Osmani Cevallos MD Jan 31, 2020 23:30
[2020-02-01] VITALS: BP 146/77
[2020-02-01 04:00] VITALS: BP 123/76
[2020-02-01] MEDS: NovoLOG Insulin Flexpen SUBQ SCH ×7 (04:58→21:27)
[2020-02-01] MEDS: Solu-MEDROL 125mg Inj IVP SCH ×2 (05:04→18:22)
[2020-02-01 06:59] LABS: CALCIUM 9.6 MG/DL (8.5-10.1); CREATININE 1.8 MG/DL (0.55-1.30)
--- NOTE | 2020-02-01 07:12 | NUR ---
NURSE HAND-OFF: Important Events on Shift: suction prn, 1 BM Patient Status: Diet: GLucerna 1.2 Pending Orders: Pending Results/Labs: Pending MD notification: Latest Vital Signs: Temperature 96.3 , Pulse 69 , B/P 123 /76 , Respiratory Rate 18 , O2 SAT 94 , Venturi Mask, O2 Flow Rate 10.0 . Vital Sign Comment: Latest Gibson Fall Score: 55 Fall Risk: High Risk Safety Measures: Call light Within Reach, Bed Alarm Zone 1, Side Rails Side Rails x2, Bed position Low and Locked. Fall Precautions: Yellow Socks Yellow Gown Patient Fall Education Report given to PRITI Godinez.
[2020-02-01 08:00] VITALS: BP 157/79
[2020-02-01] MEDS: Aspirin Baby 81mg GT SCH (08:37)
--- NOTE | 2020-02-01 08:51 | NUR ---
NURSE NOTES: Patient opens eyes when name called.02 Venturi mask,Respirations unlabored.G-tube feedings ongoing as ordered.No residual noted at this time.Saline lock right hand intact.Condom catheter in place with yellow urine noted.HOB is elevated.Bed alarm is on,call light within reach.
--- NOTE | 2020-02-01 09:24 | Nephrology Progress Note ---
Assessment/Plan Problem List: (1) Proteinuria (2) CHF (congestive heart failure) (3) Dehydration (4) Hypernatremia (5) OMI (acute kidney injury) (6) COPD exacerbation (7) Cardiorenal syndrome with renal failure (8) CKD (chronic kidney disease) stage 3, GFR 30-59 ml/min Plan continue water via gt, , SS insulin increased, lab BUN/creat slightly worse, diuresing for chf Subjective ROS Limited/Unobtainable: Yes Objective Objective Last 24 Hour Vital Signs Date Time Temp Pulse Resp B/P (MAP) Pulse Ox O2 Delivery O2 Flow Rate FiO2 02/01/20 08:37 71 157/79 02/01/20 04:00 96.3 69 18 123/76 (92) 94 02/01/20 00:00 98.6 71 20 146/77 (100) 95 01/31/20 22:14 78 145/73 01/31/20 21:30 95 Venturi Mask 10.0 40 01/31/20 21:00 Venturi Mask 10.0 01/31/20 20:00 97.9 78 20 145/73 (97) 92 01/31/20 16:00 98.0 62 18 121/61 (81) 93 01/31/20 12:18 93 Venturi Mask 10.0 40 01/31/20 12:00 98.0 74 18 146/78 (100) 96 01/31/20 09:55 71 163/91 l Intake and Output 01/31/20 02/01/20 19:00 07:00 Intake Total 1200 ml 1150 ml Output Total 1825 ml 700 ml Balance -625 ml 450 ml Free Water 600 ml 600 ml Tube Feeding 600 ml 550 ml Output Urine Total 1825 ml 700 ml # Voids 1 Laboratory Tests 01/31/20 10:37: Arterial Blood pH 7.400, Arterial Blood Partial Pressure CO2 50.5H, Arterial Blood Partial Pressure O2 94.5, Arterial Blood HCO3 30.6H, Arterial Blood Oxygen Saturation 97.0, Arterial Blood Base Excess 4.8H, Danny Test Positive 01/31/20 11:53: POC Whole Blood Glucose 214H 01/31/20 16:26: POC Whole Blood Glucose 170H 01/31/20 22:03: POC Whole Blood Glucose 247H 02/01/20 04:52: POC Whole Blood Glucose 278H 02/01/20 05:00: Sodium Level 139, Potassium Level 4.0, Chloride Level 103, Carbon Dioxide Level 32, Anion Gap 4L, Blood Urea Nitrogen 73H, Creatinine 1.8H, Estimat Glomerular Filtration Rate 43.3, Glucose Level 308H, Calcium Level 9.6, Magnesium Level 1.8, Pro-B-Type Natriuretic Peptide [Pending] Height (Feet): 5 Height (Inches): 10.00 Weight (Pounds): 182 General Appearance: no apparent distress, alert, confused EENT: normal ENT inspection Neck: normal alignment Cardiovascular: normal rate Respiratory/Chest: rhonchi - bilaterally Abdomen: non tender Extremities: no edema Neurologic: motor weakness Roland Campo MD Feb 01, 2020 09:24
--- NOTE | 2020-02-01 11:08 | Infectious Diseases Prog Note ---
Assessment/Plan Assessment/Plan antibiotics : none A 1. Community-acquired pneumonia s/p rx COVID-19 test is negative x2. 2. Diabetes. 3. Hypertension. 4. Renal failure. P 1. Continue off antibiotics 2. We will follow up cultures 1. Subjective ROS Limited/Unobtainable: Yes Allergies: Coded Allergies: No Known Allergies (Verified , 02/21/09) Objective Last 24 Hour Vital Signs Date Time Temp Pulse Resp B/P (MAP) Pulse Ox O2 Delivery O2 Flow Rate FiO2 02/01/20 08:37 71 157/79 02/01/20 04:00 96.3 69 18 123/76 (92) 94 02/01/20 00:00 98.6 71 20 146/77 (100) 95 01/31/20 22:14 78 145/73 01/31/20 21:30 95 Venturi Mask 10.0 40 01/31/20 21:00 Venturi Mask 10.0 01/31/20 20:00 97.9 78 20 145/73 (97) 92 01/31/20 16:00 98.0 62 18 121/61 (81) 93 01/31/20 12:18 93 Venturi Mask 10.0 40 01/31/20 12:00 98.0 74 18 146/78 (100) 96 Height (Feet): 5 Height (Inches): 10.00 Weight (Pounds): 182 Respiratory/Chest: lungs clear Cardiovascular: normal rate, regular rhythm, no gallop/murmur Abdomen: soft, non tender, other - GT Extremities: no edema Laboratory Tests Test 01/31/20 11:53 01/31/20 16:26 01/31/20 22:03 02/01/20 04:52 POC Whole Blood Glucose 214 MG/DL (74-106) H 170 MG/DL (74-106) H 247 MG/DL (74-106) H 278 MG/DL (74-106) H Test 02/01/20 05:00 Sodium Level 139 MMOL/L (136-145) Potassium Level 4.0 MMOL/L (3.5-5.1) Chloride Level 103 MMOL/L (98-107) Carbon Dioxide Level 32 MMOL/L (21-32) Anion Gap 4 mmol/L (5-15) L Blood Urea Nitrogen 73 mg/dL (7-18) H Creatinine 1.8 MG/DL (0.55-1.30) H Estimat Glomerular Filtration Rate 43.3 mL/min (>60) Glucose Level 308 MG/DL (74-106) H Calcium Level 9.6 MG/DL (8.5-10.1) Magnesium Level 1.8 MG/DL (1.8-2.4) Pro-B-Type Natriuretic Peptide Pending Current Medications Medications (Trade) Dose Ordered Sig/Bird Route PRN Reason Start Time Stop Time Status Last Admin Dose Admin Acetaminophen (Tylenol) 650 mg Q4H PRN ORAL Mild Pain (Scale 1-3) 01/23/20 18:30 02/22/20 18:29 Acetaminophen (Tylenol) 650 mg Q4H PRN ORAL Temp >100.5 01/23/20 18:45 02/22/20 18:44 Aspirin (ASA) 81 mg DAILY GT 01/24/20 09:00 03/09/20 08:59 02/01/20 08:37 Atorvastatin Calcium (Lipitor) 40 mg BEDTIME GT 01/23/20 21:00 04/22/20 20:59 01/31/20 22:14 Dextrose (Dextrose 50%) 25 ml Q30M PRN IV Hypoglycemia 01/26/20 11:15 04/25/20 11:14 Dextrose (Dextrose 50%) 50 ml Q30M PRN IV Hypoglycemia 01/26/20 11:15 04/25/20 11:14 Famotidine (Pepcid) 20 mg DAILY GT 01/24/20 09:00 04/23/20 08:59 02/01/20 08:37 Furosemide (Lasix) 40 mg DAILY IV 02/01/20 09:00 03/02/20 08:59 02/01/20 08:38 Insulin Aspart (NovoLOG) BEFORE MEALS AND HS SUBQ 01/26/20 11:30 04/25/20 11:29 02/01/20 04:58 Insulin Aspart (NovoLOG) 7 units NOVOTIAC SUBQ 02/01/20 11:50 05/01/20 11:49 Insulin Detemir (Levemir) 12 units BEDTIME SUBQ 01/27/20 21:00 04/26/20 02:29 01/31/20 22:09 Levothyroxine Sodium (Synthroid) 50 mcg DAILY@0630 GT 01/24/20 06:30 02/23/20 06:29 02/01/20 05:03 Methylprednisolone Sodium Succinate (Solu-MEDROL) 60 mg Q12H IVP 01/31/20 18:00 04/30/20 17:59 02/01/20 05:04 Metoprolol Tartrate (Lopressor) 25 mg Q12HR GT 01/27/20 09:00 04/26/20 08:59 02/01/20 08:37 Promethazine HCl/ Dextromethorphan (Phenergan DM) 6.25 mg Q6H PRN ORAL For Cough 01/23/20 18:30 02/22/20 18:29 Alicia Florence MD Feb 01, 2020 11:08
[2020-02-01 12:00] VITALS: BP 139/76
--- NOTE | 2020-02-01 12:53 | Surgery Progress Note ---
Surgery Progress Note Subjective Additional Comments no acute events comfortable no complaints Objective Last 24 Hour Vital Signs Date Time Temp Pulse Resp B/P (MAP) Pulse Ox O2 Delivery O2 Flow Rate FiO2 02/01/20 12:00 97.9 73 18 139/76 (97) 98 02/01/20 09:00 Venturi Mask 10.0 02/01/20 08:37 71 157/79 02/01/20 08:00 97.5 68 18 157/79 (105) 97 02/01/20 04:00 96.3 69 18 123/76 (92) 94 02/01/20 00:00 98.6 71 20 146/77 (100) 95 01/31/20 22:14 78 145/73 01/31/20 21:30 95 Venturi Mask 10.0 40 01/31/20 21:00 Venturi Mask 10.0 01/31/20 20:00 97.9 78 20 145/73 (97) 92 01/31/20 16:00 98.0 62 18 121/61 (81) 93 I&O Intake and Output 01/31/20 02/01/20 19:00 07:00 Intake Total 1200 ml 1150 ml Output Total 1825 ml 700 ml Balance -625 ml 450 ml Free Water 600 ml 600 ml Tube Feeding 600 ml 550 ml Output Urine Total 1825 ml 700 ml # Voids 1 Dressing: saturated Cardiovascular: RSR Respiratory: decreased breath sounds Abdomen: non-tender, present bowel sounds Extremities: no edema, no cyanosis Laboratory Tests Test 01/31/20 16:26 01/31/20 22:03 02/01/20 04:52 02/01/20 05:00 POC Whole Blood Glucose 170 MG/DL (74-106) H 247 MG/DL (74-106) H 278 MG/DL (74-106) H Sodium Level 139 MMOL/L (136-145) Potassium Level 4.0 MMOL/L (3.5-5.1) Chloride Level 103 MMOL/L (98-107) Carbon Dioxide Level 32 MMOL/L (21-32) Anion Gap 4 mmol/L (5-15) L Blood Urea Nitrogen 73 mg/dL (7-18) H Creatinine 1.8 MG/DL (0.55-1.30) H Estimat Glomerular Filtration Rate 43.3 mL/min (>60) Glucose Level 308 MG/DL (74-106) H Calcium Level 9.6 MG/DL (8.5-10.1) Magnesium Level 1.8 MG/DL (1.8-2.4) Pro-B-Type Natriuretic Peptide Pending Test 02/01/20 12:10 POC Whole Blood Glucose 303 MG/DL (74-106) H Plan Problems: (1) CHF (congestive heart failure) (2) Hypernatremia (3) Renal failure (4) Lung mass Assessment & Plan: noted new lung mass opacity on cxr compared to prior and seen once stable can plan for chest ct The cardiomediastinal silhouette is unchanged in appearance when accounting for differences in projection and technique. There is mild pulmonary vascular congestion. Streaky bibasilar airspace opacities are noted. There is a nodular opacity in the right midlung measuring approximately 2.6 cm. No pneumothorax or pleural effusion. No acute osseous abnormality. IMPRESSION: 1. Pulmonary vascular congestion with streaky bibasilar airspace opacities which could represent combination of edema and atelectasis but pneumonia should be excluded clinically. 2. Opacity in the right midlung, not seen on prior examination, suspicious for pulmonary nodule. Comparison with more recent prior chest radiograph or follow- up with CT chest on nonemergent basis is recommended. (5) Transaminitis Assessment & Plan: elevated lft's on admission etiology unknown US abd ordered trend labs fluids meds reviewed will follow with recs thank you DAILY ESTIMATED NEEDS: Needs based on DM, Renal, bedbound, 77kg abw 23-28 kcals/kg 6427-5733 total kcals 1.25-1.5 g protein/kg 96-116 g total protein 25-30 mL/kg 7644-2135 total fluid mLs NUTRITION DIAGNOSIS: Swallowing difficulty r/t dysphagia as evidenced by pt is GT dependent. (CURRENT TF: Glucerna 1.2 @50) ENTERAL NUTRITION RECOMMENDATIONS: GLUCERNA 1.2 goal of 70ml/hr x22 hrs + Prosource 1 pack qdaily to provide 1540ml, 1848 kcal, 92g + 11g pro, 1240ml free H2O - Rec to increase TF rate to better meet est kcal and pro needs. - Increase as able by 15ml/hr q4-6 hrs to goal - HOLD TF 1 hr before and after synthroid meds. - Flush per . HOB over 30 degrees. With elevated lytes and worsening renal labs rec NEPRO w/ goal of 45ml/hr x22 hrs to provide: 990ml, 1782 kcal, 80g pro, 720ml free H2o. -Add Prosource 1 pack BID for added 22g pro to better meet est pro needs. ADDITIONAL RECOMMENDATIONS: 1) Monitor lytes, renal labs-> need for renal formula 2) Recalibrate bed scale wts 3) Hypoglycemic agents for improved BG control Rec niss w/ accuchecks 4) Hold TF 1 hr before and after synthroid meds. 5) rec HgA1C Liver: The liver is normal in size and demonstrates coarsened echotexture. No focal abnormalities are noted. Gallbladder: No cholelithiasis. Gallbladder wall is not thickened. No pericholecystic fluid. Sonographic Reed sign cannot be assessed due to patient unresponsiveness. Common bile duct: Normal in size. Pancreas: Incompletely imaged due to overlying bowel gas. Kidneys: The kidneys demonstrate increased cortical echogenicity. No hydronephrosis or nephrolithiasis. There is a right renal cyst. Spleen: The spleen is normal in size and echogenicity. Incidental note is made of indwelling gastrostomy tube. IMPRESSION: 1. Coarsened hepatic echotexture, which is nonspecific but can be associated with liver dysfunction. 2. Increased echogenicity in the kidneys, which can be seen with medical renal disease. (6) Elevated troponin (7) Chest pain (8) COPD exacerbation Osman Cheung Feb 01, 2020 12:53
--- NOTE | 2020-02-01 14:07 | General Progress Note ---
Subjective ROS Limited/Unobtainable: No Constitutional: Reports: malaise, weakness HEENT: Reports: no symptoms Cardiovascular: Reports: no symptoms Respiratory: Reports: cough, shortness of breath Gastrointestinal/Abdominal: Reports: difficulty swallowing Genitourinary: Reports: no symptoms Neurologic/Psychiatric: Reports: pre-existing deficit Endocrine: Reports: no symptoms Hematologic/Lymphatic: Reports: anemia Allergies: Coded Allergies: No Known Allergies (Verified , 02/21/09) All Systems: reviewed and negative except above Subjective no events. w/o complaints. awake but confused. on venti mask. Objective Last 24 Hour Vital Signs Date Time Temp Pulse Resp B/P (MAP) Pulse Ox O2 Delivery O2 Flow Rate FiO2 02/01/20 12:00 97.9 73 18 139/76 (97) 98 02/01/20 09:00 Venturi Mask 10.0 02/01/20 08:37 71 157/79 02/01/20 08:00 97.5 68 18 157/79 (105) 97 02/01/20 04:00 96.3 69 18 123/76 (92) 94 02/01/20 00:00 98.6 71 20 146/77 (100) 95 01/31/20 22:14 78 145/73 01/31/20 21:30 95 Venturi Mask 10.0 40 01/31/20 21:00 Venturi Mask 10.0 01/31/20 20:00 97.9 78 20 145/73 (97) 92 01/31/20 16:00 98.0 62 18 121/61 (81) 93 Intake and Output 01/31/20 02/01/20 19:00 07:00 Intake Total 1200 ml 1150 ml Output Total 1825 ml 700 ml Balance -625 ml 450 ml Free Water 600 ml 600 ml Tube Feeding 600 ml 550 ml Output Urine Total 1825 ml 700 ml # Voids 1 Laboratory Tests 01/31/20 16:26: POC Whole Blood Glucose 170H 01/31/20 22:03: POC Whole Blood Glucose 247H 02/01/20 04:52: POC Whole Blood Glucose 278H 02/01/20 05:00: Sodium Level 139, Potassium Level 4.0, Chloride Level 103, Carbon Dioxide Level 32, Anion Gap 4L, Blood Urea Nitrogen 73H, Creatinine 1.8H, Estimat Glomerular Filtration Rate 43.3, Glucose Level 308H, Calcium Level 9.6, Magnesium Level 1.8, Pro-B-Type Natriuretic Peptide [Pending] 02/01/20 12:10: POC Whole Blood Glucose 303H Height (Feet): 5 Height (Inches): 10.00 Weight (Pounds): 182 Objective General Appearance: WD/WN, alert. on venti mask Neck: non-tender, normal alignment Cardiovascular: normal peripheral pulses, normal rate, regular rhythm Respiratory/Chest: chest wall non-tender, lungs clear, normal breath sounds Abdomen: normal bowel sounds, non tender, soft, no organomegaly Edema: no edema noted Arm (L), no edema noted Arm (R) Neurologic: responsive, disoriented Assessment/Plan Problem List: (1) OMI (acute kidney injury) ICD Codes: N17.9 - Acute kidney failure, unspecified SNOMED: 7806552, 65260083 (2) Hypernatremia ICD Codes: E87.0 - Hyperosmolality and hypernatremia SNOMED: 210424554 (3) COPD exacerbation ICD Codes: J44.1 - Chronic obstructive pulmonary disease with (acute) exacerbation SNOMED: 828494135, 924654658, 009613376 (4) Elevated troponin ICD Codes: R77.8 - Other specified abnormalities of plasma proteins SNOMED: 906961366, 576143538, 266943252 (5) Lung mass ICD Codes: R91.8 - Other nonspecific abnormal finding of lung field SNOMED: 103110540, 078200182 Status: stable, progressing Assessment/Plan: cont current rx off ivf monitor bun/cr on diuretics monitor volume status iv abx monitor cxr ct chest when stable dvt/stress ulcer prophylaxis monitor bs on sliding scale skin care turn q2 dc heparin venous duplex scd Aleksey Diaz MD Feb 01, 2020 14:07
[2020-02-01 16:00] VITALS: BP 129/69
--- NOTE | 2020-02-01 16:59 | NUR ---
CASE MANAGEMENT:REVIEW SI;PNA. AMI. COPD. AC/CHR CHF. 98.6 73 20 157/79 94% 10L VENTURI MASK IS; SOLU MEDROL IV Q8 ASA GT QD PEPCID GT QD MED SURG STATUS DCP; FROM [facility]
--- NOTE | 2020-02-01 18:40 | NUR ---
NURSE NOTES: Skin care give,turned and position.Continue to tolerate G-tube feeding.HOB is elevated.Bed alarm on.
--- NOTE | 2020-02-01 19:30 | NUR ---
NURSE HAND-OFF: Channing MARCOS Important Events on Shift:[] Patient Status: [dependent turned and position] Diet: [glucerna 1.2 at 50cc/hr Pending Orders: [] Pending Results/Labs:[] Pending MD notification:[] Latest Vital Signs: Temperature 98.6 , Pulse 79 , B/P 129 /69 , Respiratory Rate 19 , O2 SAT 97 , Venturi Mask, O2 Flow Rate 10.0 . Vital Sign Comment: [] Latest Gibson Fall Score: 55 Fall Risk: High Risk Safety Measures: Call light Within Reach, Bed Alarm Zone 1, Side Rails Side Rails x2, Bed position Low and Locked. Fall Precautions: y Yellow Socks y Yellow Gown Patient Fall Education Report given to [].
--- NOTE | 2020-02-01 19:31 | NUR ---
NURSE NOTES: Received patient in bed. A&OX1. Venturi mask on with 10L, FIo2 50%. IV site patent and intact. G-tube in place, running Glucerna 1.2 50cc/hr, 0cc residual noted, flushed, elevated HOB. Bed in lowest position. Call light within reach. Will continue to monitor.
[2020-02-01 20:00] VITALS: BP 141/80
[2020-02-01] MEDS: Atorvastatin 80mg tab GT SCH (21:24)
[2020-02-01] MEDS: Levemir Flexpen SUBQ SCH (21:26)
[2020-02-02] VITALS: BP 154/87
[2020-02-02 04:00] VITALS: BP 157/87
--- NOTE | 2020-02-02 04:19 | Cardiology Progress Note ---
Subjective DATE OF SERVICE: Feb 01, 2020 More congested today. CXR on 01/29 revealed worsening infiltrates/edema Sodium and lactic acid levels corrected Glucose levels elevated. Objective Last 24 Hour Vital Signs Date Time Temp Pulse Resp B/P (MAP) Pulse Ox O2 Delivery O2 Flow Rate FiO2 02/02/20 00:00 96.6 54 16 154/87 (109) 96 02/01/20 21:24 62 141/80 02/01/20 21:00 Venturi Mask 10.0 02/01/20 20:23 97 Venturi Mask 10.0 40 02/01/20 20:00 97.6 62 19 141/80 (100) 98 02/01/20 16:00 98.6 79 19 129/69 (89) 97 02/01/20 12:00 97.9 73 18 139/76 (97) 98 02/01/20 09:00 Venturi Mask 10.0 02/01/20 08:37 71 157/79 02/01/20 08:00 97.5 68 18 157/79 (105) 97 ROS: unchanged from 01/23/20 RHYTHM: NSR, PVCs, PACs, VT LUNGS: coarse breath sounds, bilat. rhonchi and rales CARDIAC: normal rate, regular rhythm, normal S1 and S2, gallop/S4 ABDOMEN: non tender, soft, no organomegaly, G-Tube intact EXTREMITIES: No edema Laboratory Tests Test 02/01/20 04:52 02/01/20 05:00 02/01/20 12:10 02/01/20 17:27 POC Whole Blood Glucose 278 MG/DL (74-106) H 303 MG/DL (74-106) H Pending Sodium Level 139 MMOL/L (136-145) Potassium Level 4.0 MMOL/L (3.5-5.1) Chloride Level 103 MMOL/L (98-107) Carbon Dioxide Level 32 MMOL/L (21-32) Anion Gap 4 mmol/L (5-15) L Blood Urea Nitrogen 73 mg/dL (7-18) H Creatinine 1.8 MG/DL (0.55-1.30) H Estimat Glomerular Filtration Rate 43.3 mL/min (>60) Glucose Level 308 MG/DL (74-106) H Calcium Level 9.6 MG/DL (8.5-10.1) Magnesium Level 1.8 MG/DL (1.8-2.4) Pro-B-Type Natriuretic Peptide 8032.0 pg/mL (0-125) H Test 02/01/20 21:20 POC Whole Blood Glucose 217 MG/DL (74-106) H Assessment/Plan Assessment/Plan Healthcare acquired PNA Lactic acidosis Acute myocardial ischemia/possible NSTE myocardial infarction COPD Ac/chr systolic/diast CHF Ischemic cardiomyopathy Severe dehydration Hypernatremia Hyperchloremia PAD with prior revascularization Dysphagia with GTube CVA with dementia Paroxysmal atrial arrhythmias IRDM uncontrolled Non-sustained ventricular tachycardia Hypertension/HHD with elevated BP Critical & Guarded Abx Resp therapy Diuresis; trend BNP Titrate antiHTN and anti-anginal regimen Cont'd anti-plt therapy Oxygen and bronchodilator rx DVT prophylaxis Monitor and replace lytes Titrate beta steve rx Levemir titration Osmani Cevallos MD Feb 02, 2020 04:19
[2020-02-02] MEDS: Solu-MEDROL 125mg Inj IVP SCH ×2 (06:38→17:48)
[2020-02-02] MEDS: NovoLOG Insulin Flexpen SUBQ SCH ×7 (06:45→21:00)
[2020-02-02 07:44] LABS: CALCIUM 9.7 MG/DL (8.5-10.1); CREATININE 1.7 MG/DL (0.55-1.30); POTASSIUM 4.4 MMOL/L (3.5-5.1)
[2020-02-02 08:00] VITALS: BP 160/92
--- NOTE | 2020-02-02 08:06 | NUR ---
NURSE HAND-OFF: Important Events on Shift: Patient Status: Diet: Pending Orders: Pending Results/Labs: Pending MD notification: Latest Vital Signs: Temperature 96.6 , Pulse 54 , B/P 157 /87 , Respiratory Rate 18 , O2 SAT 95 , Venturi Mask, O2 Flow Rate 10.0 . Vital Sign Comment: Latest Gibson Fall Score: 55 Fall Risk: High Risk Safety Measures: Call light Within Reach, Bed Alarm Zone 1, Side Rails Side Rails x2, Bed position Low and Locked. Fall Precautions: Yellow Socks Yellow Gown Patient Fall Education Report given to Moiz MARCOS.
--- NOTE | 2020-02-02 08:08 | NUR ---
NURSE NOTES: pt is asleep in bed. respiration is even and unlabored with venturi mask on 10l/min. hob elevated. no facial grimacing for pain noted. skin is warm and dry to touch. call light within reach.
--- NOTE | 2020-02-02 09:02 | General Progress Note ---
Subjective ROS Limited/Unobtainable: No Constitutional: Reports: malaise, weakness HEENT: Reports: no symptoms Cardiovascular: Reports: no symptoms Respiratory: Reports: shortness of breath Gastrointestinal/Abdominal: Reports: no symptoms Genitourinary: Reports: no symptoms Neurologic/Psychiatric: Reports: no symptoms Endocrine: Reports: no symptoms Hematologic/Lymphatic: Reports: no symptoms Allergies: Coded Allergies: No Known Allergies (Verified , 02/21/09) All Systems: reviewed and negative except above Subjective no events. w/o complaints. awake but confused. more lethargic than baseline. on venti mask. no real change. labs reviewed Objective Last 24 Hour Vital Signs Date Time Temp Pulse Resp B/P (MAP) Pulse Ox O2 Delivery O2 Flow Rate FiO2 02/02/20 04:00 96.6 54 18 157/87 (110) 95 02/02/20 00:00 96.6 54 16 154/87 (109) 96 02/01/20 21:24 62 141/80 02/01/20 21:00 Venturi Mask 10.0 02/01/20 20:23 97 Venturi Mask 10.0 40 02/01/20 20:00 97.6 62 19 141/80 (100) 98 02/01/20 16:00 98.6 79 19 129/69 (89) 97 02/01/20 12:00 97.9 73 18 139/76 (97) 98 Intake and Output 02/01/20 02/02/20 19:00 07:00 Intake Total 950 ml 1150 ml Output Total 400 ml Balance 550 ml 1150 ml Free Water 400 ml 600 ml Tube Feeding 550 ml 550 ml Output Urine Total 400 ml # Voids 2 Laboratory Tests 02/01/20 12:10: POC Whole Blood Glucose 303H 02/01/20 17:27: POC Whole Blood Glucose [Pending] 02/01/20 21:20: POC Whole Blood Glucose 217H 02/02/20 06:20: Sodium Level 141, Potassium Level 4.4, Chloride Level 103, Carbon Dioxide Level 37H, Anion Gap 1L, Blood Urea Nitrogen 72H, Creatinine 1.7H, Estimat Glomerular Filtration Rate 46.2, Glucose Level 308H, Calcium Level 9.7 02/02/20 06:42: POC Whole Blood Glucose 264H Height (Feet): 5 Height (Inches): 10.00 Weight (Pounds): 182 Objective General Appearance: WD/WN, alert. on venti mask Neck: non-tender, normal alignment Cardiovascular: normal peripheral pulses, normal rate, regular rhythm Respiratory/Chest: chest wall non-tender, lungs clear, normal breath sounds Abdomen: normal bowel sounds, non tender, soft, no organomegaly Edema: no edema noted Arm (L), no edema noted Arm (R) Neurologic: responsive, disoriented Assessment/Plan Problem List: (1) OMI (acute kidney injury) ICD Codes: N17.9 - Acute kidney failure, unspecified SNOMED: 6215731, 15919424 (2) Hypernatremia ICD Codes: E87.0 - Hyperosmolality and hypernatremia SNOMED: 264295248 (3) COPD exacerbation ICD Codes: J44.1 - Chronic obstructive pulmonary disease with (acute) exacerbation SNOMED: 306236333, 937856592, 574607148 (4) Elevated troponin ICD Codes: R77.8 - Other specified abnormalities of plasma proteins SNOMED: 998739746, 303655230, 039312216 (5) Lung mass ICD Codes: R91.8 - Other nonspecific abnormal finding of lung field SNOMED: 884174041, 128106150 Status: stable, progressing Assessment/Plan: cont current rx off ivf monitor bun/cr on diuretics monitor volume status iv abx monitor cxr ct chest when stable dvt/stress ulcer prophylaxis monitor bs on sliding scale skin care turn q2 dc heparin venous duplex scd Aleksey Diaz MD Feb 02, 2020 09:02
[2020-02-02] MEDS: Promethazine/DM 6.25mg/5ml ORAL PRN ×2 (10:49→17:48)
[2020-02-02] MEDS: Aspirin Baby 81mg GT SCH (10:50)
[2020-02-02 12:00] VITALS: BP 151/93
--- NOTE | 2020-02-02 13:14 | Nephrology Progress Note ---
Assessment/Plan Problem List: (1) Proteinuria (2) CHF (congestive heart failure) (3) Dehydration (4) Hypernatremia (5) OMI (acute kidney injury) (6) COPD exacerbation (7) Cardiorenal syndrome with renal failure (8) CKD (chronic kidney disease) stage 3, GFR 30-59 ml/min Plan continue water via gt, , SS insulin increased, lab BUN/creat slightly worse, diuresing for chf Subjective ROS Limited/Unobtainable: Yes Objective Objective Last 24 Hour Vital Signs Date Time Temp Pulse Resp B/P (MAP) Pulse Ox O2 Delivery O2 Flow Rate FiO2 02/02/20 12:00 98.7 67 19 151/93 (112) 98 02/02/20 10:50 62 160/92 02/02/20 09:00 Venturi Mask 10.0 02/02/20 08:00 97.9 62 19 160/92 (114) 96 02/02/20 04:00 96.6 54 18 157/87 (110) 95 02/02/20 00:00 96.6 54 16 154/87 (109) 96 02/01/20 21:24 62 141/80 02/01/20 21:00 Venturi Mask 10.0 02/01/20 20:23 97 Venturi Mask 10.0 40 02/01/20 20:00 97.6 62 19 141/80 (100) 98 02/01/20 16:00 98.6 79 19 129/69 (89) 97 Intake and Output 02/01/20 02/02/20 19:00 07:00 Intake Total 950 ml 1150 ml Output Total 400 ml Balance 550 ml 1150 ml Free Water 400 ml 600 ml Tube Feeding 550 ml 550 ml Output Urine Total 400 ml # Voids 2 Laboratory Tests 02/01/20 17:27: POC Whole Blood Glucose [Pending] 02/01/20 21:20: POC Whole Blood Glucose 217H 02/02/20 06:20: Sodium Level 141, Potassium Level 4.4, Chloride Level 103, Carbon Dioxide Level 37H, Anion Gap 1L, Blood Urea Nitrogen 72H, Creatinine 1.7H, Estimat Glomerular Filtration Rate 46.2, Glucose Level 308H, Calcium Level 9.7 02/02/20 06:42: POC Whole Blood Glucose 264H 02/02/20 12:26: POC Whole Blood Glucose [Pending] Height (Feet): 5 Height (Inches): 10.00 Weight (Pounds): 182 General Appearance: no apparent distress, lethargic, confused EENT: normal ENT inspection Neck: normal inspection Cardiovascular: regular rhythm Respiratory/Chest: lungs clear, decreased breath sounds Abdomen: non tender Extremities: no edema Neurologic: motor weakness Roland Campo MD Feb 02, 2020 13:14
[2020-02-02 16:00] VITALS: BP 141/89
--- NOTE | 2020-02-02 18:06 | NUR ---
NURSE HAND-OFF: Important Events on Shift:N/A Patient Status: STABLE Diet: GLUCERNA 1.2 Pending Orders: N/A Pending Results/Labs:N/A Pending MD notification:N/A Latest Vital Signs: Temperature 98.6 , Pulse 70 , B/P 141 /89 , Respiratory Rate 18 , O2 SAT 97 , Venturi Mask, O2 Flow Rate 10.0 . Vital Sign Comment: STABLE Latest Gibson Fall Score: 55 Fall Risk: High Risk Safety Measures: Call light Within Reach, Bed Alarm Zone 1, Side Rails Side Rails x2, Bed position Low and Locked. Fall Precautions: Yellow Socks Yellow Gown Patient Fall Education Report given to . Addendum: 02/02/20 at 1928 by Moiz Melton RN HAND-OFF: Report given to GUCCIKisha
--- NOTE | 2020-02-02 18:32 | Surgery Progress Note ---
Surgery Progress Note Subjective Symptoms: tolerating diet, passing flatus, BM, other Objective Last 24 Hour Vital Signs Date Time Temp Pulse Resp B/P (MAP) Pulse Ox O2 Delivery O2 Flow Rate FiO2 02/02/20 16:00 98.6 70 18 141/89 (106) 97 02/02/20 12:00 98.7 67 19 151/93 (112) 98 02/02/20 10:50 62 160/92 02/02/20 09:00 Venturi Mask 10.0 02/02/20 08:00 97.9 62 19 160/92 (114) 96 02/02/20 07:06 98 Venturi Mask 10.0 40 02/02/20 04:00 96.6 54 18 157/87 (110) 95 02/02/20 00:00 96.6 54 16 154/87 (109) 96 02/01/20 21:24 62 141/80 02/01/20 21:00 Venturi Mask 10.0 02/01/20 20:23 97 Venturi Mask 10.0 40 02/01/20 20:00 97.6 62 19 141/80 (100) 98 I&O Intake and Output 02/01/20 02/02/20 19:00 07:00 Intake Total 950 ml 1150 ml Output Total 400 ml Balance 550 ml 1150 ml Free Water 400 ml 600 ml Tube Feeding 550 ml 550 ml Output Urine Total 400 ml # Voids 2 Dressing: saturated Cardiovascular: RSR Respiratory: decreased breath sounds Abdomen: non-tender, non-distended Extremities: no tenderness, no cyanosis Laboratory Tests Test 02/01/20 21:20 02/02/20 06:20 02/02/20 06:42 02/02/20 12:26 POC Whole Blood Glucose 217 MG/DL (74-106) H 264 MG/DL (74-106) H Pending Sodium Level 141 MMOL/L (136-145) Potassium Level 4.4 MMOL/L (3.5-5.1) Chloride Level 103 MMOL/L (98-107) Carbon Dioxide Level 37 MMOL/L (21-32) H Anion Gap 1 mmol/L (5-15) L Blood Urea Nitrogen 72 mg/dL (7-18) H Creatinine 1.7 MG/DL (0.55-1.30) H Estimat Glomerular Filtration Rate 46.2 mL/min (>60) Glucose Level 308 MG/DL (74-106) H Calcium Level 9.7 MG/DL (8.5-10.1) Test 02/02/20 16:06 POC Whole Blood Glucose 201 MG/DL (74-106) H Plan Problems: (1) CHF (congestive heart failure) (2) Hypernatremia (3) Renal failure (4) Lung mass Assessment & Plan: noted new lung mass opacity on cxr compared to prior and seen once stable can plan for chest ct The cardiomediastinal silhouette is unchanged in appearance when accounting for differences in projection and technique. There is mild pulmonary vascular congestion. Streaky bibasilar airspace opacities are noted. There is a nodular opacity in the right midlung measuring approximately 2.6 cm. No pneumothorax or pleural effusion. No acute osseous abnormality. IMPRESSION: 1. Pulmonary vascular congestion with streaky bibasilar airspace opacities which could represent combination of edema and atelectasis but pneumonia should be excluded clinically. 2. Opacity in the right midlung, not seen on prior examination, suspicious for pulmonary nodule. Comparison with more recent prior chest radiograph or follow- up with CT chest on nonemergent basis is recommended. (5) Transaminitis Assessment & Plan: elevated lft's on admission etiology unknown US abd ordered trend labs fluids meds reviewed will follow with recs thank you DAILY ESTIMATED NEEDS: Needs based on DM, Renal, bedbound, 77kg abw 23-28 kcals/kg 0428-5774 total kcals 1.25-1.5 g protein/kg 96-116 g total protein 25-30 mL/kg 0889-5781 total fluid mLs NUTRITION DIAGNOSIS: Swallowing difficulty r/t dysphagia as evidenced by pt is GT dependent. (CURRENT TF: Glucerna 1.2 @50) ENTERAL NUTRITION RECOMMENDATIONS: GLUCERNA 1.2 goal of 70ml/hr x22 hrs + Prosource 1 pack qdaily to provide 1540ml, 1848 kcal, 92g + 11g pro, 1240ml free H2O - Rec to increase TF rate to better meet est kcal and pro needs. - Increase as able by 15ml/hr q4-6 hrs to goal - HOLD TF 1 hr before and after synthroid meds. - Flush per MD. HOB over 30 degrees. With elevated lytes and worsening renal labs rec NEPRO w/ goal of 45ml/hr x22 hrs to provide: 990ml, 1782 kcal, 80g pro, 720ml free H2o. -Add Prosource 1 pack BID for added 22g pro to better meet est pro needs. ADDITIONAL RECOMMENDATIONS: 1) Monitor lytes, renal labs-> need for renal formula 2) Recalibrate bed scale wts 3) Hypoglycemic agents for improved BG control Rec niss w/ accuchecks 4) Hold TF 1 hr before and after synthroid meds. 5) rec HgA1C Liver: The liver is normal in size and demonstrates coarsened echotexture. No focal abnormalities are noted. Gallbladder: No cholelithiasis. Gallbladder wall is not thickened. No pericholecystic fluid. Sonographic Reed sign cannot be assessed due to patient unresponsiveness. Common bile duct: Normal in size. Pancreas: Incompletely imaged due to overlying bowel gas. Kidneys: The kidneys demonstrate increased cortical echogenicity. No hydronephrosis or nephrolithiasis. There is a right renal cyst. Spleen: The spleen is normal in size and echogenicity. Incidental note is made of indwelling gastrostomy tube. IMPRESSION: 1. Coarsened hepatic echotexture, which is nonspecific but can be associated with liver dysfunction. 2. Increased echogenicity in the kidneys, which can be seen with medical renal disease. (6) Elevated troponin (7) Chest pain (8) COPD exacerbation Osman Cheung Feb 02, 2020 18:32
[2020-02-02 20:00] VITALS: BP 136/72
[2020-02-02] MEDS: Atorvastatin 80mg tab GT SCH (21:57)
[2020-02-02] MEDS: Levemir Flexpen SUBQ SCH (22:07)
--- NOTE | 2020-02-02 23:29 | NUR ---
NURSES NOTE: Pt in bed, A/OX1, unable to communicate properly. No outward s/s of distress noted. Breathing is even on Venturi mask 10L. Gtube in place, placement checked. No residual to be flushed Q4H with 200cc H2O. R H [address], hep locked. All due medications will be administered via gtube. Bed at lowest level. Pt will continue to be monitored.
[2020-02-03] VITALS: BP 153/84
--- NOTE | 2020-02-03 01:25 | Cardiology Progress Note ---
Subjective DATE OF SERVICE: Feb 03, 2020 Still congested today. CXR 01/29 revealed worsening infiltrates/edema Sodium and lactic acid levels corrected Glucose levels elevated. I/O' not accurate - patient incontinent. Objective Last 24 Hour Vital Signs Date Time Temp Pulse Resp B/P (MAP) Pulse Ox O2 Delivery O2 Flow Rate FiO2 02/02/20 22:04 60 155/80 02/02/20 16:00 98.6 70 18 141/89 (106) 97 02/02/20 12:00 98.7 67 19 151/93 (112) 98 02/02/20 10:50 62 160/92 02/02/20 09:00 Venturi Mask 10.0 02/02/20 08:00 97.9 62 19 160/92 (114) 96 02/02/20 07:06 98 Venturi Mask 10.0 40 02/02/20 04:00 96.6 54 18 157/87 (110) 95 ROS: unchanged from 01/23/20 RHYTHM: NSR, PVCs, PACs, VT LUNGS: coarse breath sounds, bilat. rhonchi and rales CARDIAC: normal rate, regular rhythm, normal S1 and S2, gallop/S4 ABDOMEN: non tender, soft, no organomegaly, G-Tube intact EXTREMITIES: No edema Laboratory Tests Test 02/02/20 06:20 02/02/20 06:42 02/02/20 12:26 02/02/20 16:06 Sodium Level 141 MMOL/L (136-145) Potassium Level 4.4 MMOL/L (3.5-5.1) Chloride Level 103 MMOL/L (98-107) Carbon Dioxide Level 37 MMOL/L (21-32) H Anion Gap 1 mmol/L (5-15) L Blood Urea Nitrogen 72 mg/dL (7-18) H Creatinine 1.7 MG/DL (0.55-1.30) H Estimat Glomerular Filtration Rate 46.2 mL/min (>60) Glucose Level 308 MG/DL (74-106) H Calcium Level 9.7 MG/DL (8.5-10.1) POC Whole Blood Glucose 264 MG/DL (74-106) H Pending 201 MG/DL (74-106) H Test 02/02/20 22:00 POC Whole Blood Glucose 133 MG/DL (74-106) H Assessment/Plan Assessment/Plan Healthcare acquired PNA Lactic acidosis Acute myocardial ischemia/possible NSTE myocardial infarction COPD Ac/chr systolic/diast CHF Ischemic cardiomyopathy Severe dehydration Hypernatremia Hyperchloremia PAD with prior revascularization Dysphagia with GTube CVA with dementia Paroxysmal atrial arrhythmias IRDM uncontrolled Non-sustained ventricular tachycardia Hypertension/HHD with elevated BP Critical & Guarded Abx Resp therapy Diuresis; trend BNP Titrate antiHTN and anti-anginal regimen further Cont'd anti-plt therapy Oxygen and bronchodilator rx DVT prophylaxis Monitor and replace lytes Titrate beta steve rx Levemir titration Osmani Cevallos MD Feb 03, 2020 01:25
[2020-02-03 04:00] VITALS: BP 155/77
[2020-02-03] MEDS: Solu-MEDROL 125mg Inj IVP SCH ×2 (05:53→17:49)
[2020-02-03] MEDS: NovoLOG Insulin Flexpen SUBQ SCH ×8 (05:57→21:44)
[2020-02-03 07:56] LABS: HEMATOCRIT 38.1 % (42.0-52.0); HEMOGLOBIN 12.4 G/DL (14.2-18.0); MEAN CORPUSCULAR VOLUME 91 FL (80-99); PLATELET COUNT 83 K/UL (150-450); RED BLOOD COUNT 4.19 M/UL (4.70-6.10); RED CELL DISTRIBUTION WIDTH 16.8 % (11.6-14.8); WHITE BLOOD COUNT 7.4 K/UL (4.8-10.8)
[2020-02-03 08:00] VITALS: BP 169/84
[2020-02-03 08:30] LABS: CALCIUM 9.2 MG/DL (8.5-10.1); CREATININE 1.7 MG/DL (0.55-1.30)
--- NOTE | 2020-02-03 08:41 | NUR ---
NURSE HAND-OFF: Important Events on Shift:[N/A] Patient Status: [STABLE] Diet: [Glucerna 1.2 50cc/hr Gtube feeding] Pending Orders: [None] Pending Results/Labs:[None] Pending MD notification:[None] Latest Vital Signs: Temperature 97.5 , Pulse 20 , B/P 155 /77 , Respiratory Rate 20 , O2 SAT 92 , Venturi Mask, O2 Flow Rate 10.0 . Vital Sign Comment: [WNL] Latest Gibson Fall Score: 55 Fall Risk: High Risk Safety Measures: Call light Within Reach, Bed Alarm Zone 1, Side Rails Side Rails x2, Bed position Low and Locked. Fall Precautions: Yellow Socks Yellow Gown Patient Fall Education Report given to [PRITI Holder].
[2020-02-03] MEDS: Aspirin Baby 81mg GT SCH (09:35)
[2020-02-03 12:00] VITALS: BP 158/80
--- NOTE | 2020-02-03 12:18 | Surgery Progress Note ---
Surgery Progress Note Subjective Additional Comments no acute events Objective Last 24 Hour Vital Signs Date Time Temp Pulse Resp B/P (MAP) Pulse Ox O2 Delivery O2 Flow Rate FiO2 02/03/20 09:35 63 169/84 02/03/20 09:35 63 169/84 02/03/20 08:00 97.4 63 20 169/84 (112) 93 02/03/20 04:00 97.5 20 20 155/77 (103) 92 02/03/20 00:00 97.5 61 18 153/84 (107) 93 02/02/20 22:04 60 155/80 02/02/20 21:00 Venturi Mask 10.0 02/02/20 20:00 97.2 57 17 136/72 (93) 96 02/02/20 16:00 98.6 70 18 141/89 (106) 97 I&O Intake and Output 02/02/20 02/03/20 19:00 07:00 Intake Total 50 ml 1100 ml Output Total 400 ml Balance 50 ml 700 ml Intake Oral 0 ml Free Water 600 ml Tube Feeding 50 ml 500 ml Output Urine Total 400 ml # Voids 3 14 # Bowel Movements 1 Dressing: saturated Cardiovascular: RSR Respiratory: decreased breath sounds Abdomen: non-tender, present bowel sounds Extremities: no tenderness, no cyanosis Laboratory Tests Test 02/02/20 12:26 02/02/20 16:06 02/02/20 22:00 02/03/20 05:15 POC Whole Blood Glucose Pending 201 MG/DL (74-106) H 133 MG/DL (74-106) H 225 MG/DL (74-106) H Test 02/03/20 07:00 02/03/20 11:52 White Blood Count 7.4 K/UL (4.8-10.8) Red Blood Count 4.19 M/UL (4.70-6.10) L Hemoglobin 12.4 G/DL (14.2-18.0) L Hematocrit 38.1 % (42.0-52.0) L Mean Corpuscular Volume 91 FL (80-99) Mean Corpuscular Hemoglobin 29.6 PG (27.0-31.0) Mean Corpuscular Hemoglobin Concent 32.6 G/DL (32.0-36.0) Red Cell Distribution Width 16.8 % (11.6-14.8) H Platelet Count 83 K/UL (150-450) L Mean Platelet Volume 10.5 FL (6.5-10.1) H Neutrophils (%) (Auto) % (45.0-75.0) Lymphocytes (%) (Auto) % (20.0-45.0) Monocytes (%) (Auto) % (1.0-10.0) Eosinophils (%) (Auto) % (0.0-3.0) Basophils (%) (Auto) % (0.0-2.0) Differential Total Cells Counted 100 Neutrophils % (Manual) 90 % (45-75) H Lymphocytes % (Manual) 8 % (20-45) L Monocytes % (Manual) 2 % (1-10) Eosinophils % (Manual) 0 % (0-3) Basophils % (Manual) 0 % (0-2) Band Neutrophils 0 % (0-8) Platelet Estimate Adequate Platelet Morphology Normal Anisocytosis 1+ Sodium Level 144 MMOL/L (136-145) Potassium Level 5.0 MMOL/L (3.5-5.1) Chloride Level 105 MMOL/L (98-107) Carbon Dioxide Level 30 MMOL/L (21-32) Anion Gap 9 mmol/L (5-15) Blood Urea Nitrogen 73 mg/dL (7-18) H Creatinine 1.7 MG/DL (0.55-1.30) H Estimat Glomerular Filtration Rate 46.2 mL/min (>60) Glucose Level 182 MG/DL (74-106) #H Calcium Level 9.2 MG/DL (8.5-10.1) Magnesium Level Pending Pro-B-Type Natriuretic Peptide Pending POC Whole Blood Glucose 233 MG/DL (74-106) H Plan Problems: (1) CHF (congestive heart failure) (2) Hypernatremia (3) Renal failure (4) Lung mass Assessment & Plan: noted new lung mass opacity on cxr compared to prior and seen once stable can plan for chest ct The cardiomediastinal silhouette is unchanged in appearance when accounting for differences in projection and technique. There is mild pulmonary vascular congestion. Streaky bibasilar airspace opacities are noted. There is a nodular opacity in the right midlung measuring approximately 2.6 cm. No pneumothorax or pleural effusion. No acute osseous abnormality. IMPRESSION: 1. Pulmonary vascular congestion with streaky bibasilar airspace opacities which could represent combination of edema and atelectasis but pneumonia should be excluded clinically. 2. Opacity in the right midlung, not seen on prior examination, suspicious for pulmonary nodule. Comparison with more recent prior chest radiograph or follow- up with CT chest on nonemergent basis is recommended. (5) Transaminitis Assessment & Plan: elevated lft's on admission etiology unknown US abd ordered trend labs fluids meds reviewed will follow with recs thank you DAILY ESTIMATED NEEDS: Needs based on DM, Renal, bedbound, 77kg abw 23-28 kcals/kg 8767-2243 total kcals 1.25-1.5 g protein/kg 96-116 g total protein 25-30 mL/kg 3693-7690 total fluid mLs NUTRITION DIAGNOSIS: Swallowing difficulty r/t dysphagia as evidenced by pt is GT dependent. (CURRENT TF: Glucerna 1.2 @50) ENTERAL NUTRITION RECOMMENDATIONS: GLUCERNA 1.2 goal of 70ml/hr x22 hrs + Prosource 1 pack qdaily to provide 1540ml, 1848 kcal, 92g + 11g pro, 1240ml free H2O - Rec to increase TF rate to better meet est kcal and pro needs. - Increase as able by 15ml/hr q4-6 hrs to goal - HOLD TF 1 hr before and after synthroid meds. - Flush per . HOB over 30 degrees. With elevated lytes and worsening renal labs rec NEPRO w/ goal of 45ml/hr x22 hrs to provide: 990ml, 1782 kcal, 80g pro, 720ml free H2o. -Add Prosource 1 pack BID for added 22g pro to better meet est pro needs. ADDITIONAL RECOMMENDATIONS: 1) Monitor lytes, renal labs-> need for renal formula 2) Recalibrate bed scale wts 3) Hypoglycemic agents for improved BG control Rec niss w/ accuchecks 4) Hold TF 1 hr before and after synthroid meds. 5) rec HgA1C Liver: The liver is normal in size and demonstrates coarsened echotexture. No focal abnormalities are noted. Gallbladder: No cholelithiasis. Gallbladder wall is not thickened. No pericholecystic fluid. Sonographic Reed sign cannot be assessed due to patient unrespon siveness. Common bile duct: Normal in size. Pancreas: Incompletely imaged due to overlying bowel gas. Kidneys: The kidneys demonstrate increased cortical echogenicity. No hydronephrosis or nephrolithiasis. There is a right renal cyst. Spleen: The spleen is normal in size and echogenicity. Incidental note is made of indwelling gastrostomy tube. IMPRESSION: 1. Coarsened hepatic echotexture, which is nonspecific but can be associated with liver dysfunction. 2. Increased echogenicity in the kidneys, which can be seen with medical renal disease. (6) Elevated troponin (7) Chest pain (8) COPD exacerbation Osman Cheung Feb 03, 2020 12:18
--- NOTE | 2020-02-03 13:02 | General Progress Note ---
Subjective ROS Limited/Unobtainable: No Constitutional: Reports: malaise, weakness HEENT: Reports: no symptoms Cardiovascular: Reports: no symptoms Respiratory: Reports: cough, shortness of breath Gastrointestinal/Abdominal: Reports: difficulty swallowing Genitourinary: Reports: no symptoms Neurologic/Psychiatric: Reports: pre-existing deficit Endocrine: Reports: no symptoms Hematologic/Lymphatic: Reports: no symptoms Allergies: Coded Allergies: No Known Allergies (Verified , 02/21/09) All Systems: reviewed and negative except above Subjective no events. w/o complaints. awake but confused. still lethargic. responds to some verbal stimuli. on face mask. no real change. labs reviewed Objective Last 24 Hour Vital Signs Date Time Temp Pulse Resp B/P (MAP) Pulse Ox O2 Delivery O2 Flow Rate FiO2 02/03/20 09:35 63 169/84 02/03/20 09:35 63 169/84 02/03/20 08:00 97.4 63 20 169/84 (112) 93 02/03/20 04:00 97.5 20 20 155/77 (103) 92 02/03/20 00:00 97.5 61 18 153/84 (107) 93 02/02/20 22:04 60 155/80 02/02/20 21:00 Venturi Mask 10.0 02/02/20 20:00 97.2 57 17 136/72 (93) 96 02/02/20 16:00 98.6 70 18 141/89 (106) 97 Intake and Output 02/02/20 02/03/20 19:00 07:00 Intake Total 50 ml 1100 ml Output Total 400 ml Balance 50 ml 700 ml Intake Oral 0 ml Free Water 600 ml Tube Feeding 50 ml 500 ml Output Urine Total 400 ml # Voids 3 14 # Bowel Movements 1 Laboratory Tests 02/02/20 16:06: POC Whole Blood Glucose 201H 02/02/20 22:00: POC Whole Blood Glucose 133H 02/03/20 05:15: POC Whole Blood Glucose 225H 02/03/20 07:00: White Blood Count 7.4, Red Blood Count 4.19L, Hemoglobin 12.4L, Hematocrit 38.1L , Mean Corpuscular Volume 91, Mean Corpuscular Hemoglobin 29.6, Mean Corpuscular Hemoglobin Concent 32.6, Red Cell Distribution Width 16.8H, Platelet Count 83L, Mean Platelet Volume 10.5H, Neutrophils (%) (Auto) , Lymphocytes (%) (Auto) , Monocytes (%) (Auto) , Eosinophils (%) (Auto) , Basophils (%) (Auto) , Differential Total Cells Counted 100, Neutrophils % (Manual) 90H, Lymphocytes % (Manual) 8L, Monocytes % (Manual) 2, Eosinophils % (Manual) 0, Basophils % (Manual) 0, Band Neutrophils 0, Platelet Estimate Adequate, Platelet Morphology Normal, Anisocytosis 1+, Sodium Level 144, Potassium Level 5.0, Chloride Level 105, Carbon Dioxide Level 30, Anion Gap 9, Blood Urea Nitrogen 73H, Creatinine 1.7H, Estimat Glomerular Filtration Rate 46.2, Glucose Level 182#H, Calcium Level 9.2, Magnesium Level [Pending], Pro-B-Type Natriuretic Peptide [Pending] 02/03/20 11:52: POC Whole Blood Glucose 233H Height (Feet): 5 Height (Inches): 10.00 Weight (Pounds): 182 Objective General Appearance: WD/WN, alert. on venti mask Neck: non-tender, normal alignment Cardiovascular: normal peripheral pulses, normal rate, regular rhythm Respiratory/Chest: chest wall non-tender, lungs clear, normal breath sounds Abdomen: normal bowel sounds, non tender, soft, no organomegaly Edema: no edema noted Arm (L), no edema noted Arm (R) Neurologic: responsive, disoriented Assessment/Plan Problem List: (1) OMI (acute kidney injury) ICD Codes: N17.9 - Acute kidney failure, unspecified SNOMED: 0920214, 51909918 (2) Hypernatremia ICD Codes: E87.0 - Hyperosmolality and hypernatremia SNOMED: 392926276 (3) COPD exacerbation ICD Codes: J44.1 - Chronic obstructive pulmonary disease with (acute) exacerbation SNOMED: 356835530, 981916193, 448925690 (4) Elevated troponin ICD Codes: R77.8 - Other specified abnormalities of plasma proteins SNOMED: 893415210, 014507724, 532602525 (5) Lung mass ICD Codes: R91.8 - Other nonspecific abnormal finding of lung field SNOMED: 193189198, 115058468 Status: stable, progressing Assessment/Plan: cont current rx off ivf monitor bun/cr on diuretics monitor volume status iv abx monitor cxr ct chest when stable dvt/stress ulcer prophylaxis monitor bs on sliding scale skin care turn q2 dc heparin venous duplex scd Aleksey Diaz MD Feb 03, 2020 13:02
--- NOTE | 2020-02-03 15:14 | Infectious Diseases Prog Note ---
Assessment/Plan Assessment/Plan A: 1. Community-acquired pneumonia treated COVID19 test is negative x2. 2. Diabetes. 3. Hypertension. 4. Renal failure, acute 5. Hypernatremia 6. Anemia PLAN: 1. Observe off antibiotic Subjective ROS Limited/Unobtainable: Yes Allergies: Coded Allergies: No Known Allergies (Verified , 02/21/09) Objective Last 24 Hour Vital Signs Date Time Temp Pulse Resp B/P (MAP) Pulse Ox O2 Delivery O2 Flow Rate FiO2 02/03/20 12:00 98.0 64 19 158/80 (106) 94 02/03/20 09:35 63 169/84 02/03/20 09:35 63 169/84 02/03/20 09:00 Venturi Mask 10.0 02/03/20 08:00 97.4 63 20 169/84 (112) 93 02/03/20 04:00 97.5 20 20 155/77 (103) 92 02/03/20 00:00 97.5 61 18 153/84 (107) 93 02/02/20 22:04 60 155/80 02/02/20 21:00 Venturi Mask 10.0 02/02/20 20:00 97.2 57 17 136/72 (93) 96 02/02/20 16:00 98.6 70 18 141/89 (106) 97 Height (Feet): 5 Height (Inches): 10.00 Weight (Pounds): 182 HEENT: mucous membranes moist, other - poor dentition Respiratory/Chest: lungs clear, other - oxygen by mask Cardiovascular: normal rate Abdomen: soft, non tender, other - GT feeding Extremities: no edema Neurologic/Psychiatric: alert, other - poor responsive Laboratory Tests Test 02/02/20 16:06 02/02/20 22:00 02/03/20 05:15 02/03/20 07:00 POC Whole Blood Glucose 201 MG/DL (74-106) H 133 MG/DL (74-106) H 225 MG/DL (74-106) H White Blood Count 7.4 K/UL (4.8-10.8) Red Blood Count 4.19 M/UL (4.70-6.10) L Hemoglobin 12.4 G/DL (14.2-18.0) L Hematocrit 38.1 % (42.0-52.0) L Mean Corpuscular Volume 91 FL (80-99) Mean Corpuscular Hemoglobin 29.6 PG (27.0-31.0) Mean Corpuscular Hemoglobin Concent 32.6 G/DL (32.0-36.0) Red Cell Distribution Width 16.8 % (11.6-14.8) H Platelet Count 83 K/UL (150-450) L Mean Platelet Volume 10.5 FL (6.5-10.1) H Neutrophils (%) (Auto) % (45.0-75.0) Lymphocytes (%) (Auto) % (20.0-45.0) Monocytes (%) (Auto) % (1.0-10.0) Eosinophils (%) (Auto) % (0.0-3.0) Basophils (%) (Auto) % (0.0-2.0) Differential Total Cells Counted 100 Neutrophils % (Manual) 90 % (45-75) H Lymphocytes % (Manual) 8 % (20-45) L Monocytes % (Manual) 2 % (1-10) Eosinophils % (Manual) 0 % (0-3) Basophils % (Manual) 0 % (0-2) Band Neutrophils 0 % (0-8) Platelet Estimate Adequate Platelet Morphology Normal Anisocytosis 1+ Sodium Level 144 MMOL/L (136-145) Potassium Level 5.0 MMOL/L (3.5-5.1) Chloride Level 105 MMOL/L (98-107) Carbon Dioxide Level 30 MMOL/L (21-32) Anion Gap 9 mmol/L (5-15) Blood Urea Nitrogen 73 mg/dL (7-18) H Creatinine 1.7 MG/DL (0.55-1.30) H Estimat Glomerular Filtration Rate 46.2 mL/min (>60) Glucose Level 182 MG/DL (74-106) #H Calcium Level 9.2 MG/DL (8.5-10.1) Magnesium Level Pending Pro-B-Type Natriuretic Peptide Pending Test 02/03/20 11:52 POC Whole Blood Glucose 233 MG/DL (74-106) H Current Medications Medications (Trade) Dose Ordered Sig/Bird Route PRN Reason Start Time Stop Time Status Last Admin Dose Admin Acetaminophen (Tylenol) 650 mg Q4H PRN ORAL Mild Pain (Scale 1-3) 01/23/20 18:30 02/22/20 18:29 Acetaminophen (Tylenol) 650 mg Q4H PRN ORAL Temp >100.5 01/23/20 18:45 02/22/20 18:44 Amlodipine Besylate (Norvasc) 5 mg DAILY ORAL 02/03/20 09:00 03/04/20 08:59 02/03/20 09:35 Aspirin (ASA) 81 mg DAILY GT 01/24/20 09:00 03/09/20 08:59 02/03/20 09:35 Atorvastatin Calcium (Lipitor) 40 mg BEDTIME GT 01/23/20 21:00 04/22/20 20:59 02/02/20 21:57 Dextrose (Dextrose 50%) 25 ml Q30M PRN IV Hypoglycemia 01/26/20 11:15 04/25/20 11:14 Dextrose (Dextrose 50%) 50 ml Q30M PRN IV Hypoglycemia 01/26/20 11:15 04/25/20 11:14 Famotidine (Pepcid) 20 mg DAILY GT 01/24/20 09:00 04/23/20 08:59 02/03/20 09:35 Furosemide (Lasix) 40 mg DAILY IV 02/01/20 09:00 03/02/20 08:59 02/03/20 09:35 Insulin Aspart (NovoLOG) BEFORE MEALS AND HS SUBQ 01/26/20 11:30 04/25/20 11:29 02/03/20 12:32 Insulin Aspart (NovoLOG) 9 units NOVOTIAC SUBQ 02/02/20 16:50 05/02/20 16:49 02/03/20 12:33 Insulin Detemir (Levemir) 12 units BEDTIME SUBQ 01/27/20 21:00 04/26/20 02:29 02/02/20 22:07 Levothyroxine Sodium (Synthroid) 50 mcg DAILY@0630 GT 01/24/20 06:30 02/23/20 06:29 02/03/20 05:53 Methylprednisolone Sodium Succinate (Solu-MEDROL) 60 mg Q12H IVP 01/31/20 18:00 04/30/20 17:59 02/03/20 05:53 Metoprolol Tartrate (Lopressor) 25 mg Q12HR GT 01/27/20 09:00 04/26/20 08:59 02/03/20 09:35 Promethazine HCl/ Dextromethorphan (Phenergan DM) 6.25 mg Q6H PRN ORAL For Cough 01/23/20 18:30 02/22/20 18:29 02/02/20 17:48 Jt Gallo MD Feb 03, 2020 15:14
[2020-02-03 16:00] VITALS: BP 109/73
--- NOTE | 2020-02-03 17:54 | Nephrology Progress Note ---
Assessment/Plan Problem List: (1) Proteinuria (2) CHF (congestive heart failure) (3) Dehydration (4) Hypernatremia (5) OMI (acute kidney injury) (6) COPD exacerbation (7) Cardiorenal syndrome with renal failure (8) CKD (chronic kidney disease) stage 3, GFR 30-59 ml/min Plan continue water via gt, , SS insulin increased, lab BUN/creat slightly worse, diuresing for chf Subjective ROS Limited/Unobtainable: Yes Objective Objective Last 24 Hour Vital Signs Date Time Temp Pulse Resp B/P (MAP) Pulse Ox O2 Delivery O2 Flow Rate FiO2 02/03/20 12:00 98.0 64 19 158/80 (106) 94 02/03/20 09:35 63 169/84 02/03/20 09:35 63 169/84 02/03/20 09:00 Venturi Mask 10.0 02/03/20 08:00 97.4 63 20 169/84 (112) 93 02/03/20 04:00 97.5 20 20 155/77 (103) 92 02/03/20 00:00 97.5 61 18 153/84 (107) 93 02/02/20 22:04 60 155/80 02/02/20 21:00 Venturi Mask 10.0 02/02/20 20:00 97.2 57 17 136/72 (93) 96 Intake and Output 02/02/20 02/03/20 19:00 07:00 Intake Total 50 ml 1100 ml Output Total 400 ml Balance 50 ml 700 ml Intake Oral 0 ml Free Water 600 ml Tube Feeding 50 ml 500 ml Output Urine Total 400 ml # Voids 3 14 # Bowel Movements 1 Laboratory Tests 02/02/20 22:00: POC Whole Blood Glucose 133H 02/03/20 05:15: POC Whole Blood Glucose 225H 02/03/20 07:00: White Blood Count 7.4, Red Blood Count 4.19L, Hemoglobin 12.4L, Hematocrit 38.1L , Mean Corpuscular Volume 91, Mean Corpuscular Hemoglobin 29.6, Mean Corpuscular Hemoglobin Concent 32.6, Red Cell Distribution Width 16.8H, Platelet Count 83L, Mean Platelet Volume 10.5H, Neutrophils (%) (Auto) , Lymphocytes (%) (Auto) , Monocytes (%) (Auto) , Eosinophils (%) (Auto) , Basophils (%) (Auto) , Differential Total Cells Counted 100, Neutrophils % (Manual) 90H, Lymphocytes % (Manual) 8L, Monocytes % (Manual) 2, Eosinophils % (Manual) 0, Basophils % (Manual) 0, Band Neutrophils 0, Platelet Estimate Adequate, Platelet Morphology Normal, Anisocytosis 1+, Sodium Level 144, Potassium Level 5.0, Chloride Level 105, Carbon Dioxide Level 30, Anion Gap 9, Blood Urea Nitrogen 73H, Creatinine 1.7H, Estimat Glomerular Filtration Rate 46.2, Glucose Level 182#H, Calcium Level 9.2, Magnesium Level [Pending], Pro-B-Type Natriuretic Peptide [Pending] 02/03/20 11:52: POC Whole Blood Glucose 233H 02/03/20 17:20: POC Whole Blood Glucose 263H Height (Feet): 5 Height (Inches): 10.00 Weight (Pounds): 182 General Appearance: lethargic, confused EENT: normal ENT inspection Neck: normal alignment Cardiovascular: normal rate, regular rhythm Respiratory/Chest: rhonchi - bilaterally Abdomen: soft Extremities: no edema Neurologic: motor weakness Roland Campo MD Feb 03, 2020 17:54
--- NOTE | 2020-02-03 19:36 | NUR ---
NURSE HAND-OFF: Important Events on Shift: Pt stable throughout shift; updated on pt's status. Patient Status: Stable Diet: NPO (on tube feed) Pending Orders: None Pending Results/Labs: None Pending MD notification: None Latest Vital Signs: Temperature 98.3 , Pulse 77 , B/P 109 /73 , Respiratory Rate 18 , O2 SAT 97 , Venturi Mask, O2 Flow Rate 10.0 . Vital Sign Comment: Stable Latest Gibson Fall Score: 55 Fall Risk: High Risk Safety Measures: Call light Within Reach, Bed Alarm Zone 1, Side Rails Side Rails x2, Bed position Low and Locked. Fall Precautions: Yellow Socks Yellow Gown Patient Fall Education Report given to PRITI Platt.
--- NOTE | 2020-02-03 19:49 | NUR ---
NURSE NOTES: Patient in bed, awake, confused, unable to make needs known .Respiration is even on venturi mask 10 L. Kept clean and comfortable. Bed in low and locked position. Provided safe environment. Iv site noted. Gtube noted, feeding noted. Abdomen is soft, site is clean. No s/s of pain or discomfort noted. Call light is at bedside. Will continue plan of care.
[2020-02-03 20:00] VITALS: BP 152/84
[2020-02-03] MEDS: Atorvastatin 80mg tab GT SCH (21:40)
[2020-02-03] MEDS: Levemir Flexpen SUBQ SCH (21:45)
--- NOTE | 2020-02-03 22:37 | Cardiology Progress Note ---
Subjective DATE OF SERVICE: Feb 03, 2020 Still congested today. CXR 01/29 revealed worsening infiltrates/edema Sodium and lactic acid levels corrected Glucose levels elevated. I/O' not accurate - patient incontinent. Objective Last 24 Hour Vital Signs Date Time Temp Pulse Resp B/P (MAP) Pulse Ox O2 Delivery O2 Flow Rate FiO2 02/03/20 21:58 99 Venturi Mask 10.0 40 02/03/20 21:40 69 152/94 02/03/20 20:00 97.8 69 16 152/84 (106) 92 02/03/20 16:00 98.3 77 18 109/73 (85) 97 02/03/20 12:00 98.0 64 19 158/80 (106) 94 02/03/20 09:35 63 169/84 02/03/20 09:35 63 169/84 02/03/20 09:00 Venturi Mask 10.0 02/03/20 08:00 97.4 63 20 169/84 (112) 93 02/03/20 04:00 97.5 20 20 155/77 (103) 92 02/03/20 00:00 97.5 61 18 153/84 (107) 93 ROS: unchanged from 01/23/20 RHYTHM: NSR, PVCs, PACs, VT LUNGS: coarse breath sounds, bilat. rhonchi and rales CARDIAC: normal rate, regular rhythm, normal S1 and S2, gallop/S4 ABDOMEN: non tender, soft, no organomegaly, G-Tube intact EXTREMITIES: No edema Laboratory Tests Test 02/03/20 05:15 02/03/20 07:00 02/03/20 11:52 02/03/20 17:20 POC Whole Blood Glucose 225 MG/DL (74-106) H 233 MG/DL (74-106) H 263 MG/DL (74-106) H White Blood Count 7.4 K/UL (4.8-10.8) Red Blood Count 4.19 M/UL (4.70-6.10) L Hemoglobin 12.4 G/DL (14.2-18.0) L Hematocrit 38.1 % (42.0-52.0) L Mean Corpuscular Volume 91 FL (80-99) Mean Corpuscular Hemoglobin 29.6 PG (27.0-31.0) Mean Corpuscular Hemoglobin Concent 32.6 G/DL (32.0-36.0) Red Cell Distribution Width 16.8 % (11.6-14.8) H Platelet Count 83 K/UL (150-450) L Mean Platelet Volume 10.5 FL (6.5-10.1) H Neutrophils (%) (Auto) % (45.0-75.0) Lymphocytes (%) (Auto) % (20.0-45.0) Monocytes (%) (Auto) % (1.0-10.0) Eosinophils (%) (Auto) % (0.0-3.0) Basophils (%) (Auto) % (0.0-2.0) Differential Total Cells Counted 100 Neutrophils % (Manual) 90 % (45-75) H Lymphocytes % (Manual) 8 % (20-45) L Monocytes % (Manual) 2 % (1-10) Eosinophils % (Manual) 0 % (0-3) Basophils % (Manual) 0 % (0-2) Band Neutrophils 0 % (0-8) Platelet Estimate Adequate Platelet Morphology Normal Anisocytosis 1+ Sodium Level 144 MMOL/L (136-145) Potassium Level 5.0 MMOL/L (3.5-5.1) Chloride Level 105 MMOL/L (98-107) Carbon Dioxide Level 30 MMOL/L (21-32) Anion Gap 9 mmol/L (5-15) Blood Urea Nitrogen 73 mg/dL (7-18) H Creatinine 1.7 MG/DL (0.55-1.30) H Estimat Glomerular Filtration Rate 46.2 mL/min (>60) Glucose Level 182 MG/DL (74-106) #H Calcium Level 9.2 MG/DL (8.5-10.1) Magnesium Level Pending Pro-B-Type Natriuretic Peptide Pending Assessment/Plan Assessment/Plan Healthcare acquired PNA Lactic acidosis Acute myocardial ischemia/possible NSTE myocardial infarction COPD Ac/chr systolic/diast CHF Ischemic cardiomyopathy Severe dehydration Hypernatremia Hyperchloremia PAD with prior revascularization Dysphagia with GTube CVA with dementia Paroxysmal atrial arrhythmias IRDM uncontrolled Non-sustained ventricular tachycardia Hypertension/HHD with elevated BP Critical & Guarded Abx Resp therapy Diuresis; trend BNP(result today not available) Titrate antiHTN and anti-anginal regimen further Cont'd anti-plt therapy Oxygen and bronchodilator rx DVT prophylaxis Monitor and replace lytes Titrate beta steve rx Levemir titration Repeat CXR Osmani Cevallos MD Feb 03, 2020 22:37
[2020-02-04] VITALS: BP 141/76
--- NOTE | 2020-02-04 01:00 | NUR ---
NURSE NOTES: patient was changed, bowel movement noted. Bed in low and locked position. provided safe environment. Dressing was changed. Call light is at bedside. Will continue plan of care.
[2020-02-04 04:00] VITALS: BP 146/75
[2020-02-04] MEDS: Solu-MEDROL 125mg Inj IVP SCH ×2 (06:06→17:36)
[2020-02-04] MEDS: NovoLOG Insulin Flexpen SUBQ SCH ×8 (06:08→21:00)
--- NOTE | 2020-02-04 07:10 | NUR ---
NURSE HAND-OFF: Important Events on Shift:WNL Patient Status: Diet: Glucerna 1.2 Pending Orders: Pending Results/Labs: Pending MD notification: Latest Vital Signs: Temperature 97.5 , Pulse 62 , B/P 146 /75 , Respiratory Rate 20 , O2 SAT 99 , Venturi Mask, O2 Flow Rate 10.0 . Vital Sign Comment: WNL Latest Gibson Fall Score: 55 Fall Risk: High Risk Safety Measures: Call light Within Reach, Bed Alarm Zone 1, Side Rails Side Rails x2, Bed position Low and Locked. Fall Precautions: Yellow Socks Yellow Gown Patient Fall Education Report given to PRITI Keen.
--- NOTE | 2020-02-04 07:50 | Nephrology Progress Note ---
Assessment/Plan Problem List: (1) Proteinuria (2) CHF (congestive heart failure) (3) Dehydration (4) Hypernatremia (5) OMI (acute kidney injury) (6) COPD exacerbation (7) Cardiorenal syndrome with renal failure (8) CKD (chronic kidney disease) stage 3, GFR 30-59 ml/min Plan continue water via gt, , SS insulin increased, lab BUN/creat slightly worse, diuresing for chf Subjective ROS Limited/Unobtainable: Yes Objective Objective Last 24 Hour Vital Signs Date Time Temp Pulse Resp B/P (MAP) Pulse Ox O2 Delivery O2 Flow Rate FiO2 02/04/20 04:00 97.5 62 20 146/75 (98) 99 02/04/20 00:00 96.8 61 16 141/76 (97) 96 02/03/20 21:58 99 Venturi Mask 10.0 40 02/03/20 21:40 69 152/94 02/03/20 21:00 Venturi Mask 10.0 02/03/20 20:00 97.8 69 16 152/84 (106) 92 02/03/20 16:00 98.3 77 18 109/73 (85) 97 02/03/20 12:00 98.0 64 19 158/80 (106) 94 02/03/20 09:35 63 169/84 02/03/20 09:35 63 169/84 02/03/20 09:00 Venturi Mask 10.0 02/03/20 08:00 97.4 63 20 169/84 (112) 93 Intake and Output 02/03/20 02/04/20 19:00 07:00 Intake Total 1100 ml Output Total 450 ml Balance 650 ml Intake Oral 0 ml Free Water 600 ml Tube Feeding 500 ml Output Urine Total 450 ml # Voids 3 Laboratory Tests 02/03/20 11:52: POC Whole Blood Glucose 233H 02/03/20 17:20: POC Whole Blood Glucose 263H 02/04/20 06:02: POC Whole Blood Glucose 235H Height (Feet): 5 Height (Inches): 10.00 Weight (Pounds): 182 General Appearance: lethargic, confused EENT: normal ENT inspection Neck: normal alignment Cardiovascular: regular rhythm Respiratory/Chest: decreased breath sounds Abdomen: non tender Extremities: no edema Neurologic: motor weakness Roland Campo MD Feb 04, 2020 07:50
--- NOTE | 2020-02-04 08:42 | General Progress Note ---
Subjective ROS Limited/Unobtainable: Yes Constitutional: Reports: malaise, weakness HEENT: Reports: no symptoms Cardiovascular: Reports: no symptoms Respiratory: Reports: shortness of breath Gastrointestinal/Abdominal: Reports: no symptoms Genitourinary: Reports: no symptoms Neurologic/Psychiatric: Reports: no symptoms Endocrine: Reports: no symptoms Hematologic/Lymphatic: Reports: no symptoms Allergies: Coded Allergies: No Known Allergies (Verified , 02/21/09) All Systems: reviewed and negative except above Subjective no change. remains on venti mask. alert. awake, does not follow commands. no fever. on tube feeds Objective Last 24 Hour Vital Signs Date Time Temp Pulse Resp B/P (MAP) Pulse Ox O2 Delivery O2 Flow Rate FiO2 02/04/20 04:00 97.5 62 20 146/75 (98) 99 02/04/20 00:00 96.8 61 16 141/76 (97) 96 02/03/20 21:58 99 Venturi Mask 10.0 40 02/03/20 21:40 69 152/94 02/03/20 21:00 Venturi Mask 10.0 02/03/20 20:00 97.8 69 16 152/84 (106) 92 02/03/20 16:00 98.3 77 18 109/73 (85) 97 02/03/20 12:00 98.0 64 19 158/80 (106) 94 02/03/20 09:35 63 169/84 02/03/20 09:35 63 169/84 02/03/20 09:00 Venturi Mask 10.0 Intake and Output 02/03/20 02/04/20 19:00 07:00 Intake Total 1100 ml Output Total 450 ml Balance 650 ml Intake Oral 0 ml Free Water 600 ml Tube Feeding 500 ml Output Urine Total 450 ml # Voids 3 Laboratory Tests 02/03/20 11:52: POC Whole Blood Glucose 233H 02/03/20 17:20: POC Whole Blood Glucose 263H 02/04/20 06:02: POC Whole Blood Glucose 235H Height (Feet): 5 Height (Inches): 10.00 Weight (Pounds): 182 Objective General Appearance: WD/WN, alert. on venti mask Neck: non-tender, normal alignment Cardiovascular: normal peripheral pulses, normal rate, regular rhythm Respiratory/Chest: chest wall non-tender, lungs clear, normal breath sounds Abdomen: normal bowel sounds, non tender, soft, no organomegaly Edema: no edema noted Arm (L), no edema noted Arm (R) Neurologic: responsive, disoriented Assessment/Plan Problem List: (1) OMI (acute kidney injury) ICD Codes: N17.9 - Acute kidney failure, unspecified SNOMED: 1335805, 22756161 (2) Hypernatremia ICD Codes: E87.0 - Hyperosmolality and hypernatremia SNOMED: 550652308 (3) COPD exacerbation ICD Codes: J44.1 - Chronic obstructive pulmonary disease with (acute) exacerbation SNOMED: 494523223, 239671120, 014851701 (4) Elevated troponin ICD Codes: R77.8 - Other specified abnormalities of plasma proteins SNOMED: 249373418, 691708581, 219840719 (5) Lung mass ICD Codes: R91.8 - Other nonspecific abnormal finding of lung field SNOMED: 631017977, 971768190 Status: stable, progressing Assessment/Plan: cont current rx monitor bun/cr on diuretics monitor volume status iv abx monitor cxr ct chest when stable dvt/stress ulcer prophylaxis monitor bs on sliding scale tube feeds skin care turn q2 Aleksey Diaz MD Feb 04, 2020 08:42
[2020-02-04] MEDS: Aspirin Baby 81mg GT SCH (08:44)
--- NOTE | 2020-02-04 08:46 | NUR ---
NURSE NOTES: Received patient on bed, awake. IV is intact and patent. Patient on venturi mask and has alba catheter which intact and patent. Bed in low and locked position, call light in reach. Gtube present and on continuous feed. Room board updated, will continue to monitor.
[2020-02-04 08:57] VITALS: BP 170/83
[2020-02-04 09:28] LABS: CALCIUM 9.6 MG/DL (8.5-10.1); CREATININE 1.6 MG/DL (0.55-1.30); POTASSIUM 3.8 MMOL/L (3.5-5.1)
--- NOTE | 2020-02-04 11:04 | NUR ---
RD ASSESSMENT & RECOMMENDATIONS SEE CARE ACTIVITY FOR COMPLETE ASSESSMENT DAILY ESTIMATED NEEDS: Needs based on DM, Renal, bedbound, 77kg abw 20-25 kcals/kg 2308-8021 total kcals 1-1.5 g protein/kg 77-116 g total protein 25-30 mL/kg 1774-5583 total fluid mLs NUTRITION DIAGNOSIS: Swallowing difficulty r/t dysphagia as evidenced by pt is GT dependent. CURRENT TF: (glucerna 1.2 @50) ENTERAL NUTRITION RECOMMENDATIONS: GLUCERNA 1.5 goal of 50ml/hr x22 hrs to provide 1100ml, 1650kcal, 90g prot, 835ml free water - Rec TF change to Glucerna 1.5 for less free fluids- CHF dx - Rec goal rate of 50ml/hr - HOLD TF 1 hr before and after synthroid meds. - Flush per . HOB over 30 degrees. ADDITIONAL RECOMMENDATIONS: 1) Monitor lytes, renal labs-> renal fxn improving, check phos level 2) Recalibrate bed scale wts 3) Hypoglycemic agents for improved BG control -> now on TIAC novolog + SSI and Levemir Monitor BGs closely for hypoglycemia 4) Hold TF 1 hr before and after synthroid meds. 5) rec HgA1C
--- NOTE | 2020-02-04 11:10 | NUR ---
NURSE NOTES: Report received from Osmani MARCOS. Patient seen on rounds, asleep but easily rousable, on O2 at 10lpm via venturi mask, nurse reports attempted to wean but patient desaturated low to mid 80's, now sats between 92-93%. FLACC 0. Gtube patent and infusing GTF as ordered. PIV on right hand patent and locked. Bilateral soft wrist restraints noted, good circulation and range of motion. Bed low and locked, siderails up x2, zone alarms on 1, will continue to monitor.
[2020-02-04 12:00] VITALS: BP 149/76
--- NOTE | 2020-02-04 12:17 | Infectious Diseases Prog Note ---
Assessment/Plan Assessment/Plan antibiotics : none A 1. Community-acquired pneumonia s/p rx COVID-19 test is negative x2. 2. Diabetes. 3. Hypertension. 4. Renal failure. P 1. Continue off antibiotics 2. We will follow up cultures 1. Subjective ROS Limited/Unobtainable: Yes Allergies: Coded Allergies: No Known Allergies (Verified , 02/21/09) Objective Last 24 Hour Vital Signs Date Time Temp Pulse Resp B/P (MAP) Pulse Ox O2 Delivery O2 Flow Rate FiO2 02/04/20 12:00 98.0 63 20 149/76 (100) 92 02/04/20 09:04 66 170/83 02/04/20 09:04 66 170/83 02/04/20 09:00 Venturi Mask 10.0 02/04/20 08:57 97.4 66 20 170/83 (112) 94 02/04/20 07:38 96 Venturi Mask 10.0 40 02/04/20 04:00 97.5 62 20 146/75 (98) 99 02/04/20 00:00 96.8 61 16 141/76 (97) 96 02/03/20 21:58 99 Venturi Mask 10.0 40 02/03/20 21:40 69 152/94 02/03/20 21:00 Venturi Mask 10.0 02/03/20 20:00 97.8 69 16 152/84 (106) 92 02/03/20 16:00 98.3 77 18 109/73 (85) 97 Height (Feet): 5 Height (Inches): 10.00 Weight (Pounds): 182 Respiratory/Chest: lungs clear Cardiovascular: normal rate, regular rhythm, no gallop/murmur Abdomen: soft, non tender Extremities: no edema Laboratory Tests Test 02/03/20 17:20 02/04/20 06:02 02/04/20 08:05 POC Whole Blood Glucose 263 MG/DL (74-106) H 235 MG/DL (74-106) H Sodium Level 145 MMOL/L (136-145) Potassium Level 3.8 MMOL/L (3.5-5.1) Chloride Level 106 MMOL/L (98-107) Carbon Dioxide Level 37 MMOL/L (21-32) H Anion Gap 2 mmol/L (5-15) L Blood Urea Nitrogen 83 mg/dL (7-18) H Creatinine 1.6 MG/DL (0.55-1.30) H Estimat Glomerular Filtration Rate 49.6 mL/min (>60) Glucose Level 251 MG/DL (74-106) H Calcium Level 9.6 MG/DL (8.5-10.1) Current Medications Medications (Trade) Dose Ordered Sig/Bird Route PRN Reason Start Time Stop Time Status Last Admin Dose Admin Acetaminophen (Tylenol) 650 mg Q4H PRN ORAL Mild Pain (Scale 1-3) 01/23/20 18:30 02/22/20 18:29 Acetaminophen (Tylenol) 650 mg Q4H PRN ORAL Temp >100.5 01/23/20 18:45 02/22/20 18:44 Amlodipine Besylate (Norvasc) 5 mg DAILY ORAL 02/03/20 09:00 03/04/20 08:59 02/04/20 09:04 Aspirin (ASA) 81 mg DAILY GT 01/24/20 09:00 03/09/20 08:59 02/04/20 08:44 Atorvastatin Calcium (Lipitor) 40 mg BEDTIME GT 01/23/20 21:00 04/22/20 20:59 02/03/20 21:40 Dextrose (Dextrose 50%) 25 ml Q30M PRN IV Hypoglycemia 01/26/20 11:15 04/25/20 11:14 Dextrose (Dextrose 50%) 50 ml Q30M PRN IV Hypoglycemia 01/26/20 11:15 04/25/20 11:14 Famotidine (Pepcid) 20 mg DAILY GT 01/24/20 09:00 04/23/20 08:59 02/04/20 08:44 Furosemide (Lasix) 40 mg DAILY IV 02/01/20 09:00 03/02/20 08:59 02/04/20 09:04 Insulin Aspart (NovoLOG) BEFORE MEALS AND HS SUBQ 01/26/20 11:30 04/25/20 11:29 02/04/20 06:08 Insulin Aspart (NovoLOG) 12 units NOVOTIAC SUBQ 02/04/20 08:00 05/04/20 07:59 02/04/20 08:46 Insulin Detemir (Levemir) 12 units BEDTIME SUBQ 01/27/20 21:00 04/26/20 02:29 02/03/20 21:45 Levothyroxine Sodium (Synthroid) 50 mcg DAILY@0630 GT 01/24/20 06:30 02/23/20 06:29 02/04/20 06:07 Methylprednisolone Sodium Succinate (Solu-MEDROL) 60 mg Q12H IVP 01/31/20 18:00 04/30/20 17:59 02/04/20 06:06 Metoprolol Tartrate (Lopressor) 25 mg Q12HR GT 01/27/20 09:00 04/26/20 08:59 02/04/20 09:04 Promethazine HCl/ Dextromethorphan (Phenergan DM) 6.25 mg Q6H PRN ORAL For Cough 01/23/20 18:30 02/22/20 18:29 02/02/20 17:48 Alicia Florence MD Feb 04, 2020 12:17
--- NOTE | 2020-02-04 14:44 | Diagnostic Imaging Report ---
Indication: Shortness of breath Technique: One view of the chest Comparison: 01/30/2020 Findings: Reticular mid and lower lung parenchymal disease is unchanged. Reticular opacities intermingled with hyperinflation is again demonstrated in the right upper lobe. Right midlung nodular opacity is again demonstrated. The diaphragms are better appreciated, particularly the left, which may indicate improving pleural fluid. The heart remains enlarged Impression: Unchanged bilateral infiltrates Decreased pleural fluid bilaterally Stable right midlung nodule, concerning for neoplasm. Right upper lobe bullous changes and scarring again noted
--- NOTE | 2020-02-04 14:54 | NUR ---
RADIOLOGY DEPT., CHEST X-RAY DONE.-P.DYE
[2020-02-04 16:10] VITALS: BP 124/69
--- NOTE | 2020-02-04 17:04 | NUR ---
CASE MANAGEMENT:REVIEW SI;PNA. AMI. COPD. AC/CHR CHF. 98.0 67 20 170/83 92% 10L VENTURI BUN 83 CR 1.6 BG 251 IS;SOLU-MEDROL IV Q12 LASIX IV NORVASC PO LOPRESSOR GT PEPCID GT SYNTHROID GT MED SURG STATUS DCP;FROM [facility]
--- NOTE | 2020-02-04 17:39 | Surgery Progress Note ---
Surgery Progress Note Subjective Additional Comments no acute events labs noted exam stale no n/v Objective Last 24 Hour Vital Signs Date Time Temp Pulse Resp B/P (MAP) Pulse Ox O2 Delivery O2 Flow Rate FiO2 02/04/20 16:10 97.3 67 18 124/69 (87) 92 02/04/20 12:00 98.0 63 20 149/76 (100) 92 02/04/20 09:04 66 170/83 02/04/20 09:04 66 170/83 02/04/20 09:00 Venturi Mask 10.0 02/04/20 08:57 97.4 66 20 170/83 (112) 94 02/04/20 07:38 96 Venturi Mask 10.0 40 02/04/20 04:00 97.5 62 20 146/75 (98) 99 02/04/20 00:00 96.8 61 16 141/76 (97) 96 02/03/20 21:58 99 Venturi Mask 10.0 40 02/03/20 21:40 69 152/94 02/03/20 21:00 Venturi Mask 10.0 02/03/20 20:00 97.8 69 16 152/84 (106) 92 I&O Intake and Output 02/03/20 02/04/20 19:00 07:00 Intake Total 1100 ml Output Total 450 ml Balance 650 ml Intake Oral 0 ml Free Water 600 ml Tube Feeding 500 ml Output Urine Total 450 ml # Voids 3 Dressing: saturated Cardiovascular: RSR Respiratory: decreased breath sounds Abdomen: non-tender, present bowel sounds Extremities: no edema, no tenderness, no cyanosis Laboratory Tests Test 02/04/20 06:02 02/04/20 08:05 02/04/20 12:33 02/04/20 16:32 POC Whole Blood Glucose 235 MG/DL (74-106) H 165 MG/DL (74-106) H 91 MG/DL (74-106) Sodium Level 145 MMOL/L (136-145) Potassium Level 3.8 MMOL/L (3.5-5.1) Chloride Level 106 MMOL/L (98-107) Carbon Dioxide Level 37 MMOL/L (21-32) H Anion Gap 2 mmol/L (5-15) L Blood Urea Nitrogen 83 mg/dL (7-18) H Creatinine 1.6 MG/DL (0.55-1.30) H Estimat Glomerular Filtration Rate 49.6 mL/min (>60) Glucose Level 251 MG/DL (74-106) H Calcium Level 9.6 MG/DL (8.5-10.1) Plan Problems: (1) CHF (congestive heart failure) (2) Hypernatremia (3) Renal failure (4) Lung mass Assessment & Plan: noted new lung mass opacity on cxr compared to prior and seen once stable can plan for chest ct The cardiomediastinal silhouette is unchanged in appearance when accounting for differences in projection and technique. There is mild pulmonary vascular congestion. Streaky bibasilar airspace opacities are noted. There is a nodular opacity in the right midlung measuring approximately 2.6 cm. No pneumothorax or pleural effusion. No acute osseous abnormality. IMPRESSION: 1. Pulmonary vascular congestion with streaky bibasilar airspace opacities wh ich could represent combination of edema and atelectasis but pneumonia should be excluded clinically. 2. Opacity in the right midlung, not seen on prior examination, suspicious for pulmonary nodule. Comparison with more recent prior chest radiograph or follow- up with CT chest on nonemergent basis is recommended. (5) Transaminitis Assessment & Plan: elevated lft's on admission etiology unknown US abd ordered trend labs fluids meds reviewed will follow with recs thank you DAILY ESTIMATED NEEDS: Needs based on DM, Renal, bedbound, 77kg abw 23-28 kcals/kg 3445-8106 total kcals 1.25-1.5 g protein/kg 96-116 g total protein 25-30 mL/kg 0929-9673 total fluid mLs NUTRITION DIAGNOSIS: Swallowing difficulty r/t dysphagia as evidenced by pt is GT dependent. (CURRENT TF: Glucerna 1.2 @50) ENTERAL NUTRITION RECOMMENDATIONS: GLUCERNA 1.2 goal of 70ml/hr x22 hrs + Prosource 1 pack qdaily to provide 1540ml, 1848 kcal, 92g + 11g pro, 1240ml free H2O - Rec to increase TF rate to better meet est kcal and pro needs. - Increase as able by 15ml/hr q4-6 hrs to goal - HOLD TF 1 hr before and after synthroid meds. - Flush per HOB over 30 degrees. With elevated lytes and worsening renal labs rec NEPRO w/ goal of 45ml/hr x22 hrs to provide: 990ml, 1782 kcal, 80g pro, 720ml free H2o. -Add Prosource 1 pack BID for added 22g pro to better meet est pro needs. ADDITIONAL RECOMMENDATIONS: 1) Monitor lytes, renal labs-> need for renal formula 2) Recalibrate bed scale wts 3) Hypoglycemic agents for improved BG control Rec niss w/ accuchecks 4) Hold TF 1 hr before and after synthroid meds. 5) rec HgA1C Liver: The liver is normal in size and demonstrates coarsened echotexture. No focal abnormalities are noted. Gallbladder: No cholelithiasis. Gallbladder wall is not thickened. No pericholecystic fluid. Sonographic Reed sign cannot be assessed due to patient unresponsiveness. Common bile duct: Normal in size. Pancreas: Incompletely imaged due to overlying bowel gas. Kidneys: The kidneys demonstrate increased cortical echogenicity. No hydronephrosis or nephrolithiasis. There is a right renal cyst. Spleen: The spleen is normal in size and echogenicity. Incidental note is made of indwelling gastrostomy tube. IMPRESSION: 1. Coarsened hepatic echotexture, which is nonspecific but can be associated with liver dysfunction. 2. Increased echogenicity in the kidneys, which can be seen with medical renal disease. (6) Elevated troponin (7) Chest pain (8) COPD exacerbation Osman Cheung Feb 04, 2020 17:39
--- NOTE | 2020-02-04 19:14 | NUR ---
NURSE HAND-OFF: Important Events on Shift: Wound dressings changed, still on venturi mask at 10lpm, CXR done Patient Status: Full code Diet: GTF Glucerna 1.2 Pending Orders: N Pending Results/Labs: N Pending MD notification:N Latest Vital Signs: Temperature 97.3 , Pulse 67 , B/P 124 /69 , Respiratory Rate 18 , O2 SAT 92 , Venturi Mask, O2 Flow Rate 10.0 . Vital Sign Comment: Latest Gibson Fall Score: 55 Fall Risk: High Risk Safety Measures: Call light Within Reach, Bed Alarm Zone 1, Side Rails Side Rails x2, Bed position Low and Locked. Fall Precautions: Yellow Socks Yellow Gown Patient Fall Education Report given to Bibiana RN.
[2020-02-04 20:00] VITALS: BP 107/60
[2020-02-04] MEDS: Levemir Flexpen SUBQ SCH (21:00)
[2020-02-04] MEDS: Atorvastatin 80mg tab GT SCH (22:21)
[2020-02-05] VITALS: BP 124/66
--- NOTE | 2020-02-05 02:36 | Cardiology Progress Note ---
Subjective DATE OF SERVICE: Feb 04, 2020 Still congested today. CXR on 02/01 revealed improving infiltrate/edema; concerning RUL nodule. Continues on total care with skin/nutrition/resp rx Objective Last 24 Hour Vital Signs Date Time Temp Pulse Resp B/P (MAP) Pulse Ox O2 Delivery O2 Flow Rate FiO2 02/05/20 00:00 97.2 76 20 124/66 (85) 90 02/04/20 21:00 Venturi Mask 10.0 02/04/20 21:00 71 107/60 02/04/20 20:41 96 Venturi Mask 10.0 40 02/04/20 20:00 97.2 71 22 107/60 (76) 91 02/04/20 16:10 97.3 67 18 124/69 (87) 92 02/04/20 12:00 98.0 63 20 149/76 (100) 92 02/04/20 09:04 66 170/83 02/04/20 09:04 66 170/83 02/04/20 09:00 Venturi Mask 10.0 02/04/20 08:57 97.4 66 20 170/83 (112) 94 02/04/20 07:38 96 Venturi Mask 10.0 40 02/04/20 04:00 97.5 62 20 146/75 (98) 99 ROS: unchanged from 01/23/20 RHYTHM: NSR, PVCs, PACs, VT LUNGS: coarse breath sounds, bilat. rhonchi and rales CARDIAC: normal rate, regular rhythm, normal S1 and S2, gallop/S4 ABDOMEN: non tender, soft, no organomegaly, G-Tube intact EXTREMITIES: No edema Laboratory Tests Test 02/04/20 06:02 02/04/20 08:05 02/04/20 12:33 02/04/20 16:32 POC Whole Blood Glucose 235 MG/DL (74-106) H 165 MG/DL (74-106) H 91 MG/DL (74-106) Sodium Level 145 MMOL/L (136-145) Potassium Level 3.8 MMOL/L (3.5-5.1) Chloride Level 106 MMOL/L (98-107) Carbon Dioxide Level 37 MMOL/L (21-32) H Anion Gap 2 mmol/L (5-15) L Blood Urea Nitrogen 83 mg/dL (7-18) H Creatinine 1.6 MG/DL (0.55-1.30) H Estimat Glomerular Filtration Rate 49.6 mL/min (>60) Glucose Level 251 MG/DL (74-106) H Calcium Level 9.6 MG/DL (8.5-10.1) Test 02/04/20 22:15 POC Whole Blood Glucose 78 MG/DL (74-106) Assessment/Plan Assessment/Plan Healthcare acquired PNA Lactic acidosis Acute myocardial ischemia/possible NSTE myocardial infarction COPD Ac/chr systolic/diast CHF Ischemic cardiomyopathy Severe dehydration Hypernatremia Hyperchloremia PAD with prior revascularization Dysphagia with GTube CVA with dementia Paroxysmal atrial arrhythmias IRDM uncontrolled Non-sustained ventricular tachycardia Hypertension/HHD with elevated BP Lung nodule Unlikely to be a candidate at age 89 with co-morbidities for thoracic surgery. Abx Resp therapy Diuresis; trend BNP Titrate antiHTN and anti-anginal regimen further Cont'd anti-plt therapy Oxygen and bronchodilator rx DVT prophylaxis Monitor and replace lytes Titrate beta steve rx Levemir titration Osmani Cevallos MD Feb 05, 2020 02:36
[2020-02-05 04:00] VITALS: BP 117/66
[2020-02-05] MEDS: NovoLOG Insulin Flexpen SUBQ SCH ×7 (05:57→21:00)
[2020-02-05] MEDS: Solu-MEDROL 125mg Inj IVP SCH ×2 (05:59→17:14)
[2020-02-05 08:00] VITALS: BP 145/78
--- NOTE | 2020-02-05 08:00 | NUR ---
NURSE NOTES: Received patient in bed, non-verbal, no s/s of pain or discomfort per FLACC pain scale. Per stress analyst, GT was dislodged. GT site noted without bleeding, temporary alba cath noted. Patient has no episodes of pulling out alba cath. Patient is calm @ this time. HOB elevated , on ventri mask. noted with on and off cough, lung sound is clear @ this time. Bed is in lowest position and locked. Will continue plan of care.
--- NOTE | 2020-02-05 08:26 | NUR ---
NURSE HAND-OFF: Important Events on Shift: Patient is still on venturi mask, 14L 40%, O2 at 95%. G-tube dislodged this AM, inserted 16fr catheter, notified . Patient Status: Stable Diet: Glucerna 1.2 at 50cc. Pending Orders: N/A Pending Results/Labs: CBC,BMP Pending MD notification: N/A Latest Vital Signs: Temperature 97.4 , Pulse 89 , B/P 158 /100 , Respiratory Rate 18 , O2 SAT 94 , Nasal Cannula, O2 Flow Rate 2.0 . Vital Sign Comment: Stable Latest Gibson Fall Score: 35 Fall Risk: Medium Risk Safety Measures: Call light Within Reach, Bed Alarm Zone 1, Side Rails Side Rails x2, Bed position Low and Locked. Fall Precautions: Yellow Socks Patient Fall Education Report given to PRITI Cain.
[2020-02-05 08:27] LABS: CALCIUM 10.2 MG/DL (8.5-10.1); CREATININE 1.8 MG/DL (0.55-1.30); POTASSIUM 4.3 MMOL/L (3.5-5.1)
[2020-02-05] MEDS: Aspirin Baby 81mg GT SCH (09:00)
--- NOTE | 2020-02-05 09:00 | NUR ---
NURSE NOTES: Unable to administer 9:00am scheduled meds due to dislodged GT. Awaiting for GI to see the patient.
--- NOTE | 2020-02-05 09:50 | General Progress Note ---
Subjective ROS Limited/Unobtainable: Yes Constitutional: Reports: malaise, weakness HEENT: Reports: no symptoms Cardiovascular: Reports: no symptoms Respiratory: Reports: cough, shortness of breath Gastrointestinal/Abdominal: Reports: difficulty swallowing Genitourinary: Reports: no symptoms Neurologic/Psychiatric: Reports: pre-existing deficit Endocrine: Reports: no symptoms Hematologic/Lymphatic: Reports: no symptoms Allergies: Coded Allergies: No Known Allergies (Verified , 02/21/09) All Systems: reviewed and negative except above Subjective no change. remains on venti mask. alert. awake, does not follow commands. no fever. on tube feeds increased bun/cr. cxr with minimal improvement Objective Last 24 Hour Vital Signs Date Time Temp Pulse Resp B/P (MAP) Pulse Ox O2 Delivery O2 Flow Rate FiO2 02/05/20 08:00 98.4 71 18 145/78 (100) 93 02/05/20 04:00 97.3 73 24 117/66 (83) 95 02/05/20 00:00 97.2 76 20 124/66 (85) 90 02/04/20 21:00 Venturi Mask 10.0 02/04/20 21:00 71 107/60 02/04/20 20:41 96 Venturi Mask 10.0 40 02/04/20 20:00 97.2 71 22 107/60 (76) 91 02/04/20 16:10 97.3 67 18 124/69 (87) 92 02/04/20 12:00 98.0 63 20 149/76 (100) 92 Intake and Output 02/04/20 02/05/20 19:00 07:00 Intake Total 800 ml Output Total 1400 ml 500 ml Balance -600 ml -500 ml Intake Oral 0 ml Free Water 200 ml Tube Feeding 600 ml Output Urine Total 1400 ml 500 ml # Bowel Movements 1 1 Laboratory Tests 02/04/20 12:33: POC Whole Blood Glucose 165H 02/04/20 16:32: POC Whole Blood Glucose 91 02/04/20 22:15: POC Whole Blood Glucose 78 02/05/20 05:42: POC Whole Blood Glucose 223H 02/05/20 07:22: Sodium Level 145, Potassium Level 4.3, Chloride Level 105, Carbon Dioxide Level 35H, Anion Gap 5, Blood Urea Nitrogen 94H, Creatinine 1.8H, Estimat Glomerular Filtration Rate 43.3, Glucose Level 210H, Calcium Level 10.2H Height (Feet): 5 Height (Inches): 10.00 Weight (Pounds): 182 Objective General Appearance: WD/WN, alert. on venti mask Neck: non-tender, normal alignment Cardiovascular: normal peripheral pulses, normal rate, regular rhythm Respiratory/Chest: chest wall non-tender, lungs clear, normal breath sounds Abdomen: normal bowel sounds, non tender, soft, no organomegaly Edema: no edema noted Arm (L), no edema noted Arm (R) Neurologic: responsive, disoriented Assessment/Plan Problem List: (1) OMI (acute kidney injury) ICD Codes: N17.9 - Acute kidney failure, unspecified SNOMED: 9322528, 58679979 (2) Hypernatremia ICD Codes: E87.0 - Hyperosmolality and hypernatremia SNOMED: 830340003 (3) COPD exacerbation ICD Codes: J44.1 - Chronic obstructive pulmonary disease with (acute) exacerbation SNOMED: 970773504, 563534286, 541117634 (4) Elevated troponin ICD Codes: R77.8 - Other specified abnormalities of plasma proteins SNOMED: 035852023, 814681780, 844754306 (5) Lung mass ICD Codes: R91.8 - Other nonspecific abnormal finding of lung field SNOMED: 049832462, 102271368 Status: stable, progressing Assessment/Plan: cont current rx monitor bun/cr on diuretics monitor volume status monitor off abx monitor cxr ct chest when stable dvt/stress ulcer prophylaxis monitor bs on sliding scale tube feeds skin care turn q2 Aleksey Diaz MD Feb 05, 2020 09:50
--- NOTE | 2020-02-05 10:01 | NUR ---
NURSE NOTES: Received call from Dr. Jeffery. Dr. Jeffery will come up later for GT insertion.
[2020-02-05 12:00] VITALS: BP 146/78
--- NOTE | 2020-02-05 12:08 | Surgery Progress Note ---
Surgery Progress Note Subjective Additional Comments renal function poor requiring oxygen no n/v ill appearing Objective Last 24 Hour Vital Signs Date Time Temp Pulse Resp B/P (MAP) Pulse Ox O2 Delivery O2 Flow Rate FiO2 02/05/20 09:00 Venturi Mask 10.0 02/05/20 08:00 98.4 71 18 145/78 (100) 93 02/05/20 04:00 97.3 73 24 117/66 (83) 95 02/05/20 00:00 97.2 76 20 124/66 (85) 90 02/04/20 21:00 Venturi Mask 10.0 02/04/20 21:00 71 107/60 02/04/20 20:41 96 Venturi Mask 10.0 40 02/04/20 20:00 97.2 71 22 107/60 (76) 91 02/04/20 16:10 97.3 67 18 124/69 (87) 92 I&O Intake and Output 02/04/20 02/05/20 19:00 07:00 Intake Total 800 ml Output Total 1400 ml 500 ml Balance -600 ml -500 ml Intake Oral 0 ml Free Water 200 ml Tube Feeding 600 ml Output Urine Total 1400 ml 500 ml # Bowel Movements 1 1 Dressing: saturated Cardiovascular: RSR Respiratory: decreased breath sounds Abdomen: soft, non-tender, present bowel sounds Extremities: no edema, no tenderness, no cyanosis Laboratory Tests Test 02/04/20 12:33 02/04/20 16:32 02/04/20 22:15 02/05/20 05:42 POC Whole Blood Glucose 165 MG/DL (74-106) H 91 MG/DL (74-106) 78 MG/DL (74-106) 223 MG/DL (74-106) H Test 02/05/20 07:22 Sodium Level 145 MMOL/L (136-145) Potassium Level 4.3 MMOL/L (3.5-5.1) Chloride Level 105 MMOL/L (98-107) Carbon Dioxide Level 35 MMOL/L (21-32) H Anion Gap 5 mmol/L (5-15) Blood Urea Nitrogen 94 mg/dL (7-18) H Creatinine 1.8 MG/DL (0.55-1.30) H Estimat Glomerular Filtration Rate 43.3 mL/min (>60) Glucose Level 210 MG/DL (74-106) H Calcium Level 10.2 MG/DL (8.5-10.1) H Plan Problems: (1) CHF (congestive heart failure) (2) Hypernatremia (3) Renal failure (4) Lung mass Assessment & Plan: noted new lung mass opacity on cxr compared to prior and seen once stable can plan for chest ct The cardiomediastinal silhouette is unchanged in appearance when accounting for differences in projection and technique. There is mild pulmonary vascular congestion. Streaky bibasilar airspace opacities are noted. There is a nodular opacity in the right midlung measuring approximately 2.6 cm. No pneumothorax or pleural effusion. No acute osseous abnormality. IMPRESSION: 1. Pulmonary vascular congestion with streaky bibasilar airspace opacities which could represent combination of edema and atelectasis but pneumonia should be excluded clinically. 2. Opacity in the right midlung, not seen on prior examination, suspicious for pulmonary nodule. Comparison with more recent prior chest radiograph or follow- up with CT chest on nonemergent basis is recommended. (5) Transaminitis Assessment & Plan: elevated lft's on admission etiology unknown US abd ordered trend labs fluids meds reviewed will follow with recs thank you DAILY ESTIMATED NEEDS: Needs based on DM, Renal, bedbound, 77kg abw 23-28 kcals/kg 1821-6842 total kcals 1.25-1.5 g protein/kg 96-116 g total protein 25-30 mL/kg 0519-1135 total fluid mLs NUTRITION DIAGNOSIS: Swallowing difficulty r/t dysphagia as evidenced by pt is GT dependent. (CURRENT TF: Glucerna 1.2 @50) ENTERAL NUTRITION RECOMMENDATIONS: GLUCERNA 1.2 goal of 70ml/hr x22 hrs + Prosource 1 pack qdaily to provide 1540ml, 1848 kcal, 92g + 11g pro, 1240ml free H2O - Rec to increase TF rate to better meet est kcal and pro needs. - Increase as able by 15ml/hr q4-6 hrs to goal - HOLD TF 1 hr before and after synthroid meds. - Flush per HOB over 30 degrees. With elevated lytes and worsening renal labs rec NEPRO w/ goal of 45ml/hr x22 hrs to provide: 990ml, 1782 kcal, 80g pro, 720ml free H2o. -Add Prosource 1 pack BID for added 22g pro to better meet est pro needs. ADDITIONAL RECOMMENDATIONS: 1) Monitor lytes, renal labs-> need for renal formula 2) Recalibrate bed scale wts 3) Hypoglycemic agents for improved BG control Rec niss w/ accuchecks 4) Hold TF 1 hr before and after synthroid meds. 5) rec HgA1C Liver: The liver is normal in size and demonstrates coarsened echotexture. No focal abnormalities are noted. Gallbladder: No cholelithiasis. Gallbladder wall is not thickened. No pericholecystic fluid. Sonographic Reed sign cannot be assessed due to patient unresponsiveness. Common bile duct: Normal in size. Pancreas: Incompletely imaged due to overlying bowel gas. Kidneys: The kidneys demonstrate increased cortical echogenicity. No hydronephrosis or nephrolithiasis. There is a right renal cyst. Spleen: The spleen is normal in size and echogenicity. Incidental note is made of indwelling gastrostomy tube. IMPRESSION: 1. Coarsened hepatic echotexture, which is nonspecific but can be associated with liver dysfunction. 2. Increased echogenicity in the kidneys, which can be seen with medical renal disease. (6) Elevated troponin (7) Chest pain (8) COPD exacerbation Osman Cheung Feb 05, 2020 12:08
--- NOTE | 2020-02-05 12:12 | Infectious Diseases Prog Note ---
Assessment/Plan Assessment/Plan A: 1. Community-acquired pneumonia treated COVID19 test is negative x2. 2. Diabetes. 3. Hypertension. 4. Renal failure, acute 5. Hypernatremia 6. Anemia PLAN: 1. Observe off antibiotic Subjective ROS Limited/Unobtainable: Yes Constitutional: Denies: fever Respiratory: Reports: productive cough Allergies: Coded Allergies: No Known Allergies (Verified , 02/21/09) Objective Last 24 Hour Vital Signs Date Time Temp Pulse Resp B/P (MAP) Pulse Ox O2 Delivery O2 Flow Rate FiO2 02/05/20 09:00 Venturi Mask 10.0 02/05/20 08:00 98.4 71 18 145/78 (100) 93 02/05/20 04:00 97.3 73 24 117/66 (83) 95 02/05/20 00:00 97.2 76 20 124/66 (85) 90 02/04/20 21:00 Venturi Mask 10.0 02/04/20 21:00 71 107/60 02/04/20 20:41 96 Venturi Mask 10.0 40 02/04/20 20:00 97.2 71 22 107/60 (76) 91 02/04/20 16:10 97.3 67 18 124/69 (87) 92 Height (Feet): 5 Height (Inches): 10.00 Weight (Pounds): 182 HEENT: mucous membranes moist Respiratory/Chest: other - oxygen by venturi mask Cardiovascular: normal rate Abdomen: soft, non tender, other - GT feeding Extremities: no edema, other - finger clubbing Neurologic/Psychiatric: other - sleeping Laboratory Tests Test 02/04/20 12:33 02/04/20 16:32 02/04/20 22:15 02/05/20 05:42 POC Whole Blood Glucose 165 MG/DL (74-106) H 91 MG/DL (74-106) 78 MG/DL (74-106) 223 MG/DL (74-106) H Test 02/05/20 07:22 02/05/20 12:09 Sodium Level 145 MMOL/L (136-145) Potassium Level 4.3 MMOL/L (3.5-5.1) Chloride Level 105 MMOL/L (98-107) Carbon Dioxide Level 35 MMOL/L (21-32) H Anion Gap 5 mmol/L (5-15) Blood Urea Nitrogen 94 mg/dL (7-18) H Creatinine 1.8 MG/DL (0.55-1.30) H Estimat Glomerular Filtration Rate 43.3 mL/min (>60) Glucose Level 210 MG/DL (74-106) H Calcium Level 10.2 MG/DL (8.5-10.1) H POC Whole Blood Glucose 126 MG/DL (74-106) H Current Medications Medications (Trade) Dose Ordered Sig/Bird Route PRN Reason Start Time Stop Time Status Last Admin Dose Admin Acetaminophen (Tylenol) 650 mg Q4H PRN ORAL Mild Pain (Scale 1-3) 01/23/20 18:30 02/22/20 18:29 Acetaminophen (Tylenol) 650 mg Q4H PRN ORAL Temp >100.5 01/23/20 18:45 02/22/20 18:44 Amlodipine Besylate (Norvasc) 5 mg DAILY ORAL 02/03/20 09:00 03/04/20 08:59 02/04/20 09:04 Aspirin (ASA) 81 mg DAILY GT 01/24/20 09:00 03/09/20 08:59 02/04/20 08:44 Atorvastatin Calcium (Lipitor) 40 mg BEDTIME GT 01/23/20 21:00 04/22/20 20:59 02/04/20 22:21 Dextrose (Dextrose 50%) 25 ml Q30M PRN IV Hypoglycemia 01/26/20 11:15 04/25/20 11:14 Dextrose (Dextrose 50%) 50 ml Q30M PRN IV Hypoglycemia 01/26/20 11:15 04/25/20 11:14 Famotidine (Pepcid) 20 mg DAILY GT 01/24/20 09:00 04/23/20 08:59 02/04/20 08:44 Furosemide (Lasix) 20 mg DAILY GT 02/05/20 09:00 03/06/20 08:59 Insulin Aspart (NovoLOG) BEFORE MEALS AND HS SUBQ 01/26/20 11:30 04/25/20 11:29 02/05/20 05:57 Insulin Aspart (NovoLOG) 12 units NOVOTIAC SUBQ 02/04/20 08:00 05/04/20 07:59 02/05/20 05:58 Insulin Detemir (Levemir) 12 units BEDTIME SUBQ 01/27/20 21:00 04/26/20 02:29 02/03/20 21:45 Levothyroxine Sodium (Synthroid) 50 mcg DAILY@0630 GT 01/24/20 06:30 02/23/20 06:29 02/05/20 05:49 Methylprednisolone Sodium Succinate (Solu-MEDROL) 60 mg Q12H IVP 01/31/20 18:00 04/30/20 17:59 02/05/20 05:59 Metoprolol Tartrate (Lopressor) 25 mg Q12HR GT 01/27/20 09:00 04/26/20 08:59 02/04/20 09:04 Promethazine HCl/ Dextromethorphan (Phenergan DM) 6.25 mg Q6H PRN ORAL For Cough 01/23/20 18:30 02/22/20 18:29 02/02/20 17:48 Jt Gallo MD Feb 05, 2020 12:12
--- NOTE | 2020-02-05 12:53 | Nephrology Progress Note ---
Assessment/Plan Problem List: (1) Proteinuria (2) CHF (congestive heart failure) (3) Dehydration (4) Hypernatremia (5) OMI (acute kidney injury) (6) COPD exacerbation (7) Cardiorenal syndrome with renal failure (8) CKD (chronic kidney disease) stage 3, GFR 30-59 ml/min Plan continue water via gt, , SS insulin increased, lab BUN/creat slightly worse, diuresing for chf, lasix reduced 20 po daily Subjective ROS Limited/Unobtainable: Yes Objective Objective Last 24 Hour Vital Signs Date Time Temp Pulse Resp B/P (MAP) Pulse Ox O2 Delivery O2 Flow Rate FiO2 02/05/20 12:00 98.8 100 18 146/78 (100) 95 02/05/20 09:00 Venturi Mask 10.0 02/05/20 08:00 98.4 71 18 145/78 (100) 93 02/05/20 04:00 97.3 73 24 117/66 (83) 95 02/05/20 00:00 97.2 76 20 124/66 (85) 90 02/04/20 21:00 Venturi Mask 10.0 02/04/20 21:00 71 107/60 02/04/20 20:41 96 Venturi Mask 10.0 40 02/04/20 20:00 97.2 71 22 107/60 (76) 91 02/04/20 16:10 97.3 67 18 124/69 (87) 92 Intake and Output 02/04/20 02/05/20 19:00 07:00 Intake Total 800 ml Output Total 1400 ml 500 ml Balance -600 ml -500 ml Intake Oral 0 ml Free Water 200 ml Tube Feeding 600 ml Output Urine Total 1400 ml 500 ml # Bowel Movements 1 1 Laboratory Tests 02/04/20 16:32: POC Whole Blood Glucose 91 02/04/20 22:15: POC Whole Blood Glucose 78 02/05/20 05:42: POC Whole Blood Glucose 223H 02/05/20 07:22: Sodium Level 145, Potassium Level 4.3, Chloride Level 105, Carbon Dioxide Level 35H, Anion Gap 5, Blood Urea Nitrogen 94H, Creatinine 1.8H, Estimat Glomerular Filtration Rate 43.3, Glucose Level 210H, Calcium Level 10.2H 02/05/20 12:09: POC Whole Blood Glucose 126H Height (Feet): 5 Height (Inches): 10.00 Weight (Pounds): 182 General Appearance: no apparent distress, alert, confused EENT: normal ENT inspection Neck: normal alignment Cardiovascular: regular rhythm Respiratory/Chest: lungs clear Abdomen: non tender, soft Extremities: no edema Neurologic: motor weakness Roland Campo MD Feb 05, 2020 12:53
--- NOTE | 2020-02-05 13:20 | NUR ---
NURSE NOTES: 20fr of GT was inserted by Dr. Jeffery. Per ronak Valera to use GT, no need to do KUB. RN checked the placement and started formular. HOB elevated, Will continue to monitor.
--- NOTE | 2020-02-05 14:30 | Consultation ---
DATE OF CONSULTATION: 02/05/2020 GASTROENTEROLOGY CONSULTATION CONSULTING PHYSICIAN: Yoni Jeffery MD. CHIEF COMPLAINT: Malfunctioning G-tube. HISTORY OF PRESENT ILLNESS: Most of the history per chart. An 89-year-old male admitted to the hospital back on January 22 for shortness of breath. Since admission, the patient has been treated by cooperative extension agent and design verification engineer, now has been having problem with the G-tube. The G-tube came out. They were able to put a Gaxiola catheter in the place of the G-tube to keep it opening, so GI consult requested for placement of a G-tube. PAST MEDICAL HISTORY: 1. Coronary artery disease. 2. History of VT. 3. Heart failure. 4. Atrial fibrillation. 5. History of left ventricular thrombus. 6. CVA. 7. Type 2 diabetes. 8. Hypothyroidism. 9. Anemia. 10. Chronic kidney disease. 11. Peripheral vascular disease. 12. Hyperlipidemia. ALLERGIES: No known drug allergies. MEDICATIONS: Please see medication reconciliation list. SOCIAL HISTORY: Currently living in the half-way. No history of tobacco, alcohol, or drug abuse. FAMILY HISTORY: Noncontributory. REVIEW OF SYSTEMS: Limited. PHYSICAL EXAMINATION: VITAL SIGNS: Temperature is 98.8, pulse 100, respirations 18, blood pressure 145/78. HEENT: Normocephalic and atraumatic. Sclerae are anicteric. NECK: Supple. No evidence of obvious lymphadenopathy. CARDIOVASCULAR: Regular rate and rhythm. Plus S1, S2. LUNGS: Decreased breath sounds bilaterally based on supine exam. ABDOMEN: Soft. Bowel sounds are present. No rebound. No guarding. No peritoneal sign. EXTREMITIES: No cyanosis. No clubbing. No edema. LABORATORY DATA: White count is 7.4, hemoglobin 12, hematocrit 38, platelet count is 83,000. ASSESSMENT AND PLAN: This is an 89-year-old male with numerous medical problems, problem with G-tube. The G-tube has been replaced at the bedside. A 20-[place] balloon type of G-tube was successfully placed without any complications. Plan is to start the tube feeding. Monitor for residuals. G-tube flush and G-tube care. Yoni Lynsey Jeffery DR: DADA JOB#: [id number] CC:
[2020-02-05 15:40] VITALS: BP 138/71
--- NOTE | 2020-02-05 16:00 | NUR ---
NURSE NOTES: Patient is tolerating with GT feeding, no residual.
--- NOTE | 2020-02-05 19:14 | NUR ---
NURSE HAND-OFF: Important Events on Shift: GT was inserted by Dr. Jeffery Patient Status: stable Diet: glucerna 1.2 @50cc/hr Pending Orders: [] Pending Results/Labs:[] Pending MD notification:[] Latest Vital Signs: Temperature 97.1 , Pulse 66 , B/P 138 /71 , Respiratory Rate 18 , O2 SAT 6 , Venturi Mask, O2 Flow Rate 10.0 . Vital Sign Comment: [] Latest Gibson Fall Score: 55 Fall Risk: High Risk Safety Measures: Call light Within Reach, Bed Alarm Zone 1, Side Rails Side Rails x2, Bed position Low and Locked. Fall Precautions: Yellow Socks Yellow Gown Patient Fall Education Report given to Michael and endorsed plan of care.
--- NOTE | 2020-02-05 19:45 | NUR ---
NURSE NOTES: Received report from Ant MARCOS. Patient is asleep, alert and oriented x2. On venturi mask 15L, breathing is even and unlabored. No signs of pain or distress noted. GT intact and patent with Glucerna running as ordered. Abdominal binder on top of GT to prevent dislodgement. Condom cath intact and draining well. IV right hand intact with no bleeding noted. Bed low and locked. Call light within reach.
[2020-02-05 20:00] VITALS: BP 122/74
[2020-02-05] MEDS: Atorvastatin 80mg tab GT SCH (20:56)
[2020-02-05] MEDS: Levemir Flexpen SUBQ SCH (21:01)
[2020-02-06] VITALS: BP 146/76
--- NOTE | 2020-02-06 01:54 | Cardiology Progress Note ---
Subjective DATE OF SERVICE: Feb 05, 2020 Still congested today. CXR on 02/01 revealed improving infiltrate/edema; concerning RUL nodule. Continues on total care with skin/nutrition/resp rx GTube replaced at bedside; feeds and water flushes restarted. Objective Last 24 Hour Vital Signs Date Time Temp Pulse Resp B/P (MAP) Pulse Ox O2 Delivery O2 Flow Rate FiO2 02/06/20 00:00 97.7 62 16 146/76 (99) 90 02/05/20 21:00 Venturi Mask 15.0 02/05/20 20:58 72 122/74 02/05/20 20:00 97.2 72 20 122/74 (90) 95 02/05/20 19:58 95 Venturi Mask 10.0 40 02/05/20 15:40 97.1 66 18 138/71 (93) 6 02/05/20 12:00 98.8 100 18 146/78 (100) 95 02/05/20 09:00 Venturi Mask 10.0 02/05/20 08:00 98.4 71 18 145/78 (100) 93 02/05/20 07:00 93 Venturi Mask 10.0 40 02/05/20 04:00 97.3 73 24 117/66 (83) 95 ROS: unchanged from 01/23/20 RHYTHM: NSR, PVCs, PACs, VT LUNGS: coarse breath sounds, bilat. rhonchi and rales CARDIAC: normal rate, regular rhythm, normal S1 and S2, gallop/S4 ABDOMEN: non tender, soft, no organomegaly, G-Tube intact EXTREMITIES: No edema Laboratory Tests Test 02/05/20 05:42 02/05/20 07:22 02/05/20 12:09 02/05/20 17:05 POC Whole Blood Glucose 223 MG/DL (74-106) H 126 MG/DL (74-106) H 130 MG/DL (74-106) H Sodium Level 145 MMOL/L (136-145) Potassium Level 4.3 MMOL/L (3.5-5.1) Chloride Level 105 MMOL/L (98-107) Carbon Dioxide Level 35 MMOL/L (21-32) H Anion Gap 5 mmol/L (5-15) Blood Urea Nitrogen 94 mg/dL (7-18) H Creatinine 1.8 MG/DL (0.55-1.30) H Estimat Glomerular Filtration Rate 43.3 mL/min (>60) Glucose Level 210 MG/DL (74-106) H Calcium Level 10.2 MG/DL (8.5-10.1) H Test 02/05/20 20:06 POC Whole Blood Glucose 162 MG/DL (74-106) H Assessment/Plan Assessment/Plan Healthcare acquired PNA Lactic acidosis Acute myocardial ischemia/possible NSTE myocardial infarction COPD Ac/chr systolic/diast CHF with worsening prerenal state following diuresis. Ischemic cardiomyopathy Severe dehydration Hypernatremia Hyperchloremia PAD with prior revascularization Dysphagia with GTube CVA with dementia Paroxysmal atrial arrhythmias IRDM uncontrolled Non-sustained ventricular tachycardia Hypertension/HHD with elevated BP Lung nodule Unlikely to be a candidate at age 89 with co-morbidities for thoracic surgery. Abx Resp therapy Diuresis held for now; trend BNP Titrate antiHTN and anti-anginal regimen further Cont'd anti-plt therapy Oxygen and bronchodilator rx DVT prophylaxis Monitor and replace lytes Titrate beta steve rx Levemir titration Osmani Cevallos MD Feb 06, 2020 01:54
[2020-02-06 04:00] VITALS: BP 135/85
[2020-02-06] MEDS: Solu-MEDROL 125mg Inj IVP SCH ×2 (05:56→17:10)
[2020-02-06] MEDS: NovoLOG Insulin Flexpen SUBQ SCH ×7 (05:58→21:00)
[2020-02-06 07:06] LABS: CALCIUM 9.7 MG/DL (8.5-10.1); CREATININE 1.7 MG/DL (0.55-1.30); POTASSIUM 3.7 MMOL/L (3.5-5.1)
--- NOTE | 2020-02-06 07:30 | NUR ---
NURSE HAND-OFF: Important Events on Shift:O2 therapy, deep suction by RT, GT feeding, BS management Patient Status: Stable Diet: Glucerna 1.2 Pending Orders: [] Pending Results/Labs:[] Pending MD notification:[] Latest Vital Signs: Temperature 97.5 , Pulse 71 , B/P 135 /85 , Respiratory Rate 20 , O2 SAT 95 , Venturi Mask, O2 Flow Rate 15.0 . Vital Sign Comment: VS stable Latest Gibson Fall Score: 70 Fall Risk: High Risk Safety Measures: Call light Within Reach, Bed Alarm Zone 1, Side Rails Side Rails x2, Bed position Low and Locked. Fall Precautions: Yellow Socks Yellow Gown Patient Fall Education Report given to Simeon MARCOS.
--- NOTE | 2020-02-06 07:35 | NUR ---
NURSE NOTES: Patient lying in bed sleeping. No signs and symptoms of pain or distress at this time. On Venturi mask @ 15 L. GT feeding on going as ordered. IV dressing intact and dry. Bed lowest position. Call light within reach. Will continue to monitor.
--- NOTE | 2020-02-06 07:41 | General Progress Note ---
Subjective ROS Limited/Unobtainable: No Allergies: Coded Allergies: No Known Allergies (Verified , 02/21/09) Objective Last 24 Hour Vital Signs Date Time Temp Pulse Resp B/P (MAP) Pulse Ox O2 Delivery O2 Flow Rate FiO2 02/06/20 04:00 97.5 71 20 135/85 (102) 95 02/06/20 00:00 97.7 62 16 146/76 (99) 90 02/05/20 21:00 Venturi Mask 15.0 02/05/20 20:58 72 122/74 02/05/20 20:00 97.2 72 20 122/74 (90) 95 02/05/20 19:58 95 Venturi Mask 10.0 40 02/05/20 15:40 97.1 66 18 138/71 (93) 6 02/05/20 12:00 98.8 100 18 146/78 (100) 95 02/05/20 09:00 Venturi Mask 10.0 02/05/20 08:00 98.4 71 18 145/78 (100) 93 Intake and Output 02/05/20 02/06/20 19:00 07:00 Intake Total 650 ml 850 ml Output Total 500 ml Balance 150 ml 850 ml Free Water 400 ml 400 ml Tube Feeding 250 ml 450 ml Output Urine Total 500 ml # Bowel Movements 1 Laboratory Tests 02/05/20 12:09: POC Whole Blood Glucose 126H 02/05/20 17:05: POC Whole Blood Glucose 130H 02/05/20 20:06: POC Whole Blood Glucose 162H 02/06/20 05:45: POC Whole Blood Glucose 224H 02/06/20 06:22: Sodium Level 146H, Potassium Level 3.7, Chloride Level 108H, Carbon Dioxide Level 36H, Anion Gap 3L, Blood Urea Nitrogen 94H, Creatinine 1.7H, Estimat Glomerular Filtration Rate 46.2, Glucose Level 234H, Calcium Level 9.7 Height (Feet): 5 Height (Inches): 10.00 Weight (Pounds): 182 General Appearance: no apparent distress EENT: normal ENT inspection Neck: supple Cardiovascular: normal rate Respiratory/Chest: decreased breath sounds Abdomen: hypoactive bowel sounds Extremities: non-tender Assessment/Plan Status: stable, progressing Assessment/Plan: 1. Coronary artery disease. 2. History of AR. 3. Heart failure. 4. Atrial fibrillation. 5. History of left ventricular thrombus. 6. CVA. 7. Type 2 diabetes. 8. Hypothyroidism. 9. Anemia. 10. Chronic kidney disease. 11. Peripheral vascular disease. 12. Hyperlipidemia. Gt has been changed at the bedside and it is working monitor for residuals local GT care will fu Yoni Jeffery MD Feb 06, 2020 07:41
[2020-02-06 08:00] VITALS: BP 155/81
[2020-02-06] MEDS: Aspirin Baby 81mg GT SCH (08:37)
[2020-02-06 12:00] VITALS: BP 154/79
--- NOTE | 2020-02-06 12:13 | Infectious Diseases Prog Note ---
Assessment/Plan Assessment/Plan antibiotics : none A 1. Community-acquired pneumonia s/p rx COVID-19 test is negative x2. 2. Diabetes. 3. Hypertension. 4. Renal failure. P 1. Continue off antibiotics 2. We will follow up cultures 1. Subjective ROS Limited/Unobtainable: Yes Allergies: Coded Allergies: No Known Allergies (Verified , 02/21/09) Objective Last 24 Hour Vital Signs Date Time Temp Pulse Resp B/P (MAP) Pulse Ox O2 Delivery O2 Flow Rate FiO2 02/06/20 09:00 Venturi Mask 15.0 02/06/20 08:37 76 155/81 02/06/20 08:37 76 155/81 02/06/20 08:00 97.3 76 21 155/81 (105) 98 02/06/20 04:00 97.5 71 20 135/85 (102) 95 02/06/20 00:00 97.7 62 16 146/76 (99) 90 02/05/20 21:00 Venturi Mask 15.0 02/05/20 20:58 72 122/74 02/05/20 20:00 97.2 72 20 122/74 (90) 95 02/05/20 19:58 95 Venturi Mask 10.0 40 02/05/20 15:40 97.1 66 18 138/71 (93) 6 Height (Feet): 5 Height (Inches): 10.00 Weight (Pounds): 182 Respiratory/Chest: lungs clear Cardiovascular: normal rate, regular rhythm, no gallop/murmur Abdomen: soft, non tender, other - GT Extremities: no edema Laboratory Tests Test 02/05/20 17:05 02/05/20 20:06 02/06/20 05:45 02/06/20 06:22 POC Whole Blood Glucose 130 MG/DL (74-106) H 162 MG/DL (74-106) H 224 MG/DL (74-106) H Sodium Level 146 MMOL/L (136-145) H Potassium Level 3.7 MMOL/L (3.5-5.1) Chloride Level 108 MMOL/L (98-107) H Carbon Dioxide Level 36 MMOL/L (21-32) H Anion Gap 3 mmol/L (5-15) L Blood Urea Nitrogen 94 mg/dL (7-18) H Creatinine 1.7 MG/DL (0.55-1.30) H Estimat Glomerular Filtration Rate 46.2 mL/min (>60) Glucose Level 234 MG/DL (74-106) H Calcium Level 9.7 MG/DL (8.5-10.1) Test 02/06/20 11:37 POC Whole Blood Glucose 173 MG/DL (74-106) H Current Medications Medications (Trade) Dose Ordered Sig/Bird Route PRN Reason Start Time Stop Time Status Last Admin Dose Admin Acetaminophen (Tylenol) 650 mg Q4H PRN ORAL Mild Pain (Scale 1-3) 01/23/20 18:30 02/22/20 18:29 Acetaminophen (Tylenol) 650 mg Q4H PRN ORAL Temp >100.5 01/23/20 18:45 02/22/20 18:44 Amlodipine Besylate (Norvasc) 5 mg DAILY ORAL 02/03/20 09:00 03/04/20 08:59 02/06/20 08:37 Aspirin (ASA) 81 mg DAILY GT 01/24/20 09:00 03/09/20 08:59 02/06/20 08:37 Atorvastatin Calcium (Lipitor) 40 mg BEDTIME GT 01/23/20 21:00 04/22/20 20:59 02/05/20 20:56 Dextrose (Dextrose 50%) 25 ml Q30M PRN IV Hypoglycemia 01/26/20 11:15 04/25/20 11:14 Dextrose (Dextrose 50%) 50 ml Q30M PRN IV Hypoglycemia 01/26/20 11:15 04/25/20 11:14 Famotidine (Pepcid) 20 mg DAILY GT 01/24/20 09:00 04/23/20 08:59 02/06/20 08:37 Insulin Aspart (NovoLOG) BEFORE MEALS AND HS SUBQ 01/26/20 11:30 04/25/20 11:29 02/06/20 11:40 Insulin Aspart (NovoLOG) 12 units NOVOTIAC SUBQ 02/04/20 08:00 05/04/20 07:59 02/06/20 11:40 Insulin Detemir (Levemir) 12 units BEDTIME SUBQ 01/27/20 21:00 04/26/20 02:29 02/05/20 21:01 Levothyroxine Sodium (Synthroid) 50 mcg DAILY@0630 GT 01/24/20 06:30 02/23/20 06:29 02/06/20 05:56 Methylprednisolone Sodium Succinate (Solu-MEDROL) 60 mg Q12H IVP 01/31/20 18:00 04/30/20 17:59 02/06/20 05:56 Metoprolol Tartrate (Lopressor) 25 mg Q12HR GT 01/27/20 09:00 04/26/20 08:59 02/06/20 08:37 Promethazine HCl/ Dextromethorphan (Phenergan DM) 6.25 mg Q6H PRN ORAL For Cough 01/23/20 18:30 02/22/20 18:29 02/02/20 17:48 Alicia Florence MD Feb 06, 2020 12:13
--- NOTE | 2020-02-06 12:23 | Surgery Progress Note ---
Surgery Progress Note Subjective Additional Comments g tube changed now functional no n/v/f/c Objective Last 24 Hour Vital Signs Date Time Temp Pulse Resp B/P (MAP) Pulse Ox O2 Delivery O2 Flow Rate FiO2 02/06/20 09:00 Venturi Mask 15.0 02/06/20 08:37 76 155/81 02/06/20 08:37 76 155/81 02/06/20 08:00 97.3 76 21 155/81 (105) 98 02/06/20 04:00 97.5 71 20 135/85 (102) 95 02/06/20 00:00 97.7 62 16 146/76 (99) 90 02/05/20 21:00 Venturi Mask 15.0 02/05/20 20:58 72 122/74 02/05/20 20:00 97.2 72 20 122/74 (90) 95 02/05/20 19:58 95 Venturi Mask 10.0 40 02/05/20 15:40 97.1 66 18 138/71 (93) 6 I&O Intake and Output 02/05/20 02/06/20 19:00 07:00 Intake Total 650 ml 850 ml Output Total 500 ml Balance 150 ml 850 ml Free Water 400 ml 400 ml Tube Feeding 250 ml 450 ml Output Urine Total 500 ml # Bowel Movements 1 Dressing: saturated Cardiovascular: RSR Respiratory: decreased breath sounds Abdomen: soft, non-tender, present bowel sounds, non-distended Extremities: no edema, no tenderness, no cyanosis Laboratory Tests Test 02/05/20 17:05 02/05/20 20:06 02/06/20 05:45 02/06/20 06:22 POC Whole Blood Glucose 130 MG/DL (74-106) H 162 MG/DL (74-106) H 224 MG/DL (74-106) H Sodium Level 146 MMOL/L (136-145) H Potassium Level 3.7 MMOL/L (3.5-5.1) Chloride Level 108 MMOL/L (98-107) H Carbon Dioxide Level 36 MMOL/L (21-32) H Anion Gap 3 mmol/L (5-15) L Blood Urea Nitrogen 94 mg/dL (7-18) H Creatinine 1.7 MG/DL (0.55-1.30) H Estimat Glomerular Filtration Rate 46.2 mL/min (>60) Glucose Level 234 MG/DL (74-106) H Calcium Level 9.7 MG/DL (8.5-10.1) Test 02/06/20 11:37 POC Whole Blood Glucose 173 MG/DL (74-106) H Plan Problems: (1) CHF (congestive heart failure) (2) Hypernatremia (3) Renal failure (4) Lung mass Assessment & Plan: noted new lung mass opacity on cxr compared to prior and seen once stable can plan for chest ct The cardiomediastinal silhouette is unchanged in appearance when accounting for differences in projection and technique. There is mild pulmonary vascular congestion. Streaky bibasilar airspace opacities are noted. There is a nodular opacity in the right midlung measuring approximately 2.6 cm. No pneumothorax or pleural effusion. No acute osseous abnormality. IMPRESSION: 1. Pulmonary vascular congestion with streaky bibasilar airspace opacities which could represent combination of edema and atelectasis but pneumonia should be excluded clinically. 2. Opacity in the right midlung, not seen on prior examination, suspicious for pulmonary nodule. Comparison with more recent prior chest radiograph or follow- up with CT chest on nonemergent basis is recommended. (5) Transaminitis Assessment & Plan: elevated lft's on admission etiology unknown US abd ordered trend labs fluids meds reviewed will follow with recs thank you DAILY ESTIMATED NEEDS: Needs based on DM, Renal, bedbound, 77kg abw 23-28 kcals/kg 6549-4307 total kcals 1.25-1.5 g protein/kg 96-116 g total protein 25-30 mL/kg 1502-6824 total fluid mLs NUTRITION DIAGNOSIS: Swallowing difficulty r/t dysphagia as evidenced by pt is GT dependent. (CURRENT TF: Glucerna 1.2 @50) ENTERAL NUTRITION RECOMMENDATIONS: GLUCERNA 1.2 goal of 70ml/hr x22 hrs + Prosource 1 pack qdaily to provide 1540ml, 1848 kcal, 92g + 11g pro, 1240ml free H2O - Rec to increase TF rate to better meet est kcal and pro needs. - Increase as able by 15ml/hr q4-6 hrs to goal - HOLD TF 1 hr before and after synthroid meds. - Flush per HOB over 30 degrees. With elevated lytes and worsening renal labs rec NEPRO w/ goal of 45ml/hr x22 hrs to provide: 990ml, 1782 kcal, 80g pro, 720ml free H2o. -Add Prosource 1 pack BID for added 22g pro to better meet est pro needs. ADDITIONAL RECOMMENDATIONS: 1) Monitor lytes, renal labs-> need for renal formula 2) Recalibrate bed scale wts 3) Hypoglycemic agents for improved BG control Rec niss w/ accuchecks 4) Hold TF 1 hr before and after synthroid meds. 5) rec HgA1C Liver: The liver is normal in size and demonstrates coarsened echotexture. No focal abnormalities are noted. Gallbladder: No cholelithiasis. Gallbladder wall is not thickened. No pericholecystic fluid. Sonographic Reed sign cannot be assessed due to patient unresponsiveness. Common bile duct: Normal in size. Pancreas: Incompletely imaged due to overlying bowel gas. Kidneys: The kidneys demonstrate increased cortical echogenicity. No hydron ephrosis or nephrolithiasis. There is a right renal cyst. Spleen: The spleen is normal in size and echogenicity. Incidental note is made of indwelling gastrostomy tube. IMPRESSION: 1. Coarsened hepatic echotexture, which is nonspecific but can be associated with liver dysfunction. 2. Increased echogenicity in the kidneys, which can be seen with medical renal disease. (6) Elevated troponin (7) Chest pain (8) COPD exacerbation Osman Cheung Feb 06, 2020 12:23
--- NOTE | 2020-02-06 15:30 | NUR ---
CASE MANAGEMENT:REVIEW SI;PNA. AC/CHR CHF. 97.5 76 21 155/81 90% 15L VENTURI FIO2 40% NA 146 BUN 94 C R 1.7 G 234 IS;NORVASC PO QD SOLU-MEDROL IV Q12 LOPRESSOR GT Q12 ASA GT QD SYNTHROID GT QD PEPCID GT QD MED SURG STATUS DCP;FROM [facility]
[2020-02-06 16:00] VITALS: BP 143/89
--- NOTE | 2020-02-06 17:03 | General Progress Note ---
Subjective ROS Limited/Unobtainable: No Constitutional: Reports: malaise, weakness HEENT: Reports: no symptoms Cardiovascular: Reports: no symptoms Respiratory: Reports: cough, shortness of breath Gastrointestinal/Abdominal: Reports: difficulty swallowing Genitourinary: Reports: no symptoms Neurologic/Psychiatric: Reports: pre-existing deficit Endocrine: Reports: no symptoms Hematologic/Lymphatic: Reports: anemia Allergies: Coded Allergies: No Known Allergies (Verified , 02/21/09) All Systems: reviewed and negative except above Subjective no change. remains on venti mask. alert. awake, does not follow commands. no fever. on tube feeds increased bun/cr. cxr with minimal improvement Objective Last 24 Hour Vital Signs Date Time Temp Pulse Resp B/P (MAP) Pulse Ox O2 Delivery O2 Flow Rate FiO2 02/06/20 16:00 98.0 78 22 143/89 (107) 95 02/06/20 12:00 97.1 73 21 154/79 (104) 95 02/06/20 09:00 Venturi Mask 15.0 02/06/20 08:37 76 155/81 02/06/20 08:37 76 155/81 02/06/20 08:00 97.3 76 21 155/81 (105) 98 02/06/20 04:00 97.5 71 20 135/85 (102) 95 02/06/20 00:00 97.7 62 16 146/76 (99) 90 02/05/20 21:00 Venturi Mask 15.0 02/05/20 20:58 72 122/74 02/05/20 20:00 97.2 72 20 122/74 (90) 95 02/05/20 19:58 95 Venturi Mask 10.0 40 Intake and Output 02/05/20 02/06/20 19:00 07:00 Intake Total 650 ml 850 ml Output Total 500 ml Balance 150 ml 850 ml Free Water 400 ml 400 ml Tube Feeding 250 ml 450 ml Output Urine Total 500 ml # Bowel Movements 1 Laboratory Tests 02/05/20 17:05: POC Whole Blood Glucose 130H 02/05/20 20:06: POC Whole Blood Glucose 162H 02/06/20 05:45: POC Whole Blood Glucose 224H 02/06/20 06:22: Sodium Level 146H, Potassium Level 3.7, Chloride Level 108H, Carbon Dioxide Level 36H, Anion Gap 3L, Blood Urea Nitrogen 94H, Creatinine 1.7H, Estimat Glomerular Filtration Rate 46.2, Glucose Level 234H, Calcium Level 9.7 02/06/20 11:37: POC Whole Blood Glucose 173H 02/06/20 16:48: POC Whole Blood Glucose 103 Height (Feet): 5 Height (Inches): 10.00 Weight (Pounds): 182 Objective General Appearance: WD/WN, alert. on venti mask Neck: non-tender, normal alignment Cardiovascular: normal peripheral pulses, normal rate, regular rhythm Respiratory/Chest: chest wall non-tender, lungs clear, normal breath sounds Abdomen: normal bowel sounds, non tender, soft, no organomegaly Edema: no edema noted Arm (L), no edema noted Arm (R) Neurologic: responsive, disoriented Assessment/Plan Problem List: (1) OMI (acute kidney injury) ICD Codes: N17.9 - Acute kidney failure, unspecified SNOMED: 3159237, 68027833 (2) Hypernatremia ICD Codes: E87.0 - Hyperosmolality and hypernatremia SNOMED: 719248545 (3) COPD exacerbation ICD Codes: J44.1 - Chronic obstructive pulmonary disease with (acute) exacerbation SNOMED: 669348207, 121631075, 708374738 (4) Elevated troponin ICD Codes: R77.8 - Other specified abnormalities of plasma proteins SNOMED: 230977593, 235694512, 338496287 (5) Lung mass ICD Codes: R91.8 - Other nonspecific abnormal finding of lung field SNOMED: 069280107, 491738846 Status: stable, progressing Assessment/Plan: cont current rx monitor bun/cr on diuretics monitor volume status monitor off abx monitor cxr ct chest when stable dvt/stress ulcer prophylaxis monitor bs on sliding scale tube feeds skin care turn q2 Aleksey Diaz MD Feb 06, 2020 17:03
--- NOTE | 2020-02-06 19:20 | Nephrology Progress Note ---
Assessment/Plan Problem List: (1) Proteinuria (2) CHF (congestive heart failure) (3) Dehydration (4) Hypernatremia (5) OMI (acute kidney injury) (6) COPD exacerbation (7) Cardiorenal syndrome with renal failure (8) CKD (chronic kidney disease) stage 3, GFR 30-59 ml/min (9) Pneumonia (10) Lung mass Plan continue water via gt, , SS insulin increased, lab BUN/creat slightly worse, diuresing for chf, lasix now held, still on high dose steroids which raise BUN Subjective ROS Limited/Unobtainable: Yes Objective Objective Last 24 Hour Vital Signs Date Time Temp Pulse Resp B/P (MAP) Pulse Ox O2 Delivery O2 Flow Rate FiO2 02/06/20 16:00 98.0 78 22 143/89 (107) 95 02/06/20 12:00 97.1 73 21 154/79 (104) 95 02/06/20 09:00 Venturi Mask 15.0 02/06/20 08:37 76 155/81 02/06/20 08:37 76 155/81 02/06/20 08:00 97.3 76 21 155/81 (105) 98 02/06/20 04:00 97.5 71 20 135/85 (102) 95 02/06/20 00:00 97.7 62 16 146/76 (99) 90 02/05/20 21:00 Venturi Mask 15.0 02/05/20 20:58 72 122/74 02/05/20 20:00 97.2 72 20 122/74 (90) 95 02/05/20 19:58 95 Venturi Mask 10.0 40 Intake and Output 02/05/20 02/06/20 19:00 07:00 Intake Total 650 ml 850 ml Output Total 500 ml Balance 150 ml 850 ml Free Water 400 ml 400 ml Tube Feeding 250 ml 450 ml Output Urine Total 500 ml # Bowel Movements 1 Laboratory Tests 02/05/20 20:06: POC Whole Blood Glucose 162H 02/06/20 05:45: POC Whole Blood Glucose 224H 02/06/20 06:22: Sodium Level 146H, Potassium Level 3.7, Chloride Level 108H, Carbon Dioxide Level 36H, Anion Gap 3L, Blood Urea Nitrogen 94H, Creatinine 1.7H, Estimat Glomerular Filtration Rate 46.2, Glucose Level 234H, Calcium Level 9.7 12/23/20 11:37: POC Whole Blood Glucose 173H 02/06/20 16:48: POC Whole Blood Glucose 103 Height (Feet): 5 Height (Inches): 10.00 Weight (Pounds): 182 General Appearance: lethargic, confused EENT: normal ENT inspection Neck: normal alignment Cardiovascular: regular rhythm Respiratory/Chest: rhonchi - bilaterally Abdomen: non tender, soft Extremities: no edema Neurologic: motor weakness Roland Campo MD Feb 06, 2020 19:20
--- NOTE | 2020-02-06 19:30 | NUR ---
NURSE HAND-OFF: Important Events on Shift:N/A Patient Status: Stable Diet: Tube feeding Pending Orders: N/A Pending Results/Labs:CBC, CMP on 02/06 Pending MD notification:N/A Latest Vital Signs: Temperature 98.0 , Pulse 78 , B/P 143 /89 , Respiratory Rate 22 , O2 SAT 95 , Venturi Mask, O2 Flow Rate 15.0 . Vital Sign Comment: Stable Latest Gibson Fall Score: 70 Fall Risk: High Risk Safety Measures: Call light Within Reach, Bed Alarm Zone 1, Side Rails Side Rails x2, Bed position Low and Locked. Fall Precautions: Yellow Socks Yellow Gown Door Sign Patient Fall Education Report given to Rodrigo RN. Patient in stable condition.
--- NOTE | 2020-02-06 19:40 | NUR ---
NURSE NOTES: Pt is in bed, awake, non-verbal. On venturi mask 15L. No SOB noted. Glucerna 1.2 running via g-tube, g-tube is secured with abdominal binder. Fall precaution in place. Bed locked low in position,side rails up and call light within reach. Pt will be monitored.
[2020-02-06 20:00] VITALS: BP 145/77
[2020-02-06] MEDS: Atorvastatin 80mg tab GT SCH (21:03)
[2020-02-06] MEDS: Levemir Flexpen SUBQ SCH (21:04)
[2020-02-07] VITALS: BP 143/76
--- NOTE | 2020-02-07 01:13 | Cardiology Progress Note ---
Subjective DATE OF SERVICE: Feb 06, 2020 Less congested today; off all antibiotics. CXR on 02/01 revealed improving infiltrate/edema; concerning RUL nodule. Continues on total care with skin/nutrition/resp rx GTube replaced at bedside yesterday; feeds and water flushes restarted. Objective Last 24 Hour Vital Signs Date Time Temp Pulse Resp B/P (MAP) Pulse Ox O2 Delivery O2 Flow Rate FiO2 02/06/20 21:03 82 145/77 02/06/20 20:00 98.9 82 18 145/77 (99) 97 02/06/20 16:00 98.0 78 22 143/89 (107) 95 02/06/20 12:00 97.1 73 21 154/79 (104) 95 02/06/20 09:00 Venturi Mask 15.0 02/06/20 08:37 76 155/81 02/06/20 08:37 76 155/81 02/06/20 08:00 97.3 76 21 155/81 (105) 98 02/06/20 04:00 97.5 71 20 135/85 (102) 95 ROS: unchanged from 01/23/20 RHYTHM: NSR, PVCs, PACs, VT LUNGS: coarse breath sounds, bilat. rhonchi and rales CARDIAC: normal rate, regular rhythm, normal S1 and S2, gallop/S4 ABDOMEN: non tender, soft, no organomegaly, G-Tube intact EXTREMITIES: No edema Laboratory Tests Test 02/06/20 05:45 02/06/20 06:22 02/06/20 11:37 02/06/20 16:48 POC Whole Blood Glucose 224 MG/DL (74-106) H 173 MG/DL (74-106) H 103 MG/DL (74-106) Sodium Level 146 MMOL/L (136-145) H Potassium Level 3.7 MMOL/L (3.5-5.1) Chloride Level 108 MMOL/L (98-107) H Carbon Dioxide Level 36 MMOL/L (21-32) H Anion Gap 3 mmol/L (5-15) L Blood Urea Nitrogen 94 mg/dL (7-18) H Creatinine 1.7 MG/DL (0.55-1.30) H Estimat Glomerular Filtration Rate 46.2 mL/min (>60) Glucose Level 234 MG/DL (74-106) H Calcium Level 9.7 MG/DL (8.5-10.1) Test 02/06/20 20:40 POC Whole Blood Glucose 71 MG/DL (74-106) L Assessment/Plan Assessment/Plan Healthcare acquired PNA Lactic acidosis Acute myocardial ischemia/possible NSTE myocardial infarction COPD Ac/chr systolic/diast CHF with worsening prerenal state following diuresis. Ischemic cardiomyopathy Severe dehydration Hypernatremia Hyperchloremia PAD with prior revascularization Dysphagia with GTube CVA with dementia Paroxysmal atrial arrhythmias IRDM uncontrolled Non-sustained ventricular tachycardia Hypertension/HHD with elevated BP Lung nodule Unlikely to be a candidate at age 89 with co-morbidities for thoracic surgery. Resp therapy Diuresis held for now; trend BNP Titrate antiHTN and anti-anginal regimen further Cont'd anti-plt therapy Oxygen and bronchodilator rx DVT prophylaxis Monitor and replace lytes Titrate beta steve rx Levemir titration DC planning Osmani Cevallos MD Feb 07, 2020 01:13
[2020-02-07 04:00] VITALS: BP 123/61
[2020-02-07] MEDS: Solu-MEDROL 125mg Inj IVP SCH ×2 (05:16→17:40)
[2020-02-07] MEDS: NovoLOG Insulin Flexpen SUBQ SCH ×7 (05:17→22:44)
--- NOTE | 2020-02-07 06:10 | NUR ---
NURSE HAND-OFF: Important Events on Shift:[] Patient Status: [Stable] Diet: [g-tube feeding] Pending Orders: [] Pending Results/Labs:[] Pending MD notification:[] Latest Vital Signs: Temperature 98.5 , Pulse 88 , B/P 123 /61 , Respiratory Rate 22 , O2 SAT 96 , Venturi Mask, O2 Flow Rate 15.0 . Vital Sign Comment: [] Latest Gibson Fall Score: 70 Fall Risk: High Risk Safety Measures: Call light Within Reach, Bed Alarm Zone 1, Side Rails Side Rails x2, Bed position Low and Locked. Fall Precautions: Yellow Socks Yellow Gown Door Sign Patient Fall Education Report given to [PRITI Robles]. Addendum: 02/07/20 at 0752 by RUSTY LOCKE RN RN Disregard above note: wrong time stamp
--- NOTE | 2020-02-07 07:10 | NUR ---
NURSE HAND-OFF: Important Events on Shift:[] Patient Status: [Stable] Diet: [G-tube feeding] Pending Orders: [] Pending Results/Labs:[] Pending MD notification:[] Latest Vital Signs: Temperature 98.5 , Pulse 88 , B/P 123 /61 , Respiratory Rate 22 , O2 SAT 96 , Venturi Mask, O2 Flow Rate 15.0 . Vital Sign Comment: [] Latest Gibson Fall Score: 70 Fall Risk: High Risk Safety Measures: Call light Within Reach, Bed Alarm Zone 1, Side Rails Side Rails x2, Bed position Low and Locked. Fall Precautions: Yellow Socks Yellow Gown Door Sign Patient Fall Education Report given to [PRITI Robles].
--- NOTE | 2020-02-07 07:24 | NUR ---
NURSE NOTES: Received report from PRITI Wallace. Patient is asleep, alert and oriented x2. On venturi mask 15L, breathing is even and unlabored. No signs of pain or distress noted at this time. GT intact and patent with Glucerna running as ordered. Abdominal binder on top of GT to prevent dislodgement and patient has a history of pulling g-tube device. Condom cath intact and draining well. IV right hand patent and intact with no bleeding noted. Bed placed lowest position and locked. Call light within reach. Will continue to monitor
[2020-02-07 07:37] LABS: ALBUMIN 1.9 G/DL (3.4-5.0); ALBUMIN/GLOBULIN RATIO 0.4 (1.0-2.7); BILIRUBIN,TOTAL 0.4 MG/DL (0.2-1.0); CREATININE 1.9 MG/DL (0.55-1.30); POTASSIUM 4.6 MMOL/L (3.5-5.1)
[2020-02-07 07:52] LABS: CALCIUM 9.8 MG/DL (8.5-10.1)
[2020-02-07 08:00] VITALS: BP 123/57
[2020-02-07 08:31] LABS: HEMATOCRIT 38.9 % (42.0-52.0); HEMOGLOBIN 12.6 G/DL (14.2-18.0); MEAN CORPUSCULAR VOLUME 92 FL (80-99); PLATELET COUNT 122 K/UL (150-450); RED BLOOD COUNT 4.25 M/UL (4.70-6.10); RED CELL DISTRIBUTION WIDTH 16.6 % (11.6-14.8); WHITE BLOOD COUNT 10.4 K/UL (4.8-10.8)
--- NOTE | 2020-02-07 09:03 | NUR ---
DISCHARGE PLANNING PATIENT HAS BEEN REFERRED BACK TO [facility] P [phone] F [phone] Addendum: 02/07/20 at 1029 by PARK TANG LVN S/Brigida [facility]A AT [facility]. SNF REQUESTING CURRENT COVID RESULT. LAST COVID ON 01/24/20. INFORMED. RAPID COVID ORDER NOTED AND CARRIED OUT.
[2020-02-07] MEDS: Aspirin Baby 81mg GT SCH (09:13)
--- NOTE | 2020-02-07 09:19 | Nephrology Progress Note ---
Assessment/Plan Problem List: (1) Proteinuria (2) CHF (congestive heart failure) (3) Dehydration (4) Hypernatremia (5) OMI (acute kidney injury) (6) COPD exacerbation (7) Cardiorenal syndrome with renal failure (8) CKD (chronic kidney disease) stage 3, GFR 30-59 ml/min (9) Pneumonia (10) Lung mass Plan continue water via gt, , SS insulin, lab BUN/creat slightly worse, diuresing for chf, lasix now held, still on high dose steroids which raise BUN, likely mild dehydration, give 500 ml iv fluid Subjective ROS Limited/Unobtainable: Yes Objective Objective Last 24 Hour Vital Signs Date Time Temp Pulse Resp B/P (MAP) Pulse Ox O2 Delivery O2 Flow Rate FiO2 02/07/20 09:14 76 123/57 02/07/20 09:13 76 123/57 02/07/20 08:00 97.0 76 20 123/57 (79) 94 02/07/20 04:00 98.5 88 22 123/61 (81) 96 02/07/20 00:00 98.8 89 22 143/76 (98) 95 02/06/20 21:03 82 145/77 02/06/20 21:00 Venturi Mask 15.0 02/06/20 20:00 98.9 82 18 145/77 (99) 97 02/06/20 16:00 98.0 78 22 143/89 (107) 95 02/06/20 12:00 97.1 73 21 154/79 (104) 95 Intake and Output 02/06/20 02/07/20 19:00 07:00 Intake Total 50 ml 1200 ml Output Total 400 ml 200 ml Balance -350 ml 1000 ml Free Water 600 ml Tube Feeding 50 ml 600 ml Output Urine Total 400 ml 200 ml # Voids 2 2 # Bowel Movements 1 Laboratory Tests 02/06/20 11:37: POC Whole Blood Glucose 173H 02/06/20 16:48: POC Whole Blood Glucose 103 02/06/20 20:40: POC Whole Blood Glucose 71L 02/07/20 05:12: POC Whole Blood Glucose 236H 02/07/20 06:05: White Blood Count 10.4, Red Blood Count 4.25L, Hemoglobin 12.6L, Hematocrit 38.9L, Mean Corpuscular Volume 92, Mean Corpuscular Hemoglobin 29.7, Mean Corpuscular Hemoglobin Concent 32.5, Red Cell Distribution Width 16.6H, Platelet Count 122L, Mean Platelet Volume 9.5, Neutrophils (%) (Auto) , Lymphocytes (%) (Auto) , Monocytes (%) (Auto) , Eosinophils (%) (Auto) , Basophils (%) (Auto) , Neutrophils % (Manual) [Pending], Lymphocytes % (Manual) [Pending], Platelet Estimate [Pending], Platelet Morphology [Pending], Sodium Level 147H, Potassium Level 4.6, Chloride Level 107, Carbon Dioxide Level 34H, Anion Gap 6, Blood Urea Nitrogen 102H, Creatinine 1.9H, Estimat Glomerular Filtration Rate 40.6, Gluc ose Level 259H, Calcium Level 9.8, Total Bilirubin 0.4, Aspartate Amino Transf (AST/SGOT) 104H, Alanine Aminotransferase (ALT/SGPT) 41, Alkaline Phosphatase 195H, Pro-B-Type Natriuretic Peptide 9553H, Total Protein 6.4, Albumin 1.9L, Globulin 4.5, Albumin/Globulin Ratio 0.4L Height (Feet): 5 Height (Inches): 10.00 Weight (Pounds): 182 General Appearance: lethargic, confused EENT: normal ENT inspection Neck: normal alignment Cardiovascular: regular rhythm Respiratory/Chest: lungs clear, no respiratory distress, decreased breath sounds Abdomen: non tender, soft Extremities: no edema Neurologic: motor weakness Roland Campo MD Feb 07, 2020 09:19
--- NOTE | 2020-02-07 11:00 | NUR ---
DIE CAST OPERATOR NOTE ORDER TO SECURE BED AT [facility] FOR 02/06 NOTED. HOWEVER, PATIENT STILL REQUIRES HIGH O2 SUPPORT @ 15L VENTURI.
[2020-02-07 12:00] VITALS: BP 126/60
--- NOTE | 2020-02-07 12:51 | NUR ---
RD ASSESSMENT & RECOMMENDATIONS SEE CARE ACTIVITY FOR COMPLETE ASSESSMENT DAILY ESTIMATED NEEDS: Needs based on DM, Renal, bedbound, 77kg abw 20-25 kcals/kg 6739-5366 total kcals 1-1.5 g protein/kg 77-116 g total protein 25-30 mL/kg 5898-7420 total fluid mLs NUTRITION DIAGNOSIS: Swallowing difficulty r/t dysphagia as evidenced by pt is GT dependent. CURRENT TF: (glucerna 1.2 @50) ENTERAL NUTRITION RECOMMENDATIONS: GLUCERNA 1.5 goal of 50ml/hr x22 hrs to provide 1100ml, 1650kcal, 90g prot, 835ml free water - Rec TF change to Glucerna 1.5 for less free fluids- CHF dx - Rec goal rate of 50ml/hr - HOLD TF 1 hr before and after synthroid meds. - Flush per . HOB over 30 degrees. ADDITIONAL RECOMMENDATIONS: 1) Monitor lytes, renal labs-> renal fxn improving, check phos level 2) Recalibrate bed scale wts 3) Hypoglycemic agents for improved BG control -> now on TIAC novolog + SSI and Levemir Monitor BGs closely for hypoglycemia 4) Hold TF 1 hr before and after synthroid meds. 5) rec HgA1C
--- NOTE | 2020-02-07 13:26 | General Progress Note ---
Subjective ROS Limited/Unobtainable: Yes Constitutional: Reports: malaise, weakness HEENT: Reports: no symptoms Cardiovascular: Reports: no symptoms Respiratory: Reports: cough, shortness of breath, sputum Gastrointestinal/Abdominal: Reports: difficulty swallowing Genitourinary: Reports: no symptoms Neurologic/Psychiatric: Reports: pre-existing deficit Endocrine: Reports: no symptoms Hematologic/Lymphatic: Reports: no symptoms Allergies: Coded Allergies: No Known Allergies (Verified , 02/21/09) All Systems: reviewed and negative except above Subjective no change. remains on venti mask. alert. awake, does not follow commands. no fever. on tube feeds increased bun/cr. cxr with minimal improvement Objective Last 24 Hour Vital Signs Date Time Temp Pulse Resp B/P (MAP) Pulse Ox O2 Delivery O2 Flow Rate FiO2 02/07/20 12:00 98.0 80 19 126/60 (82) 96 02/07/20 09:14 76 123/57 02/07/20 09:13 76 123/57 02/07/20 09:00 Venturi Mask 15.0 02/07/20 08:00 97.0 76 20 123/57 (79) 94 02/07/20 04:00 98.5 88 22 123/61 (81) 96 02/07/20 00:00 98.8 89 22 143/76 (98) 95 02/06/20 21:03 82 145/77 02/06/20 21:00 Venturi Mask 15.0 02/06/20 20:00 98.9 82 18 145/77 (99) 97 02/06/20 16:00 98.0 78 22 143/89 (107) 95 Intake and Output 02/06/20 02/07/20 19:00 07:00 Intake Total 50 ml 1200 ml Output Total 400 ml 200 ml Balance -350 ml 1000 ml Free Water 600 ml Tube Feeding 50 ml 600 ml Output Urine Total 400 ml 200 ml # Voids 2 2 # Bowel Movements 1 Laboratory Tests 02/06/20 16:48: POC Whole Blood Glucose 103 02/06/20 20:40: POC Whole Blood Glucose 71L 02/07/20 05:12: POC Whole Blood Glucose 236H 02/07/20 06:05: White Blood Count 10.4, Red Blood Count 4.25L, Hemoglobin 12.6L, Hematocrit 38.9L, Mean Corpuscular Volume 92, Mean Corpuscular Hemoglobin 29.7, Mean Corpuscular Hemoglobin Concent 32.5, Red Cell Distribution Width 16.6H, Platelet Count 122L, Mean Platelet Volume 9.5, Neutrophils (%) (Auto) , Lymphocytes (%) (Auto) , Monocytes (%) (Auto) , Eosinophils (%) (Auto) , Basophils (%) (Auto) , Differential Total Cells Counted 100, Neutrophils % (Manual) 94H, Lymphocytes % (Manual) 4L, Monocytes % (Manual) 2, Eosinophils % (Manual) 0, Basophils % (Manual) 0, Band Neutrophils 0, Platelet Estimate DecreasedL, Platelet Morphology Normal, Red Blood Cell Morphology Normal, Sodium Level 147H, Potassium Level 4.6, Chloride Level 107, Carbon Dioxide Level 34H, Anion Gap 6, Blood Urea Nitrogen 102H, Creatinine 1.9H, Estimat Glomerular Filtration Rate 40.6, Glucose Level 259H, Calcium Level 9.8, Total Bilirubin 0.4, Aspartate Amino Transf (AST/SGOT) 104H, Alanine Aminotransferase (ALT/SGPT) 41, Alkaline Phosphatase 195H, Pro-B-Type Natriuretic Peptide 9553H, Total Protein 6.4, Albumin 1.9L, Globulin 4.5, Albumin/Globulin Ratio 0.4L Height (Feet): 5 Height (Inches): 10.00 Weight (Pounds): 182 Objective General Appearance: WD/WN, alert. on venti mask Neck: non-tender, normal alignment Cardiovascular: normal peripheral pulses, normal rate, regular rhythm Respiratory/Chest: chest wall non-tender, lungs clear, normal breath sounds Abdomen: normal bowel sounds, non tender, soft, no organomegaly Edema: no edema noted Arm (L), no edema noted Arm (R) Neurologic: responsive, disoriented Assessment/Plan Problem List: (1) OIM (acute kidney injury) ICD Codes: N17.9 - Acute kidney failure, unspecified SNOMED: 2557536, 46414037 (2) Hypernatremia ICD Codes: E87.0 - Hyperosmolality and hypernatremia SNOMED: 579737419 (3) COPD exacerbation ICD Codes: J44.1 - Chronic obstructive pulmonary disease with (acute) exacerbation SNOMED: 636584949, 928285685, 453071208 (4) Elevated troponin ICD Codes: R77.8 - Other specified abnormalities of plasma proteins SNOMED: 429430401, 416987671, 698092358 (5) Lung mass ICD Codes: R91.8 - Other nonspecific abnormal finding of lung field SNOMED: 629157255, 922572575 Status: stable, progressing Assessment/Plan: cont current rx monitor bun/cr on diuretics ?trial ivf monitor volume status monitor off abx monitor cxr ct chest when stable dvt/stress ulcer prophylaxis monitor bs on sliding scale tube feeds skin care turn q2 Aleksey Diaz MD Feb 07, 2020 13:26
--- NOTE | 2020-02-07 14:22 | Surgery Progress Note ---
Surgery Progress Note Subjective Symptoms: improved, tolerating diet, passing flatus Objective Last 24 Hour Vital Signs Date Time Temp Pulse Resp B/P (MAP) Pulse Ox O2 Delivery O2 Flow Rate FiO2 02/07/20 12:00 98.0 80 19 126/60 (82) 96 02/07/20 09:14 76 123/57 02/07/20 09:13 76 123/57 02/07/20 09:00 Venturi Mask 15.0 02/07/20 08:00 97.0 76 20 123/57 (79) 94 02/07/20 04:00 98.5 88 22 123/61 (81) 96 02/07/20 00:00 98.8 89 22 143/76 (98) 95 02/06/20 21:03 82 145/77 02/06/20 21:00 Venturi Mask 15.0 02/06/20 20:00 98.9 82 18 145/77 (99) 97 02/06/20 16:00 98.0 78 22 143/89 (107) 95 I&O Intake and Output 02/06/20 02/07/20 19:00 07:00 Intake Total 50 ml 1200 ml Output Total 400 ml 200 ml Balance -350 ml 1000 ml Free Water 600 ml Tube Feeding 50 ml 600 ml Output Urine Total 400 ml 200 ml # Voids 2 2 # Bowel Movements 1 Dressing: saturated Cardiovascular: RSR Respiratory: decreased breath sounds Abdomen: soft, non-tender, present bowel sounds Extremities: no tenderness, no cyanosis Laboratory Tests Test 02/06/20 16:48 02/06/20 20:40 02/07/20 05:12 02/07/20 06:05 POC Whole Blood Glucose 103 MG/DL (74-106) 71 MG/DL (74-106) L 236 MG/DL (74-106) H White Blood Count 10.4 K/UL (4.8-10.8) Red Blood Count 4.25 M/UL (4.70-6.10) L Hemoglobin 12.6 G/DL (14.2-18.0) L Hematocrit 38.9 % (42.0-52.0) L Mean Corpuscular Volume 92 FL (80-99) Mean Corpuscular Hemoglobin 29.7 PG (27.0-31.0) Mean Corpuscular Hemoglobin Concent 32.5 G/DL (32.0-36.0) Red Cell Distribution Width 16.6 % (11.6-14.8) H Platelet Count 122 K/UL (150-450) L Mean Platelet Volume 9.5 FL (6.5-10.1) Neutrophils (%) (Auto) % (45.0-75.0) Lymphocytes (%) (Auto) % (20.0-45.0) Monocytes (%) (Auto) % (1.0-10.0) Eosinophils (%) (Auto) % (0.0-3.0) Basophils (%) (Auto) % (0.0-2.0) Differential Total Cells Counted 100 Neutrophils % (Manual) 94 % (45-75) H Lymphocytes % (Manual) 4 % (20-45) L Monocytes % (Manual) 2 % (1-10) Eosinophils % (Manual) 0 % (0-3) Basophils % (Manual) 0 % (0-2) Band Neutrophils 0 % (0-8) Platelet Estimate Decreased L Platelet Morphology Normal Red Blood Cell Morphology Normal Sodium Level 147 MMOL/L (136-145) H Potassium Level 4.6 MMOL/L (3.5-5.1) Chloride Level 107 MMOL/L (98-107) Carbon Dioxide Level 34 MMOL/L (21-32) H Anion Gap 6 mmol/L (5-15) Blood Urea Nitrogen 102 mg/dL (7-18) H Creatinine 1.9 MG/DL (0.55-1.30) H Estimat Glomerular Filtration Rate 40.6 mL/min (>60) Glucose Level 259 MG/DL (74-106) H Calcium Level 9.8 MG/DL (8.5-10.1) Total Bilirubin 0.4 MG/DL (0.2-1.0) Aspartate Amino Transf (AST/SGOT) 104 U/L (15-37) H Alanine Aminotransferase (ALT/SGPT) 41 U/L (12-78) Alkaline Phosphatase 195 U/L (46-116) H Pro-B-Type Natriuretic Peptide 9553 pg/mL (0-125) H Total Protein 6.4 G/DL (6.4-8.2) Albumin 1.9 G/DL (3.4-5.0) L Globulin 4.5 g/dL Albumin/Globulin Ratio 0.4 (1.0-2.7) L Plan Problems: (1) CHF (congestive heart failure) (2) Hypernatremia (3) Renal failure (4) Lung mass Assessment & Plan: noted new lung mass opacity on cxr compared to prior and seen once stable can plan for chest ct The cardiomediastinal silhouette is unchanged in appearance when accounting for differences in projection and technique. There is mild pulmonary vascular congestion. Streaky bibasilar airspace opacities are noted. There is a nodular opacity in the right midlung measuring approximately 2.6 cm. No pneumothorax or pleural effusion. No acute osseous abnormality. IMPRESSION: 1. Pulmonary vascular congestion with streaky bibasilar airspace opacities which could represent combination of edema and atelectasis but pneumonia should be excluded clinically. 2. Opacity in the right midlung, not seen on prior examination, suspicious for pulmonary nodule. Comparison with more recent prior chest radiograph or follow- up with CT chest on nonemergent basis is recommended. (5) Transaminitis Assessment & Plan: elevated lft's on admission etiology unknown US abd ordered trend labs fluids meds reviewed will follow with recs thank you DAILY ESTIMATED NEEDS: Needs based on DM, Renal, bedbound, 77kg abw 23-28 kcals/kg 3404-0401 total kcals 1.25-1.5 g protein/kg 96-116 g total protein 25-30 mL/kg 7903-1240 total fluid mLs NUTRITION DIAGNOSIS: Swallowing difficulty r/t dysphagia as evidenced by pt is GT dependent. (CURRENT TF: Glucerna 1.2 @50) ENTERAL NUTRITION RECOMMENDATIONS: GLUCERNA 1.2 goal of 70ml/hr x22 hrs + Prosource 1 pack qdaily to provide 1540ml, 1848 kcal, 92g + 11g pro, 1240ml free H2O - Rec to increase TF rate to better meet est kcal and pro needs. - Increase as able by 15ml/hr q4-6 hrs to goal - HOLD TF 1 hr before and after synthroid meds. - Flush per HOB over 30 degrees. With elevated lytes and worsening renal labs rec NEPRO w/ goal of 45ml/hr x22 hrs to provide: 990ml, 1782 kcal, 80g pro, 720ml free H2o. -Add Prosource 1 pack BID for added 22g pro to better meet est pro needs. ADDITIONAL RECOMMENDATIONS: 1) Monitor lytes, renal labs-> need for renal formula 2) Recalibrate bed scale wts 3) Hypoglycemic agents for improved BG control Rec niss w/ accuchecks 4) Hold TF 1 hr before and after synthroid meds. 5) rec HgA1C Liver: The liver is normal in size and demonstrates coarsened echotexture. No focal abnormalities are noted. Gallbladder: No cholelithiasis. Gallbladder wall is not thickened. No pericholecystic fluid. Sonographic Reed sign cannot be assessed due to patient unresponsiveness. Common bile duct: Normal in size. Pancreas: Incompletely imaged due to overlying bowel gas. Kidneys: The kidneys demonstrate increased cortical echogenicity. No hydronephrosis or nephrolithiasis. There is a right renal cyst. Spleen: The spleen is normal in size and echogenicity. Incidental note is made of indwelling gastrostomy tube. IMPRESSION: 1. Coarsened hepatic echotexture, which is nonspecific but can be associated with liver dysfunction. 2. Increased echogenicity in the kidneys, which can be seen with medical renal disease. (6) Elevated troponin (7) Chest pain (8) COPD exacerbation Osman Cheung Feb 07, 2020 14:22
[2020-02-07 16:00] VITALS: BP 135/79
--- NOTE | 2020-02-07 17:36 | Cardiology Progress Note ---
Subjective DATE OF SERVICE: Feb 07, 2020 Less congested today; remains off all antibiotics. CXR on 02/01 revealed improving infiltrate/edema; concerning RUL nodule. Continues on total care with skin/nutrition/resp rx GTube replaced at bedside yesterday; feeds and water flushes restarted. Additional hypotonic IVF given for cont'd Na elev. Objective Last 24 Hour Vital Signs Date Time Temp Pulse Resp B/P (MAP) Pulse Ox O2 Delivery O2 Flow Rate FiO2 02/07/20 16:00 97.2 86 17 135/79 (97) 96 02/07/20 12:00 98.0 80 19 126/60 (82) 96 02/07/20 09:14 76 123/57 02/07/20 09:13 76 123/57 02/07/20 09:00 Venturi Mask 15.0 02/07/20 08:00 97.0 76 20 123/57 (79) 94 02/07/20 04:00 98.5 88 22 123/61 (81) 96 02/07/20 00:00 98.8 89 22 143/76 (98) 95 02/06/20 21:03 82 145/77 02/06/20 21:00 Venturi Mask 15.0 02/06/20 20:00 98.9 82 18 145/77 (99) 97 ROS: unchanged from 01/23/20 RHYTHM: NSR, PVCs, PACs, VT LUNGS: coarse breath sounds, bilat. rhonchi and rales CARDIAC: normal rate, regular rhythm, normal S1 and S2, gallop/S4 ABDOMEN: non tender, soft, no organomegaly, G-Tube intact EXTREMITIES: No edema Laboratory Tests Test 02/06/20 20:40 02/07/20 05:12 02/07/20 06:05 POC Whole Blood Glucose 71 MG/DL (74-106) L 236 MG/DL (74-106) H White Blood Count 10.4 K/UL (4.8-10.8) Red Blood Count 4.25 M/UL (4.70-6.10) L Hemoglobin 12.6 G/DL (14.2-18.0) L Hematocrit 38.9 % (42.0-52.0) L Mean Corpuscular Volume 92 FL (80-99) Mean Corpuscular Hemoglobin 29.7 PG (27.0-31.0) Mean Corpuscular Hemoglobin Concent 32.5 G/DL (32.0-36.0) Red Cell Distribution Width 16.6 % (11.6-14.8) H Platelet Count 122 K/UL (150-450) L Mean Platelet Volume 9.5 FL (6.5-10.1) Neutrophils (%) (Auto) % (45.0-75.0) Lymphocytes (%) (Auto) % (20.0-45.0) Monocytes (%) (Auto) % (1.0-10.0) Eosinophils (%) (Auto) % (0.0-3.0) Basophils (%) (Auto) % (0.0-2.0) Differential Total Cells Counted 100 Neutrophils % (Manual) 94 % (45-75) H Lymphocytes % (Manual) 4 % (20-45) L Monocytes % (Manual) 2 % (1-10) Eosinophils % (Manual) 0 % (0-3) Basophils % (Manual) 0 % (0-2) Band Neutrophils 0 % (0-8) Platelet Estimate Decreased L Platelet Morphology Normal Red Blood Cell Morphology Normal Sodium Level 147 MMOL/L (136-145) H Potassium Level 4.6 MMOL/L (3.5-5.1) Chloride Level 107 MMOL/L (98-107) Carbon Dioxide Level 34 MMOL/L (21-32) H Anion Gap 6 mmol/L (5-15) Blood Urea Nitrogen 102 mg/dL (7-18) H Creatinine 1.9 MG/DL (0.55-1.30) H Estimat Glomerular Filtration Rate 40.6 mL/min (>60) Glucose Level 259 MG/DL (74-106) H Calcium Level 9.8 MG/DL (8.5-10.1) Total Bilirubin 0.4 MG/DL (0.2-1.0) Aspartate Amino Transf (AST/SGOT) 104 U/L (15-37) H Alanine Aminotransferase (ALT/SGPT) 41 U/L (12-78) Alkaline Phosphatase 195 U/L (46-116) H Pro-B-Type Natriuretic Peptide 9553 pg/mL (0-125) H Total Protein 6.4 G/DL (6.4-8.2) Albumin 1.9 G/DL (3.4-5.0) L Globulin 4.5 g/dL Albumin/Globulin Ratio 0.4 (1.0-2.7) L Assessment/Plan Assessment/Plan Healthcare acquired PNA Lactic acidosis Acute myocardial ischemia/possible NSTE myocardial infarction COPD Ac/chr systolic/diast CHF with worsening prerenal state following diuresis. Ischemic cardiomyopathy Severe dehydration/hypernatremia improving Hypernatremia Hyperchloremia PAD with prior revascularization Dysphagia with GTube CVA with dementia Paroxysmal atrial arrhythmias IRDM uncontrolled Non-sustained ventricular tachycardia Hypertension/HHD with elevated BP Lung nodule Unlikely to be a candidate at age 89 with co-morbidities for thoracic surgery. Resp therapy Diuresis held for now; trend BNP. Additional free water hydration. Titrate antiHTN and anti-anginal regimen further Cont'd anti-plt therapy Oxygen and bronchodilator rx DVT prophylaxis Monitor and replace lytes Titrate beta steve rx Levemir titration DC planning Osmani Cevallos MD Feb 07, 2020 17:36
--- NOTE | 2020-02-07 19:27 | NUR ---
NURSE HAND-OFF: Important Events on Shift:unsuccessful weane off oxygen Patient Status: stable Diet: glucerna 1.2 Pending Orders: n/a Pending Results/Labs:n/a Pending MD notification:n/a Latest Vital Signs: Temperature 97.2 , Pulse 86 , B/P 135 /79 , Respiratory Rate 17 , O2 SAT 96 , Venturi Mask, O2 Flow Rate 15.0 . Vital Sign Comment: stable Latest Gibson Fall Score: 70 Fall Risk: High Risk Safety Measures: Call light Within Reach, Bed Alarm Zone 1, Side Rails Side Rails x2, Bed position Low and Locked. Fall Precautions: Yellow Socks Yellow Gown Door Sign Patient Fall Education Report given to PRITI Wallace.
[2020-02-07 20:00] VITALS: BP 138/81
--- NOTE | 2020-02-07 20:01 | General Progress Note ---
Subjective Allergies: Coded Allergies: No Known Allergies (Verified , 02/21/09) Subjective above noted NAD , comfortable tolerating TF Objective Last 24 Hour Vital Signs Date Time Temp Pulse Resp B/P (MAP) Pulse Ox O2 Delivery O2 Flow Rate FiO2 02/07/20 16:00 97.2 86 17 135/79 (97) 96 02/07/20 12:00 98.0 80 19 126/60 (82) 96 02/07/20 09:14 76 123/57 02/07/20 09:13 76 123/57 02/07/20 09:00 Venturi Mask 15.0 02/07/20 08:00 97.0 76 20 123/57 (79) 94 02/07/20 04:00 98.5 88 22 123/61 (81) 96 02/07/20 00:00 98.8 89 22 143/76 (98) 95 02/06/20 21:03 82 145/77 02/06/20 21:00 Venturi Mask 15.0 02/06/20 20:00 98.9 82 18 145/77 (99) 97 Intake and Output 02/06/20 02/07/20 19:00 07:00 Intake Total 50 ml 1200 ml Output Total 400 ml 200 ml Balance -350 ml 1000 ml Free Water 600 ml Tube Feeding 50 ml 600 ml Output Urine Total 400 ml 200 ml # Voids 2 2 # Bowel Movements 1 Laboratory Tests 02/06/20 20:40: POC Whole Blood Glucose 71L 02/07/20 05:12: POC Whole Blood Glucose 236H 02/07/20 06:05: White Blood Count 10.4, Red Blood Count 4.25L, Hemoglobin 12.6L, Hematocrit 38.9L, Mean Corpuscular Volume 92, Mean Corpuscular Hemoglobin 29.7, Mean Corpuscular Hemoglobin Concent 32.5, Red Cell Distribution Width 16.6H, Platelet Count 122L, Mean Platelet Volume 9.5, Neutrophils (%) (Auto) , Lymphocytes (%) (Auto) , Monocytes (%) (Auto) , Eosinophils (%) (Auto) , Basophils (%) (Auto) , Differential Total Cells Counted 100, Neutrophils % (Manual) 94H, Lymphocytes % (Manual) 4L, Monocytes % (Manual) 2, Eosinophils % (Manual) 0, Basophils % (Manual) 0, Band Neutrophils 0, Platelet Estimate DecreasedL, Platelet Morpholo gy Normal, Red Blood Cell Morphology Normal, Sodium Level 147H, Potassium Level 4.6, Chloride Level 107, Carbon Dioxide Level 34H, Anion Gap 6, Blood Urea Nitrogen 102H, Creatinine 1.9H, Estimat Glomerular Filtration Rate 40.6, Glucose Level 259H, Calcium Level 9.8, Total Bilirubin 0.4, Aspartate Amino Transf (AST/SGOT) 104H, Alanine Aminotransferase (ALT/SGPT) 41, Alkaline Phosphatase 195H, Pro-B-Type Natriuretic Peptide 9553H, Total Protein 6.4, Albumin 1.9L, Globulin 4.5, Albumin/Globulin Ratio 0.4L Height (Feet): 5 Height (Inches): 10.00 Weight (Pounds): 182 Objective Elderly man NCAT supple CTA RR abd soft,(+) GT no edema Assessment/Plan Status: stable, progressing Assessment/Plan: Assessment dysphagia, GT Abnormal LFT, negative US CHF Azotemia Lung mass COPD Recommedations - continue TF - elevate HOB - follow labs - Check hepatitis serologies Efraín Orosco MD Feb 07, 2020 20:00
--- NOTE | 2020-02-07 20:10 | NUR ---
NURSE NOTES: Pt is in bed, awake. Pt is venturi mask at 15L. No SOB noted. Pt coughs time to time. Glucerna 1.2 running at 55ml/hr via g-tube. Abdominal binder in place to secure the g-tube. HOB elevated. Aspiration precaution in place. Pt will be repositioned frequently. Fall precaution in place. Pt will be monitored.
[2020-02-07] MEDS: Atorvastatin 80mg tab GT SCH (22:42)
[2020-02-07] MEDS: Levemir Flexpen SUBQ SCH (22:43)
[2020-02-08] VITALS: BP 114/80
[2020-02-08 04:00] VITALS: BP 110/76
[2020-02-08] MEDS: Solu-MEDROL 125mg Inj IVP SCH ×2 (06:00→17:06)
[2020-02-08] MEDS: NovoLOG Insulin Flexpen SUBQ SCH ×7 (06:42→21:00)
--- NOTE | 2020-02-08 07:18 | NUR ---
NURSE HAND-OFF: Important Events on Shift:[] Patient Status: [Stable] Diet: [] Pending Orders: [] Pending Results/Labs:[] Pending MD notification:[] Latest Vital Signs: Temperature 98.6 , Pulse 98 , B/P 110 /76 , Respiratory Rate 22 , O2 SAT 92 , Venturi Mask, O2 Flow Rate 15.0 . Vital Sign Comment: [] Latest Gibson Fall Score: 70 Fall Risk: High Risk Safety Measures: Call light Within Reach, Bed Alarm Zone 1, Side Rails Side Rails x2, Bed position Low and Locked. Fall Precautions: Yellow Socks Yellow Gown Door Sign Patient Fall Education Report given to [PRITI Robles].
--- NOTE | 2020-02-08 07:22 | NUR ---
NURSE NOTES: Received report from PRITI Wallace. Patient is asleep, alert and oriented x2. On venturi mask 15L, breathing is even and unlabored. No signs of pain or distress noted at this time. GT intact and patent with Glucerna running as ordered. Abdominal binder on top of GT to prevent dislodgement and patient has a history of pulling g-tube device. patient has a weak cough, suction at bedside present. Condom cath intact and draining well. IV right hand patent and intact with no bleeding noted. Bed placed lowest position and locked. Call light within reach. Will continue to monitor
[2020-02-08 08:00] VITALS: BP 109/63
[2020-02-08] MEDS: Aspirin Baby 81mg GT SCH (09:01)
--- NOTE | 2020-02-08 11:05 | NUR ---
NURSE NOTES: I received report from PRITI Robles; patient alert x1; on non-rebreather; IV Right-Hand flushes well; G-tube Glucerna 1.2 running at 50cc, no residual, head of the bed elevated for aspiration percussion, side rails up x2, breaks engaged, bed at lowest position, bed alarm on; call light within reach; Condom Cath in place; will keep monitoring.
--- NOTE | 2020-02-08 11:39 | Surgery Progress Note ---
Surgery Progress Note Subjective Additional Comments no acute events Objective Last 24 Hour Vital Signs Date Time Temp Pulse Resp B/P (MAP) Pulse Ox O2 Delivery O2 Flow Rate FiO2 02/08/20 09:02 86 129/73 02/08/20 09:01 86 109/63 02/08/20 09:00 Venturi Mask 15.0 02/08/20 08:00 96.8 86 20 109/63 (78) 92 02/08/20 04:00 98.6 98 22 110/76 (87) 92 02/08/20 00:00 98.6 99 22 114/80 (91) 94 02/07/20 22:42 83 138/81 02/07/20 21:00 Venturi Mask 15.0 02/07/20 20:22 94 Venturi Mask 10.0 40 02/07/20 20:00 98.3 83 22 138/81 (100) 95 02/07/20 16:00 97.2 86 17 135/79 (97) 96 02/07/20 12:00 98.0 80 19 126/60 (82) 96 I&O Intake and Output 02/07/20 02/08/20 18:59 06:59 Intake Total 1000 ml 550 ml Output Total 400 ml 200 ml Balance 600 ml 350 ml Free Water 400 ml 200 ml Tube Feeding 600 ml 350 ml Output Urine Total 400 ml 200 ml # Voids 3 # Bowel Movements 3 2 Dressing: other Wound: other Cardiovascular: RSR Respiratory: decreased breath sounds Abdomen: soft, non-tender, present bowel sounds, non-distended Extremities: no tenderness, no cyanosis Laboratory Tests Test 02/07/20 21:55 POC Whole Blood Glucose 308 MG/DL (74-106) H Plan Problems: (1) CHF (congestive heart failure) (2) Hypernatremia (3) Renal failure (4) Lung mass Assessment & Plan: noted new lung mass opacity on cxr compared to prior and seen once stable can plan for chest ct The cardiomediastinal silhouette is unchanged in appearance when accounting for differences in projection and technique. There is mild pulmonary vascular congestion. Streaky bibasilar airspace opacities are noted. There is a nodular opacity in the right midlung measuring approximately 2.6 cm. No pneumothorax or pleural effusion. No acute osseous abnormality. IMPRESSION: 1. Pulmonary vascular congestion with streaky bibasilar airspace opacities which could represent combination of edema and atelectasis but pneumonia should be excluded clinically. 2. Opacity in the right midlung, not seen on prior examination, suspicious for pulmonary nodule. Comparison with more recent prior chest radiograph or follow- up with CT chest on nonemergent basis is recommended. (5) Transaminitis Assessment & Plan: elevated lft's on admission etiology unknown US abd ordered trend labs fluids meds reviewed will follow with recs thank you DAILY ESTIMATED NEEDS: Needs based on DM, Renal, bedbound, 77kg abw 23-28 kcals/kg 3141-6892 total kcals 1.25-1.5 g protein/kg 96-116 g total protein 25-30 mL/kg 2208-1108 total fluid mLs NUTRITION DIAGNOSIS: Swallowing difficulty r/t dysphagia as evidenced by pt is GT dependent. (CURRENT TF: Glucerna 1.2 @50) ENTERAL NUTRITION RECOMMENDATIONS: GLUCERNA 1.2 goal of 70ml/hr x22 hrs + Prosource 1 pack qdaily to provide 1540ml, 1848 kcal, 92g + 11g pro, 1240ml free H2O - Rec to increase TF rate to better meet est kcal and pro needs. - Increase as able by 15ml/hr q4-6 hrs to goal - HOLD TF 1 hr before and after synthroid meds. - Flush per HOB over 30 degrees. With elevated lytes and worsening renal labs rec NEPRO w/ goal of 45ml/hr x22 hrs to provide: 990ml, 1782 kcal, 80g pro, 720ml free H2o. -Add Prosource 1 pack BID for added 22g pro to better meet est pro needs. ADDITIONAL RECOMMENDATIONS: 1) Monitor lytes, renal labs-> need for renal formula 2) Recalibrate bed scale wts 3) Hypoglycemic agents for improved BG control Rec niss w/ accuchecks 4) Hold TF 1 hr before and after synthroid meds. 5) rec HgA1C Liver: The liver is normal in size and demonstrates coarsened echotexture. No focal abnormalities are noted. Gallbladder: No cholelithiasis. Gallbladder wall is not thickened. No pericholecystic fluid. Sonographic Reed sign cannot be assessed due to patient un responsiveness. Common bile duct: Normal in size. Pancreas: Incompletely imaged due to overlying bowel gas. Kidneys: The kidneys demonstrate increased cortical echogenicity. No hydronephrosis or nephrolithiasis. There is a right renal cyst. Spleen: The spleen is normal in size and echogenicity. Incidental note is made of indwelling gastrostomy tube. IMPRESSION: 1. Coarsened hepatic echotexture, which is nonspecific but can be associated with liver dysfunction. 2. Increased echogenicity in the kidneys, which can be seen with medical renal disease. (6) Elevated troponin (7) Chest pain (8) COPD exacerbation Osman Cheung Feb 08, 2020 11:39
[2020-02-08 12:00] VITALS: BP 116/62
--- NOTE | 2020-02-08 13:00 | NUR ---
NURSE NOTES: Feeding tube formula changed; no residual and flushed with 200cc water; head of the bed elevated for aspiration percussion;
--- NOTE | 2020-02-08 13:16 | NUR ---
NURSE NOTES: Agustin CARTY puts patient on non-rebreather mask and asked me to get an order for non-rebreather mask; I communicated MD Diaz regarding this matter; waiting to get an order;
--- NOTE | 2020-02-08 14:00 | NUR ---
CHARGE NURSE NOTE: Talked to regarding pt's BUN and creat. (102/1.9). No IV fluids, H2O given throug GTube 200 ml q4hrs. No new orders were given.
--- NOTE | 2020-02-08 14:48 | Nephrology Progress Note ---
Assessment/Plan Problem List: (1) Proteinuria (2) CHF (congestive heart failure) (3) Dehydration (4) Hypernatremia (5) OMI (acute kidney injury) (6) COPD exacerbation (7) Cardiorenal syndrome with renal failure (8) CKD (chronic kidney disease) stage 3, GFR 30-59 ml/min (9) Pneumonia (10) Lung mass Plan continue water via gt, , SS insulin, lab BUN/creat slightly worse, diuresing for chf, lasix now held, still on high dose steroids which raise BUN, likely mild dehydration, given 500 ml iv fluid 02/06 , update cxr and lab Subjective ROS Limited/Unobtainable: Yes Objective Objective Last 24 Hour Vital Signs Date Time Temp Pulse Resp B/P (MAP) Pulse Ox O2 Delivery O2 Flow Rate FiO2 02/08/20 12:00 96.3 76 20 116/62 (80) 94 02/08/20 09:02 86 129/73 02/08/20 09:01 86 109/63 02/08/20 09:00 Venturi Mask 15.0 02/08/20 08:00 96.8 86 20 109/63 (78) 92 02/08/20 04:00 98.6 98 22 110/76 (87) 92 02/08/20 00:00 98.6 99 22 114/80 (91) 94 02/07/20 22:42 83 138/81 02/07/20 21:00 Venturi Mask 15.0 02/07/20 20:22 94 Venturi Mask 10.0 40 02/07/20 20:00 98.3 83 22 138/81 (100) 95 02/07/20 16:00 97.2 86 17 135/79 (97) 96 Intake and Output 02/07/20 02/08/20 19:00 07:00 Intake Total 1000 ml 500 ml Output Total 400 ml 200 ml Balance 600 ml 300 ml Free Water 400 ml 200 ml Tube Feeding 600 ml 300 ml Output Urine Total 400 ml 200 ml # Voids 3 # Bowel Movements 3 2 Laboratory Tests 02/07/20 21:55: POC Whole Blood Glucose 308H Height (Feet): 5 Height (Inches): 10.00 Weight (Pounds): 182 General Appearance: lethargic, confused, mild distress Neck: normal alignment Cardiovascular: regular rhythm Respiratory/Chest: rhonchi - bilaterally Abdomen: non tender, soft Extremities: trace edema Neurologic: motor weakness, disoriented Roland Campo MD Feb 08, 2020 14:48
[2020-02-08 16:00] VITALS: BP 112/60
--- NOTE | 2020-02-08 16:47 | General Progress Note ---
Subjective Allergies: Coded Allergies: No Known Allergies (Verified , 02/21/09) Subjective above noted NAD , comfortable tolerating TF Objective Last 24 Hour Vital Signs Date Time Temp Pulse Resp B/P (MAP) Pulse Ox O2 Delivery O2 Flow Rate FiO2 02/08/20 16:00 96.7 77 20 112/60 (77) 94 02/08/20 12:00 96.3 76 20 116/62 (80) 94 02/08/20 09:02 86 129/73 02/08/20 09:01 86 109/63 02/08/20 09:00 Venturi Mask 15.0 02/08/20 08:00 96.8 86 20 109/63 (78) 92 02/08/20 04:00 98.6 98 22 110/76 (87) 92 02/08/20 00:00 98.6 99 22 114/80 (91) 94 02/07/20 22:42 83 138/81 02/07/20 21:00 Venturi Mask 15.0 02/07/20 20:22 94 Venturi Mask 10.0 40 02/07/20 20:00 98.3 83 22 138/81 (100) 95 Intake and Output 02/07/20 02/08/20 19:00 07:00 Intake Total 1000 ml 500 ml Output Total 400 ml 200 ml Balance 600 ml 300 ml Free Water 400 ml 200 ml Tube Feeding 600 ml 300 ml Output Urine Total 400 ml 200 ml # Voids 3 # Bowel Movements 3 2 Laboratory Tests 02/07/20 21:55: POC Whole Blood Glucose 308H Height (Feet): 5 Height (Inches): 10.00 Weight (Pounds): 182 Objective Elderly man NCAT supple CTA RR abd soft,(+) GT no edema Assessment/Plan Status: stable, progressing Assessment/Plan: Assessment dysphagia, GT Abnormal LFT, negative US CHF Azotemia Lung mass COPD Recommedations - continue TF - elevate HOB - follow labs - Check hepatitis serologies Efraín Orosco MD Feb 08, 2020 16:47
--- NOTE | 2020-02-08 17:27 | Infectious Diseases Prog Note ---
Assessment/Plan Assessment/Plan A: 1. Community-acquired pneumonia treated COVID19 test is negative x2. 2. Diabetes. 3. Hypertension. 4. Renal failure, acute 5. Hypernatremia 6. Anemia PLAN: 1. Observe off antibiotic Subjective ROS Limited/Unobtainable: Yes Allergies: Coded Allergies: No Known Allergies (Verified , 02/21/09) Objective Last 24 Hour Vital Signs Date Time Temp Pulse Resp B/P (MAP) Pulse Ox O2 Delivery O2 Flow Rate FiO2 02/08/20 16:00 96.7 77 20 112/60 (77) 94 02/08/20 12:00 96.3 76 20 116/62 (80) 94 02/08/20 09:02 86 129/73 02/08/20 09:01 86 109/63 02/08/20 09:00 Venturi Mask 15.0 02/08/20 08:00 96.8 86 20 109/63 (78) 92 02/08/20 04:00 98.6 98 22 110/76 (87) 92 02/08/20 00:00 98.6 99 22 114/80 (91) 94 02/07/20 22:42 83 138/81 02/07/20 21:00 Venturi Mask 15.0 02/07/20 20:22 94 Venturi Mask 10.0 40 02/07/20 20:00 98.3 83 22 138/81 (100) 95 Height (Feet): 5 Height (Inches): 10.00 Weight (Pounds): 182 HEENT: mucous membranes moist Respiratory/Chest: lungs clear, other - oxygen by mask Cardiovascular: normal rate Abdomen: soft, non tender, other - GT feeding Neurologic/Psychiatric: other - sleeping Laboratory Tests Test 02/07/20 21:55 POC Whole Blood Glucose 308 MG/DL (74-106) H Current Medications Medications (Trade) Dose Ordered Sig/Bird Route PRN Reason Start Time Stop Time Status Last Admin Dose Admin Acetaminophen (Tylenol) 650 mg Q4H PRN ORAL Mild Pain (Scale 1-3) 01/23/20 18:30 02/22/20 18:29 Acetaminophen (Tylenol) 650 mg Q4H PRN ORAL Temp >100.5 01/23/20 18:45 02/22/20 18:44 Amlodipine Besylate (Norvasc) 5 mg DAILY ORAL 02/03/20 09:00 03/04/20 08:59 02/08/20 09:02 Aspirin (ASA) 81 mg DAILY GT 01/24/20 09:00 03/09/20 08:59 02/08/20 09:01 Atorvastatin Calcium (Lipitor) 40 mg BEDTIME GT 01/23/20 21:00 04/22/20 20:59 02/07/20 22:42 Dextrose (Dextrose 50%) 25 ml Q30M PRN IV Hypoglycemia 01/26/20 11:15 04/25/20 11:14 Dextrose (Dextrose 50%) 50 ml Q30M PRN IV Hypoglycemia 01/26/20 11:15 04/25/20 11:14 Famotidine (Pepcid) 20 mg DAILY GT 01/24/20 09:00 04/23/20 08:59 02/08/20 09:01 Insulin Aspart (NovoLOG) BEFORE MEALS AND HS SUBQ 01/26/20 11:30 04/25/20 11:29 02/08/20 17:05 Insulin Aspart (NovoLOG) 12 units NOVOTIAC SUBQ 02/04/20 08:00 05/04/20 07:59 02/08/20 17:06 Insulin Detemir (Levemir) 12 units BEDTIME SUBQ 01/27/20 21:00 04/26/20 02:29 02/07/20 22:43 Levothyroxine Sodium (Synthroid) 50 mcg DAILY@0630 GT 01/24/20 06:30 02/23/20 06:29 02/08/20 06:40 Methylprednisolone Sodium Succinate (Solu-MEDROL) 60 mg Q12H IVP 01/31/20 18:00 04/30/20 17:59 02/08/20 17:06 Metoprolol Tartrate (Lopressor) 25 mg Q12HR GT 01/27/20 09:00 04/26/20 08:59 02/08/20 09:01 Promethazine HCl/ Dextromethorphan (Phenergan DM) 6.25 mg Q6H PRN ORAL For Cough 01/23/20 18:30 02/22/20 18:29 02/02/20 17:48 Jt Gallo MD Feb 08, 2020 17:27
--- NOTE | 2020-02-08 19:09 | NUR ---
NURSE HAND-OFF: Important Events on Shift:stad ABG done; Feeding formula changed; Condom cath changed; sacral dressing changed; Blood sugar chacked and insulin given as ordered; Patient Status: Diet: Pending Orders: Pending Results/Labs: Pending MD notification: Latest Vital Signs: Temperature 96.7 , Pulse 77 , B/P 112 /60 , Respiratory Rate 20 , O2 SAT 94 , Venturi Mask, O2 Flow Rate 15.0 . Vital Sign Comment: Latest Gibson Fall Score: 70 Fall Risk: High Risk Safety Measures: Call light Within Reach, Bed Alarm Zone 1, Side Rails Side Rails x2, Bed position Low and Locked. Fall Precautions: Yellow Socks Yellow Gown Door Sign Patient Fall Education Report given to .
--- NOTE | 2020-02-08 19:45 | NUR ---
NURSE NOTES: The patient is awake and was non-verbal . He is on a non-rebreather mask @ 15 liters of oxygen well tolerated. The patient is on G-tube feeding of Glucerna 1.2 running at 50ml/hr well tolerated. Placement check was done and it is intact with 5 ml of residual noted. HOB is upright as indicated for aspiration precaution.The bed in low level, Call,light within easy reach,siderails upx2 and bed alarm on.Will continue to monitor as indicated
[2020-02-08 20:00] VITALS: BP 108/51
[2020-02-08] MEDS: Levemir Flexpen SUBQ SCH (21:00)
--- NOTE | 2020-02-08 21:10 | NUR ---
NURSE NOTES: The patient BS is low at 50 mg/dl. He was given orange juice via Gtube at 420 ml. will continue to monitor.
[2020-02-08] MEDS: Atorvastatin 80mg tab GT SCH (21:24)
--- NOTE | 2020-02-08 21:44 | NUR ---
NURSE NOTES: The BS was checked 15 mins later at it was 42 Mg/dl. Dextrose 50% injection was administered as indicated.
--- NOTE | 2020-02-08 21:59 | NUR ---
NURSE NOTES: The BS is at 135mg/dl and the patient is calm and asymptomatic.However he is on continuos oxygen via non-rebreather at 15 liters well tolerated. Will continue to monitor as indicated.
[2020-02-09] VITALS (7 sets, daily range): BP systolic 106–132; BP diastolic 39–71
--- NOTE | 2020-02-09 02:27 | Cardiology Progress Note ---
Subjective DATE OF SERVICE: Feb 08, 2020 Increasingly congested today; remains off all antibiotics. CXR on 02/03 revealed persisting infiltrate/edema; concerning RUL nodule. Continues on total care with skin/nutrition/resp rx GTube replaced at bedside yesterday; feeds and water flushes restarted. ABG (02/07) 7.43/48/48 Objective Last 24 Hour Vital Signs Date Time Temp Pulse Resp B/P (MAP) Pulse Ox O2 Delivery O2 Flow Rate FiO2 02/09/20 00:00 97.0 78 20 106/58 (74) 93 02/08/20 21:24 77 119/69 02/08/20 21:00 Non-Rebreather 15.0 02/08/20 20:00 97.6 72 26 108/51 (70) 97 02/08/20 18:55 94 Venturi Mask 10.0 40 02/08/20 16:00 96.7 77 20 112/60 (77) 94 02/08/20 12:00 96.3 76 20 116/62 (80) 94 02/08/20 09:02 86 129/73 02/08/20 09:01 86 109/63 02/08/20 09:00 Venturi Mask 15.0 02/08/20 08:00 96.8 86 20 109/63 (78) 92 02/08/20 07:00 94 Venturi Mask 10.0 40 02/08/20 04:00 98.6 98 22 110/76 (87) 92 ROS: unchanged from 01/23/20 RHYTHM: NSR, PVCs, PACs, VT LUNGS: coarse breath sounds, bilat. rhonchi and rales CARDIAC: normal rate, regular rhythm, normal S1 and S2, gallop/S4 ABDOMEN: non tender, soft, no organomegaly, G-Tube intact EXTREMITIES: No edema Laboratory Tests Test 02/08/20 18:25 02/08/20 21:13 02/08/20 21:28 02/08/20 21:54 Arterial Blood pH 7.435 (7.350-7.450) Arterial Blood Partial Pressure CO2 48.2 mmHg (35.0-45.0) H Arterial Blood Partial Pressure O2 47.7 mmHg (75.0-100.0) Arterial Blood HCO3 31.6 mmol/L (22.0-26.0) H Arterial Blood Oxygen Saturation 80.9 % (95-100) *L Arterial Blood Base Excess 6.4 (-2-2) H Danny Test Positive POC Whole Blood Glucose Pending 42 MG/DL (74-106) L 135 MG/DL (74-106) H Assessment/Plan Assessment/Plan Healthcare acquired PNA with worsening hypoxia Lactic acidosis Acute myocardial ischemia/possible NSTE myocardial infarction COPD Ac/chr systolic/diast CHF with worsening prerenal state following diuresis. Ischemic cardiomyopathy Severe dehydration/hypernatremia improving Hypernatremia Hyperchloremia PAD with prior revascularization Dysphagia with GTube CVA with dementia Paroxysmal atrial arrhythmias IRDM uncontrolled Non-sustained ventricular tachycardia Hypertension/HHD with elevated BP Lung nodule Unlikely to be a candidate at age 89 with co-morbidities for thoracic surgery. Resp therapy - non-rebreather mask Diuresis Titrate antiHTN and anti-anginal regimen further Cont'd anti-plt therapy Oxygen and bronchodilator rx DVT prophylaxis Monitor and replace lytes Titrate beta steve rx Levemir titration Recheck CXR Osmani Cevallos MD Feb 09, 2020 02:27
--- NOTE | 2020-02-09 03:35 | NUR ---
NURSE NOTES: The patient was saturating at 85-86% on a non-rebreather mask at 15 liters of oxygen and 100% Fio2. was called and a voice message was left concerning the patient condition.will continue to monitor as indicated
--- NOTE | 2020-02-09 03:45 | NUR ---
SIGNALMAN Note: pt found sating at 85% to 90% on non rebreather. respirations noted to be 25 -27 per min. rapid response was summoned. ABG ordered per rapid response protocol. ABG noted to show PO2 47.7 and ABG O2 Sat 80.9 on non rebreather. 20G and 18G IV Left Forearm access obtained. Dr Ban melissa, message left on doctors urgent line, requested pt to be transferred to cardiac monitored bed with BIPAP. dry house attendant alerted, waiting for cardiac monitored bed and BIPAP. See SIGNALMAN documentation form for full report.
--- NOTE | 2020-02-09 03:45 | NUR ---
NURSE NOTES: The patient is desaturating at 85-89 % on a rebrether Mask at 15 liters FIO2 @ 100%.The patient was reposition upright and that does not seem to help with his respirationand saturation..[employer] was called. ABG was recommended by [employer],After ABG was done, it was recommended that the patient be tranfer to SDU and started on a Bipap as indicated.
--- NOTE | 2020-02-09 04:46 | NUR ---
NURSE NOTES: Received a call from Dr. Cevallos to transfer patient to SDU and to start the patient on a Bipap. [employer] team was informed
--- NOTE | 2020-02-09 05:10 | NUR ---
The patient was transferred to SDU and will be started on Bipap as indicated.
--- NOTE | 2020-02-09 05:11 | NUR ---
NURSE NOTES: Rapid Covid-19 swap was done and sent to laboratory as indicated.
--- NOTE | 2020-02-09 05:17 | NUR ---
NURSE NOTES: Received a Covid rapid test from Microbiology.The patient is positive for Dimitri-19. was called and a voice message was left on his phone informing him on resident being positive on Covid-19 as indicated
--- NOTE | 2020-02-09 05:46 | NUR ---
NURSE NOTES: Received patient from [facility] s/p SLITTER AND REWINDER for hypoxia and respiratory distress.On non-rebreather mask 100 % at 15 liters.Placed patient in bed,BIPAP placed by RT 15/4 FIO2 40% as ordered by md.Vitals taken bp 124/67 hr 83 92% saturation afebrile 97 degrees. Blood glucose 152 with 3 units insulin given.SR on the monitor.Patient is covid19 +,placed on airborne/droplet isolation.
[2020-02-09] MEDS: Solu-MEDROL 125mg Inj IVP SCH ×2 (06:20→17:03)
[2020-02-09] MEDS: NovoLOG Insulin Flexpen SUBQ SCH ×7 (06:29→22:03)
--- NOTE | 2020-02-09 07:32 | NUR ---
NURSE HAND-OFF REPORT: Important Events on Shift:S/P PAVER FROM [facility] FOR HYPOXIA AND RESPIRATORY DISTRESS,+ COVID19 TEST Patient Status: STABLE ON CLOSE WATCH Diet: GT GLUCERNA AT 50 CC/HR Pending Orders:CHEST XRAY,CBC BMP Pending Results/Labs:CBC,BMP Pending MD notification: Latest Vital Signs: Temperature 97.0, Pulse 83 , B/P 124 /67 , Respiratory Rate 36 , O2 SAT 92 , BIPAP 15/4 40% FIO2. Vital Sign Comment: EKG Rhythm: Sinus Rhythm Rhythm change?: N MD Notified?: N -Dr. Joe COSBY Response: Latest Gibson Fall Score: 70 Fall Risk: High Risk Safety Measures: Call light Within Reach, Bed Alarm Zone 1, Side Rails Side Rails x2, Bed position Low and Locked. Fall Precautions: Yellow Socks Yellow Gown Door Sign Patient Fall Education Report given to PRITI REYES.
--- NOTE | 2020-02-09 08:48 | Diagnostic Imaging Report ---
EXAM: XR Chest, 1 View CLINICAL HISTORY: COPD TECHNIQUE: Frontal view of the chest. COMPARISON: 02/04/20 FINDINGS: Lungs: There are worsening moderate bilateral predominantly lower lobe infiltrates. There is unchanged nodular density right midlung measuring 4 cm in diameter suspicious for neoplasm. Depression. Pleural space: There is unchanged small right pleural effusion. No pneumothorax. Heart: There is unchanged cardiomegaly. Mediastinum: Unremarkable. Bones/joints: Unremarkable. IMPRESSION: There are worsening moderate bilateral predominantly lower lobe infiltrates.
[2020-02-09] MEDS: Aspirin Baby 81mg GT SCH (09:00)
--- NOTE | 2020-02-09 09:39 | Nephrology Progress Note ---
Assessment/Plan Problem List: (1) Proteinuria (2) CHF (congestive heart failure) (3) Dehydration (4) Hypernatremia (5) OMI (acute kidney injury) (6) COPD exacerbation (7) Cardiorenal syndrome with renal failure (8) CKD (chronic kidney disease) stage 3, GFR 30-59 ml/min (9) Pneumonia (10) Lung mass Plan continue water via gt, , SS insulin, lab BUN/creat slightly worse, diuresing for chf, lasix now held, still on high dose steroids which raise BUN, likely mild dehydration, given 500 ml iv fluid 02/06 , update cxr and lab, now on bipap, +covid, guarded prognosis Subjective ROS Limited/Unobtainable: Yes Objective Objective Last 24 Hour Vital Signs Date Time Temp Pulse Resp B/P (MAP) Pulse Ox O2 Delivery O2 Flow Rate FiO2 02/09/20 06:13 77 24 90 Bi-Pap 100 02/09/20 06:11 77 24 90 100 02/09/20 04:00 97.3 82 22 118/55 (76) 87 02/09/20 03:45 84 25 85 02/09/20 00:00 97.0 78 20 106/58 (74) 93 02/08/20 21:24 77 119/69 02/08/20 21:00 Non-Rebreather 15.0 02/08/20 20:00 97.6 72 26 108/51 (70) 97 02/08/20 18:55 94 Venturi Mask 10.0 40 02/08/20 16:00 96.7 77 20 112/60 (77) 94 02/08/20 12:00 96.3 76 20 116/62 (80) 94 Intake and Output 02/08/20 02/09/20 19:00 07:00 Intake Total 600 ml 1150 ml Output Total 430 ml Balance 600 ml 720 ml Free Water 600 ml Tube Feeding 600 ml 550 ml Output Urine Total 430 ml # Bowel Movements 1 Laboratory Tests 02/08/20 18:25: Arterial Blood pH 7.435, Arterial Blood Partial Pressure CO2 48.2H, Arterial Blood Partial Pressure O2 47.7*L, Arterial Blood HCO3 31.6H, Arterial Blood Oxygen Saturation 80.9*L, Arterial Blood Base Excess 6.4H, Danny Test Positive 02/08/20 21:13: POC Whole Blood Glucose [Pending] 02/08/20 21:28: POC Whole Blood Glucose 42L 02/08/20 21:54: POC Whole Blood Glucose 135H 02/09/20 03:22: POC Whole Blood Glucose 99 02/09/20 05:06: Arterial Blood pH 7.436, Arterial Blood Partial Pressure CO2 49.2H, Arterial Blood Partial Pressure O2 45.5*L, Arterial Blood HCO3 32.4H, Arterial Blood Oxygen Saturation 79.4*L, Arterial Blood Base Excess 7.1H, Danny Test Positive Height (Feet): 5 Height (Inches): 10.00 Weight (Pounds): 182 General Appearance: lethargic, confused EENT: normal ENT inspection Neck: normal alignment Cardiovascular: regular rhythm Respiratory/Chest: rhonchi - bilaterally Abdomen: non tender Extremities: trace edema Neurologic: disoriented Roland Campo MD Feb 09, 2020 09:39
--- NOTE | 2020-02-09 09:49 | Infectious Diseases Prog Note ---
Assessment/Plan Assessment/Plan A: 1. COVID19 pneumonia 2. Diabetes. 3. Hypertension. 4. Renal failure, acute 5. Hypernatremia 6. Anemia PLAN: 1. Continue Methylprednisone 2. Repeat BMP if GFR> 30% will consider Remdesivir Subjective ROS Limited/Unobtainable: Yes Constitutional: Denies: fever Respiratory: Reports: shortness of breath, other - transferred from 4th floor to [facility] Allergies: Coded Allergies: No Known Allergies (Verified , 02/21/09) Objective Last 24 Hour Vital Signs Date Time Temp Pulse Resp B/P (MAP) Pulse Ox O2 Delivery O2 Flow Rate FiO2 02/09/20 06:13 77 24 90 Bi-Pap 100 02/09/20 06:11 77 24 90 100 02/09/20 04:00 97.3 82 22 118/55 (76) 87 02/09/20 03:45 84 25 85 02/09/20 00:00 97.0 78 20 106/58 (74) 93 02/08/20 21:24 77 119/69 02/08/20 21:00 Non-Rebreather 15.0 02/08/20 20:00 97.6 72 26 108/51 (70) 97 02/08/20 18:55 94 Venturi Mask 10.0 40 02/08/20 16:00 96.7 77 20 112/60 (77) 94 02/08/20 12:00 96.3 76 20 116/62 (80) 94 Height (Feet): 5 Height (Inches): 10.00 Weight (Pounds): 182 HEENT: mucous membranes moist, other Respiratory/Chest: other - on BIPAP Cardiovascular: normal rate Abdomen: soft, non tender, other - GT feeding Neurologic/Psychiatric: aphasia Microbiology Date/Time Source Procedure Growth Status 02/09/20 04:50 Nasopharynx SARS-CoV-2 RdRp Gene Assay - Final Complete Laboratory Tests Test 02/08/20 18:25 02/08/20 21:13 02/08/20 21:28 02/08/20 21:54 Arterial Blood pH 7.435 (7.350-7.450) Arterial Blood Partial Pressure CO2 48.2 mmHg (35.0-45.0) H Arterial Blood Partial Pressure O2 47.7 mmHg (75.0-100.0) Arterial Blood HCO3 31.6 mmol/L (22.0-26.0) H Arterial Blood Oxygen Saturation 80.9 % (95-100) *L Arterial Blood Base Excess 6.4 (-2-2) H Danny Test Positive POC Whole Blood Glucose Pending 42 MG/DL (74-106) L 135 MG/DL (74-106) H Test 02/09/20 03:22 02/09/20 05:06 POC Whole Blood Glucose 99 MG/DL (74-106) Arterial Blood pH 7.436 (7.350-7.450) Arterial Blood Partial Pressure CO2 49.2 mmHg (35.0-45.0) H Arterial Blood Partial Pressure O2 45.5 mmHg (75.0-100.0) Arterial Blood HCO3 32.4 mmol/L (22.0-26.0) H Arterial Blood Oxygen Saturation 79.4 % (95-100) *L Arterial Blood Base Excess 7.1 (-2-2) H Danny Test Positive Current Medications Medications (Trade) Dose Ordered Sig/Bird Route PRN Reason Start Time Stop Time Status Last Admin Dose Admin Acetaminophen (Tylenol) 650 mg Q4H PRN ORAL Mild Pain (Scale 1-3) 01/23/20 18:30 02/22/20 18:29 Acetaminophen (Tylenol) 650 mg Q4H PRN ORAL Temp >100.5 01/23/20 18:45 02/22/20 18:44 Amlodipine Besylate (Norvasc) 5 mg DAILY ORAL 02/03/20 09:00 03/04/20 08:59 02/08/20 09:02 Aspirin (ASA) 81 mg DAILY GT 01/24/20 09:00 03/09/20 08:59 02/08/20 09:01 Atorvastatin Calcium (Lipitor) 40 mg BEDTIME GT 01/23/20 21:00 04/22/20 20:59 02/08/20 21:24 Dextrose (Dextrose 50%) 25 ml Q30M PRN IV Hypoglycemia 01/26/20 11:15 04/25/20 11:14 Dextrose (Dextrose 50%) 50 ml Q30M PRN IV Hypoglycemia 01/26/20 11:15 04/25/20 11:14 02/08/20 21:33 Famotidine (Pepcid) 20 mg DAILY GT 01/24/20 09:00 04/23/20 08:59 02/08/20 09:01 Insulin Aspart (NovoLOG) BEFORE MEALS AND HS SUBQ 01/26/20 11:30 04/25/20 11:29 02/09/20 06:29 Insulin Aspart (NovoLOG) 12 units NOVOTIAC SUBQ 02/04/20 08:00 05/04/20 07:59 02/09/20 06:31 Insulin Detemir (Levemir) 12 units BEDTIME SUBQ 01/27/20 21:00 04/26/20 02:29 02/07/20 22:43 Levothyroxine Sodium (Synthroid) 50 mcg DAILY@0630 GT 01/24/20 06:30 02/23/20 06:29 02/09/20 06:20 Methylprednisolone Sodium Succinate (Solu-MEDROL) 60 mg Q12H IVP 01/31/20 18:00 04/30/20 17:59 02/09/20 06:20 Metoprolol Tartrate (Lopressor) 25 mg Q12HR GT 01/27/20 09:00 04/26/20 08:59 02/08/20 21:24 Promethazine HCl/ Dextromethorphan (Phenergan DM) 6.25 mg Q6H PRN ORAL For Cough 01/23/20 18:30 02/22/20 18:29 02/02/20 17:48 Jt Gallo MD Feb 09, 2020 09:49
--- NOTE | 2020-02-09 13:53 | Surgery Progress Note ---
Surgery Progress Note Subjective Symptoms: improved, tolerating diet, passing flatus Objective Last 24 Hour Vital Signs Date Time Temp Pulse Resp B/P (MAP) Pulse Ox O2 Delivery O2 Flow Rate FiO2 02/09/20 13:10 56 23 84 100 02/09/20 12:00 98.0 80 21 132/70 (90) 94 02/09/20 12:00 62 02/09/20 09:00 Non-Rebreather 15.0 02/09/20 09:00 72 126/68 02/09/20 09:00 72 126/68 02/09/20 08:00 97.5 72 20 126/68 (87) 87 02/09/20 06:13 77 24 90 Bi-Pap 100 02/09/20 06:11 77 24 90 100 02/09/20 04:00 97.3 82 22 118/55 (76) 87 02/09/20 03:45 84 25 85 02/09/20 00:00 97.0 78 20 106/58 (74) 93 02/08/20 21:24 77 119/69 02/08/20 21:00 Non-Rebreather 15.0 02/08/20 20:00 97.6 72 26 108/51 (70) 97 02/08/20 18:55 94 Venturi Mask 10.0 40 02/08/20 16:00 96.7 77 20 112/60 (77) 94 I&O Intake and Output 02/08/20 02/09/20 19:00 07:00 Intake Total 600 ml 1150 ml Output Total 430 ml Balance 600 ml 720 ml Free Water 600 ml Tube Feeding 600 ml 550 ml Output Urine Total 430 ml # Bowel Movements 1 Dressing: saturated Cardiovascular: RSR Respiratory: decreased breath sounds Abdomen: soft, flat, present bowel sounds, non-distended Extremities: no tenderness, no cyanosis Laboratory Tests Test 02/08/20 18:25 02/08/20 21:13 02/08/20 21:28 02/08/20 21:54 Arterial Blood pH 7.435 (7.350-7.450) Arterial Blood Partial Pressure CO2 48.2 mmHg (35.0-45.0) H Arterial Blood Partial Pressure O2 47.7 mmHg (75.0-100.0) Arterial Blood HCO3 31.6 mmol/L (22.0-26.0) H Arterial Blood Oxygen Saturation 80.9 % (95-100) *L Arterial Blood Base Excess 6.4 (-2-2) H Danny Test Positive POC Whole Blood Glucose Pending 42 MG/DL (74-106) L 135 MG/DL (74-106) H Test 02/09/20 03:22 02/09/20 05:06 02/09/20 12:45 POC Whole Blood Glucose 99 MG/DL (74-106) Arterial Blood pH 7.436 (7.350-7.450) Arterial Blood Partial Pressure CO2 49.2 mmHg (35.0-45.0) H Arterial Blood Partial Pressure O2 45.5 mmHg (75.0-100.0) Arterial Blood HCO3 32.4 mmol/L (22.0-26.0) H Arterial Blood Oxygen Saturation 79.4 % (95-100) *L Arterial Blood Base Excess 7.1 (-2-2) H Danny Test Positive Sodium Level Pending Potassium Level Pending Chloride Level Pending Carbon Dioxide Level Pending Blood Urea Nitrogen Pending Creatinine Pending Estimat Glomerular Filtration Rate Pending Glucose Level Pending Calcium Level Pending Total Bilirubin Pending Aspartate Amino Transf (AST/SGOT) Pending Alanine Aminotransferase (ALT/SGPT) Pending Alkaline Phosphatase Pending Total Protein Pending Albumin Pending Globulin Pending Plan Problems: (1) CHF (congestive heart failure) (2) Hypernatremia (3) Renal failure (4) Lung mass Assessment & Plan: noted new lung mass opacity on cxr compared to prior and seen once stable can plan for chest ct The cardiomediastinal silhouette is unchanged in appearance when accounting for differences in projection and technique. There is mild pulmonary vascular congestion. Streaky bibasilar airspace opacities are noted. There is a nodular opacity in the right midlung measuring approximately 2.6 cm. No pneumothorax or pleural effusion. No acute osseous abnormality. IMPRESSION: 1. Pulmonary vascular congestion with streaky bibasilar airspace opacities which could represent combination of edema and atelectasis but pneumonia should be excluded clinically. 2. Opacity in the right midlung, not seen on prior examination, suspicious for pulmonary nodule. Comparison with more recent prior chest radiograph or follow- up with CT chest on nonemergent basis is recommended. (5) Transaminitis Assessment & Plan: elevated lft's on admission etiology unknown US abd ordered trend labs fluids meds reviewed will follow with recs thank you DAILY ESTIMATED NEEDS: Needs based on DM, Renal, bedbound, 77kg abw 23-28 kcals/kg 2831-5464 total kcals 1.25-1.5 g protein/kg 96-116 g total protein 25-30 mL/kg 0854-7551 total fluid mLs NUTRITION DIAGNOSIS: Swallowing difficulty r/t dysphagia as evidenced by pt is GT dependent. (CURRENT TF: Glucerna 1.2 @50) ENTERAL NUTRITION RECOMMENDATIONS: GLUCERNA 1.2 goal of 70ml/hr x22 hrs + Prosource 1 pack qdaily to provide 1540ml, 1848 kcal, 92g + 11g pro, 1240ml free H2O - Rec to increase TF rate to better meet est kcal and pro needs. - Increase as able by 15ml/hr q4-6 hrs to goal - HOLD TF 1 hr before and after synthroid meds. - Flush per . HOB over 30 degrees. With elevated lytes and worsening renal labs rec NEPRO w/ goal of 45ml/hr x22 hrs to provide: 990ml, 1782 kcal, 80g pro, 720ml free H2o. -Add Prosource 1 pack BID for added 22g pro to better meet est pro needs. ADDITIONAL RECOMMENDATIONS: 1) Monitor lytes, renal labs-> need for renal formula 2) Recalibrate bed scale wts 3) Hypoglycemic agents for improved BG control Rec niss w/ accuchecks 4) Hold TF 1 hr before and after synthroid meds. 5) rec HgA1C Liver: The liver is normal in size and demonstrates coarsened echotexture. No focal abnormalities are noted. Gallbladder: No cholelithiasis. Gallbladder wall is not thickened. No pericholecystic fluid. Sonographic Reed sign cannot be assessed due to patient unresponsiveness. Common bile duct: Normal in size. Pancreas: Incompletely imaged due to overlying bowel gas. Kidneys: The kidneys demonstrate increased cortical echogenicity. No hydronephrosis or nephrolithiasis. There is a right renal cyst. Spleen: The spleen is normal in size and echogenicity. Incidental note is made of indwelling gastrostomy tube. IMPRESSION: 1. Coarsened hepatic echotexture, which is nonspecific but can be associated with liver dysfunction. 2. Increased echogenicity in the kidneys, which can be seen with medical renal disease. (6) Elevated troponin (7) Chest pain (8) COPD exacerbation Osman Cheung Feb 09, 2020 13:53
--- NOTE | 2020-02-09 19:25 | NUR ---
NURSE HAND-OFF REPORT: Important Events on Shift:NA Patient Status: Stable Diet: Gtube Glucerna 1.2 @ 50ml/hr Pending Orders: NA Pending Results/Labs:NA Pending notification:NA Latest Vital Signs: Temperature 97.8 , Pulse 77 , B/P 128 /68 , Respiratory Rate 20 , O2 SAT 95 , Venturi Mask, O2 Flow Rate 15.0 . Vital Sign Comment: Stable EKG Rhythm: Sinus Rhythm Rhythm change?: N Notified?: N -Dr. Joe COSBY Response: Latest Gibson Fall Score: 70 Fall Risk: High Risk Safety Measures: Call light Within Reach, Bed Alarm Zone 1, Side Rails Side Rails x2, Bed position Low and Locked. Fall Precautions: Yellow Socks Yellow Gown Door Sign Patient Fall Education Report given to PRITI De La Rosa.
[2020-02-09 19:36] LABS: ALBUMIN 1.6 G/DL (3.4-5.0); ALBUMIN/GLOBULIN RATIO 0.4 (1.0-2.7); BILIRUBIN,TOTAL 0.3 MG/DL (0.2-1.0); CALCIUM 9.3 MG/DL (8.5-10.1); CREATININE 2.5 MG/DL (0.55-1.30); POTASSIUM 4.4 MMOL/L (3.5-5.1)
--- NOTE | 2020-02-09 20:17 | NUR ---
NURSE NOTES: Pt received from PRITI Crump alert and oriented x0, opens eyes to name. On Bipap 15/4 100% FiO2, RR of 22, saturating at 87% on bedside monitor. RN and Milton RT at bedside to assess patient, still saturating at max of 88-89%, will continue to assess patient. 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 Bed alarm on, bed in lowest position. Fall precautions implemented and explained to pt, pt does not indicate understanding. On GT feed - Glucerna 1.2 at 50. Call light and belongings within reach.
[2020-02-09 20:25] LABS: HEMATOCRIT 29.8 % (42.0-52.0); HEMOGLOBIN 10.1 G/DL (14.2-18.0); MEAN CORPUSCULAR VOLUME 88 FL (80-99); PLATELET COUNT 131 K/UL (150-450); RED BLOOD COUNT 3.39 M/UL (4.70-6.10); RED CELL DISTRIBUTION WIDTH 16.5 % (11.6-14.8); WHITE BLOOD COUNT 9.8 K/UL (4.8-10.8)
--- NOTE | 2020-02-09 21:30 | NUR ---
NURSE NOTES: Pt continuing to desaturate to 80s on Bipap 15/4 100% FiO2, max saturation of 86%. ABG ordered and will follow up with results.
[2020-02-09] MEDS: Atorvastatin 80mg tab GT SCH (21:53)
[2020-02-09] MEDS: Levemir Flexpen SUBQ SCH (22:03)
--- NOTE | 2020-02-09 22:15 | NUR ---
NURSE NOTES: Critical ABG results received - RN left message for Dr. Cevallos.
--- NOTE | 2020-02-09 22:25 | NUR ---
NURSE NOTES: Dr. Cevallos called back, RN endorsed patient status and critical ABG results. Dr. Cevallos to speak with patient's Jasmin Peres regarding family and patient wishes, RN provided family's contact information.
--- NOTE | 2020-02-09 22:30 | NUR ---
NURSE NOTES: RN received call from Dr. Cevallos. Per Dr. Cevallos, he spoke with family and family wishes for patient to be DNI. Also, "order 40 mg IVP of Lasix and adjust Bipap settings accordingly to improve respiratory status as much as possible." RN informed RT Milton and Hugo, charge nurse, will continue to monitor pt accordingly.
[2020-02-10] VITALS: BP 113/67
[2020-02-10 04:00] VITALS: BP 121/91
--- NOTE | 2020-02-10 04:48 | Cardiology Progress Note ---
Subjective DATE OF SERVICE: Feb 09, 2020 Increasingly congested with worsening acid-base parameters and hypoxia Now COVID-19 positive. CXR on 02/08 revealed worsening infiltrate/edema; concerning RUL nodule. Continues on total care with skin/nutrition/resp rx GTube replaced and functioning well ABG (02/07) 7.43/48/48 Objective Last 24 Hour Vital Signs Date Time Temp Pulse Resp B/P (MAP) Pulse Ox O2 Delivery O2 Flow Rate FiO2 02/10/20 04:00 96.4 58 20 121/91 (101) 86 02/10/20 02:00 78 26 78 100 02/10/20 00:00 96.6 64 20 113/67 (82) 84 02/10/20 00:00 70 02/09/20 21:54 71 105/63 02/09/20 21:00 Non-Rebreather 15.0 02/09/20 20:00 84 02/09/20 20:00 97.4 66 20 112/71 (85) 89 02/09/20 19:30 84 Bi-Pap 100 02/09/20 19:30 79 27 82 100 02/09/20 16:00 97.8 78 20 128/68 (88) 95 02/09/20 16:00 77 02/09/20 13:10 56 23 84 100 02/09/20 12:00 98.0 80 21 132/70 (90) 94 02/09/20 12:00 62 02/09/20 09:00 Non-Rebreather 15.0 02/09/20 09:00 72 126/68 02/09/20 09:00 72 126/68 02/09/20 08:00 97.5 72 20 126/68 (87) 87 02/09/20 06:50 90 Bi-Pap 100 02/09/20 06:13 77 24 90 Bi-Pap 100 02/09/20 06:11 77 24 90 100 ROS: unchanged from 01/23/20 RHYTHM: NSR, PVCs, PACs, VT LUNGS: coarse breath sounds, bilat. rhonchi and rales CARDIAC: normal rate, regular rhythm, normal S1 and S2, gallop/S4 ABDOMEN: non tender, soft, no organomegaly, G-Tube intact EXTREMITIES: No edema Laboratory Tests Test 02/09/20 05:06 02/09/20 18:05 02/09/20 22:13 Arterial Blood pH 7.436 (7.350-7.450) 7.443 (7.350-7.450) Arterial Blood Partial Pressure CO2 49.2 mmHg (35.0-45.0) H 46.4 mmHg (35.0-45.0) H Arterial Blood Partial Pressure O2 45.5 mmHg (75.0-100.0) 44.9 mmHg (75.0-100.0) Arterial Blood HCO3 32.4 mmol/L (22.0-26.0) H 31.0 mmol/L (22.0-26.0) H Arterial Blood Oxygen Saturation 79.4 % (95-100) *L 78.7 % (95-100) *L Arterial Blood Base Excess 7.1 (-2-2) H 6.1 (-2-2) H Danny Test Positive Positive White Blood Count 9.8 K/UL (4.8-10.8) Red Blood Count 3.39 M/UL (4.70-6.10) L Hemoglobin 10.1 G/DL (14.2-18.0) L Hematocrit 29.8 % (42.0-52.0) L Mean Corpuscular Volume 88 FL (80-99) Mean Corpuscular Hemoglobin 29.8 PG (27.0-31.0) Mean Corpuscular Hemoglobin Concent 33.9 G/DL (32.0-36.0) Red Cell Distribution Width 16.5 % (11.6-14.8) H Platelet Count 131 K/UL (150-450) L Mean Platelet Volume 11.0 FL (6.5-10.1) H Neutrophils (%) (Auto) % (45.0-75.0) Lymphocytes (%) (Auto) % (20.0-45.0) Monocytes (%) (Auto) % (1.0-10.0) Eosinophils (%) (Auto) % (0.0-3.0) Basophils (%) (Auto) % (0.0-2.0) Differential Total Cells Counted 100 Neutrophils % (Manual) 96 % (45-75) H Lymphocytes % (Manual) 3 % (20-45) L Monocytes % (Manual) 1 % (1-10) Eosinophils % (Manual) 0 % (0-3) Basophils % (Manual) 0 % (0-2) Band Neutrophils 0 % (0-8) Platelet Estimate Decreased L Platelet Morphology Normal Anisocytosis 1+ Sodium Level 146 MMOL/L (136-145) H Potassium Level 4.4 MMOL/L (3.5-5.1) Chloride Level 107 MMOL/L (98-107) Carbon Dioxide Level 34 MMOL/L (21-32) H Anion Gap 5 mmol/L (5-15) Blood Urea Nitrogen 158 mg/dL (7-18) H Creatinine 2.5 MG/DL (0.55-1.30) H Estimat Glomerular Filtration Rate 29.6 mL/min (>60) Glucose Level 171 MG/DL (74-106) H Calcium Level 9.3 MG/DL (8.5-10.1) Total Bilirubin 0.3 MG/DL (0.2-1.0) Aspartate Amino Transf (AST/SGOT) 43 U/L (15-37) H Alanine Aminotransferase (ALT/SGPT) 38 U/L (12-78) Alkaline Phosphatase 135 U/L (46-116) H Total Protein 5.4 G/DL (6.4-8.2) L Albumin 1.6 G/DL (3.4-5.0) L Globulin 3.8 g/dL Albumin/Globulin Ratio 0.4 (1.0-2.7) L Microbiology Date/Time Source Procedure Growth Status 02/09/20 04:50 Nasopharynx SARS-CoV-2 RdRp Gene Assay - Final Complete Assessment/Plan Assessment/Plan COVID 19 PNA Severe hypoxia Healthcare acquired PNA Acute respiratory failure Lactic acidosis Acute myocardial ischemia/possible NSTE myocardial infarction COPD Ac/chr systolic/diast CHF with worsening prerenal state following diuresis. Ischemic cardiomyopathy Severe dehydration/hypernatremia improving Hypernatremia Hyperchloremia PAD with prior revascularization Dysphagia with GTube CVA with dementia Paroxysmal atrial arrhythmias IRDM uncontrolled Non-sustained ventricular tachycardia Hypertension/HHD with elevated BP Lung nodule Unlikely to be a candidate at age 89 with co-morbidities for thoracic surgery. Resp therapy - non-rebreather mask Diuresis Titrate antiHTN and anti-anginal regimen further Cont'd anti-plt therapy Oxygen and bronchodilator rx DVT prophylaxis Monitor and replace lytes Titrate beta steve rx Levemir titration Steroids added CALLED , Jasmin Peres, and updated on new diagnoses. Based on co-morbidities and diagnoses, Condition critical and prognosis guarded. understands, and feels DNR/DNI appropriate at this time. Osmani Cevallos MD Feb 10, 2020 04:48
[2020-02-10] MEDS: NovoLOG Insulin Flexpen SUBQ SCH ×7 (05:51→20:48)
--- NOTE | 2020-02-10 07:21 | NUR ---
NURSE HAND-OFF REPORT: Important Events on Shift: Pt desaturated and maintained O2 sat of low to mid 80s on Bipap 15/4 100% FiO2. ABGs drawn and results endorsed to Dr. Cevallos. Per Dr. Cevallos, after conversation with - pt changed to DNR/DNI and Lasix 40 mg IVP. Patient Status: Ongoing Diet: GTube Pending Orders: n/a Pending Results/Labs: n/a Pending MD notification: n/a Latest Vital Signs: Temperature 96.4 , Pulse 84 , B/P 121 /91 , Respiratory Rate 20 , O2 SAT 86 , Venturi Mask, O2 Flow Rate 15.0 . Vital Sign Comment: WNL EKG Rhythm: Sinus Rhythm Rhythm change?: N MD Notified?: N -Dr. Joe COSBY Response: Latest Gibson Fall Score: 70 Fall Risk: High Risk Safety Measures: Call light Within Reach, Bed Alarm Zone 1, Side Rails Side Rails x2, Bed position Low and Locked. Fall Precautions: Yes Yellow Socks Yellow Gown Door Sign Patient Fall Education Report given to PRITI Romeo.
--- NOTE | 2020-02-10 07:30 | NUR ---
NURSE NOTES: Received pt from RN Liseth, pt is sleeping, pt is tachypnea with SPO2 75%, pt has Bipap 15/4 fio2 100%, pt has intact iv access RFA 20G and RH 24G SL. Pt has g tube in place is working well. pt is on continues heart monitoring. all needs attended, bed is locked and is in the lowest position,call light within easy reach. will continue to monitor.
[2020-02-10 08:00] VITALS: BP 114/71
[2020-02-10] MEDS: Enoxaparin 30mg Inj SUBQ SCH (09:00)
[2020-02-10] MEDS: Aspirin Baby 81mg GT SCH (09:34)
[2020-02-10] MEDS: dexAMETHasone 10mg/ml Inj IV SCH (09:34)
--- NOTE | 2020-02-10 09:51 | NUR ---
NURSE NOTES: Dr Diaz is aware about plt 131 and need parameter for Lovenox, waiting to call back.
--- NOTE | 2020-02-10 10:20 | Nephrology Progress Note ---
Assessment/Plan Problem List: (1) Proteinuria (2) CHF (congestive heart failure) (3) Dehydration (4) Hypernatremia (5) OMI (acute kidney injury) (6) COPD exacerbation (7) Cardiorenal syndrome with renal failure (8) CKD (chronic kidney disease) stage 3, GFR 30-59 ml/min (9) Pneumonia (10) Lung mass Plan continue water via gt, , SS insulin, lab BUN/creat slightly worse, diuresing for chf, , still on high dose steroids which raise BUN, likely mild dehyd ration,, update cxr and lab, now on bipap, +covid, guarded prognosis,dnr Subjective ROS Limited/Unobtainable: Yes Objective Objective Last 24 Hour Vital Signs Date Time Temp Pulse Resp B/P (MAP) Pulse Ox O2 Delivery O2 Flow Rate FiO2 02/10/20 09:34 80 114/71 02/10/20 09:34 80 114/71 02/10/20 08:31 100 02/10/20 08:00 97.0 80 28 114/71 (85) 75 02/10/20 07:43 81 28 78 100 02/10/20 07:43 78 Bi-Pap 100 02/10/20 04:00 84 02/10/20 04:00 96.4 58 20 121/91 (101) 86 02/10/20 02:00 78 26 78 100 02/10/20 00:00 96.6 64 20 113/67 (82) 84 02/10/20 00:00 70 02/09/20 21:54 71 105/63 02/09/20 21:00 Non-Rebreather 15.0 02/09/20 20:00 84 02/09/20 20:00 97.4 66 20 112/71 (85) 89 02/09/20 19:30 84 Bi-Pap 100 02/09/20 19:30 79 27 82 100 02/09/20 16:00 97.8 78 20 128/68 (88) 95 02/09/20 16:00 77 02/09/20 13:10 56 23 84 100 02/09/20 12:00 98.0 80 21 132/70 (90) 94 02/09/20 12:00 62 Intake and Output 02/09/20 02/10/20 19:00 07:00 Intake Total 1250 ml 1150 ml Output Total 800 ml 300 ml Balance 450 ml 850 ml Free Water 600 ml 600 ml Tube Feeding 650 ml 550 ml Output Urine Total 800 ml 300 ml # Voids 4 Laboratory Tests 02/09/20 18:05: White Blood Count 9.8, Red Blood Count 3.39L, Hemoglobin 10.1L, Hematocrit 29.8L , Mean Corpuscular Volume 88, Mean Corpuscular Hemoglobin 29.8, Mean Corpuscular Hemoglobin Concent 33.9, Red Cell Distribution Width 16.5H, Platelet Count 131L, Mean Platelet Volume 11.0H, Neutrophils (%) (Auto) , Lymphocytes (%) (Auto) , Monocytes (%) (Auto) , Eosinophils (%) (Auto) , Basophils (%) (Auto) , Differential Total Cells Counted 100, Neutrophils % (Manual) 96H, Lymphocytes % (Manual) 3L, Monocytes % (Manual) 1, Eosinophils % (Manual) 0, Basophils % (Manu al) 0, Band Neutrophils 0, Platelet Estimate DecreasedL, Platelet Morphology Normal, Anisocytosis 1+, Sodium Level 146H, Potassium Level 4.4, Chloride Level 107, Carbon Dioxide Level 34H, Anion Gap 5, Blood Urea Nitrogen 158H, Creatinine 2.5H, Estimat Glomerular Filtration Rate 29.6, Glucose Level 171H, Calcium Level 9.3, Total Bilirubin 0.3, Aspartate Amino Transf (AST/SGOT) 43H, Alanine Aminotransferase (ALT/SGPT) 38, Alkaline Phosphatase 135H, Total Protein 5.4L, Albumin 1.6L, Globulin 3.8, Albumin/Globulin Ratio 0.4L 02/09/20 22:13: Arterial Blood pH 7.443, Arterial Blood Partial Pressure CO2 46.4H, Arterial Blood Partial Pressure O2 44.9*L, Arterial Blood HCO3 31.0H, Arterial Blood Oxygen Saturation 78.7*L, Arterial Blood Base Excess 6.1H, Danny Test Positive Height (Feet): 5 Height (Inches): 10.00 Weight (Pounds): 182 General Appearance: lethargic, confused, moderate distress EENT: normal ENT inspection Neck: normal alignment Cardiovascular: regular rhythm Respiratory/Chest: rhonchi - bilaterally Abdomen: non tender Extremities: trace edema Neurologic: disoriented Roland Campo MD Feb 10, 2020 10:20
[2020-02-10 12:00] VITALS: BP 113/83
--- NOTE | 2020-02-10 15:24 | NUR ---
NURSE NOTES: wound treatment done as order and pt tolerated well. g tube dressing changed. will continue to monitor.
[2020-02-10 16:00] VITALS: BP 98/55
--- NOTE | 2020-02-10 18:04 | Surgery Progress Note ---
Surgery Progress Note Subjective Symptoms: improved, tolerating diet, passing flatus Objective Last 24 Hour Vital Signs Date Time Temp Pulse Resp B/P (MAP) Pulse Ox O2 Delivery O2 Flow Rate FiO2 02/10/20 16:00 97.0 67 26 98/55 (69) 73 02/10/20 16:00 100 02/10/20 15:38 66 02/10/20 15:28 61 21 76 100 02/10/20 12:00 97.2 67 25 113/83 (93) 75 02/10/20 11:50 78 28 78 100 02/10/20 11:39 55 02/10/20 09:34 80 114/71 02/10/20 09:34 80 114/71 02/10/20 09:00 Bi-pap 100.0 02/10/20 08:31 100 02/10/20 08:00 97.0 80 28 114/71 (85) 75 02/10/20 08:00 70 02/10/20 07:43 81 28 78 100 02/10/20 07:43 78 Bi-Pap 100 02/10/20 04:00 84 02/10/20 04:00 96.4 58 20 121/91 (101) 86 02/10/20 02:00 78 26 78 100 02/10/20 00:00 96.6 64 20 113/67 (82) 84 02/10/20 00:00 70 02/09/20 21:54 71 105/63 02/09/20 21:00 Non-Rebreather 15.0 02/09/20 20:00 84 02/09/20 20:00 97.4 66 20 112/71 (85) 89 02/09/20 19:30 84 Bi-Pap 100 02/09/20 19:30 79 27 82 100 I&O Intake and Output 02/09/20 02/10/20 18:59 06:59 Intake Total 1250 ml 1200 ml Output Total 800 ml 300 ml Balance 450 ml 900 ml Free Water 600 ml 600 ml Tube Feeding 650 ml 600 ml Output Urine Total 800 ml 300 ml # Voids 4 Dressing: saturated Cardiovascular: RSR Respiratory: decreased breath sounds Abdomen: soft, non-tender, present bowel sounds Extremities: no tenderness, no cyanosis Laboratory Tests Test 02/09/20 18:05 02/09/20 22:13 White Blood Count 9.8 K/UL (4.8-10.8) Red Blood Count 3.39 M/UL (4.70-6.10) L Hemoglobin 10.1 G/DL (14.2-18.0) L Hematocrit 29.8 % (42.0-52.0) L Mean Corpuscular Volume 88 FL (80-99) Mean Corpuscular Hemoglobin 29.8 PG (27.0-31.0) Mean Corpuscular Hemoglobin Concent 33.9 G/DL (32.0-36.0) Red Cell Distribution Width 16.5 % (11.6-14.8) H Platelet Count 131 K/UL (150-450) L Mean Platelet Volume 11.0 FL (6.5-10.1) H Neutrophils (%) (Auto) % (45.0-75.0) Lymphocytes (%) (Auto) % (20.0-45.0) Monocytes (%) (Auto) % (1.0-10.0) Eosinophils (%) (Auto) % (0.0-3.0) Basophils (%) (Auto) % (0.0-2.0) Differential Total Cells Counted 100 Neutrophils % (Manual) 96 % (45-75) H Lymphocytes % (Manual) 3 % (20-45) L Monocytes % (Manual) 1 % (1-10) Eosinophils % (Manual) 0 % (0-3) Basophils % (Manual) 0 % (0-2) Band Neutrophils 0 % (0-8) Platelet Estimate Decreased L Platelet Morphology Normal Anisocytosis 1+ Sodium Level 146 MMOL/L (136-145) H Potassium Level 4.4 MMOL/L (3.5-5.1) Chloride Level 107 MMOL/L (98-107) Carbon Dioxide Level 34 MMOL/L (21-32) H Anion Gap 5 mmol/L (5-15) Blood Urea Nitrogen 158 mg/dL (7-18) H Creatinine 2.5 MG/DL (0.55-1.30) H Estimat Glomerular Filtration Rate 29.6 mL/min (>60) Glucose Level 171 MG/DL (74-106) H Calcium Level 9.3 MG/DL (8.5-10.1) Total Bilirubin 0.3 MG/DL (0.2-1.0) Aspartate Amino Transf (AST/SGOT) 43 U/L (15-37) H Alanine Aminotransferase (ALT/SGPT) 38 U/L (12-78) Alkaline Phosphatase 135 U/L (46-116) H Total Protein 5.4 G/DL (6.4-8.2) L Albumin 1.6 G/DL (3.4-5.0) L Globulin 3.8 g/dL Albumin/Globulin Ratio 0.4 (1.0-2.7) L Arterial Blood pH 7.443 (7.350-7.450) Arterial Blood Partial Pressure CO2 46.4 mmHg (35.0-45.0) H Arterial Blood Partial Pressure O2 44.9 mmHg (75.0-100.0) Arterial Blood HCO3 31.0 mmol/L (22.0-26.0) H Arterial Blood Oxygen Saturation 78.7 % (95-100) *L Arterial Blood Base Excess 6.1 (-2-2) H Danyn Test Positive Plan Problems: (1) CHF (congestive heart failure) (2) Hypernatremia (3) Renal failure (4) Lung mass Assessment & Plan: noted new lung mass opacity on cxr compared to prior and seen once stable can plan for chest ct The cardiomediastinal silhouette is unchanged in appearance when accounting for differences in projection and technique. There is mild pulmonary vascular congestion. Streaky bibasilar airspace opacities are noted. There is a nodular opacity in the right midlung measuring approximately 2.6 cm. No pneumothorax or pleural effusion. No acute osseous abnormality. IMPRESSION: 1. Pulmonary vascular congestion with streaky bibasilar airspace opacities which could represent combination of edema and atelectasis but pneumonia should be excluded clinically. 2. Opacity in the right midlung, not seen on prior examination, suspicious for pulmonary nodule. Comparison with more recent prior chest radiograph or follow- up with CT chest on nonemergent basis is recommended. (5) Transaminitis Assessment & Plan: elevated lft's on admission etiology unknown US abd ordered trend labs fluids meds reviewed will follow with recs thank you DAILY ESTIMATED NEEDS: Needs based on DM, Renal, bedbound, 77kg abw 23-28 kcals/kg 3699-7701 total kcals 1.25-1.5 g protein/kg 96-116 g total protein 25-30 mL/kg 0337-4307 total fluid mLs NUTRITION DIAGNOSIS: Swallowing difficulty r/t dysphagia as evidenced by pt is GT dependent. (CURRENT TF: Glucerna 1.2 @50) ENTERAL NUTRITION RECOMMENDATIONS: GLUCERNA 1.2 goal of 70ml/hr x22 hrs + Prosource 1 pack qdaily to provide 1540ml, 1848 kcal, 92g + 11g pro, 1240ml free H2O - Rec to increase TF rate to better meet est kcal and pro needs. - Increase as able by 15ml/hr q4-6 hrs to goal - HOLD TF 1 hr before and after synthroid meds. - Flush per HOB over 30 degrees. With elevated lytes and worsening renal labs rec NEPRO w/ goal of 45ml/hr x22 hrs to provide: 990ml, 1782 kcal, 80g pro, 720ml free H2o. -Add Prosource 1 pack BID for added 22g pro to better meet est pro needs. ADDITIONAL RECOMMENDATIONS: 1) Monitor lytes, renal labs-> need for renal formula 2) Recalibrate bed scale wts 3) Hypoglycemic agents for improved BG control Rec niss w/ accuchecks 4) Hold TF 1 hr before and after synthroid meds. 5) rec HgA1C Liver: The liver is normal in size and demonstrates coarsened echotexture. No focal abnormalities are noted. Gallbladder: No cholelithiasis. Gallbladder wall is not thickened. No pericholecystic fluid. Sonographic Reed sign cannot be assessed due to patient unresponsiveness. Common bile duct: Normal in size. Pancreas: Incompletely imaged due to overlying bowel gas. Kidneys: The kidneys demonstrate increased cortical echogenicity. No hydronephrosis or nephrolithiasis. There is a right renal cyst. Spleen: The spleen is normal in size and echogenicity. Incidental note is made of indwelling gastrostomy tube. IMPRESSION: 1. Coarsened hepatic echotexture, which is nonspecific but can be associated with liver dysfunction. 2. Increased echogenicity in the kidneys, which can be seen with medical renal disease. (6) Elevated troponin (7) Chest pain (8) COPD exacerbation Osman Cheung Feb 10, 2020 18:04
--- NOTE | 2020-02-10 19:24 | NUR ---
NURSE NOTES: Report received from PRITI Romeo. Patient is awake on bed, alert and oriented x 1. hangersmith is in place, shows sinus rhythm. On oxygen @ BIPAP 15/4, fi02 100%. With g-tube on Glucerna 1.2 @ 50 cc/hour. IV site is on left forearm g-20 and left hand g-24 saline locked that is patent and intact. On fall and aspiration precaution. Safety measures are in place, bed in lowest and locked position, side rails up x 2, call light button and bedside table within reach, instructed to call for any assistance needed. Will continue plan of care.
--- NOTE | 2020-02-10 19:25 | NUR ---
NURSE HAND-OFF: Important Events on Shift: Patient Status: Diet: Pending Orders: Pending Results/Labs: Pending MD notification: Latest Vital Signs: Temperature 97.0 , Pulse 67 , B/P 98 /55 , Respiratory Rate 26 , O2 SAT 73 , Venturi Mask, O2 Flow Rate 100.0 . Vital Sign Comment: Latest Gibson Fall Score: 70 Fall Risk: High Risk Safety Measures: Call light Within Reach, Bed Alarm Zone 1, Side Rails Side Rails x2, Bed position Low and Locked. Fall Precautions: Yellow Socks Yellow Gown Door Sign Patient Fall Education Report given to . pt is awake with SPO2 73% HR 73. Endorsed plan of care, endorsed to monitor SPO2.
[2020-02-10 20:00] VITALS: BP 102/57
[2020-02-10] MEDS: Atorvastatin 80mg tab GT SCH (20:43)
[2020-02-10] MEDS: Levemir Flexpen SUBQ SCH (20:47)
[2020-02-11] VITALS: BP 108/72
--- NOTE | 2020-02-11 00:20 | NUR ---
NURSE NOTES: Patient's temperature at this time is 94.6, place nick rock. Will continue to monitor his temperature
[2020-02-11 04:00] VITALS: BP 107/54
--- NOTE | 2020-02-11 04:34 | Cardiology Progress Note ---
Subjective DATE OF SERVICE: Feb 10, 2020 Increasingly congested with worsening acid-base parameters and hypoxia Poorly responsive. COVID-19 positive. updated again on deterioration in status; DNR reaffir med. CXR on 02/08 revealed worsening infiltrate/edema; concerning RUL nodule. Continues on total care with skin/nutrition/resp rx GTube replaced and functioning well ABG (02/07) 7.43/48/48 MONITOR: sinus arrhythmia with episodes of bradycardia Objective Last 24 Hour Vital Signs Date Time Temp Pulse Resp B/P (MAP) Pulse Ox O2 Delivery O2 Flow Rate FiO2 02/11/20 04:00 Bi-pap 100.0 02/11/20 04:00 64 02/11/20 04:00 100 02/11/20 04:00 94.7 67 29 107/54 (71) 76 02/11/20 00:00 Bi-pap 100.0 02/11/20 00:00 94.6 83 27 108/72 (84) 83 02/11/20 00:00 67 02/10/20 23:44 45 21 70 100 02/10/20 21:00 Bi-pap 100.0 02/10/20 20:43 71 110/52 02/10/20 20:00 100 02/10/20 20:00 97.0 68 26 102/57 (72) 88 02/10/20 19:30 45 23 73 100 02/10/20 19:30 78 Bi-Pap 100 02/10/20 19:21 72 02/10/20 16:00 97.0 67 26 98/55 (69) 73 02/10/20 16:00 100 02/10/20 15:38 66 02/10/20 15:28 61 21 76 100 02/10/20 12:00 97.2 67 25 113/83 (93) 75 02/10/20 11:50 78 28 78 100 02/10/20 11:39 55 02/10/20 09:34 80 114/71 02/10/20 09:34 80 114/71 02/10/20 09:00 Bi-pap 100.0 02/10/20 08:31 100 02/10/20 08:00 97.0 80 28 114/71 (85) 75 02/10/20 08:00 70 02/10/20 07:43 81 28 78 100 02/10/20 07:43 78 Bi-Pap 100 ROS: unchanged from 01/23/20 RHYTHM: NSR, PVCs, PACs, VT LUNGS: coarse breath sounds, bilat. rhonchi and rales CARDIAC: normal rate, regular rhythm, normal S1 and S2, gallop/S4 ABDOMEN: non tender, soft, no organomegaly, G-Tube intact EXTREMITIES: No edema Microbiology Date/Time Source Procedure Growth Status 02/09/20 04:50 Nasopharynx SARS-CoV-2 RdRp Gene Assay - Final Complete Assessment/Plan Assessment/Plan COVID 19 PNA Severe hypoxia Healthcare acquired PNA Acute respiratory failure Lactic acidosis Acute myocardial ischemia/possible NSTE myocardial infarction COPD Ac/chr systolic/diast CHF with worsening prerenal state following diuresis. Ischemic cardiomyopathy Severe dehydration/hypernatremia improving Hypernatremia Hyperchloremia PAD with prior revascularization Dysphagia with GTube CVA with dementia Paroxysmal atrial arrhythmias IRDM uncontrolled Non-sustained ventricular tachycardia Hypertension/HHD with elevated BP Lung nodule Resp therapy - non-rebreather mask Free water replacement Hold antiHTN and anti-anginal regimen for low range BP. Cont'd anti-plt therapy Oxygen and bronchodilator rx DVT prophylaxis Monitor and replace lytes Hold beta steve rx Levemir titration Steroids added CALLED , Jasmin Peres, and updated on new diagnoses. Based on co-morbidities and diagnoses, Condition critical and prognosis guarded. understands, and still feels DNR/DNI appropriate at this time. Osmani Cevallos MD Feb 11, 2020 04:34
[2020-02-11] MEDS ORDERED: HydrALAZINE 25mg tab ORAL PRN (04:45)
[2020-02-11] MEDS: NovoLOG Insulin Flexpen SUBQ SCH ×2 (06:02→06:03)
--- NOTE | 2020-02-11 07:40 | NUR ---
NURSE NOTES: Received report from PRITI Arenas. Patient does not response to deep pain, AOX0, Patient on BIPAP 15/4 Fio2 100%, unable to measure blood pressure, SB with HR 30s. Patient DNR/DNI. IV on left FA 20G, left hand 24G, asymptomatic, patent, intact. Bed in lowest position, side rails upx3, call light within reach, bed alarm on, Will continue to monitor.
--- NOTE | 2020-02-11 08:00 | NUR ---
NURSE NOTES: Page Dr. Diaz and Dr. Cevallos regarding patient asystole, ED MD pronounce @ 5400. Family member Jasmin Peres called to notified. Tele : [phone]. [facility] [employer] notified, spoke with Apolonia.
--- NOTE | 2020-02-11 08:00 | Emergency Room Report ---
Physical Exam Vital Signs Date Time Temp Pulse Resp B/P (MAP) Pulse Ox O2 Delivery O2 Flow Rate FiO2 02/07/20 08:00 97.0 76 20 123/57 (79) 94 02/07/20 09:00 Venturi Mask 15.0 02/07/20 20:22 40 General Appearance: thin, Chronically Ill Eyes: bilateral eye other Cardiovascular #1: other - no pulse Medical Decision Making Diagnostic Impression: Primary Impression: COPD exacerbation Additional Impressions: Transaminitis CHF (congestive heart failure) Hypernatremia Renal failure Lung mass Elevated troponin ER Course 89-year-old male, multiple comorbidities hospitalized for CHF COPD currently DNR/DNI Called to bedside to pronounce patient , at 7:52 AM Last Vital Signs Date Time Temp Pulse Resp B/P (MAP) Pulse Ox O2 Delivery O2 Flow Rate FiO2 02/11/20 04:00 Bi-pap 100.0 02/11/20 04:00 64 02/11/20 04:00 100 02/11/20 04:00 94.7 29 107/54 (71) 76 Disposition: Condition: Referrals: Aleksey Diaz MD (PCP) Usama Fowler MD Feb 11, 2020 08:00
[2020-02-11 08:04] LABS: ALBUMIN 1.6 G/DL (3.4-5.0); ALBUMIN/GLOBULIN RATIO 0.4 (1.0-2.7); BILIRUBIN,TOTAL 0.3 MG/DL (0.2-1.0); CALCIUM 9.1 MG/DL (8.5-10.1); CREATINE KINASE 45 U/L (26-308); CREATININE 2.8 MG/DL (0.55-1.30); POTASSIUM 3.9 MMOL/L (3.5-5.1)
--- NOTE | 2020-02-11 08:19 | NUR ---
PRONOUNCEMENT: No Code. Called to pronounce patient. Absence of spontaneous respirations, no cardiac or breath sounds on auscultation. Pupils fixed and dilated. No carotid pulse or chest movement. Patient at 0752. DR Diaz notified PER Dr. Fowler. Family was notified at 0800.
[2020-02-11] MEDS: dexAMETHasone 10mg/ml Inj IV SCH (09:00)
[2020-02-11] MEDS: Enoxaparin 30mg Inj SUBQ SCH (09:00)
[2020-02-11] MEDS: Aspirin Baby 81mg GT SCH (09:00)
--- NOTE | 2020-02-11 11:30 | NUR ---
NURSE NOTES: Spoke with Daughter Cody Nance, regarding Mort[facility]. Per Luis Ross tele: [phone] [place] [id number] , verbal consent to release body received, second RN to hear SIVAN Miguel. Spoke withe Charlene from [facility], was informed will black pickler the body in 90min. CN made aware.
[2020-02-11] MEDS ORDERED: 1/2 NS 1000ml IV ONE (12:15)
--- NOTE | 2020-02-11 13:10 | NUR ---
NURSE NOTES: [employer] personnel came to fiber picker the body, no belongings.
--- NOTE | 2020-02-11 16:11 | Discharge Summary ---
Discharge Summary Discharge Summary _ summary Date of admission: 01/23/2020 Date of expiration: 02/11/[address] Diaz History of Present Illness and Brief Hospital Course Mr. Peres was a 89-year-old male from a retirement facility with past medical history of CHF, diabetes, COPD, encephalopathy, functional quadriplegia, GERD, MD, CAD, and dementia, who presented to the emergency department for evaluation of hypoxemia. Patient was G tube dependent. Patient was unable to give any type of history on arrival to the ED. He was initially treated for COPD exacerbation with nebulizer treatments. Patient also received IV hydration, and broad-spectrum IV antibiotics in the ER and was admitted for further evaluation and care. The initial rapid COVID-19 test was negative. On evaluation in the emergency room, the patient's laboratories were significant for severe hypernatremia of 169 and BUN of 105. He was noted to have elevated liver function test. Chest x-ray revealed mild diffuse interstitial opacities, and right lung mass. Patient received Lasix 40 mg diuretics for CHF. BUN, creatinine, and BNP were monitored. The dose of Lasix was decreased to 20 mg and was eventually held. Patient was on high-dose steroids which could have elevate BUN. Patient had transient hypernatremia which was resolved with hypotonic IV fluids. Insulin was started to control his blood glucose level. Hydration was continued initially with water via G-tube that was in place on arrival to the ED. Soon, IV fluids were discontinued for the purpose of diuresis for CHF. A new lung mass opacity on chest x-ray was noted compared to prior, which was suspicious for pulmonary nodule. Comparison with more recent prior chest radiograph for follow-up or CT chest on nonemergent basis was recommended and considered. Patient was unlikely to be a candidate at age 89 with comorbidities for thoracic surgery. Patient's LFTs were elevated on admission with unknown etiology. Ultrasound of the abdomen showed coarsened hepatic echotexture which was nonspecific but could be associated with liver dysfunction. For DVT prophylaxis measure, patient was put on heparin which was eventually replaced with SCD following negative result on venous duplex ultrasound of the lower extremities. Patient had multiple cardiac related comorbidities including but not limited to CVA, paroxysmal atrial arrhythmias, nonsustained ventricular tachycardia, and hypertension. Patient continue to receive antihypertensives and antianginal regimen with antiplatelet therapy. Because of his prolonged admission, stress ulcer prophylaxis was put in place, including skin care and turning every 2 hours. Patient was provided with supplemental oxygen via Venturi mask for hypoxia. His ABG on 02/08/2020 showed pH of 7.435, PCO2 of 48.2, PO2 of 47.7. On 02/09/2020 supplemental oxygen was given via BiPAP. Repeat ABG on 02/09/2020 showed pH of 7.443, PCO2 of 46.4, PO2 of 44.9. On 02/05/2020, the G-tube was out of place which had been replaced at the bedside with a 20French balloon type G-tube without any complications. Feeds and water flushes were restarted. Residuals were monitored. Chest x-ray on 01/23/2020 revealed pulmonary vascular congestion with streaky bibasilar airspace opacities, and opacity in the right midlung which was suspicious for pulmonary nodule. Patient's rapid initial COVID-19 test on 01/23/2020 was negative. COVID-19 PCR test on 01/24/2020 was also negative. Patient was observed off antibiotics. Patient received methylprednisolone from 01/30/2022 for 10 days. However, a repeat rapid COVID-19 test came back positive on 02/09/2020. Chest x-ray on 02/08 showed worsening moderate bilateral predominantly lower lobe infiltrates. Patient was started on Decadron. Dr. Cevallos called , Jasmin Peres, and updated on new diagnosis of COVID-19 pneumonia on 02/10/2020. Based on comorbidities and diagnoses, felt it was appropriate to change his code to DNR/DNI at this time. On 02/11/2020 patient did not respond to deep pain, was alert and oriented x0. Patient was found to be in sinus bradycardia with heart rate in the 30s. Soon, patient was found to be in asystole. Patient was in DNR/DNI status at this time. ER MD was called to pronounce at 7:52 AM. Patient showed absence of spontaneous respirations, no cardiac or breath sounds on auscultation with pupils fixed and dilated. No carotid pulse or chest movement was appreciated. Consultants: Cardiology Dr. Cevallos Infectious disease Dr. Gallo, Dr. Florence Nephrology Dr. Campo Surgery Dr. Cheung Gastroenterology Dr. Jeffery Final diagnoses COVID-19 pneumonia Severe hypoxia Healthcare acquired pneumonia Lactic acidosis Acute MD/possible NSTEMI COPD exacerbation Ischemic cardiomyopathy Severe dehydration Hypernatremia Hyperchloremia PAD with prior revascularization Dysphagia with GT tube CVA Dementia Paroxysmal atrial arrhythmias Diabetes mellitus Nonsustained ventricular tachycardia Hypertension Lung nodule History of anemia Proteinuria Acute kidney injury CKD stage III I have been assigned to dictate discharge summary for this account. I was not involved in the patient's management Kasi Walden Feb 11, 2020 16:11
--- NOTE | 2020-02-12 01:00 | Cardiology Progress Note ---
Subjective DATE OF SERVICE: Feb 11, 2020 Appears pre-terminal. contacted by phone, and updated; DNR reaffirmed. COVID-19 positive. updated again on deterioration in status; DNR reaffirmed. CXR on 02/08 revealed worsening infiltrate/edema; concerning RUL nodule. Continues on total care with skin/nutrition/resp rx GTube replaced and functioning well ABG (02/07) 7.43/48/48 MONITOR: sinus arrhythmia with episodes of bradycardia Objective Last 24 Hour Vital Signs Date Time Temp Pulse Resp B/P (MAP) Pulse Ox O2 Delivery O2 Flow Rate FiO2 02/11/20 04:00 Bi-pap 100.0 02/11/20 04:00 64 02/11/20 04:00 100 02/11/20 04:00 94.7 67 29 107/54 (71) 76 02/11/20 03:47 44 21 75 100 ROS: unchanged from 01/23/20 RHYTHM: NSR, PVCs, PACs, VT LUNGS: coarse breath sounds, bilat. rhonchi and rales CARDIAC: normal rate, regular rhythm, normal S1 and S2, gallop/S4 ABDOMEN: non tender, soft, no organomegaly, G-Tube intact EXTREMITIES: No edema Laboratory Tests Test 02/11/20 03:17 02/11/20 05:44 Sodium Level 147 MMOL/L (136-145) H Potassium Level 3.9 MMOL/L (3.5-5.1) Chloride Level 108 MMOL/L (98-107) H Carbon Dioxide Level 31 MMOL/L (21-32) Anion Gap 8 mmol/L (5-15) Blood Urea Nitrogen 177 mg/dL (7-18) H Creatinine 2.8 MG/DL (0.55-1.30) H Estimat Glomerular Filtration Rate 25.9 mL/min (>60) Glucose Level 140 MG/DL (74-106) H Calcium Level 9.1 MG/DL (8.5-10.1) Total Bilirubin 0.3 MG/DL (0.2-1.0) Aspartate Amino Transf (AST/SGOT) 46 U/L (15-37) H Alanine Aminotransferase (ALT/SGPT) 37 U/L (12-78) Alkaline Phosphatase 220 U/L (46-116) H Total Creatine Kinase 45 U/L (26-308) Total Protein 5.4 G/DL (6.4-8.2) L Albumin 1.6 G/DL (3.4-5.0) L Globulin 3.8 g/dL Albumin/Globulin Ratio 0.4 (1.0-2.7) L Hepatitis A IgM Antibody Pending Hepatitis B Surface Antigen Pending Hepatitis B Core IgM Antibody Pending Hepatitis C Antibody Pending POC Whole Blood Glucose Pending Microbiology Date/Time Source Procedure Growth Status 02/09/20 04:50 Nasopharynx SARS-CoV-2 RdRp Gene Assay - Final Complete Assessment/Plan Assessment/Plan COVID 19 PNA Severe hypoxia Healthcare acquired PNA Acute respiratory failure Lactic acidosis Acute myocardial ischemia/possible NSTE myocardial infarction COPD Ac/chr systolic/diast CHF with worsening prerenal state following diuresis. Ischemic cardiomyopathy Severe dehydration/hypernatremia improving Hypernatremia Hyperchloremia PAD with prior revascularization Dysphagia with GTube CVA with dementia Paroxysmal atrial arrhythmias IRDM uncontrolled Non-sustained ventricular tachycardia Hypertension/HHD with elevated BP Lung nodule Resp therapy - non-rebreather mask Free water replacement Hold antiHTN and anti-anginal regimen for low range BP. Cont'd anti-plt therapy Oxygen and bronchodilator rx DVT prophylaxis Monitor and replace lytes as needed. Hold beta steve rx Levemir titration Steroids cont'd Osmani Cevallos MD Feb 12, 2020 01:00
== END 2020-02-11 12:16 | disposition expired | DRG 193 ==
LOC: EDBD 11:20 → EMR 12:01 → 2E 14:55 → EDBEDREQ 16:35 → 4E 01-29 14:04 → 2W 02-09 05:45
PROC: 0D20XUZ Change Feeding Device in Upper Intestinal Tract, External Approach (ICD-10-PCS; principal; 2020-02-05)
DX: J18.9 Pneumonia, unspecified organism (principal); I50.43 Acute on chronic combined systolic (congestive) and diastolic (congestive) heart failure; I21.4 Non-ST elevation (NSTEMI) myocardial infarction; E43 Unspecified severe protein-calorie malnutrition; U07.1 COVID-19; R53.2 Functional quadriplegia; J44.1 Chronic obstructive pulmonary disease with (acute) exacerbation; E87.0 Hyperosmolality and hypernatremia; N17.9 Acute kidney failure, unspecified; E87.2 Acidosis; I13.0 Hypertensive heart and chronic kidney disease with heart failure and stage 1 through stage 4 chronic kidney disease, or unspecified chronic kidney disease; I47.1 Supraventricular tachycardia; J44.0 Chronic obstructive pulmonary disease with (acute) lower respiratory infection; J12.89 Other viral pneumonia; I25.5 Ischemic cardiomyopathy; R09.02 Hypoxemia; E86.0 Dehydration; E87.8 Other disorders of electrolyte and fluid balance, not elsewhere classified; E11.65 Type 2 diabetes mellitus with hyperglycemia; E11.51 Type 2 diabetes mellitus with diabetic peripheral angiopathy without gangrene; E11.22 Type 2 diabetes mellitus with diabetic chronic kidney disease; N18.30 Chronic kidney disease, stage 3 unspecified; R13.10 Dysphagia, unspecified; Z93.1 Gastrostomy status; Z86.73 Personal history of transient ischemic attack (TIA), and cerebral infarction without residual deficits; D64.9 Anemia, unspecified; R80.9 Proteinuria, unspecified; Z68.26 Body mass index [BMI] 26.0-26.9, adult; R91.1 Solitary pulmonary nodule; I25.10 Atherosclerotic heart disease of native coronary artery without angina pectoris; I48.0 Paroxysmal atrial fibrillation; Z66 Do not resuscitate
CPT/HCPCS: 36415; 71045; 76700; 80048; 80053; 80076; 81003; 82044; 82150; 82550; 82553; 82570; 82728; 82803; 82962; 83605; 83615; 83690; 83735; 83880; 84134; 84443; 84484; 85007; 85025; 85379; 85610; 85651; 85730; 86140; 86705; 86709; 86710; 86803; 87040; 87070; 87081; 87205; 87340; 93005; 93306; 93970; 94640; 94660; 94664; 99285; J1815; J7620; S5561; U0002